=== PATIENT | female | born 1945 | race Caucasian/White ===

== ENCOUNTER 2018-03-29 16:13 | Inpatient (IN) | payer OTHER, MEDICARE ==
[2018-03-29 17:16] LABS: Absolute Lymphocytes (CBC) 0.7 K/uL (0.7-4.9); Absolute Monocytes 0.3 K/uL (0.1-1.3); Basophils % 0.3 % (0-1.3); Eosinophils % 0.4 % (0-4.4); Hematocrit 31.1 % (36.0-45.0); Lymphocytes % 9.8 % (15.3-44.8); MCH 31.4 pg (27.0-35.0); MCV 94.7 fL (80-100); MPV 7.8 fL (7.6-11.3); Monocytes % 4.7 % (3.3-12.3); RBC Red Blood Cell Count 3.29 M/uL (3.86-4.86)
[2018-03-29 17:21] LABS: Protime INR 1.01
--- NOTE | 2018-03-29 17:23 | RAD REPORT ---
EXAM DESCRIPTION: Jane Single View03/29/2018 5:16 pm CLINICAL HISTORY: Shortness of breath COMPARISON: December 2017 FINDINGS: Postsurgical changes involve the chest. The heart is enlarged Moderate left pleural effusion is equivocally mildly enlarged from a prior exam Small to moderate right pleural effusion is unchanged. Bibasilar atelectasis is seen. Upper lobes appear clear
[2018-03-29 17:44] LABS: ALT/SGPT 23 U/L (12-78); AST/SGOT 21 U/L (15-37); Albumin 2.6 g/dL (3.4-5.0); Alkaline Phosphatase 51 U/L (45-117); BUN Blood Urea Nitrogen 29 mg/dL (7-18); Bicarbonate 40 mmol/L (21-32); Bilirubin Direct 0.1 mg/dL (0-0.2); Bilirubin Total 0.5 mg/dL (0.2-1.0); CKMB Creatine Kinase MB < 1.0 ng/mL (0.3-3.6); Creatine Phosphokinase 19 U/L (26-192); Glucose Level 102 mg/dL (74-106); Magnesium 2.1 mg/dL (1.8-2.4); NT PRO-BNP 2395 pg/mL (<125); Potassium 4.8 mmol/L (3.5-5.1); Protein, Total 6.5 g/dL (6.4-8.2); Sodium Level 142 mmol/L (136-145)
[2018-03-29] MEDS ORDERED: IPRATROPIUM BROM 0.5MG/2.5ML ONE (17:59)
[2018-03-29] MEDS ORDERED: ALBUTEROL 2.5 MG/3 ML NEB SOL ONE (17:59)
--- NOTE | 2018-03-29 18:01 | ER ---
Nurse's Notes [facility] Name: Shannan Olivia Age: 72 yrs Sex: Female : 1945 Arrival Date: 03/29/2018 Time: 16:18 Bed 13 Private MD: Mickey Gates C Diagnosis: Unspecified combined systolic (congestive) and diastolic (congestive) heart failure;Orthopnea;Dyspnea, unspecified Presentation: 03/29 16:33 Presenting complaint: Patient states: has had shamir leg swelling X 2-3 days, no increased iw SOB. Transition of care: patient was not received from another setting of care. Onset of symptoms was March 27, 2018. Risk Assessment: Do you want to hurt yourself or someone else? Patient reports no desire to harm self or others. Initial Sepsis Screen: Does the patient meet any 2 criteria? No. Patient's initial sepsis screen is negative. Does the patient have a suspected source of infection? No. Patient's initial sepsis screen is negative. Care prior to arrival: None. 16:33 Method Of Arrival: Wheelchair iw 16:33 Acuity: KANU 3 iw Historical: - Allergies: 16:41 NKA; iw - Home Meds: 16:41 Vitamin C 500 mg Oral tab daily [Active]; CoQ-10 oral oral daily [Active]; senior iw multivitamin daily [Active]; aspirin 81 mg Oral TbEC 1 tab once daily [Active]; Breo Ellipta 100-25 mcg/dose inhalation dsdv 1 puff once daily [Active]; furosemide 40 mg Oral tab 1 tab once daily [Active]; carvedilol 3.125 mg oral tab daily [Active]; montelukast 10 mg oral tab 1 tab once daily [Active]; Iron CR Oral daily [Active]; mirtazapine 15 mg Oral tab 1 tab once daily [Active]; ibandronate 150 mg oral tab 1 tab once moly [Active]; spironolactone 25 mg Oral tab 1 tab once daily [Active]; prednisone 5 mg Oral tab once daily [Active]; lorazepam 0.5 mg Oral tab 1 tab 2 times per day [Active]; - PMHx: 16:41 acid reflux; Asthma; Hypertension; pleural effusion-06/2015; Pneumonia; shingles; COPD; iw CHF; - PSHx: 16:41 CHEST TUBE; valve replacement; iw - Immunization history:: Adult Immunizations up to date. - Social history:: Smoking status: Patient/guardian denies using tobacco. - Ebola Screening: : Patient negative for fever greater than or equal to 101.5 degrees Fahrenheit, and additional compatible Ebola Virus Disease symptoms Patient denies exposure to infectious person Patient denies travel to an Ebola-affected area in the 21 days before illness onset No symptoms or risks identified at this time. Screenin:20 Abuse screen: Denies threats or abuse. Nutritional screening: No deficits noted. em Tuberculosis screening: No symptoms or risk factors identified. Fall Risk None identified. Assessment: 16:40 General: Appears in no apparent distress. comfortable, Behavior is calm, cooperative, em reports increased swelling in shamir. lower extremities, denies chest pain or SOB, uses O2 at home at 2LPM. Pain: Denies pain. Neuro: Level of Consciousness is awake, alert, obeys commands, Oriented to person, place, time, situation. Cardiovascular: Capillary refill < 3 seconds Patient's skin is warm and dry. Cardiovascular: Edema is 3+ to left ankle, left foot, left toes, right ankle, right foot and right toes pitting to left ankle, left foot, left toes, right ankle, right foot and right toes Rhythm is irregular. Respiratory: Airway is patent Respiratory effort is even, unlabored, Breath sounds are clear bilaterally. Denies shortness of breath. GI: Abdomen is flat. : No signs and/or symptoms were reported regarding the genitourinary system. EENT: No signs and/or symptoms were reported regarding the EENT system. Derm: Skin is intact, Skin is pink, warm \T\ dry. Musculoskeletal: Range of motion: intact in all extremities. 17:00 Reassessment: Patient appears in no apparent distress at this time. I agree with above iw assessment by Quang Mccullough LVN. 17:37 Reassessment: Patient appears in no apparent distress at this time. Patient and/or em family updated on plan of care and expected duration. Pain level reassessed. Patient is alert, oriented x 3, equal unlabored respirations, skin warm/dry/pink. BP 120/33 R arm, 115/31 L arm, HR 83 provider notified of VS, no new orders received at this time, will continue to monitor Patient denies pain at this time. 18:35 Reassessment: Patient appears in no apparent distress at this time. Patient and/or em family updated on plan of care and expected duration. Pain level reassessed. Patient is alert, oriented x 3, equal unlabored respirations, skin warm/dry/pink. assisted pt to bedside commode, tolerated well. 19:30 Reassessment: Patient appears in no apparent distress at this time. Patient and/or aa1 family updated on plan of care and expected duration. Pain level reassessed. Patient is alert, oriented x 3, equal unlabored respirations, skin warm/dry/pink. Awaiting bed assignment. Reassessment: Patient appears in no apparent distress at this time. Patient and/or family updated on plan of care and expected duration. Pain level reassessed. Patient is alert, oriented x 3, equal unlabored respirations, skin warm/dry/pink. Bed assignment received at this time. Report called to Lucille on 4th floor. Vital Signs: 16:41 BP 139 / 38; Pulse 96; Resp 22 S; Temp 98.3(TE); Pulse Ox 94% on 2 lpm NC; Weight 52.62 iw kg; Height 5 ft. 2 in. (157.48 cm); Pain 0/10; 17:37 BP 120 / 33; Pulse 83; Resp 22; Pulse Ox 98% 2 lpm ; Pain 0/10; em 18:39 BP 106 / 34; Pulse 93; Resp 24; Pulse Ox 94% on 2 lpm NC; Pain 0/10; em 20:07 BP 112 / 54; Pulse 82; Resp 24; Pulse Ox 97% on 2 lpm NC; Pain 0/10; aa1 16:41 Body Mass Index 21.22 (52.62 kg, 157.48 cm) ED Course: 16:18 Patient arrived in ED. mr 16:18 Mickey Gates MD is Private Physician. mr 16:23 Quang Mccullough LVN is Primary Nurse. em 16:24 Han Felix PA is PHCP. cp 16:24 Ugo Rosario MD is Attending Physician. cp 16:35 Triage completed. iw 16:36 EKG done, by senior director of global commercial technology solutions. reviewed by Han ZARATE. sm3 16:41 Arm band placed on. iw 17:00 No provider procedures requiring assistance completed. Initial lab(s) drawn, by me, em sent to lab. Inserted saline lock: 20 gauge in right antecubital area, using aseptic technique. Blood collected. 17:13 XRAY Chest (1 view) In Process Unspecified. EDMS 17:20 Patient has correct armband on for positive identification. Placed in gown. Bed in low em position. Call light in reach. Adult w/ patient. 17:59 Mickey Gates MD is Hospitalizing Provider. cp 18:18 US Extremity Venous W Compression Shamir In Process Unspecified. EDMS 18:22 Ultrasound completed. Patient tolerated well. Notified CHIEF OF STAFF/TESSA blanc. sg3 20:27 Patient admitted, IV remains in place. aa1 Administered Medications: 17:57 Drug: Albuterol 2.5 mg Route: Inhalation; em 18:46 Follow up: Response: No adverse reaction em 17:57 Drug: AtroVENT Aerosol 0.5 mg Route: Inhalation; em 18:48 Follow up: Response: No adverse reaction em 18:15 Drug: Lasix 40 mg Route: IVP; Site: right antecubital; iw 18:47 Follow up: Response: No adverse reaction em Outcome: 18:01 Decision to Hospitalize by Provider. cp 20:27 Admitted to Tele accompanied by tech, family with patient, via stretcher, room 420, aa1 with oxygen, with chart, Report called to Lucille 20:27 Condition: stable 20:27 Instructed on the need for admit, Demonstrated understanding of instructions. 20:28 Patient left the ED. aa1 Signatures: Dispatcher [employer] EDMS Teri Stewart RN RN aa1 Lucille Olsen Quang Mccullough, EXECUTIVE OFFICE MANAGER EXECUTIVE OFFICE MANAGER em Cee Concepcion RN RN iw Han Felix PA PA cp Godinez, Sarah sg3 Elysia Nieves sm3 Corrections: (The following items were deleted from the chart) 16:42 16:41 BP 139 / 38; Pulse 96bpm; Resp 24bpm; Spontaneous; Pulse Ox 94% 2 lpm Nasal iw Cannula; 52.62 kg; Height 5 ft. 2 in.; BMI: 21.2; Pain 0/10; iw
--- NOTE | 2018-03-29 18:01 | EDPHYS ---
Physician Documentation [facility] Name: Shannan Olivia Age: 72 yrs Sex: Female : 1945 Arrival Date: 03/29/2018 Time: 16:18 Bed 13 Private MD: Mickey Gates C ED Physician Ugo Rosario HPI: 03/29 17:00 This 72 yrs old Female presents to ER via Wheelchair with complaints of cp Shortness Of Breath, Leg Swelling. 17:00 The patient has shortness of breath with light activity. Onset: The symptoms/episode cp began/occurred gradually. Duration: The symptoms are continuous, and are steadily getting worse. The patient's shortness of breath is aggravated by light activity, supine position, activities of daily living. Associated signs and symptoms: Pertinent negatives: chest pain, productive cough, fever, hemoptysis. Severity of symptoms: in the emergency department the symptoms are unchanged despite home interventions. Historical: - Allergies: 16:41 NKA; iw - Home Meds: 16:41 Vitamin C 500 mg Oral tab daily [Active]; CoQ-10 oral oral daily [Active]; senior iw multivitamin daily [Active]; aspirin 81 mg Oral TbEC 1 tab once daily [Active]; Breo Ellipta 100-25 mcg/dose inhalation dsdv 1 puff once daily [Active]; furosemide 40 mg Oral tab 1 tab once daily [Active]; carvedilol 3.125 mg oral tab daily [Active]; montelukast 10 mg oral tab 1 tab once daily [Active]; Iron CR Oral daily [Active]; mirtazapine 15 mg Oral tab 1 tab once daily [Active]; ibandronate 150 mg oral tab 1 tab once moly [Active]; spironolactone 25 mg Oral tab 1 tab once daily [Active]; prednisone 5 mg Oral tab once daily [Active]; lorazepam 0.5 mg Oral tab 1 tab 2 times per day [Active]; - PMHx: 16:41 acid reflux; Asthma; Hypertension; pleural effusion-06/2015; Pneumonia; shingles; COPD; iw CHF; - PSHx: 16:41 CHEST TUBE; valve replacement; iw - Immunization history:: Adult Immunizations up to date. - Social history:: Smoking status: Patient/guardian denies using tobacco. - Ebola Screening: : Patient negative for fever greater than or equal to 101.5 degrees Fahrenheit, and additional compatible Ebola Virus Disease symptoms Patient denies exposure to infectious person Patient denies travel to an Ebola-affected area in the 21 days before illness onset No symptoms or risks identified at this time. ROS: 17:05 Constitutional: Negative for body aches, chills, fever, poor PO intake. cp 17:05 Eyes: Negative for injury, pain, redness, and discharge. cp 17:05 ENT: Negative for drainage from ear(s), ear pain, sore throat, difficulty swallowing, difficulty handling secretions. 17:05 Neck: Negative for pain with movement, pain at rest, stiffness, swollen nodes, tenderness. 17:05 Cardiovascular: Positive for edema, Negative for chest pain, palpitations. 17:05 Respiratory: Positive for shortness of breath, on exertion. Negative for cough, pleurisy, sputum production, wheezing. 17:05 Abdomen/GI: Negative for abdominal pain, nausea, vomiting, and diarrhea, constipation, anorexia, black/tarry stool, rectal bleeding. 17:05 Back: Negative for pain at rest, pain with movement, radiated pain. 17:05 : Negative for urinary symptoms, flank pain. 17:05 MS/extremity: Negative for injury or acute deformity, pain, paresthesias. 17:05 Skin: Positive for rash, Negative for cellulitis. 17:05 Neuro: Negative for altered mental status, headache, syncope, near syncope, weakness. 17:05 All other systems are negative. Exam: 16:40 ECG was reviewed by the Attending Physician. cp 17:08 Constitutional: The patient appears in no acute distress, alert, awake, cp non-diaphoretic, non-toxic, well developed, well nourished. 17:08 Head/Face: Normocephalic, atraumatic. Eyes: Pupils equal round and reactive to light, cp extra-ocular motions intact. Lids and lashes normal. Conjunctiva and sclera are non-icteric and not injected. Cornea within normal limits. Periorbital areas with no swelling, redness, or edema. ENT: Nares patent. No nasal discharge, no septal abnormalities noted. Tympanic membranes are normal and external auditory canals are clear. Oropharynx with no redness, swelling, or masses, exudates, or evidence of obstruction, uvula midline. Mucous membranes moist. Neck: Trachea midline, no thyromegaly or masses palpated, and no cervical lymphadenopathy. Supple, full range of motion without nuchal rigidity, or vertebral point tenderness. No Meningismus. Chest/axilla: Normal chest wall appearance and motion. Nontender with no deformity. No lesions are appreciated. 17:08 Cardiovascular: Rate: normal, Rhythm: regular, Pulses: Pulses are 2+ in right radial artery and left radial artery. Edema: ankle edema, that is moderate, JVD: is not appreciated. 17:08 Respiratory: the patient does not display signs of respiratory distress, Respirations: labored breathing, is not present, accessory muscle usage, is absent, shallow respirations, that is mild, tachypnea, that is mild, Breath sounds: decreased breath sounds, that are moderate, are located in both bases, stridor, is not appreciated, wheezing: is not appreciated, Respiratory rate: 22 17:08 Abdomen/GI: Inspection: abdomen appears normal, Bowel sounds: active, all quadrants, Palpation: abdomen is soft and non-tender, in all quadrants, rebound tenderness, is not appreciated, voluntary guarding, is not appreciated, involuntary guarding, is not appreciated. 17:08 Back: pain, is absent, ROM is normal. 17:08 Skin: cellulitis, is not appreciated, rash can be described as erythematous, excoriated, on the bilateral lower legs. 17:08 Neuro: Orientation: to person, place \T\ time. Mentation: lucid, able to follow commands, Cerebellar function: is grossly normal, Motor: moves all fours, strength is normal, Sensation: no obvious gross deficits. Vital Signs: 16:41 BP 139 / 38; Pulse 96; Resp 22 S; Temp 98.3(TE); Pulse Ox 94% on 2 lpm NC; Weight 52.62 iw kg; Height 5 ft. 2 in. (157.48 cm); Pain 0/10; 17:37 BP 120 / 33; Pulse 83; Resp 22; Pulse Ox 98% 2 lpm ; Pain 0/10; em 18:39 BP 106 / 34; Pulse 93; Resp 24; Pulse Ox 94% on 2 lpm NC; Pain 0/10; em 20:07 BP 112 / 54; Pulse 82; Resp 24; Pulse Ox 97% on 2 lpm NC; Pain 0/10; aa1 16:41 Body Mass Index 21.22 (52.62 kg, 157.48 cm) iw MDM: 16:29 Patient medically screened. cp 17:50 Data reviewed: vital signs, nurses notes, lab test result(s), EKG, radiologic studies, cp plain films, ultrasound, and as a result, I will admit patient. 17:50 Test interpretation: by ED physician or midlevel provider: ECG, plain radiologic cp studies. 17:56 Physician consultation: A Kody JIN was called at 17:57, was contacted at 17:57, cp regarding admission, to the telemetry unit. patient's condition, would like consultation with Dr. Serna and DR He. 03/29 16:50 Order name: Basic Metabolic Panel; Complete Time: 17:45 cp 03/29 17:45 Interpretation: Normal except: CO2 40; BUN 29; GFR 62. cp 03/29 16:50 Order name: CBC with Diff; Complete Time: 17:38 cp 03/29 17:38 Interpretation: Normal except: RBC 3.29; HGB 10.3; HCT 31.1; RDW 15.7; GIL% 84.8; LYM% cp 9.8. 03/29 16:50 Order name: Ckmb; Complete Time: 17:45 cp 03/29 16:50 Order name: CPK; Complete Time: 17:45 cp 03/29 16:50 Order name: LFT's; Complete Time: 17:45 cp 03/29 17:45 Interpretation: Normal except: ALB 2.6; GLOB 3.9; A/G 0.7. cp 03/29 16:50 Order name: Magnesium; Complete Time: 17:45 cp 03/29 16:50 Order name: NT PRO-BNP; Complete Time: 17:45 cp 03/29 16:50 Order name: PT-INR; Complete Time: 17:38 cp 03/29 16:50 Order name: Ptt, Activated; Complete Time: 17:38 cp 03/29 16:50 Order name: Troponin (emerg Dept Use Only); Complete Time: 17:38 cp 03/29 18:34 Order name: Basic Metabolic Panel EDMS 03/29 18:34 Order name: Basic Metabolic Panel EDMS 03/29 18:34 Order name: CBC with Automated Diff EDMS 03/29 18:34 Order name: CBC with Automated Diff EDMS 03/29 16:50 Order name: US Extremity Venous W Compression Jose cp 03/29 16:50 Order name: XRAY Chest (1 view); Complete Time: 17:38 cp 03/29 16:50 Order name: EKG; Complete Time: 16:51 cp 03/29 18:34 Order name: Low Sodium EDMS 03/29 18:34 Order name: EKG Electrocardiogram EDMS 03/29 18:34 Order name: EKG Electrocardiogram EDMS 03/29 18:34 Order name: NT PRO-BNP EDMS 03/29 18:34 Order name: NT PRO-BNP EDMS 03/29 18:34 Order name: Troponin I EDMS 03/29 18:34 Order name: Troponin I EDMS 03/29 18:34 Order name: Troponin I EDMS 03/29 19:25 Order name: Urine Dipstick--Ancillary (enter results) mw2 03/29 19:27 Order name: Urine Dipstick-Ancillary EDMS 03/29 16:50 Order name: Cardiac monitoring; Complete Time: 17:17 cp 03/29 16:50 Order name: EKG - Nurse/Tech; Complete Time: 17:18 cp 03/29 16:50 Order name: IV Saline Lock; Complete Time: 17:18 cp 03/29 16:50 Order name: Labs collected and sent; Complete Time: 17:18 cp 03/29 16:50 Order name: O2 Per Protocol; Complete Time: 17:18 cp 03/29 16:50 Order name: O2 Sat Monitoring; Complete Time: 17:18 cp 03/29 16:50 Order name: Urine Dipstick-Ancillary (obtain specimen); Complete Time: 19:03 cp EC:40 Rate is 88 beats/min. Rhythm is regular. OK interval is normal. QRS interval is normal. cp QT interval is normal. Interpreted by me. Reviewed by me. Administered Medications: 17:57 Drug: Albuterol 2.5 mg Route: Inhalation; em 18:46 Follow up: Response: No adverse reaction em 17:57 Drug: AtroVENT Aerosol 0.5 mg Route: Inhalation; em 18:48 Follow up: Response: No adverse reaction em 18:15 Drug: Lasix 40 mg Route: IVP; Site: right antecubital; iw 18:47 Follow up: Response: No adverse reaction em Disposition: 19:01 Co-signature as Attending Physician, Ugo Rosario MD I agree with the assessment and kdr plan of care. Disposition: 03/29/18 18:01 Hospitalization ordered by Mickey Gates for Inpatient Admission. Preliminary diagnosis are Unspecified combined systolic (congestive) and diastolic (congestive) heart failure, Orthopnea, Dyspnea, unspecified. - Bed requested for Telemetry/MedSurg (Inpatient). - Status is Inpatient Admission. aa1 - Condition is Stable. - Problem is an acute exacerbation. - Symptoms have improved. UTI on Admission? No Signatures: Dispatcher [employer] EDMS Teri Stewart RN RN aa1 Ugo Rosario MD MD kdr Quang Mccullough, TEXTILE DYER TEXTILE DYER em Cee Concepcion RN RN iw Han Felix PA PA cp Corrections: (The following items were deleted from the chart) 20:07 18:01 Hospitalization Ordered by A Kody JIN for Inpatient Admission. Preliminary aa1 diagnosis is Unspecified combined systolic (congestive) and diastolic (congestive) heart failure; Orthopnea; Dyspnea, unspecified. Bed requested for Telemetry/MedSurg (Inpatient). Status is Inpatient Admission. Condition is Stable. Problem is an acute exacerbation. Symptoms have improved. UTI on Admission? No. cp 20:28 20:07 03/29/2018 18:01 Hospitalization Ordered by A Kody JIN for Inpatient Admission. aa1 Preliminary diagnosis is Unspecified combined systolic (congestive) and diastolic (congestive) heart failure; Orthopnea; Dyspnea, unspecified. Bed requested for Telemetry/MedSurg (Inpatient). Status is Inpatient Admission. Condition is Stable. Problem is an acute exacerbation. Symptoms have improved. UTI on Admission? No. aa1
[2018-03-29] MEDS ORDERED: FUROSEMIDE 40 MG/4 ML VIAL ONE (18:04)
[2018-03-29] MEDS ORDERED: ACETAMINOPHEN 500 MG TAB PO PRN (18:30)
[2018-03-29] MEDS ORDERED: ONDANSETRON 4 MG/2 ML VIAL IV PRN (18:30)
[2018-03-29] MEDS ORDERED: ALBUTEROL 2.5 MG/3 ML NEB SOL NEB PRN (18:30)
[2018-03-29] MEDS ORDERED: IPRATROPIUM BROM 0.5MG/2.5ML NEB PRN (18:30)
--- NOTE | 2018-03-29 18:37 | RAD REPORT ---
EXAM DESCRIPTION: VAS - Extrem Venous W Compress Jose - 03/29/2018 6:19 pm CLINICAL HISTORY: Bilateral lower extremity swelling COMPARISON: None. TECHNIQUE: Real-time sonographic evaluation of the bilateral lower extremity deep venous systems was performed. FINDINGS: Normal compressibility, flow augmentation, phasic flow and spontaneous flow are identified in the left and right lower extremity common femoral, superficial femoral, popliteal and posterior t ibial veins. No intraluminal filling defects seen. IMPRESSION: No DVT in either lower extremity.
--- NOTE | 2018-03-29 19:09 | EKG ---
Test Date: 2018-03-29 Test Time: 16:33:13 Rib Builder: MATY MEASUREMENT RESULTS: Intervals: Rate: 88 WV: 164 QRSD: 98 QT: 340 QTc: 411 Honeydew: P: 46 WV: 164 QRS: 71 T: 72 INTERPRETIVE STATEMENTS: Normal sinus rhythm Possible Left atrial enlargement Nonspecific ST abnormality Abnormal ECG Compared to ECG 05/13/2016 06:39:52 ST (T wave) deviation now present Electronically Signed On 03-29-18 19:08:40 CDT by Rashaun He
[2018-03-29 19:27] LABS: Urine Blood NEGATIVE (NEG); Urine Glucose NEGATIVE (NEG); Urine Protein NEGATIVE (NEG); Urine Specific Gravity 1.015 (1.005-1.030)
[2018-03-30 06:12] LABS: Absolute Monocytes 0.5 K/uL (0.1-1.3); Absolute Neutrophil 4.3 K/uL (1.8-8.0); Basophils % 0.5 % (0-1.3); Eosinophils % 2.2 % (0-4.4); Hematocrit 28.2 % (36.0-45.0); Lymphocytes % 16.3 % (15.3-44.8); MCH 32.6 pg (27.0-35.0); MCV 94.6 fL (80-100); MPV 8.1 fL (7.6-11.3); Monocytes % 7.9 % (3.3-12.3); RBC Red Blood Cell Count 2.98 M/uL (3.86-4.86)
[2018-03-30 06:37] LABS: Potassium 4.4 mmol/L (3.5-5.1)
[2018-03-30] MEDS ORDERED: LORAZEPAM 0.5 MG TABLET PO PRN (08:34)
[2018-03-30] MEDS ORDERED: FUROSEMIDE 40 MG/4 ML VIAL IV SCH ×2 (09:00→10:50)
[2018-03-30] MEDS ORDERED: predniSONE 5 MG TAB PO SCH (09:00)
[2018-03-30] MEDS: VITAMIN E MIXED PO SCH (09:00)
[2018-03-30] MEDS: UBIDECARENONE PO SCH (09:00)
[2018-03-30] MEDS ORDERED: SPIRONOLACTONE 25 MG TABLET PO SCH (09:00)
[2018-03-30] MEDS: [UNRECOGNIZED DRUG - OTHER] PO SCH (09:00)
[2018-03-30] MEDS ORDERED: HOME MED 1 EA UNK (Fluticasone/Vilanterol [Breo Ellipta 100-25 Mcg Inh] 1 PUFF) IH SCH (09:00)
[2018-03-30] MEDS: DOCOSAHEXANOIC AC/EPA 1000 MG PO SCH (10:24)
[2018-03-30] MEDS: ASCORBIC ACID 500 MG TABLET PO SCH (10:25)
[2018-03-30] MEDS: FERROUS SULFATE 325 MG TAB PO SCH (10:25)
[2018-03-30] MEDS: CARVEDILOL 3.125 MG TAB PO SCH ×2 (10:25→21:17)
[2018-03-30] MEDS: MONTELUKAST 10 MG TAB PO SCH (10:26)
[2018-03-30] MEDS: CALCIUM CARB 500MG/VIT D 200 IU TAB PO SCH ×2 (10:26→21:28)
[2018-03-30] MEDS: ENOXAPARIN 40 MG/0.4 ML SQ SCH (10:26)
[2018-03-30] MEDS: ASPIRIN 81 MG CHEWABLE TABLET PO SCH (10:26)
[2018-03-30] MEDS: MULTIVIT W/ MINERAL TAB PO SCH (10:27)
[2018-03-30] MEDS: acetaZOLAMIDE 250 MG TAB PO SCH ×2 (10:27→21:16)
--- NOTE | 2018-03-30 10:51 | P.CNS ---
Date of Consult: 03/30/18 Reason for Consult: Shortness of breath congestive heart failure Chief Complaint: Shortness of breath History of Present Illness: Patient is 72 years of age admitted with bilateral worsening lower extremity edema history of congestive heart failure also complains of anxiety spells shortness of breath is at baseline gets very anxious when she has to go out I recently prescribed a low-dose Ativan to take as as needed basis edema has declined chest x-ray abnormal bilateral pleural effusions left greater than the right BNP is also elevated Allergies No Known Allergies Allergy (Verified 03/29/18 22:47) Home Medications: Ascorbic Acid [Vitamin C*] 500 mg PO DAILY 06/04/15 Aspirin Chewable [Aspirin Chewable*] 81 mg PO DAILY 06/04/15 Ca/D3/Mag/Zinc/Margret/Devon/Mgbor [Caltrate 600+D3+Min Chew Tab] 1 each PO BID 05/11 Carvedilol [Coreg*] 3.125 mg PO BID 06/04/15 Furosemide [Lasix*] 40 mg PO DAILY 06/04/15 Ibandronate Sodium [Boniva] 150 mg PO SEECOM 06/04/15 Montelukast [Singulair*] 10 mg PO DAILY 06/04/15 Multivit with Iron,Minerals [Central Olga For Seniors] 1 each PO DAILY 06/04/15 Iron 65 mg PO DAILY 05/13/16 Ubidecarenone/Vitamin E Mixed [Oim19-Oqh E 100 mg-10 Unit Sfg] 1 each PO DAILY 05/13/16 predniSONE [Prednisone*] 5 mg PO DAILY 05/13/16 Spironolactone [Aldactone*] 25 mg PO DAILY #30 tab 05/15/16 Fluticasone/Vilanterol [Breo Ellipta 100-25 Mcg INH] 1 puff IH DAILY 03/29/18 LORazepam [Ativan*] 0.5 mg PO BID PRN 03/29/18 Mirtazapine 15 mg PO BEDTIME 03/29/18 Murdock-3 Fatty Acids [Murdock-3] 1 cap PO DAILY 03/29/18 - Past Medical/Surgical History Diabetic: No -: CHF -: Acid Reflux -: Asthma -: HTN -: Pleural Effusion -: Pnemonia -: Aortic valve replacement -: Chest tube placement- removed 2015 -: Status post VATS further right-sided effusion - Family History Father Medical History: Heart disease, Hypertension Mother Medical History: Hypertension, Diabetes, Stroke - Social History Smoking Status: Never smoker Alcohol use: No CD- Drugs: No Caffeine use: Yes Place of Residence: Home Review of Systems 10-point ROS is otherwise unremarkable General: Weakness Respiratory: Shortness of Breath Cardiovascular: Edema Physical Examination Temp Pulse Resp BP Pulse Ox 97.0 F 95 H 18 162/66 H 97 03/30/18 08:00 03/30/18 10:25 03/30/18 08:00 03/30/18 10:25 03/30/18 08:00 General: Alert, Oriented x3 HEENT: Atraumatic Neck: Supple Respiratory: Clear to auscultation bilaterally, Diminished, Crackles/rales Cardiovascular: Regular rate/rhythm, Normal S1 S2, Edema (Mild edema), Systolic murmur Gastrointestinal: Normal bowel sounds, Soft and benign Laboratory Data (last 24 hrs) 03/29/18 17:05: PT 11.9, INR 1.01, APTT 28.5 03/29/18 17:05: WBC 7.1, Hgb 10.3 L, Hct 31.1 L, Plt Count 265 03/29/18 17:05: Sodium 142, Potassium 4.8, BUN 29 H, Creatinine 0.90, Glucose 102, Magnesium 2.1, Total Bilirubin 0.5, AST 21, ALT 23, Alkaline Phosphatase 51 - Problems (1) Congestive heart failure (CHF) Current Visit: No Status: Acute Plan: Patient is 72 years of age with a history of congestive heart failure admitted in a decompensated state continue with Lasix she has bilateral pleural effusions no evidence of sepsis patient is on spironolactone Diamox also added continue with IV Lasix spironolactone and Diamox for now not a candidate for thoracentesis oxygenation satisfactory Qualifiers: Heart failure type: systolic (2) Anxiety Current Visit: Yes Status: Acute Plan: Patient is experiencing increasing anxiety I suggest adding low-dose citalopram in addition to Ativan on a p.r.n. basis
[2018-03-30] MEDS: CITALOPRAM 10 MG TABLET PO SCH (11:45)
--- NOTE | 2018-03-30 11:50 | HP ---
Date of Admission: 03/30/2018 Chief Complaint: Shortness of breath. History Of Present Illness: This is a 72-year-old female patient with history of congestive heart failure, came into emergency room with complaints of shortness of breath. The patient has noted that for last 2 weeks she is having increasing leg swelling and increasing shortness of breath to the extent that even normal day-to-day activity she is having trouble breathing and that gets her into panic attack type of situation. She has home oxygen that she uses it all the time. Because of her worsening symptoms, she came into emergency room yesterday, after she was evaluated she was admitted to the hospital. IV Lasix was started in the emergency room. At home she takes her medications regularly including her Lasix. She has not been cooking at home, has not been eating at home and majority of the time she eats outside and has not been watching her salt intake lately. The patient denies any fever, chills, body ache. She denies any expectoration or hemoptysis. Allergies: NO KNOWN ALLERGIES. Medications: List reviewed. Review of Systems: Respiratory: As mentioned above. Cardiovascular: As mentioned above. All other systems reviewed and negative. Social History: Negative for smoking and alcohol use. Family History: Significant for hypertension, diabetes, hyperlipidemia. Past Surgical History: Tonsillectomy, repair of a thoracic aortic aneurysm in 2004, and also had aortic valve replacement surgery in 2004 and it is a bioprosthetic heart wall. Past Medical History: Significant for pneumonia, pleural effusion, hypertension , hyperlipidemia, diverticulosis, osteoporosis, bronchitis. Physical Examination: Vital signs: When I saw her this morning last vital signs; temperature 97.9, pulse 77, respiratory rate 18, blood pressure 118/45, oxygen saturation 96%, height 5 feet 2 inches, weight 114 pounds. General: Awake, alert, oriented, not in distress. HEENT: Head atraumatic, normocephalic. Conjunctivae nonerythematous. Sclerae white. Mouth, no thrush or edema noted. Ears/Nose, no mass, lesion, discharge noted. Neck: Supple. No JVD, lymph nodes, bruit, thyromegaly noted. Lungs: Diminished air entry with presence of rales in lower lung brewer. It involving the lower 2/3 of lung brewer. Not any respiratory distress addressed for yet. Heart: Presence of murmur. No gallop. Abdomen: Soft, bowel sounds normal. No guarding, rigidity, tenderness, mass, hepatosplenomegaly, distention, or bruit noted. Extremities: Bilateral grade 2 to grade 3 pedal edema. Skin: No rash, ulcer, cellulitis. Lymphatics: No lymph node enlargement in neck, supraclavicular, infraclavicular region. Neuro: No focal neurological deficit. Chest: Unremarkable. External Genitalia: Deferred. Rectal: Deferred. Laboratory Data: Yesterday; white count 7.1, hemoglobin 10.3, platelets 265. This morning white count 5.9, hemoglobin 9.7, platelets 225. Yesterday; sodium 142, potassium 4.8, chloride 98, bicarb 40, BUN 29, creatinine 0.90, glucose 102. Liver function tests unremarkable. Troponin less than 0.02. ProBNP 2, 395. This morning; sodium 142, potassium 4.4, chloride 99, bicarb 44, BUN 35, creatinine 1.0, glucose 75. ProBNP 2542. Urinalysis negative. EKG; no acute ST-T changes. Normal sinus rhythm. Chest x-ray shows moderate left pleural effusion, small to moderate right pleural effusion, bibasilar atelectasis, upper lobes appear clear. Venous Doppler of lower extremity negative for DVT. Impression: 1. Congestive heart failure, chronic, diastolic, with acute exacerbation. 2. Anemia, chronic. 3. Metabolic alkalosis. 4. Prosthetic aortic valve. 5. Hypertension. 6. Hyperlipidemia. 7. Diverticulosis. 8. Osteoporosis. 9. Pleural effusion. Plan: Admit the patient to hospital for further evaluation and management of this problem. The patient is appropriate for inpatient and is expected to spend 2 midnights in hospital. We will continue home medications per order. The patient received IV Lasix, but considering her increase in bicarbonate level , we will go ahead and discontinue IV Lasix and start her on acetazolamide. We will continue oxygen. Continue other home medications per order. DVT prophylaxis will be given. Per order using Lovenox. Consult Cardiology, consult Pulmonary Service. Her last echocardiogram done at [facility] was June 2017, had shown normal ejection fraction at that time. I did discuss with her about advance directives and her was present in the room at that time. The patient has not made any decision yet, but she will discuss with her and she tells me that tomorrow when I see her, she will let me know with her decision, and she was told that until the decision is made by her she will remain full code and she understands that. Overall, prognosis is guarded. MONIE/MARISSA Voice ID: [id number] ASH
--- NOTE | 2018-03-30 11:50 | CON ---
History Of Present Illness: Mrs. Olivia came to the hospital with a 2-week history of progressiv e swelling and then later shortness of breath. She was found to have pedal edema and pulmonary edema when she came to the emergency room, she has had a Doppler study of her leg veins showing no evidenc e of deep vein thrombosis. A chest x-ray reveals prior sternotomy. There is basilar atelectasis, sm [id number] right pleural effusion, moderate left pleural effusion. The patient has a history of aortic valve surgery in 2004, a bioprosthetic valve was placed. The valve is known to be malfunctio bee, but she has not had congestive heart failure before. The valve is not very stenotic, but it se ems to have a significant amount of aortic regurgitation on the most recent echo done in my office. Medications: The patient's outpatient medications have been ascorbic acid, aspirin, Coreg, Singulair , multivitamin, ibandronate, furosemide, prednisone, vitamin E with CoQ10, iron, spironolactone, mirt azapine, fluticasone, and lorazepam. She has underlying valvular heart disease, congestive heart failure due to valvular heart disease, ob structive lung disease, and hypertension. Physical Examination: General: She appears to be her stated age of 72, 5 feet 2 inches, 114 pounds, not in distress, breat violet fairly well. Lungs: Revealed decreased breath sounds in the base. I do not appreciate egophony. No crackles. Extremities: 1 to 2+ edema. There is a lot of markings on the legs that look like even potentially could be vasculitis and almost looks like vasculitis from immunoglobulin A problems. Heart: Does reveal diastolic murmur, soft systolic murmur. Diastolic murmur is short in duration. I think we are dealing with her congestive heart failure due to worsening of the valve. She has also been eating a lot of restaurant foods and so I think there is a lot of things going on at the same t humberto. It may be time to work on her valve, but I would recommend we do a vasculitis workup, give her diuretics of course, she has already had that and benefitted from it. Thank you very much for your kind referral of Mrs. Olivia. I will follow her with you. DINO/MARISSA Voice ID: [id number] Report ID: [id number]
--- NOTE | 2018-03-30 11:53 | HP ---
Date of Admission: 03/30/2018 MONIE/MARISSA Voice ID: [id number] MTDD
[2018-03-30] MEDS: SPIRONOLACTONE 25 MG TABLET PO SCH (21:17)
[2018-03-30] MEDS: MIRTAZAPINE 15 MG TAB PO SCH (21:18)
[2018-03-31 06:32] VITALS: BMI 20.5
[2018-03-31] MEDS: VITAMIN E MIXED PO SCH (07:44)
[2018-03-31] MEDS: UBIDECARENONE PO SCH (07:44)
[2018-03-31] MEDS: [UNRECOGNIZED DRUG - OTHER] PO SCH (07:44)
[2018-03-31 08:56] LABS: Absolute Lymphocytes (CBC) 0.8 K/uL (0.7-4.9); Absolute Monocytes 0.4 K/uL (0.1-1.3); Absolute Neutrophil 4.2 K/uL (1.8-8.0); Basophils % 0.6 % (0-1.3); Eosinophils % 2.3 % (0-4.4); Hematocrit 31.1 % (36.0-45.0); Lymphocytes % 13.8 % (15.3-44.8); MCH 31.8 pg (27.0-35.0); MCV 95.2 fL (80-100); MPV 7.8 fL (7.6-11.3); RBC Red Blood Cell Count 3.27 M/uL (3.86-4.86)
[2018-03-31] MEDS: CARVEDILOL 3.125 MG TAB PO SCH ×2 (09:00→21:00)
[2018-03-31 09:17] LABS: Magnesium 2.2 mg/dL (1.8-2.4); Potassium 4.3 mmol/L (3.5-5.1)
[2018-03-31] MEDS: FERROUS SULFATE 325 MG TAB PO SCH (09:21)
[2018-03-31] MEDS: ASPIRIN 81 MG CHEWABLE TABLET PO SCH (09:21)
[2018-03-31] MEDS: DOCOSAHEXANOIC AC/EPA 1000 MG PO SCH (09:21)
[2018-03-31] MEDS: CITALOPRAM 10 MG TABLET PO SCH (09:21)
[2018-03-31] MEDS: acetaZOLAMIDE 250 MG TAB PO SCH ×2 (09:21→21:53)
[2018-03-31] MEDS: MULTIVIT W/ MINERAL TAB PO SCH (09:21)
[2018-03-31] MEDS: MONTELUKAST 10 MG TAB PO SCH (09:21)
[2018-03-31] MEDS: CALCIUM CARB 500MG/VIT D 200 IU TAB PO SCH ×2 (09:21→21:53)
[2018-03-31] MEDS: ASCORBIC ACID 500 MG TABLET PO SCH (09:22)
[2018-03-31] MEDS: ENOXAPARIN 40 MG/0.4 ML SQ SCH (09:22)
[2018-03-31] MEDS: SPIRONOLACTONE 25 MG TABLET PO SCH ×2 (09:22→21:54)
[2018-03-31] MEDS: predniSONE 10 MG TAB PO SCH (09:22)
[2018-03-31] MEDS: FUROSEMIDE 40 MG/4 ML VIAL IV SCH (09:23)
--- NOTE | 2018-03-31 13:52 | PN ---
Ms. Olivia seems to feel better. She is not dyspneic. Her leg lesions are still there. Sed rat e is 59. I am concerned she has vasculitis, could be from one of the medicines she is on. If so, it is an important to think to now. I suspect her aortic valve is really malfunctioning, which led her CHF, so I will recommend we do an echocardiogram with Doppler tomorrow. DINO/MARISSA Voice ID: [id number] Report ID: [id number]
[2018-03-31] MEDS: MIRTAZAPINE 15 MG TAB PO SCH (21:53)
[2018-04-01 07:10] LABS: Magnesium 2.3 mg/dL (1.8-2.4); Potassium 4.3 mmol/L (3.5-5.1)
[2018-04-01] MEDS: VITAMIN E MIXED PO SCH (09:00)
[2018-04-01] MEDS: [UNRECOGNIZED DRUG - OTHER] PO SCH (09:00)
[2018-04-01] MEDS: CARVEDILOL 3.125 MG TAB PO SCH (09:00)
[2018-04-01] MEDS: UBIDECARENONE PO SCH (09:00)
[2018-04-01] MEDS ORDERED: ENSURE ENLIVE 237 ML CAN PO SCH (09:00)
[2018-04-01] MEDS: FERROUS SULFATE 325 MG TAB PO SCH (09:09)
[2018-04-01] MEDS: ENOXAPARIN 40 MG/0.4 ML SQ SCH (09:09)
[2018-04-01] MEDS: DOCOSAHEXANOIC AC/EPA 1000 MG PO SCH (09:09)
[2018-04-01] MEDS: SPIRONOLACTONE 25 MG TABLET PO SCH (09:10)
[2018-04-01] MEDS: predniSONE 10 MG TAB PO SCH (09:10)
[2018-04-01] MEDS: ASPIRIN 81 MG CHEWABLE TABLET PO SCH (09:10)
[2018-04-01] MEDS: ASCORBIC ACID 500 MG TABLET PO SCH (09:10)
[2018-04-01] MEDS: CITALOPRAM 10 MG TABLET PO SCH (09:10)
[2018-04-01] MEDS: MONTELUKAST 10 MG TAB PO SCH (09:10)
[2018-04-01] MEDS: acetaZOLAMIDE 250 MG TAB PO SCH (09:10)
[2018-04-01] MEDS: CALCIUM CARB 500MG/VIT D 200 IU TAB PO SCH (09:11)
[2018-04-01] MEDS: FUROSEMIDE 40 MG/4 ML VIAL IV SCH (09:12)
[2018-04-01] MEDS: MULTIVIT W/ MINERAL TAB PO SCH (09:12)
--- NOTE | 2018-04-01 10:42 | PN ---
Date of Progress Note: 04/01/2018 Subjective: The patient was seen this morning for followup. Her was present with her at bed side. Denied any complaints. Yesterday, she did ambulate in the room, but has not ambulated outside her room. Physical Examination: Vital Signs: Reviewed. HEENT: Unremarkable. Lungs: Bilateral equal air entry with diminished air entry in both lower lung brewer, unchanged from yesterday. Not using accessory muscles of respiration and remains on continuous oxygen per nasal ca nnula at 2 L/minute with oxygen saturation 99%. Heart: Heart sounds normal. Presence of murmur unchanged. Abdomen: Soft. Bowel sounds normal. No guarding, rigidity, tenderness, or distention. Extremities: Bilateral leg edema present, but better than before. Macular pink to red rash unchange d from both legs. Laboratory Data: Sodium 138, potassium 4.3, chloride 96, bicarb 39, BUN 33, creatinine 1.0, glucose 81. ProBNP 2492. Impression: 1.Congestive heart failure, chronic, diastolic, with acute exacerbation. 2.Anemia, chronic. 3.Metabolic alkalosis, improving. 4.Rule out vasculitis. 5.Pleural effusion. Plan: We will go ahead and continue current medications. The patient remains on acetazolamide and t hat has improved that her metabolic alkalosis problem. We will go ahead and continue IV Lasix as she is currently on and continue to follow up with Dr. Serna from Pulmonary and Dr. He from Cardiology. We will request consultation from Dr. Tran for skin biops y from her rash on the leg. MONIE/MODL Voice ID: [id number] Report ID: [id number]
--- NOTE | 2018-04-01 10:42 | PN ---
Date of Progress Note: 03/31/2018 Subjective: The patient was seen this morning for followup. She was feeling a little bit better as far as shortness of breath is concerned. No new complaints or problems reported. Still has generali zed weakness. Objective: Vital Signs: Reviewed. Leg swelling is better. HEENT: Unremarkable. Lungs: Diminished air entry in lower lung brewer. No wheezing noted. Rales better than yesterday. Heart: Heart sounds normal. Presence of murmur unchanged. Abdomen: Soft. Bowel sounds normal. No guarding, rigidity, tenderness, or distention. Extremities: Bilateral leg edema present, but better than yesterday. Skin: Both lower extremity shows pink to red colored rash, macular. Laboratory Data: White count 5.5, hemoglobin 10.4, platelets 221. Sodium 140, potassium 4.3, chlori de 98, bicarb 41, BUN 31, creatinine 1, glucose 105, and magnesium 2.2. Impression: 1.Congestive heart failure. 2.Anemia. 3.Rule out vasculitis. Plan: Dr. He from Cardiology has evaluated and Cardiology consultation is appreciated. Dr. Olivier is is concerned about possibility of vasculitis. We will go ahead and request biopsy from one of our surgeon to see if they can provide that while she is in the hospital. Continue current diuretic the rapy. We will monitor intake, output, and ambulate her, and I will see her tomorrow for followup. W e will repeat blood work tomorrow morning. I did talk to the patient regarding her decision on advan ce directive and she informed me that she has communicated with her children and her and her decision is that in the event of cardiopulmonary arrest, she does not want any CPR defibrillation or ventilator support and as per my discussion with her, DNR order was phillip rodriguez in the chart. MONIE/MODL Voice ID: [id number] Report ID: [id number]
[2018-04-01] MEDS ORDERED: CEFAZOLIN/SWI 1gm 1 GM/10 ML SYR IV SCH (11:30)
--- NOTE | 2018-04-01 12:28 | ECHO ---
HEIGHT: 5 ft 2 in WEIGHT: 112 lb 3.2 oz DATE OF STUDY: 04/01/[address]: Rashaun He MD 2-DIMENSIONAL: YES M.MODE: YES DOPPLER: YES COLOR FLOW: YES TDS: PORTABLE: DEFINITY: BUBBLE STUDY: DIAGNOSIS: AORTIC VALVE PROSTHESIS ABNORMAL FUNCTION CARDIAC HISTORY: CATHERIZATION: NO SURGERY: YES PROSTHETIC VALVE: NO PACEMAKER: NO MEASUREMENTS (cm) DIASTOLIC (NORMALS) SYSTOLIC (NORMALS) IVSd 1.0 (0.6-1.2) LA Diam 4.6 (1.9-4.0) LVEF 42% LVIDd 5.3 (3.5-5.7) LVIDs 4.2 (2.0-3.5) %FS 21% LVPWd 1.0 (0.6-1.2) Ao Diam 2.4 (2.0-3.7) 2 DIMENSIONAL ASSESSMENT: RIGHT ATRIUM: NORMAL LEFT ATRIUM: DILATED RIGHT VENTRICLE: NORMAL LEFT VENTRICLE: NORMAL TRICUSPID VALVE: NORMAL MITRAL VALVE: NORMAL PULMONIC VALVE: NORMAL AORTIC VALVE: BIOPROSTHETIC WITH VEGATION PERICARDIAL EFFUSION: NONE AORTIC ROOT: NORMAL LEFT VENTRICULAR WALL MOTION: MILD GLOBAL HYPOKINESIS DOPPLER/COLOR FLOW: MODERATE AORTIC REGURGITATION COMMENTS: MILDLY DEPRESSED LEFT VENTRICULAR EJECTION FRACTION. DILATED LEFT ATRIUM. MODERATE AORTIC REGURGITATION. BIO-PROSTHETIC AORTIC VALVE WITH VEGETATION. TECHNOLOGIST: EUGENE SOTOMAYOR
--- NOTE | 2018-04-01 15:53 | CON ---
Date of Consultation: 04/01/2018 Reason For Consultation: Rule out vasculitis. History Of Present Illness: The patient is a 72-year-old female, who came in with shortness of breat h and workup revealed congestive heart failure, and she is being evaluated and treated. In the meant humberto, she was noted to have a rash and vasculitis as the differential is in the mix, and therefore I w as asked to do a skin biopsy. She is awake, alert, no acute distress. No fever or chills. Review of Systems: Otherwise unremarkable. Past Medical History: Significant for pneumonia, pleural effusion, hypertension, hyperlipidemia, ost eoporosis. Past Surgical History: Significant for tonsillectomy, adenoidectomy, repair of a thoracic aortic ane urysm, aortic valve replacement. Allergies: NO ALLERGIES. Social History: She does not smoke or drink. Family History: Significant for hypertension and diabetes. Physical Examination: Vital Signs: Her vital signs are stable. She is afebrile. General: She is awake, alert, and oriented x3. Head and Neck: No masses. Chest: Clear. Heart: S1, S2. Abdomen: Soft. Extremities: Neurovascularly intact. Neuro: Nonfocal. On the lower legs on both sides, she has a macular rash below the knees. Laboratory Data: Her sed rate is 59. White count is 5.5, H and H are 10.4 and 31.1, platelets are 2 21. INR is 1.01. Chemistry reviewed. Assessment: A 72-year-old female with a skin rash, rule out vasculitis and also congestive heart grey lure. Recommendations: The patient is scheduled to get an echocardiogram today. As far as the skin rash i s concerned, we will do a skin biopsy tomorrow under MAC anesthesia. The patient understands the ris ks, benefits, and alternatives and agrees to procedure. /MODL Voice ID: [id number] Report ID: [id number]
[2018-04-01 16:17] VITALS: O2SAT 96
[2018-04-01 17:00] VITALS: BP 120/70; TEMP 98.6
== END 2018-04-01 17:59 | disposition short-term general hospital (02) | DRG 314 ==
LOC: ER 16:13 → ERHOLD 18:30 → 4TH 20:15
PROVIDERS: ADMIT Internal Medicine; ATTEND Internal Medicine
DX: T82.6XXA Infection and inflammatory reaction due to cardiac valve prosthesis, initial encounter (principal); I50.33 Acute on chronic diastolic (congestive) heart failure; I33.0 Acute and subacute infective endocarditis; E87.3 Alkalosis; I11.0 Hypertensive heart disease with heart failure; E78.5 Hyperlipidemia, unspecified; M81.0 Age-related osteoporosis without current pathological fracture; I77.6 Arteritis, unspecified; D64.9 Anemia, unspecified; K21.9 Gastro-esophageal reflux disease without esophagitis; J44.9 Chronic obstructive pulmonary disease, unspecified; F41.9 Anxiety disorder, unspecified; Z66 Do not resuscitate; K57.90 Diverticulosis of intestine, part unspecified, without perforation or abscess without bleeding; Z99.81 Dependence on supplemental oxygen; Z95.4 Presence of other heart-valve replacement; Z79.82 Long term (current) use of aspirin; Z79.52 Long term (current) use of systemic steroids
CPT/HCPCS: 36415; 71045; 80048; 80076; 81003; 82550; 82553; 83735; 83880; 84484; 85025; 85610; 85652; 85730; 86038; 93005; 93306; 93970; 96374; 99285; J1650; J7512

== ENCOUNTER 2018-06-19 12:46 | Inpatient (IN) | payer OTHER, MEDICARE ==
--- OUTSIDE RECORDS SUMMARY | 2018-06-19 12:49 | XMS REPORT | Clinical Summary ---
:1945 Author Organization [facility] Address [address] [place] [address] Care Team Providers Name Role Phone Bridger Gates MD Primary Care Provider Allergies No Known Allergies Current Medications Prescription Sig. Disp. Refills Start Date End Date Status ascorbic acid, Take 500 mg Active vitamin C, (ascorbic by mouth acid with christine hips) daily. 500 MG tablet omega-3s/dha/epa/fis Take 1 tablet Active h oil (OMEGA 3 ORAL) by mouth daily. co-enzyme Q-10 (CO Take 50 mg by Active Q-10) 50 mg capsule mouth daily. aspirin (ECOTRIN) 81 Take 81 mg by Active MG enteric coated mouth daily. tablet fluticasone-vilanter Inhale 1 Active ol (BREO ELLIPTA) inhalations. 100-25 mcg/dose blister with device powder for inhalation furosemide (LASIX) Take 40 mg by Active 40 mg tablet mouth daily. carvedilol (COREG) Take 3.125 mg Active 3.125 MG tablet by mouth 2 (two) times a day. montelukast Take 10 mg by Active (SINGULAIR) 10 mg mouth daily. tablet mirtazapine Take 15 mg by Active (REMERON) 15 MG mouth tablet nightly. predniSONE Take 5 mg by Active (DELTASONE) 5 mg mouth daily. tablet LORAZepam (ATIVAN) Take 0.5 mg Active 0.5 MG tablet by mouth 2 (two) times a day as needed for anxiety. multivit-min/iron/fo Take 1 tablet Active lic/lutein (CENTRUM by mouth SILVER WOMEN ORAL) daily. ferrous sulfate Take 325 mg Active (IRON) 325 (65 FE) by mouth MG tablet daily. ibandronate (BONIVA) Take 150 mg Active 150 mg tablet by mouth every 30 (thirty) days. Takes every morning before breakfast, on the 1st day of the month calcium Take by Active carbonate/vitamin D3 mouth. Takes (CALTRATE WITH calcium 600mg VITAMIN D3 ORAL) plus vit D3 800 IU twice a day clopidogrel (PLAVIX) Take 1 tablet 90 tablet 0 05/09/2018 05/09/2019 Active 75 mg tablet (75 mg total) by mouth daily. spironolactone Take 25 mg by 04/12/2018 Discontinued (ALDACTONE) 25 MG mouth daily. tablet clopidogrel (PLAVIX) Take 1 tablet 30 tablet 11 04/13/2018 05/09/2018 Discontinued 75 mg tablet (75 mg total) by mouth daily. clopidogrel (PLAVIX) Take 1 tablet 90 tablet 3 05/09/2018 05/09/2018 Discontinued 75 mg tablet (75 mg total) by mouth daily. Active Problems Problem Noted Date S/P TAVR (transcatheter aortic valve replacement) 05/09/2018 S/P AVR (aortic valve replacement) 05/09/2018 Obstructive lung disease (HCC) 05/09/2018 Nonrheumatic aortic valve insufficiency 04/08/2018 Overview: Added automatically from request for surgery [id number] Endocarditis 04/01/2018 Encounters Date Type Specialty Care Team Description 05/09/2018 Multidisciplinary Visit Cardiology Korey Giron S/P TAVR ( transcatheter aortic valve replacement) (Primary Dx); MD Adam S/P AVR (aortic valve replacement); Nonrheumatic aortic valve insufficiency; Chronic bronchitis, unspecified chronic bronchitis type 05/09/2018 Orders Only Cardiology Charlene, Aortic valve disorder (Primary Dx); DIPIKA Garsia S/P TAVR (transcatheter aortic valve replacement) 04/15/2018 Orders Only Cardiology Charlene, Aortic valve disorder (Primary Dx); DIPIKA Garsia S/P TAVR (transcatheter aortic valve replacement) 04/12/2018 Patient Outreach Quality Pennie Sung RN 04/09/2018 Procedure Pass Cardiothoracic Surgery 04/09/2018 Surgery Cardiothoracic Diogo, TRANSCATHETER Surgery Francisco J AORTIC VALVE MD Vasu REPLACEMENT WITH EVOLUTPRO 29mm 04/08/2018 Anesthesia Event Cardiothoracic Valery, Surgery [place] 04/08/2018 Orders Only Cardiovascular Cecelia Tolbert, Nonrheumatic aortic RN valve insufficiency (Primary Dx) 04/01/2018 Hospital Encounter Cardiology Diogo Shortness of breath ( Primary Dx); - Francisco J Endocarditis, unspecified chronicity, unspecified endocarditis type; 04/12/2018 MD Vasu S/P TAVR (transcatheter aortic valve replacement) 04/01/2018 Intake Access N/A after 06/18/2017 Family History Medical History Relation Name Comments Heart disease Father Relation Name Status Comments Father Social History Tobacco Use Types Packs/Day Years Used Date Never Smoker Smokeless Tobacco: Never Used Alcohol Use Drinks/Week oz/Week Comments No Sex Assigned at Date Recorded Not on file Last Filed Vital Signs Vital Sign Reading Time Taken Blood Pressure 112/61 05/09/2018 4:46 PM CDT Pulse 80 05/09/2018 4:46 PM CDT Temperature 36.5 C (97.7 F) 05/09/2018 3:38 PM CDT Respiratory Rate 18 05/09/2018 3:38 PM CDT Oxygen Saturation 95% 05/09/2018 4:46 PM CDT Inhaled Oxygen Concentration - - Weight 49 kg (108 lb) 05/09/2018 4:46 PM CDT Height 157.5 cm (5' 2") 05/09/2018 4:46 PM CDT Body Mass Index 19.75 05/09/2018 4:46 PM CDT Plan of Treatment Date Type Specialty Care Team Description 04/10/2019 Multidisciplinary Visit Cardiology Korey Giron MD [address] [place] [phone] Health Maintenance Due Date Last Done Comments BREAST CANCER SCREENING 1996 COLON CANCER SCREENING 1996 SHINGRIX VACCINE (#1) 1996 ZOSTER VACCINE 2006 PNEUMOCOCCAL POLYSACCHARIDE VACCINE AGE 65 AND OVER 12/08/2011 PNEUMOCOCCAL-13 12/08/2011 INFLUENZA VACCINE 03/27/2018 Implants Implanted Type Area Service Sprinkler Helper Device Expiration Model / Identifier Date Serial / Lot Evolut Pro 29'Valve - [id number] - [id number] Cardiovascular N/A: [employer] 01/02/2020 EVOLUTPRO 29 US / Implanted: Qty: 1 on 04/09/2018 by Francisco J Lind MD Implants N/A COREVALVE [id number] / [id number] System Clsr [facility] Meditd 6fr Perclose Proglide - [id number] Surgical N/A: THEODORE [id number] / Implanted: 04/09/2018 (Quantity not on file) Implants; N/A VASCULAR / Expanders; DEVICES Extenders; Surgical Wires System Clsr Sut Meditd 6fr Perclose Proglide - [id number] Surgical N/A: THEODORE [id number] / Implanted: 04/09/2018 (Quantity not on file) Implants; N/A VASCULAR / Expanders; DEVICES Extenders; Surgical Wires Catheter Card Nimo 6fr 125cm Ep Bipolar Pace Elctrd N/A: [employer] MEDICAL [id number] / Implanted: Qty: 1 on 04/09/2018 by Francisco J Lind MD Groin / Procedures Procedure Name Priority Date/Time Associated Diagnosis Comments ECHOCARDIOGRAM 2D Routine 05/09/2018 5:23 Aortic valve disorder Results for this COMPLETE W MMODE PM CDT S/P TAVR procedure are in SPECTRAL COLOR DOPPLER (transcatheter aortic the results (45959) valve replacement) section. ECG 12-LEAD Routine 05/09/2018 3:36 S/P TAVR Results for this PM CDT (transcatheter aortic procedure are in valve replacement) the results section. HC COMPLETE BLD COUNT Routine 04/12/2018 4:25 Results for this W/AUTO DIFF AM CDT procedure are in the results section. ZZESTIMATED GFR Routine 04/12/2018 4:00 Results for this AM CDT procedure are in the results section. PHOSPHORUS LEVEL Routine 04/12/2018 4:00 Results for this AM CDT procedure are in the results section. MAGNESIUM LEVEL Routine 04/12/2018 4:00 Results for this AM CDT procedure are in the results section. BASIC METABOLIC PANEL Routine 04/12/2018 4:00 Results for this AM CDT procedure are in the results section. ECG 12-LEAD STAT 04/11/2018 7:45 Results for this PM CDT procedure are in the results section. ZZESTIMATED GFR Routine 04/11/2018 7:15 Results for this AM CDT procedure are in the results section. BASIC METABOLIC PANEL Routine 04/11/2018 7:15 Results for this AM CDT procedure are in the results section. HC COMPLETE BLD COUNT Routine 04/11/2018 6:44 Results for this W/AUTO DIFF AM CDT procedure are in the results section. XR CHEST 2 VW Routine 04/10/2018 10:19 Results for this PM CDT procedure are in the results section. POC GLUCOSE Routine 04/10/2018 6:10 Results for this PM CDT procedure are in the results section. ECG 12-LEAD STAT 04/10/2018 11:12 Results for this AM CDT procedure are in the results section. ECHOCARDIOGRAM 2D Routine 04/10/2018 10:15 Results for this COMPLETE W MMODE AM CDT procedure are in SPECTRAL COLOR DOPPLER the results (09277) section. POC GLUCOSE Routine 04/10/2018 7:57 Results for this AM CDT procedure are in the results section. ZZESTIMATED GFR Routine 04/10/2018 4:33 Results for this AM CDT procedure are in the results section. LIPID PANEL Routine 04/10/2018 4:33 Results for this AM CDT procedure are in the results section. HC COMPLETE BLD COUNT Routine 04/10/2018 4:33 Results for this W/AUTO DIFF AM CDT procedure are in the results section. BASIC METABOLIC PANEL Routine 04/10/2018 4:33 Results for this AM CDT procedure are in the results section. POC GLUCOSE Routine 04/09/2018 8:40 Results for this PM CDT procedure are in the results section. ECG PRE/POST OP Routine 04/09/2018 1:48 Results for this PM CDT procedure are in the results section. CV AORTOGRAM ABDOMINAL Routine 04/09/2018 9:30 Nonrheumatic aortic Results for this AORTA AM CDT valve insufficiency procedure are in the results section. CV LEFT HEART CATH Routine 04/09/2018 9:30 Nonrheumatic aortic Results for this AM CDT valve insufficiency procedure are in the results section. CV ANGIOGRAM THORACIC Routine 04/09/2018 9:30 Nonrheumatic aortic Results for this AORTA AM CDT valve insufficiency procedure are in the results section. EP TEMPORARY LEAD Routine 04/09/2018 9:30 Nonrheumatic aortic Results for this INSERTION AM CDT valve insufficiency procedure are in the results section. CV TAVR FOR CARDIOLOGY Routine 04/09/2018 9:30 Nonrheumatic aortic Results for this AM CDT valve insufficiency procedure are in the results section. GLUCOSE LEVEL, SYRINGE STAT 04/09/2018 8:55 Results for this AM CDT procedure are in the results section. HEMOGLOBIN, SYRINGE STAT 04/09/2018 8:55 Results for this AM CDT procedure are in the results section. IONIZED CALCIUM, STAT 04/09/2018 8:55 Results for this ARTERIAL AM CDT procedure are in the results section. SODIUM LEVEL, SYRINGE STAT 04/09/2018 8:55 Results for this AM CDT procedure are in the results section. POTASSIUM, SYRINGE STAT 04/09/2018 8:55 Results for this AM CDT procedure are in the results section. ARTERIAL BLOOD GAS STAT 04/09/2018 8:55 Results for this AM CDT procedure are in the results section. ANESTHESIA FRANCISCA Routine 04/09/2018 8:31 AM CDT Procedure Note - Olaf Rosas MD - 04/09/2018 8:31 AM CDT Procedure Performed: FRANCISCA Start Time: End Time: Preanesthesia Checklist: Patient identified, IV assessed, risks and benefits discussed, monitors and equipment assessed, procedure being performed at surgeon's request, anesthesia consent obtained. General Procedure Information Diagnostic Indications for Echo: assessment of surgical repair and hemodynamic monitoring Physician Requesting Echo: FRANCISCO J LIND Location performed: OR Intubated Bite block placed Heart visualized Probe Insertion: Easy Probe Type: Multiplane Modalities: Color flow mapping, continuous wave Doppler and pulse wave Doppler Echocardiographic and Doppler Measurements Ventricles Right Ventricle: Cavity size normal. Thrombus not present. Global function normal. Left Ventricle: Cavity size dilated. Thrombus not present. Global Function mildly impaired. Ejection Fraction 35%. Valves Aortic Valve: Annulus calcified. Stenosis not present. Regurgitation +4. Leaflets vegetative. Leaflet motions flail. Specific leaflet segments with abnormal motions are described in the following comments: probably lt c cusp vs vegetation Mitral Valve: Annulus normal. Stenosis not present. Regurgitation absent. Leaflets normal. Leaflet motions normal. Tricuspid Valve: Annulus normal. Stenosis not present. Regurgitation absent. Leaflets normal. Leaflet motions normal. Pulmonic Valve: Annulus normal. Stenosis not present. Regurgitation absent. Other Valve Findings: Trivial MR and TR Aorta Ascending Aorta: Size normal. Plaque thickness less than 3 mm. Mobile plaque not present. Aortic Arch: Size normal. Plaque thickness less than 3 mm. Mobile plaque not present. Descending Aorta: Size normal. Plaque thickness less than 3 mm. Mobile plaque not present. Atria Right Atrium: Size normal. Thrombus not present. Tumor not present. Device not present. Left Atrium: Size normal. Thrombus not present. Tumor not present. Device not present. Left atrial appendage normal. Septa Atrial Septum: Intra-atrial septal morphology normal. Ventricular Septum: Intra-ventricular septum morphology normal. Other Findings Pericardium: pericardial effusion Pleural Effusion: bilateral Anesthesia Information Performed Personally Anesthesiologist: OLAF ROSAS Echocardiogram Comments: S/P TAVR with a 29 mm tissue valve: LV: No new RWMA, LVEF 35%, NO CHANGE FROM PREOP, SLIGHT DECREASE IN LV cavity size RV. V: mpg 5 mmHg, Mild AI Tiny pericardial effusion, same as preop ARTERIAL LINE Routine 04/09/2018 8:08 AM CDT Procedure Note - Olaf Rosas MD - 04/09/2018 8:08 AM CDT Arterial line Performed by: MARICRUZ SANCHES Authorized by: MARICRUZ SANCHES Patient Location: Pre-op Start Time: 04/09/2018 6:55 AM Staff: Anesthesiologist: OLAF ROSAS Resident/WATCH SUPERVISOR/AA: MARICRUZ SANCHES Performed by: Resident/WATCH SUPERVISOR and resident/WATCH SUPERVISOR/AA Pre-procedure: patient identified, IV checked, site and side verified, risks and benefits discussed, procedure verified, surgical consent complete, patient position confirmed, monitors and equipment checked and pre-op evaluation complete MSBT: antiseptic used, all elements of maximal sterile barrier technique followed, hand hygiene performed, cap/gown used by other personnel and solutions labeled Indications: Indications: multiple ABGs and hemodynamic monitoring Anesthesia: Anesthesia: Local infiltration Procedure Details: Arterial Line placement: Placed pre-induction Line placement site: Radial Line placement side: Right Arterial line gauge: 20 G Number of attempts: 2 Ultrasound guidance used: Yes Post-procedure: Post-procedure: Sterile dressing applied Post procedure circulation, sensation, movement: Normal Patient tolerance: Patient tolerated the procedure well with no immediate complications Notes: 1st attempt with palpation, unsuccessful. 2nd attempt with US with no difficulty, but noticeable bleeding around insertion site. Rewired for arrow catheter, tubing changed. No obvious disconnection or damage to catheter itself. Bleeding improved with pressure. PA AN ELECTIVE ENDOTRACHEAL AIRWAY Routine 04/09/2018 8:08 AM CDT Procedure Note - Olaf Rosas MD - 04/09/2018 8:08 AM CDT Airway Performed by: MARICRUZ SANCHES Authorized by: MARICRUZ SANCHES Location: OR Urgency: Elective Difficult Airway: No Anesthesiologist: OLAF ROSAS Resident/WATCH SUPERVISOR/AA: MARICRUZ SANCHES Performed by: resident/WATCH SUPERVISOR and resident/WATCH SUPERVISOR/AA Preoxygenated with 100% O2: Yes C-spine Precautions Maintained Throughout: Yes Mask Ventilation: Easy mask Final Airway Type: Endotracheal airway Final Endotracheal Airway: ETT Cuffed: Yes Technique Used: Direct laryngoscopy Insertion Site: Oral Blade Type: Ziegler Laryngoscope Blade/Videolaryngoscope Blade Size: 2 ETT Size (mm): 7.0 Cuff at minimum occlusion pressure: Yes Measured from: Lips ETT to Lips (cm): 20 Placement Verified by: CO2 detection, direct visualization and equal breath sounds Laryngoscopic view: Grade I - full view of glottis Rapid Sequence Induction (RSI): No Modified RSI: No Number of Attempts at Approach: 1 GLUCOSE LEVEL, SYRINGE STAT 04/09/2018 8:00 AM Results for this CDT procedure are in the results section. IONIZED CALCIUM, STAT 04/09/2018 8:00 AM Results for this ARTERIAL CDT procedure are in the results section. SODIUM LEVEL, SYRINGE STAT 04/09/2018 8:00 AM Results for this CDT procedure are in the results section. HEMOGLOBIN, SYRINGE STAT 04/09/2018 8:00 AM Results for this CDT procedure are in the results section. POTASSIUM, SYRINGE STAT 04/09/2018 8:00 AM Results for this CDT procedure are in the results section. ARTERIAL BLOOD GAS STAT 04/09/2018 8:00 AM Results for this CDT procedure are in the results section. GLUCOSE LEVEL, SYRINGE STAT 04/09/2018 7:51 AM Results for this CDT procedure are in the results section. IONIZED CALCIUM, STAT 04/09/2018 7:51 AM Results for this ARTERIAL CDT procedure are in the results section. HEMOGLOBIN, SYRINGE STAT 04/09/2018 7:51 AM Results for this CDT procedure are in the results section. POTASSIUM, SYRINGE STAT 04/09/2018 7:51 AM Results for this CDT procedure are in the results section. SODIUM LEVEL, SYRINGE STAT 04/09/2018 7:51 AM Results for this CDT procedure are in the results section. ARTERIAL BLOOD GAS STAT 04/09/2018 7:51 AM Results for this CDT procedure are in the results section. POC GLUCOSE Routine 04/09/2018 5:16 AM Results for this CDT procedure are in the results section. ZZESTIMATED GFR STAT 04/09/2018 3:53 AM Results for this CDT procedure are in the results section. HC COMPLETE BLD COUNT STAT 04/09/2018 3:53 AM Results for this W/AUTO DIFF CDT procedure are in the results section. PHOSPHORUS LEVEL STAT 04/09/2018 3:53 AM Results for this CDT procedure are in the results section. MAGNESIUM LEVEL STAT 04/09/2018 3:53 AM Results for this CDT procedure are in the results section. BASIC METABOLIC PANEL STAT 04/09/2018 3:53 AM Results for this CDT procedure are in the results section. PREPARE RBC Timed 04/08/2018 5:27 PM Results for this CDT procedure are in the results section. TYPE AND SCREEN Timed 04/08/2018 5:27 PM Results for this CDT procedure are in the results section. SPIROMETRY PRE AND POST Routine 04/08/2018 1:00 PM Shortness of Results for this BRONCHODILATORS, CDT breath procedure are in DIFFUSION the results section. ZZESTIMATED GFR Routine 04/08/2018 4:00 AM Results for this CDT procedure are in the results section. MAGNESIUM LEVEL Routine 04/08/2018 4:00 AM Results for this CDT procedure are in the results section. COMPREHENSIVE METABOLIC Routine 04/08/2018 4:00 AM Results for this PANEL CDT procedure are in the results section. ZZESTIMATED GFR Routine 04/07/2018 4:00 AM Results for this CDT procedure are in the results section. MAGNESIUM LEVEL Routine 04/07/2018 4:00 AM Results for this CDT procedure are in the results section. COMPREHENSIVE METABOLIC Routine 04/07/2018 4:00 AM Results for this PANEL CDT procedure are in the results section. ZZESTIMATED GFR Routine 04/06/2018 4:00 AM Results for this CDT procedure are in the results section. MAGNESIUM LEVEL Routine 04/06/2018 4:00 AM Results for this CDT procedure are in the results section. COMPREHENSIVE METABOLIC Routine 04/06/2018 4:00 AM Results for this PANEL CDT procedure are in the results section. HEMOGLOBIN A1C Routine 04/05/2018 3:05 PM Results for this CDT procedure are in the results section. ECHOCARDIOGRAM Routine 04/04/2018 10:17 AM Results for this TRANSESOPHAGEAL W CDT procedure are in DOPPLER COLORFLOW the results section. ZZESTIMATED GFR Routine 04/04/2018 5:10 AM Results for this CDT procedure are in the results section. B NATRIURETIC PEPTIDE Routine 04/04/2018 5:10 AM Results for this CDT procedure are in the results section. BASIC METABOLIC PANEL Routine 04/04/2018 5:10 AM Results for this CDT procedure are in the results section. XR CHEST 2 VW Routine 04/03/2018 3:26 PM Results for this CDT procedure are in the results section. B NATRIURETIC PEPTIDE Routine 04/03/2018 5:00 AM Results for this CDT procedure are in the results section. HC COMPLETE BLD COUNT Routine 04/03/2018 5:00 AM Results for this W/AUTO DIFF CDT procedure are in the results section. ZZESTIMATED GFR Routine 04/03/2018 4:00 AM Results for this CDT procedure are in the results section. PHOSPHORUS LEVEL Routine 04/03/2018 4:00 AM Results for this CDT procedure are in the results section. MAGNESIUM LEVEL Routine 04/03/2018 4:00 AM Results for this CDT procedure are in the results section. BASIC METABOLIC PANEL Routine 04/03/2018 4:00 AM Results for this CDT procedure are in the results section. XR CHEST 1 VW STAT 04/02/2018 4:29 PM Results for this CDT procedure are in the results section. FUNGUS SMEAR Routine 04/02/2018 4:17 PM Results for this CDT procedure are in the results section. AFB STAIN Routine 04/02/2018 4:17 PM Results for this CDT procedure are in the results section. GRAM STAIN Routine 04/02/2018 4:17 PM Results for this CDT procedure are in the results section. FUNGUS CULTURE Routine 04/02/2018 4:17 PM Results for this CDT procedure are in the results section. AFB CULTURE Routine 04/02/2018 4:17 PM Results for this CDT procedure are in the results section. ANAEROBIC CULTURE Routine 04/02/2018 4:17 PM Results for this CDT procedure are in the results section. AEROBIC CULTURE Routine 04/02/2018 4:17 PM Results for this CDT procedure are in the results section. US THORACENTESIS WITH Routine 04/02/2018 4:15 PM Results for this IMAGING CDT procedure are in the results section. CV CTA TAVR WORKUP (CTA Routine 04/02/2018 2:50 PM Results for this CORONARY,CTA THORACIC CDT procedure are in AORTA,CTA ABDOMEN the results PELVIS) W CONTRAST section. US CAROTID DUPLEX Routine 04/02/2018 2:10 PM Results for this BILATERAL CDT procedure are in the results section. ECHOCARDIOGRAM 2D Routine 04/02/2018 9:14 AM Results for this COMPLETE W MMODE CDT procedure are in SPECTRAL COLOR DOPPLER the results (53812) section. ZZESTIMATED GFR Routine 04/02/2018 4:00 AM Results for this CDT procedure are in the results section. HC COMPLETE BLD COUNT Routine 04/02/2018 4:00 AM Results for this W/AUTO DIFF CDT procedure are in the results section. PHOSPHORUS LEVEL Routine 04/02/2018 4:00 AM Results for this CDT procedure are in the results section. MAGNESIUM LEVEL Routine 04/02/2018 4:00 AM Results for this CDT procedure are in the results section. BASIC METABOLIC PANEL Routine 04/02/2018 4:00 AM Results for this CDT procedure are in the results section. URINALYSIS SCREEN AND Routine 04/01/2018 10:00 PM Results for this MICROSCOPY, WITH REFLEX CDT procedure are in TO CULTURE the results section. URINE CULTURE Routine 04/01/2018 10:00 PM Results for this CDT procedure are in the results section. XR CHEST 1 VW PORTABLE STAT 04/01/2018 8:33 PM Results for this CDT procedure are in the results section. PROTHROMBIN TIME WITH Routine 04/01/2018 8:20 PM Results for this INR CDT procedure are in the results section. PARTIAL THROMBOPLASTIN Routine 04/01/2018 8:20 PM Results for this TIME (PTT) CDT procedure are in the results section. HC COMPLETE BLD COUNT Routine 04/01/2018 8:20 PM Results for this W/AUTO DIFF CDT procedure are in the results section. BLOOD CULTURE, AEROBIC & Routine 04/01/2018 8:00 PM Results for this ANAEROBIC CDT procedure are in the results section. BLOOD CULTURE, AEROBIC & Routine 04/01/2018 8:00 PM Results for this ANAEROBIC CDT procedure are in the results section. ZZESTIMATED GFR Routine 04/01/2018 7:22 PM Results for this CDT procedure are in the results section. T4, FREE Routine 04/01/2018 7:22 PM Results for this CDT procedure are in the results section. THYROID STIMULATING Routine 04/01/2018 7:22 PM Results for this HORMONE CDT procedure are in the results section. LIPID PANEL Routine 04/01/2018 7:22 PM Results for this CDT procedure are in the results section. HEPATIC FUNCTION PANEL Routine 04/01/2018 7:22 PM Results for this CDT procedure are in the results section. BASIC METABOLIC PANEL Routine 04/01/2018 7:22 PM Results for this CDT procedure are in the results section. after 06/18/2017 Results Echocardiogram complete w contrast and 3D if needed (05/09/2018 5:23 PM) Narrative Performed At [facility] Echocardiography Report Pat.Name:BILL OLIVIA Pat.ID:[id number] St.Date: 05/09/2018 Refer.MD:KOREY GIRON MD Exam Time: 4:40:00 PMStudy Type:Routine Echo Height:62inWeight: 108lb BSA: 1.47 m2 DOBAge:1945,72Y Sex: FEMALEBP:112/61 HR:80 bpm Sonogrphr: Viola Diez, RCS, RCCS, CCT Pat. Stat.:OutpatientRoom:[facility] TapeVol: [facility], Study Status:Final Echo Event ID:[id number] Order ID:[id number] Reason for Study:S/P AVR History / Clinical:Hypertension, AORTIC VALVE REPLACEMENT Procedures:2D Echo, Colorflow Doppler Race: SUMMARY: LV size is normal with mildly depressed function. Normal RV size and function. Well-seated bioprosthetic aortic valve is visualized. No paravalvular aortic regurgitation. Normal prosthetic valve velocity and gradient. LV filling pressure is normal. Pleural effusion is noted. Trace posterior pericardial effusion. FINDINGS: LV: LV size is normal. There is mild eccentric LV hypertrophy. LVEF is mildly depressed. Overall wall motion is normal. EstimatedEF is 45-49%. RV: RV size is normal. RV systolic function is normal. LA: LA volume is mildly enlarged. RA: RA size is normal. AO: Aortic root diameter is normal. FRANCISCO J: Trace posterior pericardial effusion. PLE:Pleural effusion is present. AV: Well-seated bioprosthetic aortic valve is visualized. No paravalvularaortic regurgitation. Normal prosthetic valve velocityand gradient. Surgical Prosthetic AV Doppler velocityindex is 0.9 (normal>0.25). MV: Mild thickening of mitral leaflets. Mild mitral annular calcification.Mild mitral regurgitation. PV: No structural PV abnormalities noted. TV: No structural TV abnormalities noted. A trace of tricuspid regurgitation Hunter: LV relaxation is impaired. LV filling pressure is normal. Other:Estimated PA systolic pressure is 23-28 mmHg, assuming a meanRAP of 0-5 mmHg. MEASUREMENTS: 2D Parasternal Long [place] LVOT 1.8 cmLA Ds4.1 cm LVIDd4.3 cmIndex2.9 cm/m Ao An2 cm LVIDs2.9 cmAo Rtd 2.3 cm Index1.6 cm/m LV%fs 33.3 % LV Gplh451.9 g(87-129) IVSd 0.9 cmLVM Index 78.8 g/m2 LVPWd0.8 cmRWT0.4 LA Volume LA Vol52 faAjpbf13.4 ml/m DOPPLER LVOT Stroke Vol LVOT 1.8 cmLVOT CO4 l/min LVOT TVI19.9 cmLVOT CI2.7 l/m/m2 LVOT Tm282 gnzhZW14 bpm LVOT SV 50.8 ml AV For Flow/Valve Assess AV pkVel 132.7 cm/s (100-170) AV ET274 msec AV mnVel77.3 cm/Jewel AC/ET 0.4 AV pkPG7 mmHgAV TVI21.1 cm AV Mean G3 mmHgAVpkAcRt 2160.3 cm/s2 AV AC 97 msec (83-118) MV E/A Ratio MV pkE87.4 cm/s (60-130) MV E/A 0.7 MV pkA 125 cm/s LV Diastology E/Em Ratio LaLat E/Em12.9 TV Pressure Gradient TV PkVel 241.2 cm/sTV PG 23.3 mmHg Signed 05/10/2018 11:38 PM Teena Bryant M.D. Procedure Note Interface, Radiology Results In - 05/10/2018 11:38 PM CDT [facility] Echocardiography Report Pat.Name: BILL OLIVIA Pat.ID: [id number] St.Date: 05/09/2018 Refer.MD: KOREY GIRON MD Exam Time: 4:40:00 PM Study Type:Routine Echo Height: 62in Weight: 108lb BSA: 1.47 m2 Age: 4 1945,72Y Sex: FEMALE BP: 112/61 HR: 80 bpm Sonogrphr: Viola Diez, RCS, RCCS, CCT Pat. Stat.:Outpatient Room: [address] Vol: [facility], Study Status:Final Echo Event ID:[id number] Order ID: [id number] Reason for Study:S/P AVR History / Clinical:Hypertension, AORTIC VALVE REPLACEMENT Procedures:2D Echo, Colorflow Doppler Race: SUMMARY: LV size is normal with mildly depressed function. Normal RV size and function. Well-seated bioprosthetic aortic valve is visualized. No paravalvular aortic regurgitation. Normal prosthetic valve velocity and gradient. LV filling pressure is normal. Pleural effusion is noted. Trace posterior pericardial effusion. FINDINGS: LV: LV size is normal. There is mild eccentric LV hypertrophy. LV EF is mildly depressed. Overall wall motion is normal. Estimated EF is 45-49%. RV: RV size is normal. RV systolic function is normal. LA: LA volume is mildly enlarged. RA: RA size is normal. AO: Aortic root diameter is normal. FRANCISCO J: Trace posterior pericardial effusion. PLE: Pleural effusion is present. AV: Well-seated bioprosthetic aortic valve is visualized. No paravalvular aortic regurgitation. Normal prosthetic valve velocity and gradient. Surgical Prosthetic AV Doppler velocity index is 0.9 (normal>0.25). MV: Mild thickening of mitral leaflets. Mild mitral annular calcification. Mild mitral regurgitation. PV: No structural PV abnormalities noted. TV: No structural TV abnormalities noted. A trace of tricuspid regurgitation Hunter: LV relaxation is impaired. LV filling pressure is normal. Other: Estimated PA systolic pressure is 23-28 mmHg, assuming a mean RAP of 0-5 mmHg. MEASUREMENTS: 2D Parasternal Long [place] LVOT 1.8 cm LA Ds 4.1 cm LVIDd 4.3 cm Index 2.9 cm/m Ao An 2 cm LVIDs 2.9 cm Ao Rtd 2.3 cm Index 1.6 cm/m LV%fs 33.3 % LV Mass 115.9 g (87-129) IVSd 0.9 cm LVM Index 78.8 g/m2 LVPWd 0.8 cm RWT 0.4 LA Volume LA Vol 52 ml Index 35.4 ml/m DOPPLER LVOT Stroke Vol LVOT 1.8 cm LVOT CO 4 l/min LVOT TVI 19.9 cm LVOT CI 2.7 l/m/m2 LVOT Tm 282 msec HR 79 bpm LVOT SV 50.8 ml AV For Flow/Valve Assess AV pkVel 132.7 cm/s (100-170) AV ET 274 msec AV mnVel 77.3 cm/s AV AC/ET 0.4 AV pkPG 7 mmHg AV TVI 21.1 cm AV Mean G 3 mmHg AVpkAcRt 2160.3 cm/s2 AV AC 97 msec (83-118) MV E/A Ratio MV pkE 87.4 cm/s (60-130) MV E/A 0.7 MV pkA 125 cm/s LV Diastology E/Em Ratio LaLat E/Em 12.9 TV Pressure Gradient TV PkVel 241.2 cm/s TV PG 23.3 mmHg Signed 05/10/2018 11:38 PM Teena Bryant M.D. Performing Organization Address [facility] Phone Number [facility] [address] [place] [address] ECG 12 lead (05/09/2018 3:36 PM)Only the most recent of3 resultswithin the time period is included. Ventricular rate 89 [facility] MUSE Atrial rate 89 [facility] PA interval 154 [facility] QRSD interval 88 [facility] M[facility] QT interval 350 [facility] QTC interval 425 [facility] M[facility] P axis 1 38 [facility] QRS axis 1 86 [facility] T wave axis 20 [facility] EKG impression Normal sinus rhythm-Normal ECG-In automated [facility] comparison with ECG of 11-APR-2018 19:45,-Questionable change in QRS axis- Performing Organization Address [facility] Phone Number [facility] [address] [place] [address] CBC with platelet and differential (04/12/2018 4:25 AM)Only the most recent of7 resultswithin the time period is included. WBC 7.64 4.50 - 11.00 k/uL [facility] DEPARTMENT OF PATHOLOGY AND GENOMIC MEDICINE RBC 2.49 (L) 4.20 - 5.50 m/uL [facility] DEPARTMENT OF PATHOLOGY AND GENOMIC MEDICINE HGB 7.6 (L) 12.0 - 16.0 g/dL [facility] DEPARTMENT OF PATHOLOGY AND GENOMIC MEDICINE HCT 25.2 (L) 37.0 - 47.0 % [facility] DEPARTMENT OF PATHOLOGY AND GENOMIC MEDICINE MCV 101.2 (H) 82.0 - 100.0 fL [facility] DEPARTMENT OF PATHOLOGY AND GENOMIC MEDICINE MCH 30.5 27.0 - 34.0 pg [facility] DEPARTMENT OF PATHOLOGY AND GENOMIC MEDICINE MCHC 30.2 (L) 31.0 - 37.0 g/dL [facility] DEPARTMENT OF PATHOLOGY AND GENOMIC MEDICINE RDW - SD 56.3 (H) 37.0 - 55.0 fL [facility] DEPARTMENT OF PATHOLOGY AND GENOMIC MEDICINE MPV 9.8 8.8 - 13.2 fL [facility] DEPARTMENT OF PATHOLOGY AND GENOMIC MEDICINE Platelet count 222 150 - 400 k/uL [facility] DEPARTMENT OF PATHOLOGY AND GENOMIC MEDICINE Nucleated RBC 0.00 /100 WBC [facility] DEPARTMENT OF PATHOLOGY AND GENOMIC MEDICINE Neutrophils 73.3 (H) 39.0 - 69.0 % [facility] DEPARTMENT OF PATHOLOGY AND GENOMIC MEDICINE Lymphocytes 15.7 (L) 25.0 - 45.0 % [facility] DEPARTMENT OF PATHOLOGY AND GENOMIC MEDICINE Monocytes 8.8 0.0 - 10.0 % [facility] DEPARTMENT OF PATHOLOGY AND GENOMIC MEDICINE Eosinophils 1.4 0.0 - 5.0 % [facility] DEPARTMENT OF PATHOLOGY AND GENOMIC MEDICINE Basophils 0.4 0.0 - 1.0 % [facility] DEPARTMENT OF PATHOLOGY AND GENOMIC MEDICINE Immature granulocytes 0.4Comment: 0.0 - 1.0 % [facility] DEPARTMENT OF "Immature PATHOLOGY AND GENOMIC granulocytes" MEDICINE (promyelocytes, myelocytes, metamyelocytes) Specimen Blood Performing Organization Address City/State/Zipcode Phone Number [facility] DEPARTMENT OF PATHOLOGY AND [address] [place] [address] [facility] Estimated GFR (04/12/2018 4:00 AM)Only the most recent of11 resultswithin the time period is included. GFR Non Af Amer 71 mL/min/1.73 m2 [facility] DEPARTMENT OF PATHOLOGY AND GENOMIC MEDICINE GFR Af Amer 86 mL/min/1.73 m2 [facility] DEPARTMENT OF Comment: PATHOLOGY AND GENOMIC Chronic kidney disease: <60 mL/min/1.73m2 MEDICINE Kidney failure: <15 mL/min/1.73m2 The estimated GFR is calculated from the IDMS-traceable Modification of Diet in Renal Disease Equation. The accuracy of the calculation is poor when the creatinine is normal. Calculated values >90 mL/min/1.73m2 are not reported. This equation has not been validated in children (<18 years), women, the elderly (>70 years), or ethnic groups other than Caucasians and Americans. Specimen Plasma specimen Performing Organization Address City/State/Zipcode Phone Number [facility] DEPARTMENT OF PATHOLOGY AND [address] [place] [address] Phosphorus level (04/12/2018 4:00 AM)Only the most recent of4 resultswithin the time period is included. Phosphorus 2.3 (L) 2.4 - 4.5 mg/dL [facility] DEPARTMENT OF PATHOLOGY AND GENOMIC MEDICINE Specimen Plasma specimen Performing Organization Address [facility] Phone Number [facility] DEPARTMENT OF PATHOLOGY AND [address] [place] [address] Magnesium level (04/12/2018 4:00 AM)Only the most recent of7 resultswithin the time period is included. Magnesium 2.2 1.6 - 2.4 mg/dL [facility] DEPARTMENT OF PATHOLOGY AND GENOMIC MEDICINE Specimen Plasma specimen Performing Organization Address [facility] Phone Number [facility] DEPARTMENT OF PATHOLOGY AND [address] [place] [address] Basic metabolic panel (04/12/2018 4:00 AM)Only the most recent of8 resultswithin the time period is included. Sodium 142 135 - 148 mEq/L [facility] DEPARTMENT OF PATHOLOGY AND GENOMIC MEDICINE Potassium 4.1 3.5 - 5.0 mEq/L [facility] DEPARTMENT OF PATHOLOGY AND GENOMIC MEDICINE Chloride 99 98 - 112 mEq/L [facility] DEPARTMENT OF PATHOLOGY AND GENOMIC MEDICINE CO2 36 (H) 24 - 31 mEq/L [facility] DEPARTMENT OF PATHOLOGY AND GENOMIC MEDICINE Anion gap 7@ANIO 7 - 15 mEq/L [facility] DEPARTMENT OF PATHOLOGY AND GENOMIC MEDICINE BUN 25 (H) 8 - 23 mg/dL [facility] DEPARTMENT OF PATHOLOGY AND GENOMIC MEDICINE Creatinine 0.8 0.5 - 0.9 mg/dL [facility] DEPARTMENT OF PATHOLOGY AND GENOMIC MEDICINE Glucose 79 65 - 99 mg/dL [facility] DEPARTMENT OF PATHOLOGY AND GENOMIC MEDICINE Calcium 8.6 (L) 8.8 - 10.2 mg/dL [facility] DEPARTMENT OF PATHOLOGY AND GENOMIC MEDICINE Specimen Plasma specimen Performing Organization Address [facility] Phone Number [facility] DEPARTMENT OF PATHOLOGY AND [address] [place] [address] XR Chest 2 Vw (04/10/2018 10:19 PM)Only the most recent of2 resultswithin the time period is included. Narrative Performed At Study:XR CHEST 2 VW [facility] History: pleural effusion COMPARISON: April 03, 2018 IMPRESSION: 2 views of the chest. Small bowel pleural effusions similar to the prior exam. Pleural thickening in the right apex stable. I aortic root stent in place. Mediastinal wires intact. No pneumothorax. Cardiac silhouette is stable.Visualized osseous structures arestable. [facility]-[id number] Procedure Note Interface, Radiology Results Incoming - 04/10/2018 10:58 PM CDT Study:XR CHEST 2 VW History: pleural effusion COMPARISON: April 03, 2018 IMPRESSION: 2 views of the chest. Small bowel pleural effusions similar to the prior exam. Pleural thickening in the right apex stable. I aortic root stent in place. Mediastinal wires intact. No pneumothorax. Cardiac silhouette is stable. Visualized osseous structures are stable. [facility]-[id number] Performing Organization Address [facility] Phone Number [facility] [address] [place] [address] POC glucose (04/10/2018 6:10 PM)Only the most recent of4 resultswithin the time period is included. POC glucose 84 65 - 99 mg/dL [facility] DEPARTMENT OF PATHOLOGY Comment: AND GENOMIC MEDICINE [facility] Notified RN Meter ID: [id number] Examination Grader: Noé Garsia Performing Organization Address [facility] Phone Number [facility] DEPARTMENT OF PATHOLOGY AND [address] [place] [address] MEDICINE Echocardiogram complete w contrast and 3D if needed (04/10/2018 10:15 AM) Narrative Performed At [facility] Echocardiography Report [address] [place] [address] Pat.Name:BILL OLIVIA Pat.ID:[id number] .Date: 04/10/2018 Refer.MD:FRANCISCO J LIND MD Exam Time: 9:44:00 AMStudy Type:Routine Echo Height:62inWeight: 107lb BSA: 1.47 m2 DOBAge:1945,72Y Sex: FEMALEBP:113/56 HR:76 bpmSonogrphr: Jose E Sung RDCS Pat. Stat.:Inpatient Room:[address] Study Status:Final Echo Event ID:[id number] Order ID:[id number] Reason for Study:Prosthetic Valves - Initial postoperative eval of prosthetic valve for establishment of baseline; s/p evolut PRO 29mm inside 27mm toronto stentless valve History / Clinical:Hypertension, AORTIC VALVE REPLACEMENT Procedures:2D Echo, Colorflow Doppler Race: SUMMARY: LV EF is mildly depressed.RV systolic function is normal. Bioprosthetic aortic valve in valve. Mild paravalvular aortic regurgitation. Normal prosthetic valve velocity and gradient. FINDINGS: LV: LV size is normal. There is moderate eccentric LV hypertrophy.LV EF is mildly depressed. Estimated EF is 45-49%. RV: RV size is normal. RV systolic function is normal. LA: LA volume is mildly enlarged. RA: RA size is normal. AO: Aortic root diameter is normal. FRANCISCO J: Small circumferential pericardial effusion. Extra echoes withinthe pericardial space suggesting presence of fibro-adhesivematerial. PLE:Large pleural effusion is present. Echoes within the pleural spacesuggest the presence of a mass or fibrino-adhesive material AV: Bioprosthetic aortic valve in valve. Mild paravalvular aorticregurgitation. Normal prosthetic valve velocity and gradient. MV: Mild thickening of mitral leaflets. Mild mitral regurgitation. PV: No structural PV abnormalities noted. TV: No structural TV abnormalities noted. Mild tricuspid regurgitation Hunter: LV relaxation is impaired. LV filling pressure is elevated. Other:Estimated PA systolic pressure is 39 mmHg, assuming a mean RAPof 10 mmHg. MEASUREMENTS: 2D Parasternal Long [place] LVOT 1.9 cmLVPWd0.9 cm LVIDd5.1 cmIndex3.4 cm/m LA Ds4.3 cm LVIDs3.6 cmLV Xzse479.5 g(87-129) LV%fs 29.7 % LVM Coqmy068.4 g/m2 IVSd 1 cmRWT0.4 LA Sng Plane LA Area 17.8 cm2(8.8-23.4) LA Vol54.5 ml Index37.1 ml/m LA LngAx 4.7 cm RA Sng Plane RA Area 14.6 cm2(8.3-19.5) RA Vol38.3 ml Index26 ml/m RA LngAx 4.7 cm DOPPLER AV For Flow/ADEOLA AV pkVel 179.8 cm/s (100-170) AV AC/ET 0.3 AV mnVel 114.5 cm/Jewel TVI29.9 cm AV pkPG 12.9 mmHgAVpkAcRt 8551.9 cm/s2 AV Mean G6.5 mmHgAV VbEq480.3 cm/s2 AV AC 80 msec (83-118) AV Area2.1 cm2(3-5) AV ET261 msec LVOT For Flow LVOT Area2.8 cm2 LVOT SV 63.2 ml HAEHpnUpn901 cm/sHR84.4 bpm LVOTpkPG 5.8 mmHgLVOT CO5.3 l/min LVOTmnPG 3 mmHgLVOT CI3.6 l/m/m2 LVOT TVI22.3 cm WALL MOTION: RESTING WALL MOTION: Basal Inferoseptal, Basal Inferior, Basal Inferolateral, Basal Anterolateral shane are hypokinetic. Normal in all other shane. Wall Index=1.2 Signed 04/10/2018 05:27 PM Pedro Luis Nuno M.D. Procedure Note Interface, Radiology Results In - 04/10/2018 5:27 PM CDT Echocardiography Report [address] [address], [place] [address] Pat.Name: BILL OLIVIA Pat.ID: [id number] .Date: 04/10/2018 Refer.MD: FRANCISCO J LIND MD Exam Time: 9:44:00 AM Study Type:Routine Echo Height: 62in Weight: 107lb BSA: 1.47 m2 Age: 4 1945,72Y Sex: FEMALE BP: 113/56 HR: 76 bpm Sonogrphr: Jose E Sung RDCS Pat. Stat.:Inpatient Room: [address] Study Status:Final Echo Event ID:[id number] Order ID: [id number] Reason for Study:Prosthetic Valves - Initial postoperative eval of prosthetic valve for establishment of baseline; s/p evolut PRO 29mm inside 27mm toronto stentless valve History / Clinical:Hypertension, AORTIC VALVE REPLACEMENT Procedures:2D Echo, Colorflow Doppler Race: SUMMARY: LV EF is mildly depressed. RV systolic function is normal. Bioprosthetic aortic valve in valve. Mild paravalvular aortic regurgitation. Normal prosthetic valve velocity and gradient. FINDINGS: LV: LV size is normal. There is moderate eccentric LV hypertrophy. LV EF is mildly depressed. Estimated EF is 45-49%. RV: RV size is normal. RV systolic function is normal. LA: LA volume is mildly enlarged. RA: RA size is normal. AO: Aortic root diameter is normal. FRANCISCO J: Small circumferential pericardial effusion. Extra echoes within the pericardial space suggesting presence of fibro-adhesive material. PLE: Large pleural effusion is present. Echoes within the pleural space suggest the presence of a mass or fibrino-adhesive material AV: Bioprosthetic aortic valve in valve. Mild paravalvular aortic regurgitation. Normal prosthetic valve velocity and gradient. MV: Mild thickening of mitral leaflets. Mild mitral regurgitation. PV: No structural PV abnormalities noted. TV: No structural TV abnormalities noted. Mild tricuspid regurgitation Hunter: LV relaxation is impaired. LV filling pressure is elevated. Other: Estimated PA systolic pressure is 39 mmHg, assuming a mean RAP of 10 mmHg. MEASUREMENTS: 2D Parasternal Long [place] LVOT 1.9 cm LVPWd 0.9 cm LVIDd 5.1 cm Index 3.4 cm/m LA Ds 4.3 cm LVIDs 3.6 cm LV Mass 172.5 g (87-129) LV%fs 29.7 % LVM Index 117.4 g/m2 IVSd 1 cm RWT 0.4 LA Sng Plane LA Area 17.8 cm2 (8.8-23.4) LA Vol 54.5 ml Index 37.1 ml/m LA LngAx 4.7 cm RA Sng Plane RA Area 14.6 cm2 (8.3-19.5) RA Vol 38.3 ml Index 26 ml/m RA LngAx 4.7 cm DOPPLER AV For Flow/ADEOLA AV pkVel 179.8 cm/s (100-170) AV AC/ET 0.3 AV mnVel 114.5 cm/s AV TVI 29.9 cm AV pkPG 12.9 mmHg AVpkAcRt 8551.9 cm/s2 AV Mean G 6.5 mmHg AV DeRt 689.3 cm/s2 AV AC 80 msec (83-118) AV Area 2.1 cm2 (3-5) AV ET 261 msec LVOT For Flow LVOT Area 2.8 cm2 LVOT SV 63.2 ml LVOTpkVel 120 cm/s HR 84.4 bpm LVOTpkPG 5.8 mmHg LVOT CO 5.3 l/min LVOTmnPG 3 mmHg LVOT CI 3.6 l/m/m2 LVOT TVI 22.3 cm WALL MOTION: RESTING WALL MOTION: Basal Inferoseptal, Basal Inferior, Basal Inferolateral, Basal Anterolateral shane are hypokinetic. Normal in all other shane. Wall Index=1.2 Signed 04/10/2018 05:27 PM Pedro Luis Nuno M.D. Performing Organization Address City/[facility] Phone Number [facility] [address] [place] [address] Lipid panel (04/10/2018 4:33 AM)Only the most recent of2 resultswithin the time period is included. Cholesterol 156 <200 mg/dL [facility] DEPARTMENT OF PATHOLOGY AND GENOMIC MEDICINE Triglycerides 45 <150 mg/dL [facility] DEPARTMENT OF PATHOLOGY AND GENOMIC MEDICINE HDL cholesterol 51 >40 mg/dL [facility] DEPARTMENT OF PATHOLOGY AND GENOMIC MEDICINE LDL cholesterol 97Comment: Result <100 mg/dL [facility] DEPARTMENT OF obtained by direct LDL PATHOLOGY AND GENOMIC measurement MEDICINE Lipid panel interpretation SeeBelow [facility] DEPARTMENT OF Comment: PATHOLOGY AND GENOMIC Total Cholesterol (mg/dL) MEDICINE <200 Desirable 454-576Tnzhrmpngg-epea >=240High Triglycerides (mg/dL) <150 Normal 294-483Qavmzzjlgm-hgzs 200-499High >=500Very high HDL Cholesterol (mg/dL) <40Low (male) <40Low (female) LDL Cholesterol (mg/dL) <100 Optimal 100-129Near or above optimal 033-676Vpofgwixwk-yjkf 160-189High >=190Very high Risk Catergories that modify LDL goals. Risk CatergoriesLDL goal (mg/dL) CHD and CHD risk equivalent<100 (10-year risk >20%) Multiple (2+) risk factors <130 (10-year risk=<20%) 0-1 risk factors <160 (<10-year risk) Defining levels of lipids in metabolic syndrome Triglycerides>=150 mg/dL HDL Cholesterol Men<40 mg/dL Women<40 mg/dL Non-HDL cholesterol is a second target for therapy in persons with high triglycerides (>=200 mg/dL) Specimen Plasma specimen Performing Organization Address City/[facility] Phone Number [facility] DEPARTMENT OF PATHOLOGY AND [address] [place] [address] GENOMIC MEDICINE ECG Pre/Post Op (PRN) (04/09/2018 1:48 PM) Ventricular rate 67 [facility] Atrial rate 67 [facility] PA interval 170 [facility] QRSD interval 94 [facility] QT interval 380 [facility] QTC interval 401 [facility] P axis 1 20 [facility] QRS axis 1 31 [facility] T wave axis 39 [facility] EKG impression Normal sinus rhythm with sinus H MUSE arrhythmia-Possible Left atrial enlargement-T wave abnormality, consider anterior ischemia-Abnormal ECG-No previous ECGs available- Performing Organization Address City/State/Zipcode Phone Number [facility] [address] [place] [address] Cv shift lab technician procedure (04/09/2018 9:30 AM) Narrative Performed At [facility]-SURGEONS: ARNULFO Giron MD and Francisco J Lind MD PROCEDURES: 1.Diagnostic left heart catheterization. 2.Transcatheter aortic valve replacement with 29 mm CoreValve Evolut PRO inside the stentless porcine bioprosthesis (27mm [place] valve). 3.Ascending aortogram. 4.Descending abdominal aortogram. 5.Temporary venous pacer via left femoral vein 6.Placement of ProGlide sutures x 2 to close right femoral artery. COMPLICATIONS: None. BLOOD PRODUCTS: None. IMPLANT DEPTH: 2 mm. SPECIMENS: None. ASSISTANTS: Dr. Lindsay Zamorano, Dr. Natasha Huggins PROCEDURE IN DETAIL: The patient was taken to the hybrid operating room.The team held its customary image review and briefing while anesthesia was managing the airway and obtaining the requisite lines.Following the review and briefing, the patient was prepped and draped in the usual fashion. Attention was first turned to both groins which were anesthetized with 1% lidocaine.The left femoral artery was punctured under ultrasound guidance using a micropuncture needle, and a 6-[place] Ze[place]ander sheath was placed. Then the left femoral vein was punctured also under ultrasound guidance and a 25 cm sheath was placed in the vein and a temporary pacing wire advanced to the apex of hte right ventricle and tested.Then, through the left femoral sheath, a diagnostic internal mammary catheter was advanced over a Glidewire to the descending abdominal aorta. The Glidewire was pulled back into the catheter and the catheter was pulled back to the aortic bifurcation.The wire was then advanced into the iliac and followed with the catheter which was advanced to the common femoral artery.The wire was removed and was exchanged for a [place] Plus 0.018 inch wire.The wire was then advanced and the catheter was removed.The proximal portion of the wire was housed in its protective hoop.Attention was then turned to the contralateral femoral artery. After a small incision and spread, theartery was punctured under fluoroscopic guidance using the [place] Plus wire as a target.The puncture was with a micropuncture needle which was then exchanged for a 6-[place] Ze[place]ander sheath, which was in turn exchanged for a Proglide suture.The suture was taped into place and was exchanged for a 10-[place] dilator. Over a Super Stiff wire, the 10-[place] Ze[place]ander dilator was then exchanged for a 20Fr dryseal sheath. All sheaths were sutured into place and heparin was given by anesthesia. Next, through the left femoral sheath, a 5 Fr marker pigtail was advanced to the basal portion of the right coronary cusp.The optimal gantry angle was determined using multiple injections of dilute contrast. Then, through the right femoral sheath, a 6Fr angled pigtail catheter was advanced over an 0.035 inch J-wire into the left ventricle.This was used to perform a diagnostic left heart catheterization.This revealed LV pressure 124/15, aortic pressure 118/22, there was severe AI on ascending aortogram.Through the pigtail catheter, a safari small wire was placed,over the wire for a 29-mm CoreValve Evolut PRO which had been prepared on the backtable and checked fluoroscopically.The CoreValve Evolut was placed across the stentless porcine aortic bioprosthesis (27mm toronto valve) and was extruded slowly under ventricular pacing at a rate of 130 beats per minute.3 recaptures were required. Once we were satisfied with position, the valve was released after a period of approximately 4 minutes. The valve was then checked echocardiographically.There was found to be mild aortic regurgitation. The nose cone was removed over the wire and was recaptured in the delivery capture system in the descending aorta. The delivery capture system was then exchanged for the 6-[place] angled pigtail. A second diagnostic left heart catheterization was then performed. This revealed LV pressure 131/14 aortic pressure 133/53, no transaortic gradient.The pigtail catheter was pulled back to the ascending aorta and then ascending aortogram performed which revealed mild aortic regurgitation (Hartmann grade 1).Based on the cumulative angiographic, echocardiographic, and hemodynamic findings, no post dilation was determined to be needed. The implant depth was 2 mm. The pigtail catheter was then removed and the large arterial sheath was removed over the J-wire.The Proglide sutures were cinched into place and cross tied, as there was continuous oozing, second proglide suture was applied and cinched into place and cross tied.Hemostasis was adequately achieved.Then, the marker pigtail was pulled down to the descending aorta and descending aortogram was performed. This revealed the closure site to be adequate with no extravasation of contrast and no pinching of the vessel. The estimated blood loss was 300 mL.There was mild aortic regurgitation present.The remaining femoral arterial sheath was then removed and the pacemaker was removed and the patient awakened and taken to recovery room. Dr. Giron was physically present for the critical portions of all procedures performed during this episode of care. Performing Organization Address City/[facility]/Zipcode Phone Number [facility] [address] [place] [address] Sodium level, syringe (04/09/2018 8:55 AM)Only the most recent of3 resultswithin the time period is included. Sodium, syringe 137 135 - 148 mEq/L [facility] DEPARTMENT OF PATHOLOGY AND GENOMIC MEDICINE Specimen Blood Performing Organization Address City/[facility]/Zipcode Phone Number [facility] DEPARTMENT OF PATHOLOGY AND [address] [place] [phone] [employer] [facility] Potassium, syringe (04/09/2018 8:55 AM)Only the most recent of3 resultswithin the time period is included. Potassium, syringe 3.4 (L) 3.5 - 5.0 mEq/L [facility] DEPARTMENT OF PATHOLOGY AND GENOMIC MEDICINE Specimen Blood Performing Organization Address [facility]ode Phone Number [facility] DEPARTMENT OF PATHOLOGY AND [address] [place] [phone] [place] [address] Ionized calcium, arterial (04/09/2018 8:55 AM)Only the most recent of3 resultswithin the time period is included. Ionized calcium, arterial 1.24 1.11 - 1.32 mmol/L [facility] DEPARTMENT OF PATHOLOGY AND GENOMIC MEDICINE Specimen Blood Performing Organization Address City/[facility]ode Phone Number [facility] DEPARTMENT OF PATHOLOGY AND [address] [place] [address] Hemoglobin, syringe (04/09/2018 8:55 AM)Only the most recent of3 resultswithin the time period is included. Hemoglobin, syringe 7.8 (L) 12.0 - 16.0 g/dL [facility] DEPARTMENT OF PATHOLOGY AND GENOMIC MEDICINE Specimen Blood Performing Organization Address City/[facility]ode Phone Number [facility] DEPARTMENT OF PATHOLOGY AND [address] [place] [address] Glucose level, syringe (04/09/2018 8:55 AM)Only the most recent of3 resultswithin the time period is included. Glucose, syringe 109 (H) 65 - 99 mg/dL [facility] DEPARTMENT OF PATHOLOGY AND GENOMIC MEDICINE Specimen Blood Performing Organization Address [facility] Phone Number [facility] DEPARTMENT OF PATHOLOGY AND [address] [place] [address] Arterial blood gas (04/09/2018 8:55 AM)Only the most recent of3 resultswithin the time period is included. pH, arterial 7.48 (H) 7.35 - 7.45 [facility] DEPARTMENT OF PATHOLOGY AND GENOMIC MEDICINE pCO2, arterial 44 35 - 45 mmHg [facility] DEPARTMENT OF PATHOLOGY AND GENOMIC MEDICINE pO2, arterial 427 (H) 80 - 90 mmHg [facility] DEPARTMENT OF PATHOLOGY AND GENOMIC MEDICINE Bicarbonate, arterial 32.3 (H) 21.0 - 28.0 mmol/L [facility] DEPARTMENT OF PATHOLOGY AND GENOMIC MEDICINE Base excess, arterial 8 (H) -2 - 2 mEq/L [facility] DEPARTMENT OF PATHOLOGY AND GENOMIC MEDICINE O2 saturation, arterial 100 95 - 100 % [facility] DEPARTMENT OF PATHOLOGY AND GENOMIC MEDICINE Specimen Blood Performing Organization Address [facility]ori Phone Number [facility] DEPARTMENT OF PATHOLOGY AND [address] [place] [address] Prepare RBC, 2 Units (04/08/2018 5:27 PM) Product name Red Blood Cells -1, [facility] DEPARTMENT OF Leukored PATHOLOGY AND GENOMIC MEDICINE Unit number [id number] [facility] DEPARTMENT OF PATHOLOGY AND GENOMIC MEDICINE Product code [id number] [facility] DEPARTMENT OF PATHOLOGY AND GENOMIC MEDICINE Dispense status Returned to BB not [facility] DEPARTMENT OF transfused PATHOLOGY AND GENOMIC MEDICINE Blood expiration date [facility] DEPARTMENT OF PATHOLOGY AND GENOMIC MEDICINE Blood type code 6200 [facility] DEPARTMENT OF PATHOLOGY AND GENOMIC MEDICINE Blood type A POSITIVE [facility] DEPARTMENT OF PATHOLOGY AND GENOMIC MEDICINE Product name Red Blood Cells -1, [facility] DEPARTMENT OF Leukored PATHOLOGY AND GENOMIC MEDICINE Unit number [id number] [facility] DEPARTMENT OF PATHOLOGY AND GENOMIC MEDICINE Product code [id number] [facility] DEPARTMENT OF PATHOLOGY AND GENOMIC MEDICINE Dispense status Returned to BB not [facility] DEPARTMENT OF transfused PATHOLOGY AND GENOMIC MEDICINE Blood expiration date [facility] DEPARTMENT OF PATHOLOGY AND GENOMIC MEDICINE Blood type code 6200 [facility] DEPARTMENT OF PATHOLOGY AND GENOMIC MEDICINE Blood type A POSITIVE [facility] DEPARTMENT OF PATHOLOGY AND GENOMIC MEDICINE Performing Organization Address City/State/Zipcode Phone Number [facility] DEPARTMENT OF PATHOLOGY AND [address] [place] [address] GENOMIC MEDICINE Type and screen (04/08/2018 5:27 PM) ABO grouping A [facility] DEPARTMENT OF PATHOLOGY AND GENOMIC MEDICINE Rh type POS [facility] DEPARTMENT OF PATHOLOGY AND GENOMIC MEDICINE Antibody screen (gel) NEG [facility] DEPARTMENT OF PATHOLOGY AND GENOMIC MEDICINE Specimen Blood Performing Organization Address City/[facility]/Zipcode Phone Number [facility] DEPARTMENT OF PATHOLOGY AND [address] [place] [address] Spirometry pre & post w/ bronchodilator, diffusion (04/08/2018 1:00 PM) FEV1 Pre 0.63 1.50 - 2.60 L [facility] FEV1/FVC % Pre 75.24 65.93 - 85.52 % [facility] FVC Pre 0.84 2.07 - 3.37 L [facility] PEF Pre 1.21 3.66 - 6.87 L/s [facility] FEF 25-75% Pre 0.57 0.58 - 2.90 L/s [facility] R0.5IN Pre 7.64 3.06 - 3.06 cmH2O*s/L [facility] FRCpl Pre 1.70 1.78 - 3.42 L [facility] RV Pre 1.51 1.41 - 2.56 L [facility] TLC Pre 2.27 3.62 - 5.59 L [facility] RV % TLC Pre 66.56 33.51 - 52.69 % [facility] VC Pre 0.76 2.07 - 3.37 L [facility] ERV Pre 0.18 0.61 - 0.61 L [facility] IC Pre 0.57 1.74 - 1.74 L [facility] sR0.5IN Pre 14.04 cmH2O*s [facility] Raw Pre 10.09 3.06 - 3.06 cmH2O*s/L [facility] sGaw Predicted 0.05 0.10 - 0.10 1/(cmH2O*s) [facility] FEV1 Predicted 2.05 [facility] FEV1 LLN 1.50 [facility] FEV1 % Pre of Predicted 30.8 % [facility] FVC Predicted 2.72 [facility] FVC LLN 2.07 [facility] FVC % Pre of Predicted 30.9 % [facility] FEV1/FVC % Predicted 76 [facility] FEV1/FVC % LLN 66 [facility] FEV1/FVC % Pre of Predicted 99.4 % [facility] FEF 25-75% Predicted 1.74 [facility] FEF 25-75% LLN 0.58 [facility] FEF 25-75% % Pre of Predicted 32.6 % [facility] PEF Predicted 5.27 [facility] PEF LLN 3.66 [facility] PEF % Pre of Predicted 22.9 % [facility] VC Predicted 2.72 [facility] VC LLN 2.07 [facility] VC % Pre of Predicted 27.9 % [facility] ERV Predicted 0.61 [facility] ERV LLN 0.61 [facility] ERV % Pre of Predicted 30.2 % [facility] FRCpl % Predicted 2.60 [facility] FRCpl % LLN 1.78 [facility] FRCpl % Pre of Predicted 65.3 % [facility] IC Predicted 1.74 [facility] IC LLN 1.74 [facility] IC % Pre of Predicted 33.0 % [facility] RV Predicted 1.99 [facility] RV LLN 1.41 [facility] RV % Pre of Predicted 76.2 % [facility] RV % TLC Predicted 43 [facility] RV % TLC LLN 34 [facility] RV % TLC % Pre of Predicted 154.4 % [facility] TLC Predicted 4.60 [facility] TLC LLN 3.62 [facility] TLC % Pre of Predicted 49.4 % [facility] Raw Predicted 3.06 [facility] Raw LLN 3.06 [facility] Raw % Pre of Predicted 329.9 % [facility] R0.5IN Predicted 3.06 [facility] R0.5IN LLN 3.06 [facility] R0.5IN % Pre of Predicted 249.6 % [facility] sGaw Predicted 0.10 [facility] sGaw LLN 0.10 [facility] sGaw % Pre of Predicted 52.8 % [facility] DLCO Predicted 19.58 [facility] DLCO LLN 13.08 [facility] DLCOc Predicted 19.58 [facility] DLCOc LLN 13.08 [facility] DL/VA Predicted 4.36 [facility] DL/VA LLN 3.05 [facility] KCOc SB Predicted 4.36 [facility] KCOc SB LLN 3.05 [facility] VA SB Predicted 4.73 [facility] VA SB LLN 3.63 [facility] MIP Predicted 50.82 [facility] MIP LLN 23.20 [facility] MEP Predicted 63.09 [facility] MEP LLN 20.61 [facility] MVV Predicted 74 [facility] MVV LLN 63 [facility] Performing Organization Address City/State/Zipcode Phone Number [facility] [address] [place] [address] Comprehensive metabolic panel (04/08/2018 4:00 AM)Only the most recent of3 resultswithin the time period is included. Sodium 141 135 - 148 mEq/L [facility] DEPARTMENT OF PATHOLOGY AND GENOMIC MEDICINE Potassium 4.2 3.5 - 5.0 mEq/L [facility] DEPARTMENT OF PATHOLOGY AND GENOMIC MEDICINE Chloride 97 (L) 98 - 112 mEq/L [facility] DEPARTMENT OF PATHOLOGY AND GENOMIC MEDICINE CO2 38 (H) 24 - 31 mEq/L [facility] DEPARTMENT OF PATHOLOGY AND GENOMIC MEDICINE Anion gap 6@ANIO (L) 7 - 15 mEq/L [facility] DEPARTMENT OF PATHOLOGY AND GENOMIC MEDICINE BUN 41 (H) 8 - 23 mg/dL [facility] DEPARTMENT OF PATHOLOGY AND GENOMIC MEDICINE Creatinine 0.9 0.5 - 0.9 mg/dL [facility] DEPARTMENT OF PATHOLOGY AND GENOMIC MEDICINE Glucose 85 65 - 99 mg/dL [facility] DEPARTMENT OF PATHOLOGY AND GENOMIC MEDICINE Calcium 8.5 (L) 8.8 - 10.2 mg/dL [facility] DEPARTMENT OF PATHOLOGY AND GENOMIC MEDICINE Protein 5.7 (L) 6.3 - 8.3 g/dL [facility] DEPARTMENT OF Comment: PATHOLOGY AND GENOMIC [place] 4.6-7.0 g/dL MEDICINE 1 week 4.4-7.6 g/dL 7 months-1year5.1-7.3 g/dL 1-2 years5.6-7.5 g/dL >3 years6.0-8.0 g/dL 18-150 6.3-8.3 g/dL Albumin 2.1 (L) 3.5 - 5.0 g/dL [facility] DEPARTMENT OF PATHOLOGY AND GENOMIC MEDICINE A/G ratio 0.6 (L) 0.7 - 3.8 [facility] DEPARTMENT OF PATHOLOGY AND GENOMIC MEDICINE Alkaline phosphatase 46 35 - 104 U/L [facility] DEPARTMENT OF PATHOLOGY AND GENOMIC MEDICINE AST 16 10 - 35 U/L [facility] DEPARTMENT OF PATHOLOGY AND GENOMIC MEDICINE ALT 9 5 - 50 U/L [facility] DEPARTMENT OF PATHOLOGY AND GENOMIC MEDICINE Total bilirubin 0.3 0.0 - 1.2 mg/dL [facility] DEPARTMENT OF PATHOLOGY AND GENOMIC [facility] Specimen Plasma specimen Performing Organization Address City/State/Zipcode Phone Number [facility] DEPARTMENT OF PATHOLOGY AND [address] [place] [address] Hemoglobin A1c (04/05/2018 3:05 PM) Hemoglobin A1C 4.9 4.0 - 5.6 % [facility] DEPARTMENT OF PATHOLOGY Comment: [facility] HbA1c cutoffs for diagnosing diabetes: 4.0% - 5.6%=normal 5.7% - 6.4%=increased risk for diabetes (prediabetes) >=6.5%=diabetes Goals for glycemic control (ADA 2016) < 7.0%Target for non adults with diabetes. More or less stringent targets may be appropriate for individual patients. <7.5% Target for Children and adolescents with type 1 diabetes. Specimen Blood Performing Organization Address City/[facility] Phone Number [facility] AND [address] [place] [address] Echocardiogram transesophageal (04/04/2018 10:17 AM) Narrative Performed At [facility] Transesophageal Echo Report [address], [place] [address] Pat.Name:BILL OLIVIA Pat.ID:[id number] .Date: 04/04/2018Refer.MD:FRANCISCO J LIND MD Exam Time: 8:22:00 AMStudy Type:FRANCISCA Height:62inWeight: 106lb BSA: 1.46 m2 DOBAge:1945,72Y Sex: FEMALEBP:122/58 HR:83 bpmSonogrphr: Evan Batista MD [facility]. Stat.:Inpatient Room:[place] [address] Study Status:Final Echo Event ID:[id number] Order ID:[id number] Reason for Study:r/o vegetation on aortic valve History / Clinical:Hypertension, AORTIC VALVE REPLACEMENT Procedures:3D Echo, Transesophageal Echo with Colorflow Doppler Race: SUMMARY: Severe aortic regurgitation.Pressure half time 104 ms. Holodiastolic flow reversal in the descending thoracic aorta. LV EF is moderately depressed.Normal RV systolic function. FINDINGS: FRANCISCA:The attending clinical education coordinator performed the FRANCISCA procedure and waspresent for the entire duration. The patient was counseledand an informed consent was obtained. Topical and intravenousanesthesia was administered. The esophagus was intubatedwithout difficulty. The probe was passed to the gastricfundus and all standard echocardiographic views wereobtained. The patient tolerated the procedure well. LV: LV size is moderately enlarged. There is borderline eccentricLV hypertrophy. LV EF is moderately depressed. Overallwall motion is depressed. Estimated EF is 35-44%. RV: RV size is normal. RV systolic function is normal. LA: LA volume is enlarged. No thrombus or mass is visualized in theLA or LA appendage. RA: RA size is normal. AO: Mild atherosclerotic changes seen in the aortic arch and descendingaorta. FRANCISCO J: Insignificant amount of pericardial effusion. There is an anteriorspace consistent with a prominent epicardial fat pad. IAS:Interatrial septum morphology: normal. AV: Bioprosthetic aortic valve. Diagnostic of flail aortic valve leftcoronary leaflet. Severe aortic regurgitation. Pressurehalf time 104 ms.Holodiastolic flow reversal in thedescending thoracic aorta. MV: No structural MV abnormalities noted. PV: No structural PV abnormalities noted. TV: No structural TV abnormalities noted. Mild tricuspid regurgitation FRANCISCA: Anesthesia: Moderate Sedation Physician: Rom Lopez M.D. Rn Ambulatory: Evan Batista MD Pre TEEBP HR Post FRANCISCA BP HR 122/58 39872/48 89 Meds:Viscous xylocaine, Cetacaine spray to oropharynx, Versed 1 mg IV, Fentanyl 25 mcg IV Complications: None Condition: Stable MEASUREMENTS: 2D Parasternal Long [place] LVOT 1.9 cmLA Ds4.1 cm LVIDd5 cmAo Rtd 2.6 cm LVIDs3.8 cmLV Icbw822.8 g(87-129) LV%fs 23 % LVM Index 95.1 g/m2 IVSd 0.7 cmRWT0.4 LVPWd0.9 cm DOPPLER AV Pressure Half Time AV P1/2t 104 msec Signed 04/04/2018 11:38 AM Rom Lopez M.D. Procedure Note Interface, Radiology Results In - 04/04/2018 11:38 AM CDT Transesophageal Echo Report [address], [place], [place] [address] Pat.Name: BILL OLIVIA.ID: [id number] .Date: 04/04/2018 Refer.MD: FRANCISCO J LIND MD Exam Time: 8:22:00 AM Study Type:FRANCISCA Height: 62in Weight: 106lb BSA: 1.46 m2 Age: 5 1945,72Y Sex: FEMALE BP: 122/58 HR: 83 bpm Sonogrphr: Evan Batista MD Pat. Stat.:Inpatient Room: [place] [address] Study Status:Final Echo Event ID:[id number] Order ID: [id number] Reason for Study:r/o vegetation on aortic valve History / Clinical:Hypertension, AORTIC VALVE REPLACEMENT Procedures:3D Echo, Transesophageal Echo with Colorflow Doppler Race: SUMMARY: Severe aortic regurgitation. Pressure half time 104 ms. Holodiastolic flow reversal in the descending thoracic aorta. LV EF is moderately depressed. Normal RV systolic function. FINDINGS: FRANCISCA: The attending clinical education coordinator performed the FRANCISCA procedure and was present for the entire duration. The patient was counseled and an informed consent was obtained. Topical and intravenous anesthesia was administered. The esophagus was intubated without difficulty. The probe was passed to the gastric fundus and all standard echocardiographic views were obtained. The patient tolerated the procedure well. LV: LV size is moderately enlarged. There is borderline eccentric LV hypertrophy. LV EF is moderately depressed. Overall wall motion is depressed. Estimated EF is 35-44%. RV: RV size is normal. RV systolic function is normal. LA: LA volume is enlarged. No thrombus or mass is visualized in the LA or LA appendage. RA: RA size is normal. AO: Mild atherosclerotic changes seen in the aortic arch and descending aorta. FRANCISCO J: Insignificant amount of pericardial effusion. There is an anterior space consistent with a prominent epicardial fat pad. IAS: Interatrial septum morphology: normal. AV: Bioprosthetic aortic valve. Diagnostic of flail aortic valve left coronary leaflet. Severe aortic regurgitation. Pressure half time 104 ms. Holodiastolic flow reversal in the descending thoracic aorta. MV: No structural MV abnormalities noted. PV: No structural PV abnormalities noted. TV: No structural TV abnormalities noted. Mild tricuspid regurgitation FRANCISCA: Anesthesia: Moderate Sedation Physician: Rom Lopez M.D. Rn Ambulatory: Evan Batista MD Pre FRANCISCA BP HR Post FRANCISCA BP HR 122/58 83 101/48 89 Meds: Viscous xylocaine, Cetacaine spray to oropharynx, Versed 1 mg IV, Fentanyl 25 mcg IV Complications: None Condition: Stable MEASUREMENTS: 2D Parasternal Long [place] LVOT 1.9 cm LA Ds 4.1 cm LVIDd 5 cm Ao Rtd 2.6 cm LVIDs 3.8 cm LV Mass 138.8 g (87-129) LV%fs 23 % LVM Index 95.1 g/m2 IVSd 0.7 cm RWT 0.4 LVPWd 0.9 cm DOPPLER AV Pressure Half Time AV P1/2t 104 msec Signed 04/04/2018 11:38 AM Rom Lopez M.D. Performing Organization Address [facility]/Zipcode Phone Number [facility] [address] [place] [address] B natriuretic peptide (04/04/2018 5:10 AM)Only the most recent of2 resultswithin the time period is included. BNP 230 (H) 0 - 100 pg/mL [facility] DEPARTMENT OF PATHOLOGY AND GENOMIC MEDICINE Performing Organization Address [facility]/Zipcode Phone Number [facility] DEPARTMENT OF PATHOLOGY AND [address] [place] [address] GENOMIC MEDICINE XR Chest 1 Vw (04/02/2018 4:29 PM) Narrative Performed At EXAMINATION:XR CHEST 1 VW RADIANT CLINICAL HISTORY:post thora TECHNIQUE:XR CHEST 1 VW COMPARISON:Chest radiograph dated 04/01/2018 FINDINGS: Lines/tubes:Multiple EKG leads project over the patient. Heart and mediastinum:The right and left cardiac borders are partially silhouetted by adjacent pleural effusions. There is prominence and trace atherosclerotic change of the aortic knob. Lungs:There are patchy and linear opacities at both lung bases. There is mild cephalization of pulmonary vascular flow without eleazar interstitial or alveolar edema. Pleura: Patient is status post left-sided pleuracentesis with interval reduction in size of the left pleural effusion, now dxudn-vr-wnlzhqdf in degree. There is a ftfyx-va-wldhzjym right-sided pleural effusion. There is no pneumothorax. Bones:There is mild osteopenia. Patient is status post median sternotomy with intact wires. There is no acute displaced fracture or dislocation. IMPRESSION: Status post left-sided thoracentesis with interval reduction in size of left pleural effusion, now vhzac-as-qpebguox. No left-sided pneumothorax. Amrfq-xd-cniswtad right pleural effusion. Bibasilar opacities likely represent atelectasis. Aspiration and/or pneumonia are also possible in the appropriate clinical context. [facility]-[id number] Procedure Note Interface, Radiology Results Incoming - 04/02/2018 4:37 PM CDT EXAMINATION: XR CHEST 1 VW CLINICAL HISTORY: post thora TECHNIQUE: XR CHEST 1 VW COMPARISON: Chest radiograph dated 04/01/2018 FINDINGS: Lines/tubes: Multiple EKG leads project over the patient. Heart and mediastinum: The right and left cardiac borders are partially silhouetted by adjacent pleural effusions. There is prominence and trace atherosclerotic change of the aortic knob. Lungs: There are patchy and linear opacities at both lung bases. There is mild cephalization of pulmonary vascular flow without eleazar interstitial or alveolar edema. Pleura: Patient is status post left-sided pleuracentesis with interval reduction in size of the left pleural effusion, now tcush-qz-ydfmcufb in degree. There is a qpkgv-kj-jgsvriaw right-sided pleural effusion. There is no pneumothorax. Bones: There is mild osteopenia. Patient is status post median sternotomy with intact wires. There is no acute displaced fracture or dislocation. IMPRESSION: Status post left-sided thoracentesis with interval reduction in size of left pleural effusion, now jxarr-pc-ujfssbxg. No left-sided pneumothorax. Jnuze-wn-ftmparmw right pleural effusion. Bibasilar opacities likely represent atelectasis. Aspiration and/or pneumonia are also possible in the appropriate clinical context. [facility]-[id number] Performing Organization Address [facility]/Zipcode Phone Number [address] [address] Fungus smear (04/02/2018 4:17 PM) Fungus smear No fungi observed. [facility] DEPARTMENT OF PATHOLOGY Comment: AND GENOMIC MEDICINE Specimen Information Specimen Source: Thoracentesis fluid Specimen Site: Pleural Fluid Specimen Thoracentesis fluid - Pleural Fluid Performing Organization Address [facility] Phone Number [facility] DEPARTMENT OF PATHOLOGY AND [address] [place] [phone] GENOMIC MEDICINE AFB culture (04/02/2018 4:17 PM) AFB culture isolate No growth after 6 weeks of incubation. [facility] DEPARTMENT OF Comment: PATHOLOGY AND GENOMIC Specimen Information MEDICINE Specimen Source: Thoracentesis fluid Specimen Site: Pleural Fluid Specimen Thoracentesis fluid - Pleural Fluid Performing Organization Address [facility] Phone Number [facility] DEPARTMENT OF PATHOLOGY AND [address] [place] [phone] GENOMIC MEDICINE Aerobic culture (04/02/2018 4:17 PM) Aerobic culture isolate No growth after 3 days. [facility] DEPARTMENT OF Comment: PATHOLOGY AND GENOMIC Specimen Information MEDICINE Specimen Source: Thoracentesis fluid Specimen Site: Pleural Fluid Specimen Thoracentesis fluid - Pleural Fluid Performing Organization Address [facility] Phone Number [facility] DEPARTMENT OF PATHOLOGY AND [address] [place] [phone] GENOMIC MEDICINE Gram stain (04/02/2018 4:17 PM) Gram stain isolate Many WBC's [facility] DEPARTMENT OF No organisms seen PATHOLOGY AND GENOMIC MEDICINE Comment: Specimen Information Specimen Source: Thoracentesis fluid Specimen Site: Pleural Fluid Specimen Thoracentesis fluid - Pleural Fluid Performing Organization Address City/[facility] Phone Number [facility] DEPARTMENT OF PATHOLOGY AND [address] [place] [phone] GENOMIC MEDICINE AFB stain (04/02/2018 4:17 PM) AFB stain No acid fast bacilli (AFB) seen. [facility] DEPARTMENT OF PATHOLOGY AND Comment: GENOMIC MEDICINE Specimen Information Specimen Source: Thoracentesis fluid Specimen Site: Pleural Fluid Specimen Thoracentesis fluid - Pleural Fluid Performing Organization Address City/[facility]ode Phone Number [facility] DEPARTMENT OF PATHOLOGY AND [address] [place] [phone] [facility] Fungus culture (04/02/2018 4:17 PM) Fungus culture isolate No growth after 4 weeks of incubation. [facility] DEPARTMENT OF Comment: PATHOLOGY AND GENOMIC Specimen Information MEDICINE Specimen Source: Thoracentesis fluid Specimen Site: Pleural Fluid Specimen Thoracentesis fluid - Pleural Fluid Performing Organization Address [facility]ori Phone Number [facility] DEPARTMENT OF PATHOLOGY AND [address] [place] [phone] [facility] Anaerobic culture (04/02/2018 4:17 PM) Anaerobic culture No anaerobic organisms isolated. [facility] DEPARTMENT OF isolate Comment: PATHOLOGY AND GENOMIC Specimen Information MEDICINE Specimen Source: Thoracentesis fluid Specimen Site: Pleural Fluid Specimen Thoracentesis fluid - Pleural Fluid Performing Organization Address [facility] Phone Number [facility] DEPARTMENT OF PATHOLOGY AND [address] [place] [phone] [facility] US Thoracentesis With Imaging (04/02/2018 4:15 PM) Narrative Performed At EXAMINATION:US THORACENTESIS WITH IMAGING [facility] CLINICAL HISTORY: bilateralL R COMPARISON:Chest radiograph from April 01, 2018 TECHNIQUE: The procedure's risks, benefits, and alternatives were discussed with the patient and written, informed consent was obtained. Using ultrasound guidance, left pleural effusion was localized and the overlying posterior chest was prepped and draped in the usual sterile fashion. 1% buffered lidocaine was used for local anesthesia. A 5 [place] Yueh catheter was inserted into the pleural space. 870 mLof pleural fluid was removed. 20 mL of aspirated fluid was also sent for laboratory analysis. The patient tolerated the procedure without difficulty and postprocedure chest x-ray demonstrated no pneumothorax. IMPRESSION: Ultrasound-guided left thoracentesis. [facility]-[id number] Procedure Note Interface, Radiology Results Incoming - 04/02/2018 4:37 PM CDT EXAMINATION: US THORACENTESIS WITH IMAGING CLINICAL HISTORY: bilateral L R COMPARISON:Chest radiograph from April 01, 2018 TECHNIQUE: The procedure's risks, benefits, and alternatives were discussed with the patient and written, informed consent was obtained. Using ultrasound guidance, left pleural effusion was localized and the overlying posterior chest was prepped and draped in the usual sterile fashion. 1 % buffered lidocaine was used for local anesthesia. A 5 [place] Yueh catheter was inserted into the pleural space. 870 mL of pleural fluid was removed. 20 mL of aspirated fluid was also sent for laboratory analysis. The patient tolerated the procedure without difficulty and postprocedure chest x-ray demonstrated no pneumothorax. IMPRESSION: Ultrasound-guided left thoracentesis. [facility]-[id number] Performing Organization Address City/State/Zipcode Phone Number [facility] [address] [place] [address] cta tavr workup (cta coronary,cta thoracic aorta,cta abdominal runoff) (04/02 2:50 PM) Narrative Performed At [facility] Nuclear Cardiology and Cardiac CT [address] [place] [address] CTA TAVR Protocol Pat.Name:BIN BILLYOHANNES Garcia.ID:[id number] .Date: 04/02/2018Refer.MD:FRANCISCO J LIND MD Exam Time: 2:23:00 PMStudy Type:CTA TAVR Protocol Height:62inWeight: 119.75lb BSA: 1.54 m2 DOBAge:1945,72Y Sex: FEMALEBP:125/56 HR:81 bpm Nuclear Tech:Dale Gardner RT([place])(CT), [facility] CPT - 4: TAVR w Coronaries [id number] Nuclear Event ID:[id number] Order ID:[id number] Reason for Study:Aortic Insufficiency Procedures:CTA TAVR Protocol SUMMARY: Technique: IV contrast was administered and sequential 0.[address] cuts were obtained through the chest using the Siemens Somatom Force CT scanner. Post-processing and 3D reconstruction were done using the [employer] workstation. Interactive image viewing and volumetric display and analysis were also performed. CTA RESULTS Left Main: A normal sized artery which arises normally from the left sinus of Valsalva and divides into the left anterior descending and circumflex coronary arteries. No significant calcified and non-calcified atherosclerotic plaque is present. Left anterior descending (LAD): A normal sized artery which wraps around the apex and gives off three diagonal branches. Mild calcified and non-calcified atherosclerotic plaque is present in the proximal and mid segments but without significant stenosis. The first diagonal is a normal sized artery which has no significant atherosclerotic plaque present The second diagonal is a normal sized artery which has no significant atherosclerotic plaque present Left circumflex: A normal sized nondominant artery which arises normally from the left main and gives off one major obtuse marginal artery before terminating in the AV groove.No significant atherosclerotic plaque peresent The first obtuse marginal is a normal sized artery which has no significantatherosclerotic plaque present. Right coronary artery: A normal sized dominant artery which arises normally from the right sinus of Valsalva and gives off several right ventricular branches, a posterolateral branch and the posterior descending artery. No significant atherosclerotic plaque present. The posterior descending is not well seen. The posterolateral is not well seen. Ramus: None. Stents: None. Bypass Grafts: None. Pulmonary Arteries: Normal pulmonary artery sizes with no proximal thrombus identified. Left Atrial and Pulmonary Vein Dimensions: Left atrial size (A-P diameter) 4.2 cm. Normal PV anatomy There is no evidence of the left atrial appendage clot. Left Ventricular Valve Morphology/Function: LV septal wall thickness 10 mm. There is a bio-prosthetic aortic valve Pericardium: No pericardium effusion or pericardial thickening. Thoracic/Abdominal Aortic Diastolic Dimensions: No aortic aneurysm or dissection is seen. There is a homograft in ascending aorta. The descending aorta is tortuous. Aortic root3.8 cm. Sinotubular junction 2.8 cm. Mid ascending thoracic aorta 3.1 cm. Aortic arch 2.6 cm.There is normal takeoff of the great vessels and no significant stenosis in the proximal visualized segments. Aortic Isthmus 2.5 cm. Descending thoracic aorta 2.2 cm. Distal descending thoracic aorta 2.0 cm. Supra-renal abdominal Aorta: 2.3 cm with no significant atherosclerotic plaque. Celiac trunk: no significant stenosis. Superior mesenteric artery: no significant stenosis. Juxta-renal abdominal Aorta: 1.7 cm with no significant atherosclerotic plaque. Right renal artery: no significant stenosis. Left renal artery: no significant stenosis. Infrarenal aorta: 1.4 cm with no significant atherosclerotic plaque. TAVR Report Calcified Aorta: Mild Characterization of Aortic Root: Major aortic annulus diameter (systole): 23 mm Perpendicular minor aortic annulus diameter (systole): 22 mm Aortic annulus perimeter (systole): 73 mm Left coronary ostium height (diastole): 9 mm Right coronary ostium height (diastole): 9 mm Sinus of Valsalva diameter left coronary (diastole): 30 mm Sinus of Valsalva diameter non-coronary (diastole): 29 mm Sinus of Valsalva diameter right (diastole): 31 mm Maximum ascending aorta diameter at 40mm above annulus (diastole): 31 mm Aortic Root Angulation (diastole): 53 degrees Characterization of access vessels: Right Common Iliac: Minimum lumen diameter: 10 mm Percent stenosis: None Tortuosity: Mild Calcification: Mild Right External Iliac: Minimum lumen diameter: 9 mm Percent stenosis: None Tortuosity: Mild Calcification: Mild Right Femoral: Minimum lumen diameter: 8 mm Percent stenosis: None Tortuosity: No Calcification: Mild Left Common Iliac:Minimum lumen diameter: 10 mm Percent stenosis: None Tortuosity: Mild Calcification: Mild Left External Iliac: Minimum lumen diameter: 9 mm Percent stenosis: None Tortuosity: Mild Calcification: Mild Left Femoral: Minimum lumen diameter: 8 mm Percent stenosis: None Tortuosity: No Calcification: Mild Aortic Bifurcation Left Lower Extremity Left internal iliac has mild calcified and non-calcified atherosclerotic plaque present but with no significant stenosis. Left superficial femoral has mild calcified and non-calcified atherosclerotic plaque present but with no significant stenosis. Right Lower Extremity Right internal iliachas mild calcified and non-calcified atherosclerotic plaque present but with no significant stenosis. Right superficial femoralhas mild calcified and non-calcified atherosclerotic plaque present but with no significant stenosis. Non-Cardiac Findings: Large left pleural effusion. CONCLUSION Coronary CTA shows mild coronary atherosclerosis but no significant coronary artery stenosis. There is a homograft in ascending aorta. The descending aorta is tortuous. Vascular measurements as noted above. STUDY QUALITY The study quality is excellent. COMMENTS None. The above report was based on a dedicated Cardiovascular CTA Protocol and interpreted by a Sem Manager.Should a more comprehensive assessment of non-cardiovascular findings be desired, please consult a radiologist.These images are available in the [facility] [employer] PACS system. Signed 04/02/2018 04:17 PM Daniel Sotelo MD Procedure Note Interface, Radiology Results In - 04/02/2018 4:17 PM CDT Nuclear Cardiology and Cardiac CT [address] [place] [address] CTA TAVR Protocol Pat.Name: BILL OLIVIA Radha.ID: [id number] .Date: 04/02/2018 Refer.MD: FRANCISCO J LIND MD Exam Time: 2:23:00 PM Study Type:CTA TAVR Protocol Height: 62in Weight: 119.75lb BSA: 1.54 m2 Age: 4 1945,72Y Sex: FEMALE BP: 125/56 HR: 81 bpm Nuclear Tech:Dale Gardner RT([place])(CT), [facility] CPT - 4: TAVR w Coronaries [id number] Nuclear Event ID:[id number] Order ID: [id number] Reason for Study:Aortic Insufficiency Procedures:CTA TAVR Protocol SUMMARY: Technique: IV contrast was administered and sequential 0.[address] cuts were obtained through the chest using the Siemens Somatom Force CT scanner. Post-processing and 3D reconstruction were done using the [employer] workstation. Interactive image viewing and volumetric display and analysis were also performed. CTA RESULTS Left Main: A normal sized artery which arises normally from the left sinus of Valsalva and divides into the left anterior descending and circumflex coronary arteries. No significant calcified and non-calcified atherosclerotic plaque is present. Left anterior descending (LAD): A normal sized artery which wraps around the apex and gives off three diagonal branches. Mild calcified and non-calcified atherosclerotic plaque is present in the proximal and mid segments but without significant stenosis. The first diagonal is a normal sized artery which has no significant atherosclerotic plaque present The second diagonal is a normal sized artery which has no significant atherosclerotic plaque present Left circumflex: A normal sized nondominant artery which arises normally from the left main and gives off one major obtuse marginal artery before terminating in the AV groove. No significant atherosclerotic plaque peresent The first obtuse marginal is a normal sized artery which has no significant atherosclerotic plaque present. Right coronary artery: A normal sized dominant artery which arises normally from the right sinus of Valsalva and gives off several right ventricular branches, a posterolateral branch and the posterior descending artery. No significant atherosclerotic plaque present. The posterior descending is not well seen. The posterolateral is not well seen. Ramus: None. Stents: None. Bypass Grafts: None. Pulmonary Arteries: Normal pulmonary artery sizes with no proximal thrombus identified. Left Atrial and Pulmonary Vein Dimensions: Left atrial size (A-P diameter) 4.2 cm. Normal PV anatomy There is no evidence of the left atrial appendage clot. Left Ventricular Valve Morphology/Function: LV septal wall thickness 10 mm. There is a bio-prosthetic aortic valve Pericardium: No pericardium effusion or pericardial thickening. Thoracic/Abdominal Aortic Diastolic Dimensions: No aortic aneurysm or dissection is seen. There is a homograft in ascending aorta. The descending aorta is tortuous. Aortic root 3.8 cm. Sinotubular junction 2.8 cm. Mid ascending thoracic aorta 3.1 cm. Aortic arch 2.6 cm. There is normal takeoff of the great vessels and no significant stenosis in the proximal visualized segments. Aortic Isthmus 2.5 cm. Descending thoracic aorta 2.2 cm. Distal descending thoracic aorta 2.0 cm. Supra-renal abdominal Aorta: 2.3 cm with no significant atherosclerotic plaque. Celiac trunk: no significant stenosis. Superior mesenteric artery: no significant stenosis. Juxta-renal abdominal Aorta: 1.7 cm with no significant atherosclerotic plaque. Right renal artery: no significant stenosis. Left renal artery: no significant stenosis. Infrarenal aorta: 1.4 cm with no significant atherosclerotic plaque. TAVR Report Calcified Aorta: Mild Characterization of Aortic Root: Major aortic annulus diameter (systole): 23 mm Perpendicular minor aortic annulus diameter (systole): 22 mm Aortic annulus perimeter (systole): 73 mm Left coronary ostium height (diastole): 9 mm Right coronary ostium height (diastole): 9 mm Sinus of Valsalva diameter left coronary (diastole): 30 mm Sinus of Valsalva diameter non-coronary (diastole): 29 mm Sinus of Valsalva diameter right (diastole): 31 mm Maximum ascending aorta diameter at 40mm above annulus (diastole): 31 mm Aortic Root Angulation (diastole): 53 degrees Characterization of access vessels: Right Common Iliac: Minimum lumen diameter: 10 mm Percent stenosis: None Tortuosity: Mild Calcification: Mild Right External Iliac: Minimum lumen diameter: 9 mm Percent stenosis: None Tortuosity: Mild Calcification: Mild Right Femoral: Minimum lumen diameter: 8 mm Percent stenosis: None Tortuosity: No Calcification: Mild Left Common Iliac: Minimum lumen diameter: 10 mm Percent stenosis: None Tortuosity: Mild Calcification: Mild Left External Iliac: Minimum lumen diameter: 9 mm Percent stenosis: None Tortuosity: Mild Calcification: Mild Left Femoral: Minimum lumen diameter: 8 mm Percent stenosis: None Tortuosity: No Calcification: Mild Aortic Bifurcation Left Lower Extremity Left internal iliac has mild calcified and non-calcified atherosclerotic plaque present but with no significant stenosis. Left superficial femoral has mild calcified and non-calcified atherosclerotic plaque present but with no significant stenosis. Right Lower Extremity Right internal iliac has mild calcified and non-calcified atherosclerotic plaque present but with no significant stenosis. Right superficial femoral has mild calcified and non-calcified atherosclerotic plaque present but with no significant stenosis. Non-Cardiac Findings: Large left pleural effusion. CONCLUSION Coronary CTA shows mild coronary atherosclerosis but no significant coronary artery stenosis. There is a homograft in ascending aorta. The descending aorta is tortuous. Vascular measurements as noted above. STUDY QUALITY The study quality is excellent. COMMENTS None. The above report was based on a dedicated Cardiovascular CTA Protocol and interpreted by a Sem Manager. Should a more comprehensive assessment of non-cardiovascular findings be desired, please consult a radiologist. These images are available in the [facility] [employer] PACS system. Signed 04/02/2018 04:17 PM Daniel Sotelo MD Performing Organization Address City/State/Zipcode Phone Number [facility] [address] [place] [phone] Us carotid duplex (04/02/2018 2:10 PM) Narrative Performed At [facility] Vascular Ultrasound Laboratory Carotid Artery Duplex Report [id number] [facility] [address], [place] [id number] For food quality tester purposes, the categorization of the degree of the stenosis of this exam is based on criteria described in the IAC carotid stenosis grading white paper( www.intersocietal.org/Vascular) and Leonel Ballesteros., James Bales, et al. Carotid artery stenosis: clevel[place]-scale and Doppler US diagnosis--Society of Radiologists in Ultrasound Consensus Conference. Radiology. 2003 Nov; 229(2):340-6. Pat.Name:BILL OLIVIA Pat.ID:[id number] .Date: 04/02/2018Refer.MD:FRANCISCO J LIND MD Exam Time: 1:24:00 PMStudy Type:Carotid DOBAge:1945,72Y Sex: FEMALE Sonogrphr: PATRICK Richey, RCSPat. Stat.:Inpatient Room:[facility] TapeVol: SB, CPT - 4: 60406 Echo Event ID:[id number] Order ID:[id number] Reason for Study:Gradual decline in strenth and ability to function over the last several months to year. History of endocarditis, hypertension, CHF status post bioprostetic AVR in 2004, COPD, significant aortic insufficiency along with a possible mass on the biprosthesis. Procedures:Colorflow, Grayscale/2D, Pulsed wave Doppler Race:C SUMMARY: PHYSICAL ASSESSMENT BloodPulsesCarotid Pressure Carotid TemporalBruit Right 100/39 ++0 Left ___ ++0 CAROTID ARTERY SCAN RIGHT: There is smooth intimal lining noted in the common carotid artery, bulb internal and external carotid artery Colorflow is mildly disturbed in the proximal internal carotid artery. Doppler waveforms demonstrates reverse diastolic flow in the common carotid artery. LEFT: There is smooth intimal lining noted in the common carotid artery, bulb internal and external carotid artery. The proximal internal carotid artery appears tortuous. Colorflow disturbance is noted and with elevated Doppler velocities present in the proximal internal carotid artery. Doppler waveforms demonstrates reverse diastolic flow in the common carotid artery. PRELIMINARY FINDINGS 1. No evidence of carotid artery disease. 2. Tortuosity of the left proximal internal carotid artery. 3. Elevated Doppler velocities present in the left proximal internal carotid artery. 4. Doppler waveforms demonstrates reverse diastolic flow in bilateral common carotid arteries. 5. <50% stenosis in the external carotid artery, bilaterally. PHYSICIAN INTERPRETATION 1.Bilateral carotid artery examination demonstrates no evidence of plaque or occlusive disease. 2.Abnormal doppler flows and velocities Carotid Findings:Junaid Stauffer.Flw AntegradeAntegrade Subclavian Biphasic Biphasic MEASUREMENTS: DOPPLER Left CCA Dist CCA Dist PSV 125 cm/sCCA Dist EDV3.15 cm/s Left CCA Mid CCA Mid [id number] cm/sCCA Mid EDV0 cm/s Left CCA Prox CCA Prox PSV 127 cm/sCCA Prox EDV 2.1 cm/s Left ICA Dist ICA Dist PSV64.9 cm/Pili Dist EDV2.16 cm/s Left ICA Mid ICA Mid [id number] cm/Pili Mid EDV 3.15 cm/s Left ICA Prox ICA Prox PSV 154 cm/Pili Prox EDV1.05 cm/s Left ECA Prox ECA Prox PSV 132 cm/sECA Prox EDV 4.2 cm/s Left SCA Prox SCA Prox PSV 163 cm/sSCA Prox EDV 4.2 cm/s Left Vertebral Vertebral [id number] cm/sVertebral EDV0 cm/s Right CCA Dist CCA Dist PSV81.7 cm/sCCA Dist EDV 0.749 cm/s Right CCA Mid CCA Mid [id number] cm/sCCA Mid EDV 0.75 cm/s Right CCA Prox CCA Prox PSV 105 cm/sCCA Prox EDV 0 cm/s Right ICA Dist ICA Dist PSV 109 cm/Pili Dist EDV 1.5 cm/s Right ICA Mid ICA Mid [id number] cm/Pili Mid EDV1.5 cm/s Right ICA Prox ICA Prox PSV 114 cm/Pili Prox EDV 0 cm/s Right ECA Prox ECA Prox PSV 101 cm/sECA Prox EDV 0 cm/s Right SCA Prox SCA Prox PSV 176 cm/s Right Vertebral Vertebral PSV 83.9 cm/sVertebral EDV3 cm/s Right ICA/CCA Ratio ICA/CCA PSV 1.01 Left ICA/CCA Ratio ICA/CCA PSV1.2 Signed 04/02/2018 08:30 PM John Romo MD Procedure Note Interface, Radiology Results In - 04/02/2018 8:31 PM CDT Vascular Ultrasound Laboratory Carotid Artery Duplex Report [address] [place] [address] For food quality tester purposes, the categorization of the degree of the stenosis of this exam is based on criteria described in the IAC carotid stenosis grading white paper( www.intersocietal.org/Vascular) and Leonel Ballesteros., James Bales, et al. Carotid artery stenosis: cleveland-scale and Doppler US diagnosis--Society of Radiologists in Ultrasound Consensus Conference. Radiology. 2003 Nov; 229(2):340-6. Pat.Name: BILL OLIVIA [facility].ID: [id number] .Date: 04/02/2018 Refer.MD: FRANCISCO J LIND MD Exam Time: 1:24:00 PM Study Type:Carotid Age: 5 1945,72Y Sex: FEMALE Sonogrphr: Felton Levine, RVSheila, RCSPat. Stat.:Inpatient Room: D967A Tape Vol: SB, CPT - 4: 12408 Echo Event ID:[id number] Order ID: [id number] Reason for Study:Gradual decline in strenth and ability to function over the last several months to year. History of endocarditis, hypertension, CHF status post bioprostetic AVR in 2004, COPD, significant aortic insufficiency along with a possible mass on the biprosthesis. Procedures:Colorflow, Grayscale/2D, Pulsed wave Doppler Race: C SUMMARY: PHYSICAL ASSESSMENT Blood Pulses Carotid Pressure Carotid Temporal Bruit Right 100/39 + + 0 Left ___ + + 0 CAROTID ARTERY SCAN RIGHT: There is smooth intimal lining noted in the common carotid artery, bulb internal and external carotid artery Colorflow is mildly disturbed in the proximal internal carotid artery. Doppler waveforms demonstrates reverse diastolic flow in the common carotid artery. LEFT: There is smooth intimal lining noted in the common carotid artery, bulb internal and external carotid artery. The proximal internal carotid artery appears tortuous. Colorflow disturbance is noted and with elevated Doppler velocities present in the proximal internal carotid artery. Doppler waveforms demonstrates reverse diastolic flow in the common carotid artery. PRELIMINARY FINDINGS 1. No evidence of carotid artery disease. 2. Tortuosity of the left proximal internal carotid artery. 3. Elevated Doppler velocities present in the left proximal internal carotid artery. 4. Doppler waveforms demonstrates reverse diastolic flow in bilateral common carotid arteries. 5. <50% stenosis in the external carotid artery, bilaterally. PHYSICIAN INTERPRETATION 1. Bilateral carotid artery examination demonstrates no evidence of plaque or occlusive disease. 2. Abnormal doppler flows and velocities Carotid Findings: Right Left Verteb.Flw Antegrade Antegrade Subclavian Biphasic Biphasic MEASUREMENTS: DOPPLER Left CCA Dist CCA Dist PSV 125 cm/s CCA Dist EDV 3.15 cm/s Left CCA Mid CCA Mid PSV 128 cm/s CCA Mid EDV 0 cm/s Left CCA Prox CCA Prox PSV 127 cm/s CCA Prox EDV 2.1 cm/s Left ICA Dist ICA Dist PSV 64.9 cm/s ICA Dist EDV 2.16 cm/s Left ICA Mid ICA Mid PSV 108 cm/s ICA Mid EDV 3.15 cm/s Left ICA Prox ICA Prox PSV 154 cm/s ICA Prox EDV 1.05 cm/s Left ECA Prox ECA Prox PSV 132 cm/s ECA Prox EDV 4.2 cm/s Left SCA Prox SCA Prox PSV 163 cm/s SCA Prox EDV 4.2 cm/s Left Vertebral Vertebral PSV 101 cm/s Vertebral EDV 0 cm/s Right CCA Dist CCA Dist PSV 81.7 cm/s CCA Dist EDV 0.749 cm/s Right CCA Mid CCA Mid PSV 113 cm/s CCA Mid EDV 0.75 cm/s Right CCA Prox CCA Prox PSV 105 cm/s CCA Prox EDV 0 cm/s Right ICA Dist ICA Dist PSV 109 cm/s ICA Dist EDV 1.5 cm/s Right ICA Mid ICA Mid PSV 100 cm/s ICA Mid EDV 1.5 cm/s Right ICA Prox ICA Prox PSV 114 cm/s ICA Prox EDV 0 cm/s Right ECA Prox ECA Prox PSV 101 cm/s ECA Prox EDV 0 cm/s Right SCA Prox SCA Prox PSV 176 cm/s Right Vertebral Vertebral PSV 83.9 cm/s Vertebral EDV 3 cm/s Right ICA/CCA Ratio ICA/CCA PSV 1.01 Left ICA/CCA Ratio ICA/CCA PSV 1.2 Signed 04/02/2018 08:30 PM John Romo MD Performing Organization Address City/State/Zipcode Phone Number [facility] [address] [place] [address] Echocardiogram complete w contrast and 3D if needed (04/02/2018 9:14 AM) Narrative Performed At [facility] Echocardiography Report [address] [place] [address] Pat.Name:BILL OLIVIA Pat.ID:[id number] .Date: 04/02/2018Refer.MD:FRANCISCO J LIND MD Exam Time: 9:47:00 AMStudy Type:Routine Echo Height:62inWeight: 120lb BSA: 1.54 m2 DOBAge:1945,72Y Sex: FEMALEBP:101/43 HR:85 bpmSonogrphr: MADDIE Kurtz Pat. Stat.:Inpatient Room:[facility] Study Status:Final Echo Event ID:[id number] Order ID:[id number] Reason for Study:Pre-op History / Clinical:Hypertension, AORTIC VALVE REPLACEMENT Procedures:2D Echo, Colorflow Doppler Race:C SUMMARY: LV EF is mildly depressed. RV systolic function is normal. Bioprosthetic aortic valve. There is a 1.1 x 0.8 cm echogenic mass attached to the prosthetic valve which could represent a torn leaflet or old vegetation. Recommend FRANCISCA for further evaluation. Severe aortic regurgitation. Holodiastolic flow reversal seen in descending thoracic aorta. Aortic valve high velocity and pressure gradient is secondary to valve regurgitation. FINDINGS: LV: LV size is zdzi-pi-nwjfjwlgvn enlarged. There is moderate eccentricLV hypertrophy. LV EF is mildly depressed. Overallwall motion is mildly hypokinetic. Estimated EF is 45-49%. RV: RV size is normal. RV systolic function is normal. LA: LA volume is difficult to assess. RA: RA volume is difficult to assess. AO: Aortic root diameter is normal. FRANCISCO J: No pericardial effusion. PLE:Pleural effusion is present. Echoes within the pleural space suggestthe presence of a mass or fibrino-adhesive material AV: Bioprosthetic aortic valve. There is a 1.1 x 0.8 cm echogenicmass attached to the prosthetic valve which could representa torn leaflet or old vegetation. Recommend FRANCISCA forfurther evaluation. Severe aortic regurgitation. Holodiastolicflow reversal seen in descending thoracic aorta.Surgical Prosthetic AV Doppler velocity index is 0.56(normal>0.25). Aortic valve high velocity and pressure gradientis secondary to valve regurgitation. MV: No structural MV abnormalities noted. PV: Pulmonic valve not well seen. A trace of pulmonic regurgitation. TV: Tricuspid valve not well seen. MEASUREMENTS: 2D Parasternal Long [place] LVOT 1.9 cmIVSd 1 cm LA Ds5.3 cmLVPWd1.1 cm Ao Rtd 3.2 cmIndex2.1 cm/m LV Wgeg558 g(87-129) LVIDd5.2 cmIndex3.4 cm/m LVM Jlugs077.1 g/m2 LVIDs3.9 cmRWT0.4 LV%fs 25.7 % DOPPLER AV For Flow/ADEOLA AV pkVel 275.7 cm/s (100-170) AV AC/ET 0.3 AV mnVel 173.5 cm/Jewel TVI57.4 cm AV pkPG 30.4 mmHgAVpkAcRt 4149.2 cm/s2 AV Mean G 14.8 mmHgAV HvAv189.5 cm/s2 AV AC115 msec (83-118) AV Area1.6 cm2(3-5) AV ET331 msec LVOT For Flow LVOT Area2.8 cm2 LVOT SV 91.7 ml FIGNqjTcb799.3 cm/sHR80.5 bpm LVOTpkPG 7.6 mmHgLVOT CO7.4 l/min LVOTmnPG 3.5 mmHgLVOT CI4.8 l/m/m2 LVOT TVI32.3 cm Signed 04/02/2018 05:57 PM Klaus Ryan M.D. Procedure Note Interface, Radiology Results In - 04/02/2018 5:58 PM CDT Echocardiography Report [address] [place] [address] Pat.Name: BILL OLIVIA Pat.ID: [id number] .Date: 04/02/2018 Refer.MD: FRANCISCO J LIND MD Exam Time: 9:47:00 AM Study Type:Routine Echo Height: 62in Weight: 120lb BSA: 1.54 m2 Age: 5 1945,72Y Sex: FEMALE BP: 101/43 HR: 85 bpm Sonogrphr: MADDIE Kurtz Pat. Stat.:Inpatient Room: [facility] Study Status:Final Echo Event ID:[id number] Order ID: [id number] Reason for Study:Pre-op History / Clinical:Hypertension, AORTIC VALVE REPLACEMENT Procedures:2D Echo, Colorflow Doppler Race: C SUMMARY: LV EF is mildly depressed. RV systolic function is normal. Bioprosthetic aortic valve. There is a 1.1 x 0.8 cm echogenic mass attached to the prosthetic valve which could represent a torn leaflet or old vegetation. Recommend FRANCISCA for further evaluation. Severe aortic regurgitation. Holodiastolic flow reversal seen in descending thoracic aorta. Aortic valve high velocity and pressure gradient is secondary to valve regurgitation. FINDINGS: LV: LV size is fgiv-js-mfahmyukbj enlarged. There is moderate eccentric LV hypertrophy. LV EF is mildly depressed. Overall wall motion is mildly hypokinetic. Estimated EF is 45-49%. RV: RV size is normal. RV systolic function is normal. LA: LA volume is difficult to assess. RA: RA volume is difficult to assess. AO: Aortic root diameter is normal. FRANCISCO J: No pericardial effusion. PLE: Pleural effusion is present. Echoes within the pleural space suggest the presence of a mass or fibrino-adhesive material AV: Bioprosthetic aortic valve. There is a 1.1 x 0.8 cm echogenic mass attached to the prosthetic valve which could represent a torn leaflet or old vegetation. Recommend FRANCISCA for further evaluation. Severe aortic regurgitation. Holodiastolic flow reversal seen in descending thoracic aorta. Surgical Prosthetic AV Doppler velocity index is 0.56 (normal>0.25). Aortic valve high velocity and pressure gradient is secondary to valve regurgitation. MV: No structural MV abnormalities noted. PV: Pulmonic valve not well seen. A trace of pulmonic regurgitation. TV: Tricuspid valve not well seen. MEASUREMENTS: 2D Parasternal Long [place] LVOT 1.9 cm IVSd 1 cm LA Ds 5.3 cm LVPWd 1.1 cm Ao Rtd 3.2 cm Index 2.1 cm/m LV Mass 205 g (87-129) LVIDd 5.2 cm Index 3.4 cm/m LVM Index 133.1 g/m2 LVIDs 3.9 cm RWT 0.4 LV%fs 25.7 % DOPPLER AV For Flow/ADEOLA AV pkVel 275.7 cm/s (100-170) AV AC/ET 0.3 AV mnVel 173.5 cm/s AV TVI 57.4 cm AV pkPG 30.4 mmHg AVpkAcRt 4149.2 cm/s2 AV Mean G 14.8 mmHg AV DeRt 833.5 cm/s2 AV AC 115 msec (83-118) AV Area 1.6 cm2 (3-5) AV ET 331 msec LVOT For Flow LVOT Area 2.8 cm2 LVOT SV 91.7 ml LVOTpkVel 138.3 cm/s HR 80.5 bpm LVOTpkPG 7.6 mmHg LVOT CO 7.4 l/min LVOTmnPG 3.5 mmHg LVOT CI 4.8 l/m/m2 LVOT TVI 32.3 cm Signed 04/02/2018 05:57 PM Klaus Ryan M.D. Performing Organization Address City/State/[facility] Phone Number [facility] [address] [place] [address] Urinalysis screen and microscopy, with reflex to culture (04/01/2018 10:00 PM) Specimen site Clean catch [facility] DEPARTMENT OF PATHOLOGY AND GENOMIC MEDICINE Color, UA Yellow [facility] DEPARTMENT OF PATHOLOGY AND GENOMIC MEDICINE Appearance, UA Turbid [facility] DEPARTMENT OF PATHOLOGY AND GENOMIC MEDICINE Specific gravity, UA 1.013 1.001 - 1.035 [facility] DEPARTMENT OF PATHOLOGY AND GENOMIC MEDICINE pH, UA 7.0 5.0 - 8.5 [facility] DEPARTMENT OF PATHOLOGY AND GENOMIC MEDICINE Protein, UA Negative Negative [facility] DEPARTMENT OF PATHOLOGY AND GENOMIC MEDICINE Glucose, UA Negative Negative [facility] DEPARTMENT OF PATHOLOGY AND GENOMIC MEDICINE Ketones, UA Negative Negative [facility] DEPARTMENT OF PATHOLOGY AND GENOMIC MEDICINE Bilirubin, UA Negative Negative [facility] DEPARTMENT OF PATHOLOGY AND GENOMIC MEDICINE Blood, UA Negative Negative [facility] DEPARTMENT OF PATHOLOGY AND GENOMIC MEDICINE Nitrite, UA Negative Negative [facility] DEPARTMENT OF PATHOLOGY AND GENOMIC MEDICINE Urobilinogen, UA 2.0 (A) <2.0 [facility] DEPARTMENT OF PATHOLOGY AND GENOMIC MEDICINE Leukocyte esterase, UA Negative Negative [facility] DEPARTMENT OF PATHOLOGY AND GENOMIC MEDICINE WBC, UA <1 0 - 4 /HPF [facility] DEPARTMENT OF PATHOLOGY AND GENOMIC MEDICINE RBC, UA 1 0 - 5 /HPF [facility] DEPARTMENT OF PATHOLOGY AND GENOMIC MEDICINE Bacteria, UA Few None seen [facility] DEPARTMENT OF PATHOLOGY AND GENOMIC MEDICINE Yeast, UA None seen [facility] DEPARTMENT OF PATHOLOGY AND GENOMIC MEDICINE Yeast with pseudohyphae, UA None seen [facility] DEPARTMENT OF PATHOLOGY AND GENOMIC MEDICINE Amorphous crystals Moderate [facility] DEPARTMENT OF PATHOLOGY AND GENOMIC MEDICINE Calcium oxalate crystals, UA Few [facility] DEPARTMENT OF PATHOLOGY AND GENOMIC MEDICINE Hyaline casts, UA 7 /LPF [facility] DEPARTMENT OF PATHOLOGY AND GENOMIC MEDICINE Specimen Urine Performing Organization Address City/[facility] Phone Number [facility] DEPARTMENT OF PATHOLOGY AND [address] [place] [phone] [facility] MEDICINE Urine culture (04/01/2018 10:00 PM) Urine culture SEE COMMENTComment: Bacteriuria [facility] DEPARTMENT OF PATHOLOGY screen negative. AND GENOMIC MEDICINE Performing Organization Address City/[facility] Phone Number [facility] DEPARTMENT OF PATHOLOGY AND [address] [place] [phone] [facility] XR Chest 1 Vw Portable (04/01/2018 8:33 PM) Narrative Performed At EXAMINATION: XR CHEST 1 VW PORTABLE RADIANT INDICATION: preop COMPARISON: Most recent prior IMPRESSION: Stable cardiomegaly. Prior sternotomy. Arteriosclerosis aortic arch. Moderate left and small to moderate right pleural effusions with compressive atelectasis. Central pulmonary vascular congestion. No visible pneumothorax. [facility]-[id number] Procedure Note Interface, Radiology Results Incoming - 04/01/2018 9:05 PM CDT EXAMINATION: XR CHEST 1 VW PORTABLE INDICATION: preop COMPARISON: Most recent prior IMPRESSION: Stable cardiomegaly. Prior sternotomy. Arteriosclerosis aortic arch. Moderate left and small to moderate right pleural effusions with compressive atelectasis. Central pulmonary vascular congestion. No visible pneumothorax. [facility]-[id number] Performing Organization Address [facility] Phone Number [facility] [address] [place] [phone] Partial thromboplastin time, activated (04/01/2018 8:20 PM) PTT 27.2 23.0 - 36.0 sec [facility] DEPARTMENT OF PATHOLOGY Comment: AND [facility] PTT therapeutic range for unfractionated heparin is 61.0-112.0 seconds which corresponds to Anti-Xa 0.3-0.7 U/ml. Specimen Blood Performing Organization Address City/[facility] Phone Number [facility] DEPARTMENT OF PATHOLOGY AND [address] [place] [address] Prothrombin time with INR (04/01/2018 8:20 PM) Prothrombin time 13.9 12.0 - 15.0 sec [facility] DEPARTMENT OF PATHOLOGY AND GENOMIC MEDICINE INR 1.1 [facility] DEPARTMENT OF Comment: PATHOLOGY AND GENOMIC The International Normalized Ratio (INR) is a therapeutic MEDICINE monitoring tool for patients who are stable on oral anticoagulant therapy. An INR of 2.0-3.0 is suggested for deep vein thrombosis/pulmonary embolism. Specimen Blood Performing Organization Address [facility] Phone Number [facility] DEPARTMENT OF PATHOLOGY AND [address] [place] [address] Blood culture, aerobic & anaerobic (04/01/2018 8:00 PM)Only the most recent of2 resultswithin the time period is included. Blood culture isolate No growth after 5 days of incubation. [facility] DEPARTMENT OF Comment: PATHOLOGY AND GENOMIC Specimen Information MEDICINE Specimen Source: Blood Specimen Site: Peripheral Hand Right Specimen Blood Performing Organization Address [facility] Phone Number [facility] DEPARTMENT OF PATHOLOGY AND [address] [place] [address] Thyroid stimulating hormone (04/01/2018 7:22 PM) TSH 1.92 0.27 - 4.20 uIU/mL [facility] DEPARTMENT OF PATHOLOGY AND GENOMIC MEDICINE Specimen Plasma specimen Performing Organization Address [facility] Phone Number [facility] DEPARTMENT OF PATHOLOGY AND [address] [place] [phone] [facility] T4, free (04/01/2018 7:22 PM) T4, free 1.2 0.9 - 1.7 ng/dL [facility] DEPARTMENT OF PATHOLOGY AND GENOMIC MEDICINE Specimen Plasma specimen Performing Organization Address [facility] Phone Number [facility] DEPARTMENT OF PATHOLOGY AND [address] [place] [phone] [place] [address] Hepatic function panel (04/01/2018 7:22 PM) Albumin 2.5 (L) 3.5 - 5.0 g/dL [facility] DEPARTMENT OF PATHOLOGY AND GENOMIC MEDICINE Total bilirubin 0.3 0.0 - 1.2 mg/dL [facility] DEPARTMENT OF PATHOLOGY AND GENOMIC MEDICINE Bilirubin direct <0.2 0.0 - 0.3 mg/dL [facility] DEPARTMENT OF PATHOLOGY AND GENOMIC MEDICINE Alkaline phosphatase 50 35 - 104 U/L [facility] DEPARTMENT OF PATHOLOGY AND GENOMIC MEDICINE Protein 6.6 6.3 - 8.3 g/dL [facility] DEPARTMENT OF Comment: PATHOLOGY AND GENOMIC [place] 4.6-7.0 g/dL MEDICINE 1 week 4.4-7.6 g/dL 7 months-1year5.1-7.3 g/dL 1-2 years5.6-7.5 g/dL >3 years6.0-8.0 g/dL 18-150 6.3-8.3 g/dL ALT 13 5 - 50 U/L [facility] DEPARTMENT OF PATHOLOGY AND GENOMIC MEDICINE AST 16 10 - 35 U/L [facility] DEPARTMENT OF PATHOLOGY AND GENOMIC MEDICINE Specimen Plasma specimen Performing Organization Address City/State/[place] Phone Number [facility] DEPARTMENT OF PATHOLOGY AND [address] [place] [address] [employer] MEDICINE after 06/18/2017 Insurance Payer Benefit Plan / Group Subscriber ID Type Phone Address MEDICARE MEDICARE PART A AND B xxxxxxxxxx Medicare [place], [place] AARP AARP SUPPLEMENT xxxxxxxxx-x Commercial y [phone] [place] [address] 203
--- NOTE | 2018-06-19 13:28 | EKG ---
Test Date: 2018-06-19 Test Time: 13:23:00 Highway Research Engineer: KIMBER MEASUREMENT RESULTS: Intervals: Rate: 90 RI: 162 QRSD: 82 QT: 324 QTc: 396 [place]: P: 34 RI: 162 QRS: 39 T: 45 INTERPRETIVE STATEMENTS: Normal sinus rhythm Possible Left atrial enlargement Borderline ECG Compared to ECG 03/29/2018 16:33:13 ST (T wave) deviation no longer present Electronically Signed On 06-19-18 13:27:24 CDT by Rashaun He
--- NOTE | 2018-06-19 13:28 | RAD REPORT ---
EXAM DESCRIPTION: RAD - Chest Single View - 06/19/2018 1:18 pm CLINICAL HISTORY: SOB Chest pain. COMPARISON: Chest Pa And Lat (2 Views) dated 05/30/2018; Chest Single View dated 03/29/2018; Chest Pa A nd Lat (2 Views) dated 01/24/2018; Chest Pa And Lat (2 Views) dated 10/04/2017 FINDINGS: Portable technique limits examination quality. Moderate bilateral pleural effusions are again noted, larger on the left and appear chronic. Increase d right lung base opacification seen suspicious pneumonia. Sternotomy wires are present. The heart si ze is moderately enlarged.
[2018-06-19 13:46] LABS: Absolute Lymphocytes (CBC) 0.9 K/uL (0.7-4.9); Absolute Monocytes 0.5 K/uL (0.1-1.3); Absolute Neutrophil 5.8 K/uL (1.8-8.0); Basophils % 0.8 % (0-1.3); Eosinophils % 0.9 % (0-4.4); Hematocrit 33.7 % (36.0-45.0); Lymphocytes % 12.5 % (15.3-44.8); MCH 30.5 pg (27.0-35.0); MCV 93.2 fL (80-100); MPV 8.3 fL (7.6-11.3); Monocytes % 7.2 % (3.3-12.3); RBC Red Blood Cell Count 3.62 M/uL (3.86-4.86)
[2018-06-19 14:29] LABS: Protime INR 1.04
--- NOTE | 2018-06-19 14:31 | EDPHYS ---
Physician Documentation [facility] Name: Shannan Olivia Age: 72 yrs Sex: Female : 1945 Arrival Date: 06/19/2018 Time: 12:50 Bed 28 Private MD: Mickey Gates C ED Physician Ugo Rosario Historical: - Allergies: 06/19 12:55 NKA; aj1 - Home Meds: 12:55 Plavix 75 mg Oral tab 1 tab once daily [Active]; Breo Ellipta 100-25 mcg/dose aj1 inhalation dsdv 1 puff once daily [Active]; carvedilol 3.125 mg Oral tab daily [Active]; CoQ-10 Oral daily [Active]; Coreg 3.125 mg Oral tab 1 tab 2 times per day [Active]; furosemide 40 mg Oral tab 1 tab once daily [Active]; ibandronate 150 mg Oral tab 1 tab once moly [Active]; Iron CR Oral daily [Active]; lorazepam 0.5 mg Oral tab 1 tab 2 times per day [Active]; mirtazapine 15 mg Oral tab 1 tab once daily [Active]; montelukast 10 mg Oral tab 1 tab once daily for Maintenance Therapy for Asthma [Active]; Nexium 40 mg Oral cpDR 1 cap once daily [Active]; pantoprazole 40 mg Oral TbEC 1 tab once daily for Gastroesophageal reflux [Active]; prednisone 5 mg Oral tab once daily [Active]; senior multivitamin daily [Active]; spironolactone 25 mg Oral tab 1 tab once daily [Active]; vit c 1 tab daily. multi vitamin 1 tab daily, Advair 150 mcg 1 in morning, flonase 1 spray in each nostril once daily, [Active]; - PMHx: 12:55 acid reflux; Asthma; CHF; COPD; Hypertension; pleural effusion-06/2015; Pneumonia; aj1 shingles; - Immunization history:: Flu vaccine is up to date. - Social history:: Smoking status: Patient/guardian denies using tobacco. - Ebola Screening: : Patient denies travel to an Ebola-affected area in the 21 days before illness onset. Vital Signs: 12:55 BP 110 / 53; Pulse 92; Resp 24; Temp 97.0(O); Pulse Ox 96% on 2 lpm NC; Weight 49.9 kg aj1 (R); Height 5 ft. 2 in. (157.48 cm) (R); Pain 0/10; 14:08 BP 96 / 58; Pulse 85; Resp 19; Pulse Ox 99% on 2 lpm NC; kr2 15:39 BP 96 / 55; Pulse 77; Resp 12; Pulse Ox 100% ; kr2 17:02 BP 101 / 46; Pulse 79; Resp 20; Pulse Ox 97% on R/A; kr2 18:30 BP 94 / 62; Pulse 86; Resp 22; Pulse Ox 99% ; kr2 19:30 BP 98 / 70; Pulse 80; Resp 16; Pulse Ox 99% on 2 lpm NC; kr2 12:55 Body Mass Index 20.12 (49.90 kg, 157.48 cm) aj1 MDM: 14:29 Patient medically screened. [facility] 06/19 13:05 Order name: Basic Metabolic Panel [facility] 06/19 13:05 Order name: CBC with Diff; Complete Time: 14:13 kdr 06/19 13:05 Order name: LFT's [facility] 06/19 13:05 Order name: Magnesium kdr 06/19 13:05 Order name: NT PRO-BNP kdr 06/19 13:05 Order name: PT-INR [facility] 06/19 13:05 Order name: Troponin (emerg Dept Use Only) [facility] 06/19 13:05 Order name: Flu; Complete Time: 14:13 kdr 06/19 13:22 Order name: Blood Culture Adult (2) kr2 06/19 16:05 Order name: Urine Dipstick--Ancillary (enter results) bd 06/19 16:36 Order name: Basic Metabolic Panel EDMS 06/19 16:36 Order name: Basic Metabolic Panel EDMS 06/19 16:36 Order name: CBC with Automated Diff EDMS 06/19 16:36 Order name: CBC with Automated Diff EDMS 06/19 13:05 Order name: XRAY Chest (1 view); Complete Time: 14:13 kdr 06/19 13:05 Order name: EKG; Complete Time: 13:06 kdr 06/19 13:05 Order name: Cardiac monitoring; Complete Time: 13:22 kdr 06/19 13:05 Order name: EKG - Nurse/Tech; Complete Time: 13:22 kdr 06/19 13:05 Order name: IV Saline Lock; Complete Time: 13:22 kdr 06/19 13:05 Order name: Labs collected and sent; Complete Time: : kdr 06/19 13:05 Order name: O2 Per Protocol; Complete Time: : kdr 06/19 13:05 Order name: O2 Sat Monitoring; Complete Time: : kdr 06/19 13:51 Order name: Labs - recollect needed; Complete Time: 14:05 hb 06/19 16:36 Order name: Regular EDMS 06/19 16:36 Order name: NT PRO-BNP EDMS 06/19 16:36 Order name: NT PRO-BNP EDMS Administered Medications: 17:01 Drug: Zosyn 3.375 grams Route: IVPB; Infused Over: 60 mins; Site: left antecubital; kr2 18:05 Follow up: Response: No adverse reaction; IV Status: Completed infusion kr2 Disposition: 06/19/18 14:30 Hospitalization ordered by Mickey Gates for Inpatient Admission. Preliminary diagnosis is Pneumonia, unspecified organism. - Bed requested for Telemetry/MedSurg (Inpatient). - Status is Inpatient Admission. kr2 - Condition is Fair. - Problem is an ongoing problem. - Symptoms have worsened. UTI on Admission? No Addendum: 06/30/2018 22:28 Addendum: CC: Shortness of breath HPI: The patient states that for the past four days, nataliya lennon she has had worsening SOB. She was seen a few days ago by Dr. Serna and it was her understanding that she had pneumonia however, she states that she was not given any antibiotics. Since then, her SOB has persisted and worsened. She denies fever or sputum. She has no other associated s/s . Addendum: ROS: Const: No fever, chills or weight loss, Eyes: no visual changes or c/o, Neck: no pain or injury, CV: no CP or palpitations, Resp: mild SOB, cough but not productive and mild congestion, Abd: no n/v/d or pain, Back: no pain or injury, : no pain or bleeding, MS/Ext: no pain, injury, swelling, tingling, Skin: no lacerations, pain, injury, skin turgor good, Neuro: CN grossly intact and no other deficits, Psych: Appropriate for age, Allergy/Immunology: no rashes or other s/s, Endo: no evidence of polyuria, polydipsia, temperature control or other s/s . Addendum: Exam: Const: WDWN WF in NAD, Head/Face: no injury, pain or deformity, Eyes: PERRLA, ENT: no pain, injury or bleeding, Neck: no pain, injury or deformity, full ROM, Chest/Axilla: No pain, injury or deformity, CV: no rubs, gallops, murmurs, regular rate, Resp: CTAB, regular rate, Abd/GI: soft, NT, BS present in all quads and normal, Back: no injury or deformity, full ROM, MS/Extremity: no injury or deformity, FROM, distal pulses good and equal, Skin: no rashes, ecchymosis skin turgor good, Neuro: CN grossly intact, no other neuro deficits, Psych: appropriate for age, no SI/HI, no depression . Addendum: MDM (Admission - stable) All VS and nursing notes reviewed. The patient and/or family was counseled on the results and need for admission. The patient was admitted in stable condition. They were happy with the care received and the plan for admission and further evaluation and treatment. . Signatures: Dispatcher [employer] EDMS Shannan Guevara Angela, RN RN aj1 Ugo Rosario MD MD [facility] Pennie Sin RN RN Ericka Horta, CHAPIN RN kr2 Corrections: (The following items were deleted from the chart) 06/19 17:34 14:30 Hospitalization Ordered by A Kody JIN for Inpatient Admission. Preliminary bd diagnosis is Pneumonia, unspecified organism. Bed requested for Telemetry/MedSurg (Inpatient). Status is Inpatient Admission. Condition is Fair. Problem is an ongoing problem. Symptoms have worsened. UTI on Admission? No. kdr 20:19 17:34 06/19/2018 14:30 Hospitalization Ordered by Mickey Gates MD for Inpatient Admission. kr2 Preliminary diagnosis is Pneumonia, unspecified organism. Bed requested for Telemetry/MedSurg (Inpatient). Status is Inpatient Admission. Condition is Fair. Problem is an ongoing problem. Symptoms have worsened. UTI on Admission? No. bd
--- NOTE | 2018-06-19 14:31 | ER ---
Nurse's Notes [facility] Name: Shannan Olivia Age: 72 yrs Sex: Female : 1945 Arrival Date: 06/19/2018 Time: 12:50 Bed 28 Private MD: Mickey Gates C Diagnosis: Pneumonia, unspecified organism Presentation: 06/19 12:51 Presenting complaint: Patient states: She was Dr. Serna on , her papers said aj1 she had pneumonia but she wasn't prescribed any antibiotic and now her cough is worse and she feeling malaise. Reports SOB x 4 days. Patient wears home O2\T\ 2L. Transition of care: patient was not received from another setting of care. Onset of symptoms was June 15, 2018. Risk Assessment: Do you want to hurt yourself or someone else? Patient reports no desire to harm self or others. Initial Sepsis Screen: Does the patient meet any 2 criteria? RR > 20 per min. HR > 90 bpm. Yes Does the patient have a suspected source of infection? Yes: Productive cough/pneumonia. Care prior to arrival: None. 12:51 Method Of Arrival: Wheelchair aj1 12:51 Acuity: KANU 3 aj1 Triage Assessment: 12:55 General: Appears uncomfortable, Behavior is calm, cooperative, appropriate for age. aj1 Pain: Denies pain. Neuro: Level of Consciousness is awake, alert, obeys commands, Oriented to person, place, time, situation. Cardiovascular: Patient's skin is warm and dry. Respiratory: Reports shortness of breath at rest cough that is productive, Airway is patent Respiratory effort is even, Respiratory pattern is regular, symmetrical, Onset: The symptoms/episode began/occurred 4 days ago, the patient has mild shortness of breath. Historical: - Allergies: 12:55 NKA; aj1 - Home Meds: 12:55 Plavix 75 mg Oral tab 1 tab once daily [Active]; Breo Ellipta 100-25 mcg/dose aj1 inhalation dsdv 1 puff once daily [Active]; carvedilol 3.125 mg Oral tab daily [Active]; CoQ-10 Oral daily [Active]; Coreg 3.125 mg Oral tab 1 tab 2 times per day [Active]; furosemide 40 mg Oral tab 1 tab once daily [Active]; ibandronate 150 mg Oral tab 1 tab once moly [Active]; Iron CR Oral daily [Active]; lorazepam 0.5 mg Oral tab 1 tab 2 times per day [Active]; mirtazapine 15 mg Oral tab 1 tab once daily [Active]; montelukast 10 mg Oral tab 1 tab once daily for Maintenance Therapy for Asthma [Active]; Nexium 40 mg Oral cpDR 1 cap once daily [Active]; pantoprazole 40 mg Oral TbEC 1 tab once daily for Gastroesophageal reflux [Active]; prednisone 5 mg Oral tab once daily [Active]; senior multivitamin daily [Active]; spironolactone 25 mg Oral tab 1 tab once daily [Active]; vit c 1 tab daily. multi vitamin 1 tab daily, Advair 150 mcg 1 in morning, flonase 1 spray in each nostril once daily, [Active]; - PMHx: 12:55 acid reflux; Asthma; CHF; COPD; Hypertension; pleural effusion-06/2015; Pneumonia; aj1 shingles; - Immunization history:: Flu vaccine is up to date. - Social history:: Smoking status: Patient/guardian denies using tobacco. - Ebola Screening: : Patient denies travel to an Ebola-affected area in the 21 days before illness onset. Screenin:30 Abuse screen: Denies threats or abuse. Denies injuries from another. Nutritional kr2 screening: No deficits noted. Tuberculosis screening: No symptoms or risk factors identified. Fall Risk None identified. Assessment: 13:20 General: Appears in no apparent distress. comfortable, well groomed, well developed, kr2 well nourished, Behavior is calm, cooperative, appropriate for age. Pain: Denies pain. Neuro: Level of Consciousness is awake, alert, obeys commands, Oriented to person, place, time, situation. Cardiovascular: Heart tones S1 S2 Rhythm is sinus rhythm. Respiratory: Airway is patent Respiratory effort is even, unlabored, Respiratory pattern is regular, symmetrical, Breath sounds with rhonchi bilaterally. Respiratory: Reports cough that is productive, persistent. GI: Abdomen is flat, non-distended. : Denies burning with urination. EENT: Nares are clear bilaterally Oral mucosa is moist. Derm: Skin is intact, is healthy with good turgor, Skin is pink, warm \T\ dry. Musculoskeletal: Circulation, motion, and sensation intact. 14:23 Reassessment: Patient appears in no apparent distress at this time. Patient and/or kr2 family updated on plan of care and expected duration. Pain level reassessed. Patient is alert, oriented x 3, equal unlabored respirations, skin warm/dry/pink. Patient denies pain at this time. 15:39 Reassessment: Patient appears in no apparent distress at this time. Patient and/or kr2 family updated on plan of care and expected duration. Pain level reassessed. Patient is alert, oriented x 3, equal unlabored respirations, skin warm/dry/pink. Patient denies pain at this time. 16:30 Reassessment: Patient appears in no apparent distress at this time. Patient and/or kr2 family updated on plan of care and expected duration. Pain level reassessed. Patient is alert, oriented x 3, equal unlabored respirations, skin warm/dry/pink. Patient denies pain at this time. 17:01 Reassessment: Patient appears in no apparent distress at this time. Patient and/or kr2 family updated on plan of care and expected duration. Pain level reassessed. Patient is alert, oriented x 3, equal unlabored respirations, skin warm/dry/pink. Patient given food tray Patient denies pain at this time. 18:30 Reassessment: Patient appears in no apparent distress at this time. Patient and/or kr2 family updated on plan of care and expected duration. Pain level reassessed. Patient is alert, oriented x 3, equal unlabored respirations, skin warm/dry/pink. Patient denies pain at this time. Vital Signs: 12:55 BP 110 / 53; Pulse 92; Resp 24; Temp 97.0(O); Pulse Ox 96% on 2 lpm NC; Weight 49.9 kg aj1 (R); Height 5 ft. 2 in. (157.48 cm) (R); Pain 0/10; 14:08 BP 96 / 58; Pulse 85; Resp 19; Pulse Ox 99% on 2 lpm NC; kr2 15:39 BP 96 / 55; Pulse 77; Resp 12; Pulse Ox 100% ; kr2 17:02 BP 101 / 46; Pulse 79; Resp 20; Pulse Ox 97% on R/A; kr2 18:30 BP 94 / 62; Pulse 86; Resp 22; Pulse Ox 99% ; kr2 19:30 BP 98 / 70; Pulse 80; Resp 16; Pulse Ox 99% on 2 lpm NC; kr2 12:55 Body Mass Index 20.12 (49.90 kg, 157.48 cm) aj1 ED Course: 12:50 Patient arrived in ED. as 12:50 Mickey Gates MD is Private Physician. as 12:54 Triage completed. aj1 12:55 Arm band placed on Patient placed in an exam room. aj1 12:59 Ericka Horta, CHAPIN is Primary Nurse. kr2 13:04 Ugo Rosario MD is Attending Physician. kdr 13:17 X-ray completed. Portable x-ray completed in exam room. Patient tolerated procedure jb2 well. 13:18 XRAY Chest (1 view) In Process Unspecified. EDMS 13:19 EKG done, by hyperbaric technician. reviewed by Ugo Rosario MD. at1 13:30 Patient has correct armband on for positive identification. Bed in low position. Call kr2 light in reach. Side rails up X 1. Adult w/ patient. personnel monitor on. Pulse ox on. NIBP on. Door closed. Warm blanket given. Head of bed elevated. 13:30 First set of blood cultures drawn by me. Inserted saline lock: 20 gauge in left kr2 antecubital area, using aseptic technique. Blood collected. 14:00 Lab(s) recollected, by me, sent to lab. kr2 14:18 Mickey Gates MD is Hospitalizing Provider. kdr 15:55 Assisted to bedside commode. kr2 18:45 Assisted to bedside commode. kr2 20:14 No provider procedures requiring assistance completed. Patient admitted, IV remains in kr2 place. Administered Medications: 17:01 Drug: Zosyn 3.375 grams Route: IVPB; Infused Over: 60 mins; Site: left antecubital; kr2 18:05 Follow up: Response: No adverse reaction; IV Status: Completed infusion kr2 Outcome: 14:30 Decision to Hospitalize by Provider. kdr 20:14 Admitted to Tele accompanied by tech, via wheelchair, room 413, with oxygen, with kr2 chart, Report called to Annamarie 20:14 Condition: stable 20:14 Instructed on the need for admit, Demonstrated understanding of instructions. 20:19 Patient left the ED. kr2 Signatures: Dispatcher [employer] EDMS Kumar Nishi, CHAPIN RN aj1 Ugo Rosario MD MD [facility] Rah Baker Amelia as Gonzales, Amanda, [facility] Ericka Horta RN RN kr2
[2018-06-19 14:37] LABS: ALT/SGPT 13 U/L (12-78); AST/SGOT 18 U/L (15-37); Albumin 2.3 g/dL (3.4-5.0); Alkaline Phosphatase 60 U/L (45-117); BUN Blood Urea Nitrogen 19 mg/dL (7-18); Bicarbonate 39 mmol/L (21-32); Bilirubin Direct < 0.1 mg/dL (0-0.2); Bilirubin Total 0.2 mg/dL (0.2-1.0); Glucose Level 105 mg/dL (74-106); Magnesium 2.3 mg/dL (1.8-2.4); NT PRO-BNP 236 pg/mL (<125); Potassium 4.4 mmol/L (3.5-5.1); Protein, Total 6.6 g/dL (6.4-8.2); Sodium Level 140 mmol/L (136-145); Troponin (Emerg Dept Use Only) < 0.02 ng/mL (0.0-0.045)
[2018-06-19] MEDS ORDERED: IPRATROPIUM BROM 0.5MG/2.5ML NEB PRN (16:32)
[2018-06-19] MEDS ORDERED: ACETAMINOPHEN 500 MG TAB PO PRN (16:32)
[2018-06-19] MEDS ORDERED: ALBUTEROL 2.5 MG/3 ML NEB SOL NEB PRN (16:32)
[2018-06-19 16:46] LABS: Urine Blood TRACE (NEG); Urine Glucose NEGATIVE (NEG); Urine Protein NEGATIVE (NEG); Urine pH 8.5 (5.0-7.0)
[2018-06-19] MEDS ORDERED: PIPER/TAZO/NS 3.375gm 3.375 GM/100 ML BAG ONE (17:03)
[2018-06-19] MEDS ORDERED: PIPER/TAZO/NS 3.375gm 3.375 GM/100 ML BAG IVPB SCH (18:00)
[2018-06-20] MEDS ORDERED: PIPER/TAZO/NS 3.375gm 3.375 GM/100 ML BAG ONE (00:43)
[2018-06-20] MEDS: PIPER/TAZO/NS 3.375gm 3.375 GM/100 ML BAG IVPB SCH ×3 (01:00→17:55)
--- NOTE | 2018-06-20 03:25 | HP ---
Date of Admission: 06/19/2018 Chief Complaint: Shortness of breath and feeling tired. History Of Present Illness: This is a 72-year-old female patient who had aortic valve replacement babcock JAMMIE colmenares about 2 to 3 months ago and she has been taking her medications regularly. Prior to her surgery, she had thoracentesis done with removal of pleural fluid, and after surgery, she was doing f ine. She had more energy, not quite as tired and not quite as short of breath. Over a period of mercedes e, her condition has declined where she is having increasing tiredness, more and more fatigue feeling , and lately condition has gotten worse where she came into emergency room today and she was coughing up some colored mucous with blood in it. Denies any vomiting, diarrhea except 1 time she had some v omiting which was associated with a coughing spell. After she was evaluated in the emergency room, I was contacted requesting admission to the hospital. Allergies: NO KNOWN ALLERGIES. Medications: List reviewed. Review of Systems: Constitutional: As mentioned above. All other systems reviewed and negative. Social History: Negative for smoking and alcohol use. Family History: Significant for hypertension, diabetes, hyperlipidemia. Past Surgical History: TAVR procedure done in March of this year, tonsillectomy, repair of thoracic aortic aneurysm in 2004, and aortic valve replacement in 2004 and this was a bioprosthetic aortic va lve. Past Medical History: Significant for pneumonia, pleural effusion, hypertension, hyperlipidemia, ost eoporosis, diverticulosis. Physical Examination: Vital Signs: Height 5 feet 2 inches, weight 49.9 kg, blood pressure 110/53, pulse 92, respiratory ra te 24, oxygen saturation 96%, pulse rate 97. General: The patient appears weaker than normal, not in any respiratory distress. HEENT: Head atraumatic, normocephalic. Conjunctivae nonerythematous. Sclerae white. Mouth, no thr ush or edema noted. Ears/Nose, no mass, lesion, discharge noted. Neck: Supple. No JVD, lymph nodes, bruit, thyromegaly noted. Lungs: Diminished air entry in both lower half of lung brewer with presence of some rales in lower l matilda brewer. The patient not using any accessory muscles of respiration. Heart: Normal heart sounds, no murmur or gallop. Abdomen: Soft, bowel sounds normal. No guarding, rigidity, tenderness, mass, hepatosplenomegaly, dis tention, or bruit noted. Extremities: No leg edema. No calf tenderness. Skin: No rash, ulcer, cellulitis. Lymphatics: No lymph node enlargement in neck, supraclavicular, infraclavicular region. Neuro: No focal neurological deficit. Chest: Unremarkable. External Genitalia: Deferred. Rectal: Deferred. Laboratory Data: White count 7.4, hemoglobin 11, platelets 265. Sodium 140, potassium 4.4, chloride 97, bicarb 39, BUN 19, creatinine 0.70, glucose 105. Liver function tests unremarkable. Albumin 2. 3. ProBNP 236. Urinalysis; positive for nitrite, otherwise, negative. EKG, no acute ST-T changes. Chest x-ray shows moderate bilateral pleural effusion noted, larger on the left than the right side and appears right lung base opacification suspicious for pneumonia. Impression: 1.Pneumonia. 2.Pleural effusion. 3.Prostatic aortic valve. 4.Hypertension. 5.Hyperlipidemia. 6.Diverticulosis, chronic. Plan: We will admit the patient to hospital for further evaluation and management of this problem. The patient is appropriate for inpatient and is expected to spend 2 midnights in hospital. Home medi cations will be continued. We will give oxygen nebulizer treatment, IV antibiotics. Consult Physica l Therapy. The patient reported that she had echocardiogram done with her jammer hooker, Dr. Neri parikh of this month and it was reported that her prosthetic heart valve is functioning well, so no need to repeat any echocardiogram at this point. DVT prophylaxis will be given per order. For pleu ral effusion, there is no need for any thoracentesis at this point. If pleural effusion gets worse i n the future, one needs to consider that. Details and plan of treatment discussed with the patient a nd her family members. MONIE/MODL Voice ID: [id number]
[2018-06-20 06:07] LABS: Absolute Lymphocytes (CBC) 1.2 K/uL (0.7-4.9); Absolute Monocytes 0.7 K/uL (0.1-1.3); Absolute Neutrophil 3.9 K/uL (1.8-8.0); Basophils % 0.5 % (0-1.3); Eosinophils % 2.9 % (0-4.4); Hematocrit 29.9 % (36.0-45.0); Lymphocytes % 19.4 % (15.3-44.8); MCH 30.8 pg (27.0-35.0); MCV 93.3 fL (80-100); MPV 8.1 fL (7.6-11.3)
[2018-06-20 06:21] LABS: Potassium 4.2 mmol/L (3.5-5.1)
[2018-06-20] MEDS ORDERED: predniSONE 5 MG TAB PO SCH (09:00)
[2018-06-20] MEDS: CARVEDILOL 3.125 MG TAB PO SCH ×2 (09:00→20:49)
[2018-06-20] MEDS ORDERED: SPIRONOLACTONE 25 MG TABLET PO SCH (09:00)
[2018-06-20] MEDS: CLOPIDOGREL 75 MG TABLET PO SCH (09:39)
[2018-06-20] MEDS: MONTELUKAST 10 MG TAB PO SCH (09:39)
[2018-06-20] MEDS: FUROSEMIDE 40 MG TABLET PO SCH (09:39)
[2018-06-20] MEDS: ASCORBIC ACID 500 MG TABLET PO SCH (09:39)
[2018-06-20] MEDS: ENOXAPARIN 30 MG/0.3 ML SQ SCH (09:40)
[2018-06-20] MEDS: CALCIUM CARB 500MG/VIT D 200 IU TAB PO SCH ×2 (10:14→20:49)
[2018-06-20] MEDS: LORAZEPAM 0.5 MG TABLET PO PRN (12:15)
[2018-06-20] MEDS ORDERED: predniSONE 10 MG TAB PO ONE (12:26)
--- NOTE | 2018-06-20 12:35 | P.CNS ---
Date of Consult: 06/20/18 Reason for Consult: Pleural effusion and weakness Chief Complaint: weakness and shortness of breath History of Present Illness: Of patient is 72 years of age admitted to the hospital started complaining of increasing weakness shortness of breath nocturnal sleep disturbance since over the weekend. Denies any fever chills or lower extremity edema, no chest pain Patient recently had a valve replaced which was done percutaneously in addition to a thoracentesis on the left side I saw the patient last week in my office and had advised her to increase the prednisone Allergies No Known Allergies Allergy (Verified 03/29/18 22:47) Home Medications: Ascorbic Acid [Vitamin C*] 500 mg PO DAILY 06/04/15 Ca/D3/Mag/Zinc/Margret/Devon/Mgbor [Caltrate 600-D3-Min Chew Tab] 1 each PO BID 05/11 Carvedilol [Coreg*] 3.125 mg PO BID 06/04/15 Furosemide [Lasix*] 40 mg PO DAILY 06/04/15 Montelukast [Singulair*] 10 mg PO DAILY 06/04/15 predniSONE [Prednisone*] 5 mg PO DAILY 05/13/16 Spironolactone [Aldactone*] 25 mg PO DAILY #30 tab 05/15/16 LORazepam [Ativan*] 0.5 mg PO BID PRN 03/29/18 Clopidogrel Bisulfate [Plavix*] 75 mg PO DAILY 06/19/18 - Past Medical/Surgical History Diabetic: No -: CHF -: Acid Reflux -: Asthma -: HTN -: Pleural Effusion -: Pnemonia -: Aortic valve replacement -: Chest tube placement- removed 2015 -: Status post VATS further right-sided effusion - Family History Father Medical History: Heart disease, Hypertension Mother Medical History: Hypertension, Diabetes, Stroke - Social History Smoking Status: Never smoker Alcohol use: No CD- Drugs: No Caffeine use: Yes Place of Residence: Home Review of Systems 10-point ROS is otherwise unremarkable General: Weakness Respiratory: Shortness of Breath Physical Examination Temp Pulse Resp BP Pulse Ox 97.8 F 99 H 20 100/62 92 06/20/18 12:00 06/20/18 12:00 06/20/18 12:00 06/20/18 12:00 06/20/18 12:00 General: Alert, Oriented x3, Mild distress Neck: Supple Respiratory: Diminished (Diminished at the left lung base), Other Cardiovascular: No edema, Normal S1 S2, Abnormal S3 Laboratory Data (last 24 hrs) 06/19/18 14:00: PT 12.3, INR 1.04 06/19/18 14:00: Sodium 140, Potassium 4.4, BUN 19 H, Creatinine 0.70, Glucose 105, Magnesium 2.3, Total Bilirubin 0.2, AST 18, ALT 13, Alkaline Phosphatase 60 06/19/18 13:30: WBC 7.4, Hgb 11.0 L, Hct 33.7 L, Plt Count 265 - Problems (1) Pleural effusion Current Visit: No Status: Chronic Plan: Patient is 72 years of age admitted with weakness and shortness of breath she has recurrent left-sided pleural effusion in fact she has bilateral pleural effusion due to underlying presumed diastolic dysfunction status post thoracentesis last month while she was in a tertiary care facility for possible endocarditis and undergone about replied. I have increased done the spironolactone and IV Lasix (2) Addisons disease Current Visit: Yes Status: Acute Plan: Patient has baseline adrenal insufficiency. I have increased the dose of prednisone to 10 mg twice a day no crit no clinical evidence of sepsis awaiting culture oxygenation vital signs stable
[2018-06-20] MEDS ORDERED: FUROSEMIDE 20 MG/ 2ML VIAL IV ONE (12:36)
[2018-06-20] MEDS: SPIRONOLACTONE 25 MG TABLET PO SCH (20:48)
[2018-06-20] MEDS: predniSONE 10 MG TAB PO SCH (20:49)
[2018-06-21] MEDS: PIPER/TAZO/NS 3.375gm 3.375 GM/100 ML BAG IVPB SCH ×3 (00:50→17:47)
--- NOTE | 2018-06-21 01:38 | PN ---
Date of Progress Note: 06/20/2018 Subjective: The patient was seen this morning for followup lying in bed, not in distress. Her husba nd was present with her at bedside. She denies any new complaints. Overall, she was feeling little bit better this morning than yesterday. Objective: Vital Signs: Reviewed. HEENT: Examination is unremarkable. Lungs: Bilateral diminished air entry in lower lung field, unchanged from yesterday. Minimum basal rales present, unchanged from yesterday. Not using any accessory muscles of respiration. Heart: Sounds normal. Abdomen: Soft bowel sounds normal. No guarding, rigidity, tenderness, distention. Extremities: No leg edema. Laboratory Data: White count 6, hemoglobin 9.9, platelets 226. Sodium 141, potassium 4.2, chloride 100, bicarb 38, BUN 19, creatinine 0.70, glucose 80. ProBNP 179. Impression: 1.Pneumonia. 2.Bilateral pleural effusion. 3.Prosthetic aortic wall. 4.Anemia. Plan: We will continue current medications, continue home medications per order. We will go ahead a nd continue IV antibiotic, which is Zosyn for consult Physical Therapy to help ambulate the patient. We will repeat chest x-ray and blood work tomorrow. I will see her tomorrow for followup. Details and plan of treatment discussed with her. MONIE/MODL Voice ID: [id number] Report ID: [id number]
[2018-06-21] MEDS: predniSONE 10 MG TAB PO SCH ×2 (08:23→20:15)
[2018-06-21] MEDS: ASCORBIC ACID 500 MG TABLET PO SCH (08:23)
[2018-06-21] MEDS: CLOPIDOGREL 75 MG TABLET PO SCH (08:23)
[2018-06-21] MEDS: ENOXAPARIN 30 MG/0.3 ML SQ SCH (08:23)
[2018-06-21] MEDS: CALCIUM CARB 500MG/VIT D 200 IU TAB PO SCH ×2 (08:23→20:16)
[2018-06-21] MEDS: MONTELUKAST 10 MG TAB PO SCH (08:24)
--- NOTE | 2018-06-21 08:52 | RAD REPORT ---
EXAM DESCRIPTION: RAD - Chest Pa And Lat (2 Views) - 06/21/2018 8:04 am CLINICAL HISTORY: Pleural effusion, pneumonia, shortness of breath COMPARISON: June 19 TECHNIQUE: PA and lateral views of the chest were obtained. FINDINGS: The lungs are underinflated. Moderate left pleural effusion and small right pleural effusi on have not changed. Bilateral lung base opacification also unchanged. This could be atelectasis, inf iltrate or a combination. Patient has underlying interstitial fibrotic disease. Upper lobe vasculat ure within normal limits. Heart is mostly obscured by the pleural fluid and lung parenchymal opacific ation. Cardiomegaly is not suspected. No pneumothorax. Ascending aortic stent is in place. Sternotomy wires noted. No acute bony finding noted. No aortic abnormality. IMPRESSION: Left greater than right pleural effusions with lung base infiltrate and/ or atelectasis. Interstitial fibrotic changes are present. Interstitial markings may be slightly diminished from the comparison. Overall no substantial change has occurred.
[2018-06-21] MEDS: CARVEDILOL 3.125 MG TAB PO SCH ×2 (09:00→20:15)
[2018-06-21] MEDS: FUROSEMIDE 40 MG TABLET PO SCH (09:18)
[2018-06-21] MEDS: SPIRONOLACTONE 25 MG TABLET PO SCH ×2 (09:18→20:14)
[2018-06-21] MEDS: LORAZEPAM 0.5 MG TABLET PO PRN (09:37)
--- NOTE | 2018-06-21 18:06 | P.PN ---
Subjective Date of Service: 06/21/18 Chief Complaint: weakness and shortness of breath Subjective: Improving (Patient is doing much better she is eating well ambulating shortness of breath has improved) Review of Systems General: Weakness, Malaise Respiratory: Shortness of Breath Physical Examination - Vital Signs Temperature: 97.8 F Blood Pressure: 100/61 Pulse: 93 Respirations: 18 Pulse Ox (%): 96 - Physical Exam General: Alert, Oriented x3 Neck: Supple Respiratory: Diminished (Diminished on the left side) Cardiovascular: No edema, Normal S1 S2 Assessment & Plan - Problems (Diagnosis) (1) Pleural effusion Current Visit: No Status: Chronic Plan: Currently a pleural effusion is stable no thoracentesis is indicated right now Padilla secondary to heart failure she OD had a thoracentesis on the left side continue with higher doses of diuretics I doubt if he has sepsis labs been ordered for tomorrow before cultures and negative patient's pro calcitonin level is normal white count is also normal probably can be discharged home tomorrow on spironolactone 25 b.i.d. and Lasix 40 mg daily oxygen sat is 98% on 2 L (2) Addisons disease Current Visit: Yes Status: Acute Plan: Continue at 10 mg twice a day of prednisone
--- NOTE | 2018-06-21 18:29 | PN ---
Date of Progress Note: 06/21/2018 Subjective: The patient was seen this morning for followup. Sitting in chair, not in distress. No new complaints or problems reported by her. Overall, she feels better. She looks better than yester day and day before yesterday. Objective: Vital Signs: Reviewed. HEENT: Unremarkable. Lungs: Diminished air entry in lower lung brewer, unchanged from before with some rales in lower gera g brewer. Not using accessory muscles of respiration. Heart: Sounds normal. Abdomen: Soft. Bowel sounds normal. No guarding, rigidity, or distention. Extremities: No leg edema. Laboratory Data: Chest x-ray from today reviewed unchanged. Impression: 1.Pneumonia. 2.Pleural effusion. 3.Anemia. Plan: We will continue current antibiotics diuretic therapy. Continue to follow with Dr. Kareem alegria nd I will see her tomorrow for followup. MONIE/MODL Voice ID: [id number] Report ID: [id number]
[2018-06-22] MEDS: PIPER/TAZO/NS 3.375gm 3.375 GM/100 ML BAG IVPB SCH ×3 (00:23→17:57)
[2018-06-22 07:51] LABS: Absolute Lymphocytes (CBC) 1.1 K/uL (0.7-4.9); Absolute Monocytes 0.4 K/uL (0.1-1.3); Absolute Neutrophil 6.7 K/uL (1.8-8.0); Basophils % 0.1 % (0-1.3); Hematocrit 33.6 % (36.0-45.0); Lymphocytes % 13.2 % (15.3-44.8); MCH 30.6 pg (27.0-35.0); MCV 93.2 fL (80-100); MPV 7.8 fL (7.6-11.3)
[2018-06-22 08:04] LABS: Magnesium 2.1 mg/dL (1.8-2.4)
[2018-06-22] MEDS: ASCORBIC ACID 500 MG TABLET PO SCH (09:40)
[2018-06-22] MEDS: FUROSEMIDE 40 MG TABLET PO SCH (09:40)
[2018-06-22] MEDS: SPIRONOLACTONE 25 MG TABLET PO SCH ×2 (09:40→21:13)
[2018-06-22] MEDS: ENOXAPARIN 30 MG/0.3 ML SQ SCH (09:40)
[2018-06-22] MEDS: CLOPIDOGREL 75 MG TABLET PO SCH (09:40)
[2018-06-22] MEDS: CALCIUM CARB 500MG/VIT D 200 IU TAB PO SCH ×2 (09:40→21:13)
[2018-06-22] MEDS: MONTELUKAST 10 MG TAB PO SCH (09:40)
[2018-06-22] MEDS: predniSONE 10 MG TAB PO SCH ×2 (09:40→21:13)
[2018-06-22] MEDS: CARVEDILOL 3.125 MG TAB PO SCH ×2 (09:40→21:00)
[2018-06-22] MEDS: LORAZEPAM 0.5 MG TABLET PO PRN (09:45)
[2018-06-22] MEDS: acetaZOLAMIDE 250 MG TAB PO SCH (12:09)
--- NOTE | 2018-06-22 15:12 | PN ---
Date of Progress Note: 06/22/2018 Subjective: The patient was seen this morning for followup. No new complaints or problems reported by her. She was sitting in the chair. Denied any complaints. She did not look as good as yesterday , but she feels as good as yesterday she reported. She has some cough, coughs up some mucus which is slightly yellowish in color. Overall, that is improving. Denies any blood in it. Objective: Vital signs: Reviewed. HEENT: Unremarkable. Lungs: Diminished air entry in lower lung field, unchanged from yesterday. Not using accessory musc les of respiration. Heart: Sounds normal. Abdomen: Soft. Bowel sounds normal. No guarding, rigidity, tenderness, or distention. Extremities: No leg edema. Laboratory Data: White count 8.2, hemoglobin 11, platelets 262. Sodium 139, potassium 4, chloride 9 7, bicarb 42, BUN 22, creatinine 0.90, glucose 95. Impression: 1.Pneumonia. 2.Pleural effusion. 3.Hypertension. 4.Anemia. Plan: We will continue current medications. Continue current Zosyn. The patient currently is on La six as well as spironolactone. She has some metabolic alkalosis. We will go ahead and add acetazola mide 250 mg p.o. daily to correct that and I will see her tomorrow for followup. Details and plan of treatment discussed with her. Plan is to continue current medical management over the weekend. Ear liest possible discharge that I can think about is possibly Sunday, which is day after tomorrow depending on her condition and details were discussed with the patient. MONIE/MODL Voice ID: [id number] Report ID: [id number]
[2018-06-23] MEDS: PIPER/TAZO/NS 3.375gm 3.375 GM/100 ML BAG IVPB SCH ×3 (01:05→17:14)
[2018-06-23] MEDS: MONTELUKAST 10 MG TAB PO SCH (08:52)
[2018-06-23] MEDS: CARVEDILOL 3.125 MG TAB PO SCH ×2 (08:52→20:55)
[2018-06-23] MEDS: ASCORBIC ACID 500 MG TABLET PO SCH (08:53)
[2018-06-23] MEDS: FUROSEMIDE 40 MG TABLET PO SCH (08:53)
[2018-06-23] MEDS: acetaZOLAMIDE 250 MG TAB PO SCH (08:53)
[2018-06-23] MEDS: SPIRONOLACTONE 25 MG TABLET PO SCH ×2 (08:53→20:55)
[2018-06-23] MEDS: predniSONE 10 MG TAB PO SCH ×2 (08:53→20:56)
[2018-06-23] MEDS: CALCIUM CARB 500MG/VIT D 200 IU TAB PO SCH ×2 (08:53→20:55)
[2018-06-23] MEDS: CLOPIDOGREL 75 MG TABLET PO SCH (08:54)
[2018-06-23] MEDS: ENOXAPARIN 30 MG/0.3 ML SQ SCH (08:54)
[2018-06-23] MEDS: LORAZEPAM 0.5 MG TABLET PO PRN (09:06)
--- NOTE | 2018-06-23 10:44 | RAD REPORT ---
EXAM DESCRIPTION: Jane Navarro And Gustavo (2 Views)06/23/2018 10:26 am CLINICAL HISTORY: Shortness of breath COMPARISON: June 21, 2018 FINDINGS: Moderate to large left and small to moderate right pleural effusions are unchanged. Bibasilar opacities probably represent atelectasis. Heart is mildly enlarged. Postsurgical changes involve the chest IMPRESSION: No significant change since prior exam
--- NOTE | 2018-06-23 16:34 | PN ---
Date of Progress Note: 06/23/2018 Subjective: The patient was seen this morning for followup. She was sitting in the chair, not in di stress. Denied any complaints. Feeling better today than yesterday, she reported. Objective: Vital Signs: Reviewed. HEENT: Examination unremarkable. Lungs: Diminished air entry in lower lung field, unchanged from before due to pleural effusion. Not in any respiratory distress. Heart: Sounds normal. Abdomen: Soft. Bowel sounds normal. No guarding, rigidity, tenderness, or distention. Extremities: No leg edema. Impression: 1.Pneumonia. 2.Pleural effusion. 3.Hypertension. 4.Anemia. Plan: We will continue current medications. Continue current antibiotic, oxygen nebulizer treatment , and ambulation was encouraged. I will see her tomorrow for followup. We will get a chest x-ray do ne today for followup depending on the patient's condition and x-ray results, we will decide if we ca n possibly discharge her to go home tomorrow or not. MONIE/MODL Voice ID: [id number] Report ID: [id number]
[2018-06-24] MEDS: PIPER/TAZO/NS 3.375gm 3.375 GM/100 ML BAG IVPB SCH ×3 (00:41→17:12)
[2018-06-24 05:45] VITALS: BMI 19.7
[2018-06-24 05:47] LABS: Absolute Lymphocytes (CBC) 0.7 K/uL (0.7-4.9); Absolute Monocytes 0.3 K/uL (0.1-1.3); Absolute Neutrophil 6.2 K/uL (1.8-8.0); Hematocrit 31.6 % (36.0-45.0); Lymphocytes % 9.2 % (15.3-44.8); MCH 30.9 pg (27.0-35.0); MCV 93.4 fL (80-100); MPV 8.2 fL (7.6-11.3); RBC Red Blood Cell Count 3.39 M/uL (3.86-4.86)
[2018-06-24 05:56] LABS: Magnesium 2.6 mg/dL (1.8-2.4); Potassium 4.3 mmol/L (3.5-5.1)
[2018-06-24 07:03] LABS: Blood Morphology Comment NOT SEEN (NOT SEEN); Platelet Estimate ADEQ; Platelets, Giant FEW; Urine White Blood Cell Casts OK
[2018-06-24] MEDS: ASCORBIC ACID 500 MG TABLET PO SCH (09:29)
[2018-06-24] MEDS: MONTELUKAST 10 MG TAB PO SCH (09:29)
[2018-06-24] MEDS: predniSONE 10 MG TAB PO SCH (09:29)
[2018-06-24] MEDS: CLOPIDOGREL 75 MG TABLET PO SCH (09:29)
[2018-06-24] MEDS: FUROSEMIDE 40 MG TABLET PO SCH (09:30)
[2018-06-24] MEDS: CARVEDILOL 3.125 MG TAB PO SCH (09:30)
[2018-06-24] MEDS: SPIRONOLACTONE 25 MG TABLET PO SCH (09:30)
[2018-06-24] MEDS: ENOXAPARIN 30 MG/0.3 ML SQ SCH (09:31)
[2018-06-24] MEDS: CALCIUM CARB 500MG/VIT D 200 IU TAB PO SCH (09:34)
[2018-06-24] MEDS: acetaZOLAMIDE 250 MG TAB PO SCH (09:34)
[2018-06-24] MEDS: LORAZEPAM 0.5 MG TABLET PO PRN (09:40)
[2018-06-24 09:59] VITALS: O2SAT 99
[2018-06-24 17:57] VITALS: BP 109/57; TEMP 97.9
--- NOTE | 2018-06-25 03:38 | DS ---
Date of Discharge: 06/24/2018 History Of Present Illness: The patient was seen this morning for followup. No new complaints or pr oblems reported. She was lying in bed, not in any distress. Physical Examination: Vital Signs: Reviewed. HEENT: Examination unremarkable. Lungs: Diminished air entry in the left lower lung field. No rales. Not using accessory muscles of respiration. Heart: Sounds normal. Abdomen: Soft. Bowel sounds normal. No guarding, rigidity, tenderness, or distention. Extremities: No leg edema. Discharge Medications And Instructions: 1.Continue all prior home medication except stop prednisone 5 mg and take prednisone 10 mg twice a d ay and increase dose of spironolactone 25 mg 2 times a day and take Augmentin 875 mg twice a day for 1 week. 2[address]Follow [address] Serna next week and follow up at my office week after next. Laboratory Data: Labs done during this hospitalization; initial white count 7.4, hemoglobin 11, and platelets 265. Last white count today 7.2, hemoglobin 10.5, and platelets 262. Last chemistry today ; sodium 142, potassium 4.3, chloride 102, bicarb 36, BUN 28, creatinine 1.10, glucose 116. Blood cu lture remains negative. Hospital Course: A 72-year-old female patient admitted to the hospital with complaints of shortness of breath and feeling tired. Please see dictated H and P for more information. After the patient wa s evaluated in emergency room, she was admitted to the hospital. Dr. Serna from [facility] was con sulted. He increased dose of her spironolactone from 25 mg once a day to 2 times a day. The patient 's x-ray done in the emergency room showed a large pleural effusion and a possibility of pneumonia in the lung base. The patient was started on antibiotic, which was Zosyn. Overall, her condition has improved. She also had some cough and was coughing up some yellowish-colored mucus that has improved and cleared up by today. Dr. Serna has not suggested any thoracentesis at this point. He also i nformed me as per my discussion with him today that the patient was diagnosed as having an adrenal in sufficiency, and he has suggested to increase the dose of her prednisone, and he will follow up with her next week. I will see her week after next. The patient was discharged in stable condition today with above-mentioned medication and instructions. Final Diagnoses: 1.Pneumonia. 2.Pleural effusion. 3.Prosthetic aortic valve. 4.Adrenal insufficiency. 5.Hypertension. 6.Hyperlipidemia. 7.Anemia, chronic. 8.Diverticulosis. MONIE/MODL Voice ID: [id number] Report ID: [id number]
== END 2018-06-24 20:54 | disposition home or self-care (01) | DRG 194 ==
LOC: ER 12:46 → ERHOLD 16:30 → 4TH 19:58
PROVIDERS: ADMIT Internal Medicine; ATTEND Internal Medicine
DX: J18.9 Pneumonia, unspecified organism (principal); J91.8 Pleural effusion in other conditions classified elsewhere; E27.1 Primary adrenocortical insufficiency; Z95.2 Presence of prosthetic heart valve; I10 Essential (primary) hypertension; E78.5 Hyperlipidemia, unspecified; D53.9 Nutritional anemia, unspecified; K57.90 Diverticulosis of intestine, part unspecified, without perforation or abscess without bleeding
CPT/HCPCS: 36415; 71045; 71046; 80048; 80076; 81003; 83735; 83880; 84145; 84484; 85025; 85610; 87040; 87804; 93005; 94760; 96365; 97163; 99285; J1650; J1940; J2543; J7512

== ENCOUNTER 2018-07-05 18:15 | Inpatient (IN) | payer OTHER, MEDICARE ==
--- OUTSIDE RECORDS SUMMARY | 2018-07-05 18:19 | XMS REPORT | Clinical Summary ---
:1945 Author Organization [employer] [facility] Address [address] [place] [address] Care Team Providers Name Role Phone Bridger [...] Overview: Added automatically from request for surgery [id number] Endocarditis 04/01/2018 Encounters Date Type Specialty Care [...] valve replacement) 04/01/2018 Intake Access N/A after 07/04/2017 Family History Medical History Relation Name Comments [...] 04/10/2019 Multidisciplinary Visit Cardiology Korey Giron MD [address] [place] [address] Health Maintenance Due Date Last Done Comments BREAST CANCER SCREENING 1996 COLON CANCER SCREENING 1996 SHINGRIX VACCINE (#1) 1996 ZOSTER VACCINE 2006 PNEUMOCOCCAL POLYSACCHARIDE VACCINE AGE 65 AND OVER 12/08/2011 PNEUMOCOCCAL-13 12/08/2011 INFLUENZA VACCINE 03/27/2018 Implants Implanted Type Area Bog Worker Device Expiration Model / Identifier Date Serial / Lot Evolut Pro 29'Valve - [id number] - [id number] Cardiovascular N/A: [employer] 01/02/2020 EVOLUTPRO 29 US / Implanted: Qty: 1 on 04/09/2018 by Francisco J Lind MD Implants N/A COREVALVE [id number] / [id number] System Clsr [facility] Meditd 6fr Perclose Proglide - [id number] Surgical N/A: THEODORE [id number] / Implanted: 04/09/2018 (Quantity not on file) Implants; N/A VASCULAR / Expanders; DEVICES Extenders; Surgical Wires System Clsr Sut Meditd 6fr Perclose Proglide - [id number] Surgical N/A: THEODORE [id number] / Implanted: 04/09/2018 (Quantity not on file) Implants; N/A VASCULAR / Expanders; DEVICES Extenders; Surgical Wires Catheter Card Nimo 6fr 125cm Ep Bipolar Pace Elctrd N/A: [employer] MEDICAL [id number] / Implanted: Qty: 1 on 04/09/2018 by Francisco J Lind MD Groin / Procedures Procedure Name Priority Date/Time Associated Diagnosis Comments ECHOCARDIOGRAM 2D Routine 05/09/2018 5:23 Aortic valve disorder Results for this COMPLETE W MMODE PM CDT S/P TAVR procedure are in SPECTRAL COLOR DOPPLER (transcatheter aortic the results (69455) valve replacement) section. ECG 12-LEAD Routine 05/09/2018 [...] are in SPECTRAL COLOR DOPPLER the results (39880) section. POC GLUCOSE Routine 04/10/2018 7:57 Results [...] 04/09/2018 6:55 AM Staff: Anesthesiologist: OLAF ROSAS Resident/SOLIDS CONTROL TECHNICIAN/AA: MARICRUZ SANCHES Performed by: Resident/SOLIDS CONTROL TECHNICIAN and resident/SOLIDS CONTROL TECHNICIAN/AA Pre-procedure: patient identified, IV checked, site and [...] to catheter itself. Bleeding improved with pressure. NV AN ELECTIVE ENDOTRACHEAL AIRWAY Routine 04/09/2018 8:08 AM CDT Procedure Note - Olaf Rosas MD - 04/09/2018 8:08 AM CDT Airway Performed by: MARICRUZ SANCHES Authorized by: MARICRUZ SANCHES Location: OR Urgency: Elective Difficult Airway: No Anesthesiologist: OLAF ROSAS Resident/SOLIDS CONTROL TECHNICIAN/AA: MARICRUZ SANCHES Performed by: resident/SOLIDS CONTROL TECHNICIAN and resident/SOLIDS CONTROL TECHNICIAN/AA Preoxygenated with 100% O2: Yes C-spine Precautions Maintained Throughout: Yes Mask Ventilation: Easy mask Final Airway Type: Endotracheal airway Final Endotracheal Airway: ETT Cuffed: Yes Technique Used: Direct laryngoscopy Insertion Site: Oral Blade Type: Zieglre Laryngoscope Blade/Videolaryngoscope Blade Size: 2 ETT Size [...] are in SPECTRAL COLOR DOPPLER the results (82093) section. ZZESTIMATED GFR Routine 04/02/2018 4:00 AM [...] procedure are in the results section. after 07/04/2017 Results Echocardiogram complete w contrast and 3D if needed (05/09/2018 5:23 PM) Narrative Performed At [facility] Echocardiography Report Pat.Name:BILL OLIVIA Pat.ID:[id number] St.Date: 05/09/2018 Refer.MD:KOREY GIRON MD Exam Time: 4:40:00 PMStudy Type:Routine Echo Height:62inWeight: 108lb BSA: 1.47 m2 DOBAge:1945,72Y Sex: FEMALEBP:112/61 HR:80 bpm Sonogrphr: Viola Diez, RCS, RCCS, CCT Pat. Stat.:[facility] T[facility]: [facility], Study Status:Final Echo Event ID:[id number] Order ID:[id number] Reason for Study:S/P AVR History / Clinical:Hypertension, [...] of 0-5 mmHg. MEASUREMENTS: 2D Parasternal [place] LVOT 1.8 cmLA Ds4.1 cm LVIDd4.3 cmIndex2.9 cm/m Ao An2 cm LVIDs2.9 cmAo Rtd 2.3 cm Index1.6 cm/m LV%fs 33.3 % LV Hdhq996.9 g(87-129) IVSd 0.9 cmLVM Index 78.8 g/m2 LVPWd0.8 cmRWT0.4 LA Volume LA Vol52 zuIpyra68.4 ml/m DOPPLER LVOT Stroke Vol LVOT 1.8 cmLVOT CO4 l/min LVOT TVI19.9 cmLVOT CI2.7 l/m/m2 LVOT Tm282 yxwaNU48 bpm LVOT SV 50.8 ml AV For [...] Results In - 05/10/2018 11:38 PM CDT [facility] Echocardiography Report Pat.Name: BILL OLIVIA Pat.ID: [id number] St.Date: 05/09/2018 Refer.MD: KOREY GIRON MD Exam Time: 4:40:00 PM Study Type:Routine Echo Height: 62in Weight: 108lb BSA: 1.47 m2 Age: 4 1945,72Y Sex: FEMALE BP: 112/61 HR: 80 bpm Sonogrphr: Viola Diez, RCS, RCCS, CCT Pat. Stat.:Outpatient Room: [address] Vol: [facility] [place], Study Status:Final Echo Event ID:[id number] Order ID: [id number] Reason for Study:S/P AVR History / Clinical:Hypertension, [...] of 0-5 mmHg. MEASUREMENTS: 2D Parasternal [place] LVOT 1.8 cm LA Ds 4.1 cm [...] PM Teena Bryant M.D. Performing Organization Address [facility] Phone Number [facility] [address] [place] [address] ECG 12 lead (05/09/2018 3:36 PM)Only the most recent of3 resultswithin the time period is included. Ventricular rate 89 [facility] MUSE Atrial rate 89 [facility] MUSE NV interval 154 [facility] MUSE QRSD interval 88 [facility] MUSE QT interval 350 [facility]USE QTC interval 425 [facility] MUSE P axis 1 38 [facility] MUSE QRS axis 1 86 [facility] MUSE T wave axis 20 [facility] MUSE EKG impression Normal sinus rhythm-Normal ECG-In automated [facility] MUSE comparison with ECG of 11-APR-2018 19:45,-Questionable change in QRS axis- Performing Organization Address [facility] [place] Phone Number [facility] MUSE [address] [place] [address] CBC with platelet and differential (04/12/2018 4:25 AM)Only the most recent of7 resultswithin the time period is included. WBC 7.64 4.50 - 11.00 k/uL [facility] DEPARTMENT OF PATHOLOGY AND GENOMIC MEDICINE RBC 2.49 (L) 4.20 - 5.50 m/uL [facility] DEPARTMENT OF PATHOLOGY AND GENOMIC MEDICINE HGB 7.6 (L) 12.0 - 16.0 g/dL [facility] DEPARTMENT OF PATHOLOGY AND GENOMIC MEDICINE HCT 25.2 (L) 37.0 - 47.0 % [facility] DEPARTMENT OF PATHOLOGY AND GENOMIC MEDICINE MCV 101.2 (H) 82.0 - 100.0 fL [facility] DEPARTMENT OF PATHOLOGY AND GENOMIC MEDICINE MCH 30.5 27.0 - 34.0 pg [facility] DEPARTMENT OF PATHOLOGY AND GENOMIC MEDICINE MCHC 30.2 (L) 31.0 - 37.0 g/dL [facility] DEPARTMENT OF PATHOLOGY AND GENOMIC MEDICINE RDW - SD 56.3 (H) 37.0 - 55.0 fL [facility] DEPARTMENT OF PATHOLOGY AND GENOMIC MEDICINE MPV 9.8 8.8 - 13.2 fL [facility] DEPARTMENT OF PATHOLOGY AND GENOMIC MEDICINE Platelet count 222 150 - 400 k/uL [facility] DEPARTMENT OF PATHOLOGY AND GENOMIC MEDICINE Nucleated RBC 0.00 /100 WBC [facility] DEPARTMENT OF PATHOLOGY AND GENOMIC MEDICINE Neutrophils 73.3 (H) 39.0 - 69.0 % [facility] DEPARTMENT OF PATHOLOGY AND GENOMIC MEDICINE Lymphocytes 15.7 (L) 25.0 - 45.0 % [facility] DEPARTMENT OF PATHOLOGY AND GENOMIC MEDICINE Monocytes 8.8 0.0 - 10.0 % [facility] DEPARTMENT OF PATHOLOGY AND GENOMIC MEDICINE Eosinophils 1.4 0.0 - 5.0 % [facility] DEPARTMENT OF PATHOLOGY AND GENOMIC MEDICINE Basophils 0.4 0.0 - 1.0 % [facility] DEPARTMENT OF PATHOLOGY AND GENOMIC MEDICINE Immature granulocytes 0.4Comment: 0.0 - 1.0 % [facility] DEPARTMENT OF "Immature PATHOLOGY AND GENOMIC granulocytes" MEDICINE (promyelocytes, myelocytes, metamyelocytes) Specimen Blood Performing Organization Address City/State/Zipcode Phone Number [facility] DEPARTMENT OF PATHOLOGY AND [address] [place] [address] [facility] Estimated GFR (04/12/2018 4:00 AM)Only the most recent of11 resultswithin the time period is included. GFR Non Af Amer 71 mL/min/1.73 m2 [facility] DEPARTMENT OF PATHOLOGY AND GENOMIC MEDICINE GFR Af Amer 86 mL/min/1.73 m2 [facility] DEPARTMENT OF Comment: PATHOLOGY AND [...] specimen Performing Organization Address City/State/Zipcode Phone Number [facility] DEPARTMENT OF PATHOLOGY AND [address] [place] [address] Phosphorus level (04/12/2018 4:00 AM)Only the most recent of4 resultswithin the time period is included. Phosphorus 2.3 (L) 2.4 - 4.5 mg/dL [facility] DEPARTMENT OF PATHOLOGY AND GENOMIC MEDICINE Specimen Plasma specimen Performing Organization Address [facility] [place] Phone Number [facility] DEPARTMENT OF PATHOLOGY AND [address] [place] [address] Magnesium level (04/12/2018 4:00 AM)Only the most recent of7 resultswithin the time period is included. Magnesium 2.2 1.6 - 2.4 mg/dL [facility] DEPARTMENT OF PATHOLOGY AND GENOMIC MEDICINE Specimen Plasma specimen Performing Organization Address [facility] [place] Phone Number [facility] DEPARTMENT OF PATHOLOGY AND [address] [place] [address] Basic metabolic panel (04/12/2018 4:00 AM)Only the most recent of8 resultswithin the time period is included. Sodium 142 135 - 148 mEq/L [facility] DEPARTMENT OF PATHOLOGY AND GENOMIC MEDICINE Potassium 4.1 3.5 - 5.0 mEq/L [facility] DEPARTMENT OF PATHOLOGY AND GENOMIC MEDICINE Chloride 99 98 - 112 mEq/L [facility] DEPARTMENT OF PATHOLOGY AND GENOMIC MEDICINE CO2 36 (H) 24 - 31 mEq/L [facility] DEPARTMENT OF PATHOLOGY AND GENOMIC MEDICINE Anion gap 7@ANIO 7 - 15 mEq/L [facility] DEPARTMENT OF PATHOLOGY AND GENOMIC MEDICINE BUN 25 (H) 8 - 23 mg/dL [facility] DEPARTMENT OF PATHOLOGY AND GENOMIC MEDICINE Creatinine 0.8 0.5 - 0.9 mg/dL [facility] DEPARTMENT OF PATHOLOGY AND GENOMIC MEDICINE Glucose 79 65 - 99 mg/dL [facility] DEPARTMENT OF PATHOLOGY AND GENOMIC MEDICINE Calcium 8.6 (L) 8.8 - 10.2 mg/dL [facility] DEPARTMENT OF PATHOLOGY AND GENOMIC MEDICINE Specimen Plasma specimen Performing Organization Address [facility] [place] Phone Number [facility] DEPARTMENT OF PATHOLOGY AND [address] [place] [address] XR Chest 2 Vw (04/10/2018 10:19 PM)Only [...] Cardiac silhouette is stable.Visualized osseous structures arestable. [facility]-[id number] Procedure Note Interface, Radiology Results Incoming - [...] is stable. Visualized osseous structures are stable. [facility]-[id number] Performing Organization Address [facility] Phone Number [facility] [address] [place] [address] POC glucose (04/10/2018 6:10 PM)Only the most recent of4 resultswithin the time period is included. POC glucose 84 65 - 99 mg/dL [facility] DEPARTMENT OF PATHOLOGY Comment: AND GENOMIC MEDICINE [facility] Notified RN Meter ID: [id number] [facility] Nursing Director: Noé Garsia Performing Organization Address [facility] Phone Number [facility] DEPARTMENT OF PATHOLOGY AND [address] [place] [address] MEDICINE Echocardiogram complete w contrast and 3D if needed (04/10/2018 10:15 AM) Narrative Performed At [facility] Echocardiography Report [address] [place] [address] Pat.Name:BILL OLIVIA Pat.ID:[id number] .Date: 04/10/2018 Refer.MD:FRANCISCO J LIND MD Exam Time: 9:44:00 AMStudy Type:Routine Echo Height:62inWeight: 107lb BSA: 1.47 m2 DOBAge:1945,72Y Sex: FEMALEBP:113/56 HR:76 bpmSonogrphr: Jose E Sung RDCS Pat. Stat.:Inpatient Room:[address] Study Status:Final Echo Event ID:[id number] Order ID:[id number] Reason for Study:Prosthetic Valves - Initial postoperative [...] RAPof 10 mmHg. MEASUREMENTS: 2D Parasternal [place] LVOT 1.9 cmLVPWd0.9 cm LVIDd5.1 cmIndex3.4 cm/m LA Ds4.3 cm LVIDs3.6 cmLV Swus461.5 g(87-129) LV%fs 29.7 % LVM Mnkjy321.4 g/m2 IVSd 1 cmRWT0.4 LA Sng Plane [...] mmHgAVpkAcRt 8551.9 cm/s2 AV Mean G6.5 mmHgAV TqZd184.3 cm/s2 AV AC 80 msec (83-118) AV Area2.1 cm2(3-5) AV ET261 msec LVOT For Flow LVOT Area2.8 cm2 LVOT SV 63.2 ml HZRVckRkz190 cm/sHR84.4 bpm LVOTpkPG 5.8 mmHgLVOT CO5.3 l/min LVOTmnPG 3 mmHgLVOT CI3.6 l/m/m2 LVOT TVI22.3 cm WALL MOTION: RESTING WALL MOTION: Basal Inferoseptal, Basal Inferior, Basal Inferolateral, Basal Anterolateral shane are hypokinetic. Normal in all other shane. Wall Index=1.2 Signed 04/10/2018 05:27 PM Pedro Luis Nuno M.D. Procedure Note Interface, Radiology Results In - 04/10/2018 5:27 PM CDT Echocardiography Report [address] [address], [place] [address] Pat.Name: BILL OLIVIA Pat.ID: [id number] .Date: 04/10/2018 Refer.MD: FRANCISCO J LIND MD Exam Time: 9:44:00 AM Study Type:Routine Echo Height: 62in Weight: 107lb BSA: 1.47 m2 Age: 4 1945,72Y Sex: FEMALE BP: 113/56 HR: 76 bpm Sonogrphr: Jose E Sung RDCS Pat. Stat.:Inpatient Room: [address] Study Status:Final Echo Event ID:[id number] Order ID: [id number] Reason for Study:Prosthetic Valves - Initial postoperative [...] of 10 mmHg. MEASUREMENTS: 2D Parasternal [place] LVOT 1.9 cm LVPWd 0.9 cm LVIDd [...] Pedro Luis Nuno M.D. Performing Organization Address City/[facility] Phone Number [facility] [address] [place] [address] Lipid panel (04/10/2018 4:33 AM)Only the most recent of2 resultswithin the time period is included. Cholesterol 156 <200 mg/dL [facility] DEPARTMENT OF PATHOLOGY AND GENOMIC MEDICINE Triglycerides 45 <150 mg/dL [facility] DEPARTMENT OF PATHOLOGY AND GENOMIC MEDICINE HDL cholesterol 51 >40 mg/dL [facility] DEPARTMENT OF PATHOLOGY AND GENOMIC MEDICINE LDL cholesterol 97Comment: Result <100 mg/dL [facility] DEPARTMENT OF obtained by direct LDL PATHOLOGY AND GENOMIC measurement MEDICINE Lipid panel interpretation SeeBelow [facility] DEPARTMENT OF Comment: PATHOLOGY AND GENOMIC Total Cholesterol (mg/dL) MEDICINE <200 Desirable 807-052Wfczfvwfqs-zooi >=240High Triglycerides (mg/dL) <150 Normal 581-865Dbydjwoifl-gums 200-499High >=500Very high HDL Cholesterol (mg/dL) <40Low (male) <40Low (female) LDL Cholesterol (mg/dL) <100 Optimal 100-129Near or above optimal 789-089Afqslmvzjy-qyrv 160-189High >=190Very high Risk Catergories that modify [...] mg/dL) Specimen Plasma specimen Performing Organization Address City/[facility] Phone Number [facility] DEPARTMENT OF PATHOLOGY AND [address] [place] [address] GENOMIC MEDICINE ECG Pre/Post Op (PRN) (04/09/2018 1:48 PM) Ventricular rate 67 [facility]USE Atrial rate 67 [facility] NV interval 170 [facility] QRSD interval 94 [...] available- Performing Organization Address City/State/Zipcode Phone Number [facility] MUSE [address] [place] [address] Cv laborer chicken farm procedure (04/09/2018 9:30 AM) Narrative Performed At [facility]: ARNULFO Giron MD and Francisco J Lind MD PROCEDURES: 1.Diagnostic left heart catheterization. 2.Transcatheter aortic valve replacement with 29 mm CoreValve Evolut PRO inside the stentless porcine bioprosthesis (27mm [place] valve). 3.Ascending aortogram. 4.Descending abdominal aortogram. 5.Temporary [...] guidance using a micropuncture needle, and a 6-Iraqi sheath was placed. Then the left femoral [...] was removed and was exchanged for a Baldwin Plus 0.018 inch wire.The wire was then advanced and the catheter was removed.The proximal portion of the wire was housed in its protective hoop.Attention was then turned to the contralateral femoral artery. After a small incision and spread, theartery was punctured under fluoroscopic guidance using the Baldwin Plus wire as a target.The puncture was with a micropuncture needle which was then exchanged for a 6-Iraqi sheath, which was in turn exchanged for a Proglide suture.The suture was taped into place and was exchanged for a 10-Iraqi dilator. Over a Super Stiff wire, the 10-Iraqi dilator was then exchanged for a 20Fr [...] capture system was then exchanged for the 6-Iraqi angled pigtail. A second diagnostic left heart [...] this episode of care. Performing Organization Address City/[facility]/Zipcode Phone Number [facility] [address] [place] [address] Sodium level, syringe (04/09/2018 8:55 AM)Only the most recent of3 resultswithin the time period is included. Sodium, syringe 137 135 - 148 mEq/L [facility] DEPARTMENT OF PATHOLOGY AND GENOMIC MEDICINE Specimen Blood Performing Organization Address City/[facility]/Zipcode Phone Number [facility] DEPARTMENT OF PATHOLOGY AND [address] [place] [address] [facility] Potassium, syringe (04/09/2018 8:55 AM)Only the most recent of3 resultswithin the time period is included. Potassium, syringe 3.4 (L) 3.5 - 5.0 mEq/L [facility] DEPARTMENT OF PATHOLOGY AND GENOMIC MEDICINE Specimen Blood Performing Organization Address [facility] Phone Number [facility] DEPARTMENT OF PATHOLOGY AND [address] [place] [phone] [place] [address] Ionized calcium, arterial (04/09/2018 8:55 AM)Only the most recent of3 resultswithin the time period is included. Ionized calcium, arterial 1.24 1.11 - 1.32 mmol/L [facility] DEPARTMENT OF PATHOLOGY AND GENOMIC MEDICINE Specimen Blood Performing Organization Address City/[facility] Phone Number [facility] DEPARTMENT OF PATHOLOGY AND [address] [place] [address] Hemoglobin, syringe (04/09/2018 8:55 AM)Only the most recent of3 resultswithin the time period is included. Hemoglobin, syringe 7.8 (L) 12.0 - 16.0 g/dL [facility] DEPARTMENT OF PATHOLOGY AND GENOMIC MEDICINE Specimen Blood Performing Organization Address City/[facility] Phone Number [facility] DEPARTMENT OF PATHOLOGY AND [address] [place] [address] Glucose level, syringe (04/09/2018 8:55 AM)Only the most recent of3 resultswithin the time period is included. Glucose, syringe 109 (H) 65 - 99 mg/dL [facility] DEPARTMENT OF PATHOLOGY AND GENOMIC MEDICINE Specimen Blood Performing Organization Address [facility] Phone Number [facility] DEPARTMENT OF PATHOLOGY AND [address] [place] [address] Arterial blood gas (04/09/2018 8:55 AM)Only the most recent of3 resultswithin the time period is included. pH, arterial 7.48 (H) 7.35 - 7.45 [facility] DEPARTMENT OF PATHOLOGY AND GENOMIC MEDICINE pCO2, arterial 44 35 - 45 mmHg [facility] DEPARTMENT OF PATHOLOGY AND GENOMIC MEDICINE pO2, arterial 427 (H) 80 - 90 mmHg [facility] DEPARTMENT OF PATHOLOGY AND GENOMIC MEDICINE Bicarbonate, arterial 32.3 (H) 21.0 - 28.0 mmol/L [facility] DEPARTMENT OF PATHOLOGY AND GENOMIC MEDICINE Base excess, arterial 8 (H) -2 - 2 mEq/L [facility] DEPARTMENT OF PATHOLOGY AND GENOMIC MEDICINE O2 saturation, arterial 100 95 - 100 % [facility] DEPARTMENT OF PATHOLOGY AND GENOMIC MEDICINE Specimen Blood Performing Organization Address [facility] Phone Number [facility] DEPARTMENT OF PATHOLOGY AND [address] [place] [address] Prepare RBC, 2 Units (04/08/2018 5:27 PM) Product name Red Blood Cells -1, [facility] DEPARTMENT OF Leukored PATHOLOGY AND GENOMIC MEDICINE Unit number [id number] [facility] DEPARTMENT OF PATHOLOGY AND GENOMIC MEDICINE Product code [id number] [facility] DEPARTMENT OF PATHOLOGY AND GENOMIC MEDICINE Dispense status Returned to BB not [facility] DEPARTMENT OF transfused PATHOLOGY AND GENOMIC MEDICINE Blood expiration date [facility] DEPARTMENT OF PATHOLOGY AND GENOMIC MEDICINE Blood type code 6200 [facility] DEPARTMENT OF PATHOLOGY AND GENOMIC MEDICINE Blood type A POSITIVE [facility] DEPARTMENT OF PATHOLOGY AND GENOMIC MEDICINE Product name Red Blood Cells -1, [facility] DEPARTMENT OF Leukored PATHOLOGY AND GENOMIC MEDICINE Unit number [id number] [facility] DEPARTMENT OF PATHOLOGY AND GENOMIC MEDICINE Product code [id number] [facility] DEPARTMENT OF PATHOLOGY AND GENOMIC MEDICINE Dispense status Returned to BB not [facility] DEPARTMENT OF transfused PATHOLOGY AND GENOMIC MEDICINE Blood expiration date [facility] DEPARTMENT OF PATHOLOGY AND GENOMIC MEDICINE Blood type code 6200 [facility] DEPARTMENT OF PATHOLOGY AND GENOMIC MEDICINE Blood type A POSITIVE [facility] DEPARTMENT OF PATHOLOGY AND GENOMIC MEDICINE Performing Organization Address City/State/Zipcode Phone Number [facility] DEPARTMENT OF PATHOLOGY AND [address] [place] [address] GENOMIC MEDICINE Type and screen (04/08/2018 5:27 PM) ABO grouping A [facility] DEPARTMENT OF PATHOLOGY AND GENOMIC MEDICINE Rh type POS [facility] DEPARTMENT OF PATHOLOGY AND GENOMIC MEDICINE Antibody screen (gel) NEG [facility] DEPARTMENT OF PATHOLOGY AND GENOMIC MEDICINE Specimen Blood Performing Organization Address City/[facility]/Zipcode Phone Number [facility] DEPARTMENT OF PATHOLOGY AND [address] [place] [address] Spirometry pre & post w/ bronchodilator, diffusion [...] Organization Address City/State/Zipcode Phone Number [facility] [address] [place] [address] Comprehensive metabolic panel (04/08/2018 4:00 AM)Only the most recent of3 resultswithin the time period is included. Sodium 141 135 - 148 mEq/L [facility] DEPARTMENT OF PATHOLOGY AND GENOMIC MEDICINE Potassium 4.2 3.5 - 5.0 mEq/L [facility] DEPARTMENT OF PATHOLOGY AND GENOMIC MEDICINE Chloride 97 (L) 98 - 112 mEq/L [facility] DEPARTMENT OF PATHOLOGY AND GENOMIC MEDICINE CO2 38 (H) 24 - 31 mEq/L [facility] DEPARTMENT OF PATHOLOGY AND GENOMIC MEDICINE Anion gap 6@ANIO (L) 7 - 15 mEq/L [facility] DEPARTMENT OF PATHOLOGY AND GENOMIC MEDICINE BUN 41 (H) 8 - 23 mg/dL [facility] DEPARTMENT OF PATHOLOGY AND GENOMIC MEDICINE Creatinine 0.9 0.5 - 0.9 mg/dL [facility] DEPARTMENT OF PATHOLOGY AND GENOMIC MEDICINE Glucose 85 65 - 99 mg/dL [facility] DEPARTMENT OF PATHOLOGY AND GENOMIC MEDICINE Calcium 8.5 (L) 8.8 - 10.2 mg/dL [facility] DEPARTMENT OF PATHOLOGY AND GENOMIC MEDICINE Protein 5.7 (L) 6.3 - 8.3 g/dL [facility] DEPARTMENT OF Comment: PATHOLOGY AND GENOMIC [place] 4.6-7.0 g/dL MEDICINE 1 week 4.4-7.6 g/dL 7 months-1year5.1-7.3 g/dL 1-2 years5.6-7.5 g/dL >3 years6.0-8.0 g/dL 18-150 6.3-8.3 g/dL Albumin 2.1 (L) 3.5 - 5.0 g/dL [facility] DEPARTMENT OF PATHOLOGY AND GENOMIC MEDICINE A/G ratio 0.6 (L) 0.7 - 3.8 [facility] DEPARTMENT OF PATHOLOGY AND GENOMIC MEDICINE Alkaline phosphatase 46 35 - 104 U/L [facility] DEPARTMENT OF PATHOLOGY AND GENOMIC MEDICINE AST 16 10 - 35 U/L [facility] DEPARTMENT OF PATHOLOGY AND GENOMIC MEDICINE ALT 9 5 - 50 U/L [facility] DEPARTMENT OF PATHOLOGY AND GENOMIC MEDICINE Total bilirubin 0.3 0.0 - 1.2 mg/dL [facility] DEPARTMENT OF PATHOLOGY AND GENOMIC [facility] Specimen Plasma specimen Performing Organization Address City/State/Zipcode Phone Number [facility] DEPARTMENT OF PATHOLOGY AND [address] [place] [address] Hemoglobin A1c (04/05/2018 3:05 PM) Hemoglobin A1C 4.9 4.0 - 5.6 % [facility] DEPARTMENT OF PATHOLOGY Comment: [facility] HbA1c cutoffs for diagnosing diabetes: 4.0% - 5.6%=normal 5.7% - 6.4%=increased risk for diabetes (prediabetes) >=6.5%=diabetes Goals for glycemic control (ADA 2016) < 7.0%Target for non adults with diabetes. More or less stringent targets may be appropriate for individual patients. <7.5% Target for Children and adolescents with type 1 diabetes. Specimen Blood Performing Organization Address City/[facility] Phone Number [facility] AND [address] [place] [address] Echocardiogram transesophageal (04/04/2018 10:17 AM) Narrative Performed At [facility] Transesophageal Echo Report [address], [place] [address] Pat.Name:BILL OLIVIA Pat.ID:[id number] .Date: 04/04/2018Refer.MD:FRANCISCO J LIND MD Exam Time: 8:22:00 AMStudy Type:FRANCISCA Height:62inWeight: 106lb BSA: 1.46 m2 DOBAge:1945,72Y Sex: FEMALEBP:122/58 HR:83 bpmSonogrphr: Evan Batista MD [facility]. Stat.:Inpatient Room:[place] [address] Study Status:Final Echo Event ID:[id number] Order ID:[id number] Reason for Study:r/o vegetation on aortic valve History / Clinical:Hypertension, AORTIC VALVE REPLACEMENT Procedures:3D Echo, Transesophageal Echo with Colorflow Doppler Race: SUMMARY: Severe aortic regurgitation.Pressure half time 104 ms. Holodiastolic flow reversal in the descending thoracic aorta. LV EF is moderately depressed.Normal RV systolic function. FINDINGS: FRANCISCA:The attending cream gatherer performed the FRANCISCA procedure and waspresent for [...] seen in the aortic arch and descendingaorta. FRNACISCO J: Insignificant amount of pericardial effusion. There [...] Anesthesia: Moderate Sedation Physician: Rom Lopez M.D. Police Investigator: Evan Batista MD Pre TEEBP HR Post FRANCISCA BP HR 122/58 09967/48 89 Meds:Viscous xylocaine, Cetacaine spray to oropharynx, Versed 1 mg IV, Fentanyl 25 mcg IV Complications: None Condition: Stable MEASUREMENTS: 2D Parasternal [place] LVOT 1.9 cmLA Ds4.1 cm LVIDd5 cmAo Rtd 2.6 cm LVIDs3.8 cmLV Ckln056.8 g(87-129) LV%fs 23 % LVM Index 95.1 g/m2 IVSd 0.7 cmRWT0.4 LVPWd0.9 cm DOPPLER AV Pressure Half Time AV P1/2t 104 msec Signed 04/04/2018 11:38 AM Rom Lopez M.D. Procedure Note Interface, Radiology Results In - 04/04/2018 11:38 AM CDT Transesophageal Echo Report [address], [place], [place] [address] Pat.Name: BILL OLIVIA.ID: [id number] .Date: 04/04/2018 Refer.MD: FRANCISCO J LIND MD Exam Time: 8:22:00 AM Study Type:FRANCISCA Height: 62in Weight: 106lb BSA: 1.46 m2 Age: 5 1945,72Y Sex: FEMALE BP: 122/58 HR: 83 bpm Sonogrphr: Evan Batista MD Pat. Stat.:Inpatient Room: [place] [address] Study Status:Final Echo Event ID:[id number] Order ID: [id number] Reason for Study:r/o vegetation on aortic valve History / Clinical:Hypertension, AORTIC VALVE REPLACEMENT Procedures:3D Echo, Transesophageal Echo with Colorflow Doppler Race: SUMMARY: Severe aortic regurgitation. Pressure half time 104 ms. Holodiastolic flow reversal in the descending thoracic aorta. LV EF is moderately depressed. Normal RV systolic function. FINDINGS: FRANCISCA: The attending cream gatherer performed the FRANCISCA procedure and was present [...] structural TV abnormalities noted. Mild tricuspid regurgitation FRANICSCA: Anesthesia: Moderate Sedation Physician: Rom Lopez M.D. Police Investigator: Evan Batista MD Pre FRANCISCA BP HR Post FRANCISCA BP HR 122/58 83 101/48 89 Meds: Viscous xylocaine, Cetacaine spray to oropharynx, Versed 1 mg IV, Fentanyl 25 mcg IV Complications: None Condition: Stable MEASUREMENTS: 2D Parasternal [place] LVOT 1.9 cm LA Ds 4.1 cm LVIDd 5 cm Ao Rtd 2.6 cm LVIDs 3.8 cm LV Mass 138.8 g (87-129) LV%fs 23 % LVM Index 95.1 g/m2 IVSd 0.7 cm RWT 0.4 LVPWd 0.9 cm DOPPLER AV Pressure Half Time AV P1/2t 104 msec Signed 04/04/2018 11:38 AM Rom Lopez M.D. Performing Organization Address [facility]/Zipcode Phone Number [facility] [address] [place] [address] B natriuretic peptide (04/04/2018 5:10 AM)Only the most recent of2 resultswithin the time period is included. BNP 230 (H) 0 - 100 pg/mL [facility] DEPARTMENT OF PATHOLOGY AND GENOMIC MEDICINE Performing Organization Address [facility]/Zipcode Phone Number [facility] DEPARTMENT OF PATHOLOGY AND [address] [place] [address] GENOMIC MEDICINE XR Chest 1 Vw (04/02/2018 [...] size of the left pleural effusion, now exkll-ju-kqtarujs in degree. There is a vwgox-vt-oblnnztd right-sided pleural effusion. There is no pneumothorax. Bones:There is mild osteopenia. Patient is status post median sternotomy with intact wires. There is no acute displaced fracture or dislocation. IMPRESSION: Status post left-sided thoracentesis with interval reduction in size of left pleural effusion, now zrrom-fl-okskwbad. No left-sided pneumothorax. Arodd-cw-rkhblsou right pleural effusion. Bibasilar opacities likely represent atelectasis. Aspiration and/or pneumonia are also possible in the appropriate clinical context. [facility]-[id number] Procedure Note Interface, Radiology Results Incoming - [...] size of the left pleural effusion, now kvsar-sb-trpzwgsg in degree. There is a euwyj-yf-xbypageb right-sided pleural effusion. There is no pneumothorax. Bones: There is mild osteopenia. Patient is status post median sternotomy with intact wires. There is no acute displaced fracture or dislocation. IMPRESSION: Status post left-sided thoracentesis with interval reduction in size of left pleural effusion, now zffur-gh-bhnabnso. No left-sided pneumothorax. Utyog-tv-dhhlmtsi right pleural effusion. Bibasilar opacities likely represent atelectasis. Aspiration and/or pneumonia are also possible in the appropriate clinical context. [facility]-[id number] Performing Organization Address [facility]/Zipcode Phone Number [address] [address] Fungus smear (04/02/2018 4:17 PM) Fungus smear No fungi observed. [facility] DEPARTMENT OF PATHOLOGY Comment: AND GENOMIC MEDICINE Specimen Information Specimen Source: Thoracentesis fluid Specimen Site: Pleural Fluid Specimen Thoracentesis fluid - Pleural Fluid Performing Organization Address [facility] Phone Number [facility] DEPARTMENT OF PATHOLOGY AND [address] [place] [address] GENOMIC MEDICINE AFB culture (04/02/2018 4:17 PM) AFB culture isolate No growth after 6 weeks of incubation. [facility] DEPARTMENT OF Comment: PATHOLOGY AND GENOMIC Specimen Information MEDICINE Specimen Source: Thoracentesis fluid Specimen Site: Pleural Fluid Specimen Thoracentesis fluid - Pleural Fluid Performing Organization Address [facility] Hospitalcomn Phone Number [facility] DEPARTMENT OF PATHOLOGY AND [address] [place] [address] GENOMIC MEDICINE Aerobic culture (04/02/2018 4:17 PM) Aerobic culture isolate No growth after 3 days. [facility] DEPARTMENT OF Comment: PATHOLOGY AND GENOMIC Specimen Information MEDICINE Specimen Source: Thoracentesis fluid Specimen Site: Pleural Fluid Specimen Thoracentesis fluid - Pleural Fluid Performing Organization Address [facility] Phone Number [facility] DEPARTMENT OF PATHOLOGY AND [address] [place] [address] GENOMIC MEDICINE Gram stain (04/02/2018 4:17 PM) Gram stain isolate Many WBC's [facility] DEPARTMENT OF No organisms seen PATHOLOGY AND GENOMIC MEDICINE Comment: Specimen Information Specimen Source: Thoracentesis fluid Specimen Site: Pleural Fluid Specimen Thoracentesis fluid - Pleural Fluid Performing Organization Address City/[facility] Phone Number [facility] DEPARTMENT OF PATHOLOGY AND [address] [place] [address] GENOMIC MEDICINE AFB stain (04/02/2018 4:17 PM) AFB stain No acid fast bacilli (AFB) seen. [facility] DEPARTMENT OF PATHOLOGY AND Comment: GENOMIC MEDICINE Specimen Information Specimen Source: Thoracentesis fluid Specimen Site: Pleural Fluid Specimen Thoracentesis fluid - Pleural Fluid Performing Organization Address City/[facility] Phone Number [facility] DEPARTMENT OF PATHOLOGY AND [address] [place] [address] [facility] Fungus culture (04/02/2018 4:17 PM) Fungus culture isolate No growth after 4 weeks of incubation. [facility] DEPARTMENT OF Comment: PATHOLOGY AND GENOMIC Specimen Information MEDICINE Specimen Source: Thoracentesis fluid Specimen Site: Pleural Fluid Specimen Thoracentesis fluid - Pleural Fluid Performing Organization Address [facility] Phone Number [facility] DEPARTMENT OF PATHOLOGY AND [address] [place] [address] [facility] Anaerobic culture (04/02/2018 4:17 PM) Anaerobic culture No anaerobic organisms isolated. [facility] DEPARTMENT OF isolate Comment: PATHOLOGY AND GENOMIC Specimen Information MEDICINE Specimen Source: Thoracentesis fluid Specimen Site: Pleural Fluid Specimen Thoracentesis fluid - Pleural Fluid Performing Organization Address [facility] Phone Number [facility] DEPARTMENT OF PATHOLOGY AND [address] [place] [address] [facility] US Thoracentesis With Imaging (04/02/2018 4:15 PM) [...] was used for local anesthesia. A 5 Iraqi Yueh catheter was inserted into the pleural space. 870 mLof pleural fluid was removed. 20 mL of aspirated fluid was also sent for laboratory analysis. The patient tolerated the procedure without difficulty and postprocedure chest x-ray demonstrated no pneumothorax. IMPRESSION: Ultrasound-guided left thoracentesis. [facility]-[id number] Procedure Note Interface, Radiology Results Incoming - [...] was used for local anesthesia. A 5 Iraqi Yueh catheter was inserted into the pleural space. 870 mL of pleural fluid was removed. 20 mL of aspirated fluid was also sent for laboratory analysis. The patient tolerated the procedure without difficulty and postprocedure chest x-ray demonstrated no pneumothorax. IMPRESSION: Ultrasound-guided left thoracentesis. [facility]-[id number] Performing Organization Address City/State/Zipcode Phone Number [facility] [address] [place] [address] cta tavr workup (cta coronary,cta thoracic aorta,cta abdominal runoff) (04/02 2:50 PM) Narrative Performed At [facility] Nuclear Cardiology and Cardiac CT [address] [place] [address] CTA TAVR Protocol Pat.Name:BIN BILLYOHANNES Garcia.ID:[id number] .Date: 04/02/2018Refer.MD:FRANCISCO J LIND MD Exam Time: 2:23:00 PMStudy Type:CTA TAVR Protocol Height:62inWeight: 119.75lb BSA: 1.54 m2 DOBAge:1945,72Y Sex: FEMALEBP:125/56 HR:81 bpm Nuclear Tech:Dale Gardner RT(MT)(CT), [facility] CPT - 4: TAVR w Coronaries [id number];[id number] Nuclear Event ID:[id number] Order ID:[id number] Reason for Study:Aortic Insufficiency Procedures:CTA TAVR Protocol SUMMARY: Technique: IV contrast was administered and sequential 0.[address] cuts were obtained through the chest using the Siemens Somatom Force CT scanner. Post-processing and 3D reconstruction were done using the [employer] workstation. Interactive image viewing and volumetric display [...] Cardiovascular CTA Protocol and interpreted by a [employer] Dressmaker.Should a more comprehensive assessment of non-cardiovascular findings be desired, please consult a radiologist.These images are available in the [facility] [employer] PACS system. Signed 04/02/2018 04:17 PM Daniel Sotelo MD Procedure Note Interface, Radiology Results In - 04/02/2018 4:17 PM CDT Nuclear Cardiology and Cardiac CT [address] [place] [address] CTA TAVR Protocol Pat.Name: BILL OLIVIA Radha.ID: [id number] .Date: 04/02/2018 Refer.MD: FRANCISCO J LIND MD Exam Time: 2:23:00 PM Study Type:CTA TAVR Protocol Height: 62in Weight: 119.75lb BSA: 1.54 m2 Age: 4 1945,72Y Sex: FEMALE BP: 125/56 HR: 81 bpm Nuclear Tech:Dale Gardner RT(MT)(CT), [facility] CPT - 4: TAVR w Coronaries [id number];49060;[id number] Nuclear Event ID:[id number] Order ID: [id number] Reason for Study:Aortic Insufficiency Procedures:CTA TAVR Protocol SUMMARY: Technique: IV contrast was administered and sequential 0.[address] cuts were obtained through the chest using the Siemens Somatom Force CT scanner. Post-processing and 3D reconstruction were done using the [employer] workstation. Interactive image viewing and volumetric display [...] Cardiovascular CTA Protocol and interpreted by a [employer] Dressmaker. Should a more comprehensive assessment of non-cardiovascular findings be desired, please consult a radiologist. These images are available in the [facility] [employer] PACS system. Signed 04/02/2018 04:17 PM Daniel Sotelo MD Performing Organization Address City/State/Zipcode Phone Number [facility] [address] [place] [phone] Us carotid duplex (04/02/2018 2:10 PM) Narrative Performed At [facility] Vascular Ultrasound Laboratory Carotid Artery Duplex Report [address] [facility] [address], [place] [id number] For manager quality compliance purposes, the categorization of the degree of the stenosis of this exam is based on criteria described in the IAC carotid stenosis grading white paper( www.intersocietal.org/Vascular) and Leonel Ballesteros., James Bales, et al. Carotid artery stenosis: cleveland-scale and Doppler US diagnosis--Society of Radiologists in Ultrasound Consensus Conference. Radiology. 2003 Nov; 229(2):340-6. Pat.Name:BILL OLIVIA Pat.ID:[id number] .Date: 04/02/2018Refer.MD:FRANCISCO J LIND MD Exam Time: 1:24:00 PMStudy Type:Carotid DOBAge:1945,72Y Sex: FEMALE Sonogrphr: PATRICK Richey, RCSPat. Stat.:Inpatient Room:[facility] TapeVol: SB, CPT - 4: [address] Echo Event ID:[id number] Order ID:[id number] Reason for Study:Gradual decline in strenth and [...] EDV3.15 cm/s Left CCA Mid CCA Mid [id number] cm/sCCA Mid EDV0 cm/s Left CCA Prox CCA Prox PSV 127 cm/sCCA Prox EDV 2.1 cm/s Left ICA Dist ICA Dist PSV64.9 cm/Pili Dist EDV2.16 cm/s Left ICA Mid ICA Mid [id number] cm/Pili Mid EDV 3.15 cm/s Left ICA Prox ICA Prox PSV 154 cm/Pili Prox EDV1.05 cm/s Left ECA Prox ECA Prox PSV 132 cm/sECA Prox EDV 4.2 cm/s Left SCA Prox SCA Prox PSV 163 cm/sSCA Prox EDV 4.2 cm/s Left Vertebral Vertebral GHS920 cm/sVertebral EDV0 cm/s Right CCA Dist CCA Dist PSV81.7 cm/sCCA Dist EDV 0.749 cm/s Right CCA Mid CCA Mid KHZ714 cm/sCCA Mid EDV 0.75 cm/s Right CCA Prox CCA Prox PSV 105 cm/sCCA Prox EDV 0 cm/s Right ICA Dist ICA Dist PSV 109 cm/Pili Dist EDV 1.5 cm/s Right ICA Mid ICA Mid [id number] cm/Pili Mid EDV1.5 cm/s Right ICA Prox [...] Vascular Ultrasound Laboratory Carotid Artery Duplex Report [address] [place] [address] For manager quality compliance purposes, the categorization of the degree of the stenosis of this exam is based on criteria described in the IAC carotid stenosis grading white paper( www.intersocietal.org/Vascular) and Leonel Ballesteros., James Bales, et al. Carotid artery stenosis: cleveland-scale and Doppler US diagnosis--Society of Radiologists in Ultrasound Consensus Conference. Radiology. 2003 Nov; 229(2):340-6. Pat.Name: BILL OLIVIA [facility].ID: [id number] .Date: 04/02/2018 Refer.MD: FRANCISCO J LIND MD Exam Time: 1:24:00 PM Study Type:Carotid Age: 5 1945,72Y Sex: FEMALE Sonogrphr: Felton Levine, RVSheila, RCSPat. Stat.:Inpatient Room: D967A Tape Vol: SB, CPT - 4: 10568 Echo Event ID:[id number] Order ID: [id number] Reason for Study:Gradual decline in strenth and [...] MD Performing Organization Address City/State/Zipcode Phone Number [facility] [address] [place] [address] Echocardiogram complete w contrast and 3D if needed (04/02/2018 9:14 AM) Narrative Performed At [facility] Echocardiography Report [address] [place] [address] Pat.Name:BILL OLIVIA Pat.ID:[id number] .Date: 04/02/2018Refer.MD:FRANCISCO J LIND MD Exam Time: 9:47:00 AMStudy Type:Routine Echo Height:62inWeight: 120lb BSA: 1.54 m2 DOBAge:1945,72Y Sex: FEMALEBP:101/43 HR:85 bpmSonogrphr: MADDIE Kurtz Pat. Stat.:Inpatient Room:[facility] Study Status:Final Echo Event ID:[id number] Order ID:[id number] Reason for Study:Pre-op History / Clinical:Hypertension, AORTIC [...] valve regurgitation. FINDINGS: LV: LV size is tcjj-wj-vgafdchycj enlarged. There is moderate eccentricLV hypertrophy. LV [...] not well seen. MEASUREMENTS: 2D Parasternal [place] LVOT 1.9 cmIVSd 1 cm LA Ds5.3 cmLVPWd1.1 cm Ao Rtd 3.2 cmIndex2.1 cm/m LV Fmaf716 g(87-129) LVIDd5.2 cmIndex3.4 cm/m LVM Bijtb682.1 g/m2 LVIDs3.9 cmRWT0.4 LV%fs 25.7 % DOPPLER AV For Flow/ADEOLA AV pkVel 275.7 cm/s (100-170) AV AC/ET 0.3 AV mnVel 173.5 cm/Jewel TVI57.4 cm AV pkPG 30.4 mmHgAVpkAcRt 4149.2 cm/s2 AV Mean G 14.8 mmHgAV AmGu479.5 cm/s2 AV AC115 msec (83-118) AV Area1.6 cm2(3-5) AV ET331 msec LVOT For Flow LVOT Area2.8 cm2 LVOT SV 91.7 ml YWGKuyAai189.3 cm/sHR80.5 bpm LVOTpkPG 7.6 mmHgLVOT CO7.4 l/min LVOTmnPG 3.5 mmHgLVOT CI4.8 l/m/m2 LVOT TVI32.3 cm Signed 04/02/2018 05:57 PM Klaus Ryan M.D. Procedure Note Interface, Radiology Results In - 04/02/2018 5:58 PM CDT Echocardiography Report [address] [place] [address] Pat.Name: BILL OLIVIA Pat.ID: [id number] .Date: 04/02/2018 Refer.MD: FRANCISCO J LIND MD Exam Time: 9:47:00 AM Study Type:Routine Echo Height: 62in Weight: 120lb BSA: 1.54 m2 Age: 4 1945,72Y Sex: FEMALE BP: 101/43 HR: 85 bpm Sonogrphr: MADDIE Kurtz Pat. Stat.:Inpatient [facility]: [id number] Study Status:Final Echo Event ID:[id number] Order ID: [id number] Reason for Study:Pre-op History / Clinical:Hypertension, AORTIC [...] valve regurgitation. FINDINGS: LV: LV size is hzvh-ba-ytsdkahzyj enlarged. There is moderate eccentric LV hypertrophy. [...] not well seen. MEASUREMENTS: 2D Parasternal [place] LVOT 1.9 cm IVSd 1 cm LA [...] PM Klaus Ryan M.D. Performing Organization Address City/State/[facility] Phone Number [facility] [address] [place] [address] Urinalysis screen and microscopy, with reflex to culture (04/01/2018 10:00 PM) Specimen site Clean catch [facility] DEPARTMENT OF PATHOLOGY AND GENOMIC MEDICINE Color, UA Yellow [facility] DEPARTMENT OF PATHOLOGY AND GENOMIC MEDICINE Appearance, UA Turbid [facility] DEPARTMENT OF PATHOLOGY AND GENOMIC MEDICINE Specific gravity, UA 1.013 1.001 - 1.035 [facility] DEPARTMENT OF PATHOLOGY AND GENOMIC MEDICINE pH, UA 7.0 5.0 - 8.5 [facility] DEPARTMENT OF PATHOLOGY AND GENOMIC MEDICINE Protein, UA Negative Negative [facility] DEPARTMENT OF PATHOLOGY AND GENOMIC MEDICINE Glucose, UA Negative Negative [facility] DEPARTMENT OF PATHOLOGY AND GENOMIC MEDICINE Ketones, UA Negative Negative [facility] DEPARTMENT OF PATHOLOGY AND GENOMIC MEDICINE Bilirubin, UA Negative Negative [facility] DEPARTMENT OF PATHOLOGY AND GENOMIC MEDICINE Blood, UA Negative Negative [facility] DEPARTMENT OF PATHOLOGY AND GENOMIC MEDICINE Nitrite, UA Negative Negative [facility] DEPARTMENT OF PATHOLOGY AND GENOMIC MEDICINE Urobilinogen, UA 2.0 (A) <2.0 [facility] DEPARTMENT OF PATHOLOGY AND GENOMIC MEDICINE Leukocyte esterase, UA Negative Negative [facility] DEPARTMENT OF PATHOLOGY AND GENOMIC MEDICINE WBC, UA <1 0 - 4 /HPF [facility] DEPARTMENT OF PATHOLOGY AND GENOMIC MEDICINE RBC, UA 1 0 - 5 /HPF [facility] DEPARTMENT OF PATHOLOGY AND GENOMIC MEDICINE Bacteria, UA Few None seen [facility] DEPARTMENT OF PATHOLOGY AND GENOMIC MEDICINE Yeast, UA None seen [facility] DEPARTMENT OF PATHOLOGY AND GENOMIC MEDICINE Yeast with pseudohyphae, UA None seen [facility] DEPARTMENT OF PATHOLOGY AND GENOMIC MEDICINE Amorphous crystals Moderate [facility] DEPARTMENT OF PATHOLOGY AND GENOMIC MEDICINE Calcium oxalate crystals, UA Few [facility] DEPARTMENT OF PATHOLOGY AND GENOMIC MEDICINE Hyaline casts, UA 7 /LPF [facility] DEPARTMENT OF PATHOLOGY AND GENOMIC MEDICINE Specimen Urine Performing Organization Address City/[facility] Phone Number [facility] DEPARTMENT OF PATHOLOGY AND [address] [place] [address] [facility] MEDICINE Urine culture (04/01/2018 10:00 PM) Urine culture SEE COMMENTComment: Bacteriuria [facility] DEPARTMENT OF PATHOLOGY screen negative. AND GENOMIC MEDICINE Performing Organization Address City/[facility] Phone Number [facility] DEPARTMENT OF PATHOLOGY AND [address] [place] [address] [facility] XR Chest 1 Vw Portable (04/01/2018 8:33 PM) Narrative Performed At EXAMINATION: XR CHEST 1 VW PORTABLE [facility] INDICATION: preop COMPARISON: Most recent prior IMPRESSION: Stable cardiomegaly. Prior sternotomy. Arteriosclerosis aortic arch. Moderate left and small to moderate right pleural effusions with compressive atelectasis. Central pulmonary vascular congestion. No visible pneumothorax. [facility]-[id number] Procedure Note Interface, Radiology Results Incoming - 04/01/2018 9:05 PM CDT EXAMINATION: XR CHEST 1 VW PORTABLE INDICATION: preop COMPARISON: Most recent prior IMPRESSION: Stable cardiomegaly. Prior sternotomy. Arteriosclerosis aortic arch. Moderate left and small to moderate right pleural effusions with compressive atelectasis. Central pulmonary vascular congestion. No visible pneumothorax. [facility]-[id number] Performing Organization Address [facility] Phone Number [facility] [address] [place] [phone] Partial thromboplastin time, activated (04/01/2018 8:20 PM) PTT 27.2 23.0 - 36.0 sec [facility] DEPARTMENT OF PATHOLOGY Comment: AND [facility] PTT therapeutic range for unfractionated heparin is 61.0-112.0 seconds which corresponds to Anti-Xa 0.3-0.7 U/ml. Specimen Blood Performing Organization Address City/[facility] [facility] Phone Number [facility] DEPARTMENT OF PATHOLOGY AND [address] [place] [address] Prothrombin time with INR (04/01/2018 8:20 PM) Prothrombin time 13.9 12.0 - 15.0 sec [facility] DEPARTMENT OF PATHOLOGY AND GENOMIC MEDICINE INR 1.1 [facility] DEPARTMENT OF Comment: PATHOLOGY AND GENOMIC The International Normalized Ratio (INR) is a therapeutic MEDICINE monitoring tool for patients who are stable on oral anticoagulant therapy. An INR of 2.0-3.0 is suggested for deep vein thrombosis/pulmonary embolism. Specimen Blood Performing Organization Address [facility] [place] [facility] DEPARTMENT OF PATHOLOGY AND [address] [place] [address] Blood culture, aerobic & anaerobic (04/01/2018 8:00 PM)Only the most recent of2 resultswithin the time period is included. Blood culture isolate No growth after 5 days of incubation. [facility] DEPARTMENT OF Comment: PATHOLOGY AND GENOMIC Specimen Information MEDICINE Specimen Source: Blood Specimen Site: Peripheral Hand Right Specimen Blood Performing Organization Address [facility] Phone Number [facility] DEPARTMENT OF PATHOLOGY AND [address] [place] [address] Thyroid stimulating hormone (04/01/2018 7:22 PM) TSH 1.92 0.27 - 4.20 uIU/mL [facility] DEPARTMENT OF PATHOLOGY AND GENOMIC MEDICINE Specimen Plasma specimen Performing Organization Address [facility] Phone Number [facility] DEPARTMENT OF PATHOLOGY AND [address] [place] [phone] [facility] T4, free (04/01/2018 7:22 PM) T4, free 1.2 0.9 - 1.7 ng/dL [facility] DEPARTMENT OF PATHOLOGY AND GENOMIC MEDICINE Specimen Plasma specimen Performing Organization Address [facility] Phone Number [facility] DEPARTMENT OF PATHOLOGY AND [address] [place] [phone] [place] [address] Hepatic function panel (04/01/2018 7:22 PM) Albumin 2.5 (L) 3.5 - 5.0 g/dL [facility] DEPARTMENT OF PATHOLOGY AND GENOMIC MEDICINE Total bilirubin 0.3 0.0 - 1.2 mg/dL [facility] DEPARTMENT OF PATHOLOGY AND GENOMIC MEDICINE Bilirubin direct <0.2 0.0 - 0.3 mg/dL [facility] DEPARTMENT OF PATHOLOGY AND GENOMIC MEDICINE Alkaline phosphatase 50 35 - 104 U/L [facility] DEPARTMENT OF PATHOLOGY AND GENOMIC MEDICINE Protein 6.6 6.3 - 8.3 g/dL [facility] DEPARTMENT OF Comment: PATHOLOGY AND GENOMIC [place] 4.6-7.0 g/dL MEDICINE 1 week 4.4-7.6 g/dL 7 months-1year5.1-7.3 g/dL 1-2 years5.6-7.5 g/dL >3 years6.0-8.0 g/dL 18-150 6.3-8.3 g/dL ALT 13 5 - 50 U/L [facility] DEPARTMENT OF PATHOLOGY AND GENOMIC MEDICINE AST 16 10 - 35 U/L [facility] DEPARTMENT OF PATHOLOGY AND GENOMIC MEDICINE Specimen Plasma specimen Performing Organization Address City/State/Zipcomn Phone Number [facility] DEPARTMENT OF PATHOLOGY AND [address] [place] [address] GENOMIC MEDICINE after 07/04/2017 Insurance Payer Benefit Plan / Group Subscriber ID Type Phone Address MEDICARE MEDICARE PART A AND B xxxxxxxxxx Medicare [place], [place] AARP AARP SUPPLEMENT xxxxxxxxx-x Commercial y [phone] [place] [address] [phone]
[2018-07-05 19:15] LABS: Absolute Lymphocytes (CBC) 0.8 K/uL (0.7-4.9); Absolute Monocytes 1.1 K/uL (0.1-1.3); Absolute Neutrophil 22.7 K/uL (1.8-8.0); Basophils % 0.2 % (0-1.3); Hematocrit 38.4 % (36.0-45.0); Lymphocytes % 3.2 % (15.3-44.8); MCH 30.1 pg (27.0-35.0); MCV 91.7 fL (80-100); MPV 7.9 fL (7.6-11.3); Monocytes % 4.5 % (3.3-12.3); RBC Red Blood Cell Count 4.18 M/uL (3.86-4.86)
[2018-07-05 19:23] LABS: Protime INR 0.97
[2018-07-05] MEDS ORDERED: LEVALBUTEROL 1.25 MG/3 ML NEB ONE (19:26)
[2018-07-05 19:35] LABS: Albumin 2.8 g/dL (3.4-5.0); Bilirubin Direct 0.2 mg/dL (0-0.2); Bilirubin Total 0.5 mg/dL (0.2-1.0); Magnesium 2.3 mg/dL (1.8-2.4); Potassium 4.3 mmol/L (3.5-5.1); Protein, Total 7.6 g/dL (6.4-8.2); Troponin (Emerg Dept Use Only) 0.04 ng/mL (0.0-0.045)
[2018-07-05 19:59] LABS: Blood Morphology Comment NOT SEEN (NOT SEEN); Platelet Estimate ADEQ
--- NOTE | 2018-07-05 20:07 | RAD REPORT ---
EXAM DESCRIPTION: RAD - Chest Single View - 07/05/2018 7:26 pm CLINICAL HISTORY: Shortness of breath, cough, difficulty breathing COMPARISON: June 23 TECHNIQUE: AP portable chest image was obtained 1921 hours . FINDINGS: Chronic interstitial lung disease is present. Bilateral pleural effusions are present left greater than right. Volume is not substantially different from comparison. Heart size is normal. Ye tral vasculature is increased. Perihilar markings are slightly more pronounced. No pneumothorax. No a cute bony abnormality seen. No acute aortic findings suspected. IMPRESSION: Moderate left and smaller right pleural effusions. Volume not substantially different fr om comparison. Increased right lung base markings and increased perihilar lung markings. Right base could be atelect asis or a combination of atelectasis and infiltrate. Central vasculature increase could indicate developing failure or volume overload.
[2018-07-05] MEDS ORDERED: Levofloxacin 750mg IV 750 MG/150 ML BAG IV ONE (20:48)
[2018-07-05] MEDS ORDERED: ACETAMINOPHEN 325 MG TABLET ONE (20:49)
--- NOTE | 2018-07-05 20:59 | EDPHYS ---
Physician Documentation [facility] Name: Shannan Olivia Age: 72 yrs Sex: Female : 1945 Arrival Date: 07/05/2018 Time: 18:20 Bed 13 Private MD: Mickey Gates C ED Physician Han Rodas HPI: 07/05 19:00 This 72 yrs old Female presents to ER via Wheelchair with complaints of cp Shortness Of Breath. 19:00 The patient has shortness of breath at rest. cp 19:00 Onset: The symptoms/episode began/occurred this morning. Duration: The symptoms are cp continuous, and are steadily getting worse. The patient's shortness of breath is aggravated by light activity. Associated signs and symptoms: Pertinent positives: productive cough, Pertinent negatives: chest pain, diaphoresis, fever, hemoptysis. Severity of symptoms: in the emergency department the symptoms are unchanged despite home interventions. The patient has experienced similar episodes in the past, multiple times. The patient has been recently been admitted at [facility], was discharged a couple of weeks ago, diagnosed and treated for pneumonia. Historical: - Allergies: 18:27 NKA; aj - Home Meds: 18:27 Breo Ellipta 100-25 mcg/dose inhalation dsdv 1 puff once daily [Active]; carvedilol aj 3.125 mg Oral tab daily [Active]; CoQ-10 Oral daily [Active]; Coreg 3.125 mg Oral tab 1 tab 2 times per day [Active]; furosemide 40 mg Oral tab 1 tab once daily [Active]; Iron CR Oral daily [Active]; ibandronate 150 mg Oral tab 1 tab once moly [Active]; lorazepam 0.5 mg Oral tab 1 tab 2 times per day [Active]; mirtazapine 15 mg Oral tab 1 tab once daily [Active]; montelukast 10 mg Oral tab 1 tab once daily for Maintenance Therapy for Asthma [Active]; Nexium 40 mg Oral cpDR 1 cap once daily [Active]; pantoprazole 40 mg Oral TbEC 1 tab once daily for Gastroesophageal reflux [Active]; Plavix 75 mg Oral tab 1 tab once daily [Active]; prednisone 5 mg Oral tab once daily [Active]; senior multivitamin daily [Active]; vit c 1 tab daily. multi vitamin 1 tab daily, Advair 150 mcg 1 in morning, flonase 1 spray in each nostril once daily, [Active]; spironolactone 25 mg Oral tab 1 tab once daily [Active]; - PMHx: 18:27 acid reflux; Asthma; CHF; COPD; Hypertension; pleural effusion-06/2015; Pneumonia; aj shingles; - Immunization history:: Adult Immunizations up to date. - Social history:: Smoking status: Patient/guardian denies using tobacco. - Ebola Screening: : Patient negative for fever greater than or equal to 101.5 degrees Fahrenheit, and additional compatible Ebola Virus Disease symptoms Patient denies exposure to infectious person Patient denies travel to an Ebola-affected area in the 21 days before illness onset No symptoms or risks identified at this time. ROS: 19:05 Constitutional: Negative for chills, fever, poor PO intake. cp 19:05 Eyes: Negative for injury, pain, redness, and discharge. cp 19:05 ENT: Negative for drainage from ear(s), ear pain, sore throat, difficulty swallowing, difficulty handling secretions. 19:05 Cardiovascular: Negative for chest pain, edema, palpitations. 19:05 Respiratory: Positive for cough, shortness of breath, wheezing. 19:05 Abdomen/GI: Negative for abdominal pain, nausea, vomiting, and diarrhea, constipation, black/tarry stool, rectal bleeding. 19:05 Back: Negative for pain at rest, pain with movement. 19:05 : Negative for urinary symptoms. 19:05 Skin: Negative for cellulitis, rash. 19:05 Neuro: Negative for altered mental status, dizziness, headache, syncope, near syncope, weakness. 19:05 All other systems are negative. Exam: 19:10 Head/Face: Normocephalic, atraumatic. Eyes: Pupils equal round and reactive to light, cp extra-ocular motions intact. Lids and lashes normal. Conjunctiva and sclera are non-icteric and not injected. Cornea within normal limits. Periorbital areas with no swelling, redness, or edema. ENT: Nares patent. No nasal discharge, no septal abnormalities noted. Tympanic membranes are normal and external auditory canals are clear. Oropharynx with no redness, swelling, or masses, exudates, or evidence of obstruction, uvula midline. Mucous membranes moist. Neck: Trachea midline, no thyromegaly or masses palpated, and no cervical lymphadenopathy. Supple, full range of motion without nuchal rigidity, or vertebral point tenderness. No Meningismus. Chest/axilla: Normal chest wall appearance and motion. Nontender with no deformity. No lesions are appreciated. 19:10 Constitutional: The patient appears alert, awake, non-diaphoretic, non-toxic, well developed, frail, in obvious distress, mildly distressed. 19:10 Cardiovascular: Rate: tachycardic, Rhythm: regular, Pulses: Pulses are 2+ in right cp radial artery and left radial artery. Heart sounds: rub, not appreciated, gallop, not appreciated, Edema: is not appreciated, JVD: is not appreciated. 19:10 Respiratory: mild respiratory distress is noted, Respirations: labored breathing, that is mild, accessory muscle usage, is absent, splinting, is not noted, tachypnea, is not appreciated, Breath sounds: decreased breath sounds, that are moderate, throughout, stridor, is not appreciated, wheezing: that is mild, is heard diffusely. 19:10 Abdomen/GI: Inspection: abdomen appears normal, Bowel sounds: active, all quadrants, Palpation: abdomen is soft and non-tender, in all quadrants, rebound tenderness, is not appreciated, voluntary guarding, is not appreciated, involuntary guarding, is not appreciated. 19:10 Back: pain, is absent, ROM is normal. 19:10 Skin: cellulitis, is not appreciated, no rash present. 19:10 Neuro: Orientation: to person, place \T\ time. Mentation: is normal, Cerebellar function: is grossly normal, Motor: is normal, Sensation: is normal. 19:25 ECG was reviewed by the Attending Physician. Vital Signs: 18:27 BP 130 / 60; Pulse 119; Resp 29; Temp 100.1(TE); Pulse Ox 89% 2 lpm ; Weight 47.63 kg; aj Height 5 ft. 2 in. (157.48 cm); 18:58 Resp 22; Pulse Ox 93% on 2 lpm NC; aa5 20:11 BP 116 / 74; Pulse 113; Resp 28; Pulse Ox 94% on 2 lpm NC; tl2 20:39 Temp 100.6(O); tl2 22:05 BP 101 / 65; Pulse 107; Resp 23; Temp 99(O); Pulse Ox 94% on 2 lpm NC; tl2 18:27 Body Mass Index 19.20 (47.63 kg, 157.48 cm) aj MDM: 18:34 Patient medically screened. 20:40 Data reviewed: vital signs, nurses notes, lab test result(s), EKG, radiologic studies, cp plain films, and as a result, I will admit patient. 20:40 Test interpretation: by ED physician or midlevel provider: ECG, plain radiologic cp studies. Response to treatment: the patient's symptoms have mildly improved after treatment. 20:41 Physician consultation: Jason Serna MD was called at 20:42, left message on voicemail. 20:57 Physician consultation: Jason Serna MD was contacted at 20:55, regarding admission, cp to the telemetry unit. patient's condition. 21:00 ED course: After consultation with DR Serna, requests administration of IV Meropenom cp and Vancomycin with oral prednisone 10 mg bid. 07/05 18:50 Order name: Influenza Screen (a \T\ B); Complete Time: 20:42 07/05 20:43 Interpretation: Reviewed. 07/05 18:50 Order name: Basic Metabolic Panel; Complete Time: 20:20 07/05 20:29 Interpretation: Normal except: CL 94; CO2 38; GLUC 119; BUN 38; GFR 62; CA 10.3. 07/05 18:50 Order name: CBC with Diff; Complete Time: 20:20 07/05 19:35 Interpretation: Abnormal: WBC 24.6; RBC 4.18; HCT 38.4; PLT 327; GIL% 92.1; LYM% 3.2; cp NEUT A 22.7. 07/05 18:50 Order name: LFT's; Complete Time: 20:20 07/05 20:21 Interpretation: Normal except: ALB 2.8; GLOB 4.8; A/G 0.6. 07/05 18:50 Order name: Magnesium; Complete Time: 20:20 07/05 18:50 Order name: NT PRO-BNP; Complete Time: 20:20 07/05 18:50 Order name: PT-INR; Complete Time: 19:35 07/05 18:50 Order name: Troponin (emerg Dept Use Only); Complete Time: 20:20 07/05 18:50 Order name: Blood Culture Adult (2) cp 07/05 18:50 Order name: Procalcitonin; Complete Time: 20:20 07/05 20:21 Interpretation: Reviewed. 07/05 18:50 Order name: Lactate; Complete Time: 19:35 07/05 20:30 Interpretation: LAC 1.6; Reviewed. 07/05 19:36 Order name: Manual Differential; Complete Time: 20:20 EDMS 07/05 21:00 Order name: Urine Microscopic Only 07/05 21:00 Order name: Sputum Culture 07/05 18:50 Order name: XRAY Chest (1 view); Complete Time: 20:20 07/05 18:50 Order name: EKG; Complete Time: 18:51 07/05 21:00 Order name: Urine Culture 07/05 21:19 Order name: CONS Pharmacy Consult EDMD 07/05 21:19 Order name: Vancomycin Peak EDMD 07/05 21:19 Order name: Vancomycin Level Trough EDMS 07/05 21:19 Order name: Troponin I EDMD 07/05 21:34 Order name: Urine Dipstick--Ancillary (enter results) ms 07/05 22:13 Order name: Urine Dipstick-Ancillary EDMD 07/05 18:50 Order name: Cardiac monitoring; Complete Time: 19:07 07/05 18:50 Order name: EKG - Nurse/Tech; Complete Time: 19:22 07/05 18:50 Order name: IV Saline Lock; Complete Time: 19:07 07/05 18:50 Order name: Labs collected and sent; Complete Time: 19:07 07/05 18:50 Order name: O2 Per Protocol; Complete Time: 19:07 07/05 18:50 Order name: O2 Sat Monitoring; Complete Time: 19:07 07/05 21:00 Order name: Urine Dipstick-Ancillary (obtain specimen); Complete Time: 21:34 07/05 21:19 Order name: Regular EDMS EC:25 Rate is 114 beats/min. Rhythm is regular. KS interval is normal. QRS interval is cp normal. QT interval is normal. Interpreted by me. Reviewed by me. Administered Medications: 19:25 Drug: Xopenex (3) 1.25 mg Route: Inhalation; tl2 20:41 CANCELLED (Physician Discretion): Tylenol 1000 mg PO once cp 20:50 Not Given (Physician Discretion): LevaQUIN 750 mg 150 ml IVPB once over 90 mins cp 20:59 Drug: Tylenol 650 mg Route: PO; tl2 21:01 Drug: vancoMYCIN 1 grams Route: IVPB; Infused Over: 2 hrs; Site: left antecubital; tl2 21:01 Drug: predniSONE 10 mg Route: PO; tl2 23:11 Follow up: Response: No adverse reaction tl3 Disposition: 07/05/18 20:58 Hospitalization ordered by Mickey Gates for Inpatient Admission. Preliminary diagnosis is Pneumonia due to other specified bacteria. - Bed requested for Telemetry/MedSurg (Inpatient). - Status is Inpatient Admission. tl2 - Condition is Stable. - Problem is new. - Symptoms have improved. UTI on Admission? No Addendum: 07/08/2018 09:47 Co-signature as Attending Physician, Han Rodas MD I agree with the assessment and c garcia plan of care. Signatures: Dispatcher [facility] EDMD Cat Dumont RN RN mw Myers, Amanda, RN RN aj Anderson, Corey, MD MD cha Page, Corey, PA PA Taryn Hernandez RN RN tl2 Shayla Garcia RN tl3 Corrections: (The following items were deleted from the chart) 07/05 20:29 20:20 Normal except: CL 94; CO2 38; GLUC 119; BUN 38; GFR 62. cp cp 20:41 20:40 Tylenol 1000 mg PO once ordered. cp cp 21:29 20:58 Hospitalization Ordered by A Kody JIN for Inpatient Admission. Preliminary mw diagnosis is Pneumonia due to other specified bacteria. Bed requested for Telemetry/MedSurg (Inpatient). Status is Inpatient Admission. Condition is Stable. Problem is new. Symptoms have improved. UTI on Admission? No. cp 23:40 21:29 07/05/2018 20:58 Hospitalization Ordered by A Kody JIN for Inpatient Admission. tl2 Preliminary diagnosis is Pneumonia due to other specified bacteria. Bed requested for Telemetry/MedSurg (Inpatient). Status is Inpatient Admission. Condition is Stable. Problem is new. Symptoms have improved. UTI on Admission? No. mw
--- NOTE | 2018-07-05 20:59 | ER ---
Nurse's Notes [facility] Name: Shannan Olivia Age: 72 yrs Sex: Female : 1945 Arrival Date: 07/05/2018 Time: 18:20 Bed 13 Private MD: Mickey Gates C Diagnosis: Pneumonia due to other specified bacteria Presentation: 07/05 18:25 Presenting complaint: Patient states: SOB and cough since this AM. Patient reports she aj is having trouble keeping her O2 levels up. DX with pneumonia 2 weeks ago. Transition of care: patient was not received from another setting of care. Onset of symptoms was July 05, 2018. Risk Assessment: Do you want to hurt yourself or someone else? Patient reports no desire to harm self or others. Initial Sepsis Screen: Does the patient meet any 2 criteria? RR > 20 per min. HR > 90 bpm. Does the patient have a suspected source of infection? Yes:. Care prior to arrival: None. 18:25 Method Of Arrival: Wheelchair 18:25 Acuity: KANU 2 aj Triage Assessment: 18:27 General: Appears in no apparent distress. uncomfortable, slender, Behavior is calm, aj cooperative, appropriate for age. Pain: Denies pain. Neuro: Level of Consciousness is awake, alert, obeys commands, Oriented to person, place, time, situation, Appropriate for age. Respiratory: Reports shortness of breath cough that is productive, Onset: The symptoms/episode began/occurred this morning, the patient has moderate shortness of breath. Derm: Skin is intact, is healthy with good turgor, Skin is pink, warm \T\ dry. normal. Historical: - Allergies: 18:27 NKA; aj - Home Meds: 18:27 Breo Ellipta 100-25 mcg/dose inhalation dsdv 1 puff once daily [Active]; carvedilol aj 3.125 mg Oral tab daily [Active]; CoQ-10 Oral daily [Active]; Coreg 3.125 mg Oral tab 1 tab 2 times per day [Active]; furosemide 40 mg Oral tab 1 tab once daily [Active]; Iron CR Oral daily [Active]; ibandronate 150 mg Oral tab 1 tab once moly [Active]; lorazepam 0.5 mg Oral tab 1 tab 2 times per day [Active]; mirtazapine 15 mg Oral tab 1 tab once daily [Active]; montelukast 10 mg Oral tab 1 tab once daily for Maintenance Therapy for Asthma [Active]; Nexium 40 mg Oral cpDR 1 cap once daily [Active]; pantoprazole 40 mg Oral TbEC 1 tab once daily for Gastroesophageal reflux [Active]; Plavix 75 mg Oral tab 1 tab once daily [Active]; prednisone 5 mg Oral tab once daily [Active]; senior multivitamin daily [Active]; vit c 1 tab daily. multi vitamin 1 tab daily, Advair 150 mcg 1 in morning, flonase 1 spray in each nostril once daily, [Active]; spironolactone 25 mg Oral tab 1 tab once daily [Active]; - PMHx: 18:27 acid reflux; Asthma; CHF; COPD; Hypertension; pleural effusion-06/2015; Pneumonia; aj shingles; - Immunization history:: Adult Immunizations up to date. - Social history:: Smoking status: Patient/guardian denies using tobacco. - Ebola Screening: : Patient negative for fever greater than or equal to 101.5 degrees Fahrenheit, and additional compatible Ebola Virus Disease symptoms Patient denies exposure to infectious person Patient denies travel to an Ebola-affected area in the 21 days before illness onset No symptoms or risks identified at this time. Screenin:06 Abuse screen: Denies threats or abuse. Nutritional screening: No deficits noted. tl2 Tuberculosis screening: No symptoms or risk factors identified. Fall Risk None identified. Assessment: 18:45 General: Appears comfortable, Behavior is calm, cooperative. Pain: Denies pain. Neuro: aa5 Level of Consciousness is awake, alert, obeys commands, Oriented to person, place, time, situation. Cardiovascular: Heart tones S1 S2 present Rhythm is sinus tachycardia. Respiratory: Reports shortness of breath cough that is productive, Airway is patent Respiratory effort is even, unlabored, Respiratory pattern is regular, symmetrical, Breath sounds are clear in right upper lobe, left upper lobe, right middle lobe, left lower lobe, right lower lobe, left posterior upper lobe and right posterior upper lobe Breath sounds are coarse in left posterior lower lobe, right posterior middle lobe and right posterior lower lobe. GI: Abdomen is flat, non-distended, Bowel sounds present X 4 quads. Abd is soft and non tender X 4 quads. : No signs and/or symptoms were reported regarding the genitourinary system. EENT: No signs and/or symptoms were reported regarding the EENT system. Derm: Skin is pink, warm \T\ dry. Musculoskeletal: Range of motion: intact in all extremities. 19:00 Reassessment: Pt notified of wait time for lab results, pt verbalizes understanding. . aa5 19:15 General: Appears in no apparent distress. comfortable, Behavior is calm, cooperative, tl2 appropriate for age. Pain: Denies pain. Neuro: Level of Consciousness is awake, alert, obeys commands, Oriented to person, place, time, situation. Cardiovascular: Denies chest pain, Rhythm is sinus tachycardia. Respiratory: Reports cough that is productive, Airway is patent Respiratory effort is even, unlabored, Respiratory pattern is symmetrical, tachypnea Breath sounds are clear in right upper lobe, left upper lobe, left posterior upper lobe and right posterior upper lobe Breath sounds are coarse in left posterior lower lobe, right posterior middle lobe and right posterior lower lobe. GI: No signs and/or symptoms were reported involving the gastrointestinal system. : No signs and/or symptoms were reported regarding the genitourinary system. Derm: Skin is pink, warm \T\ dry. Vital Signs: 18:27 BP 130 / 60; Pulse 119; Resp 29; Temp 100.1(TE); Pulse Ox 89% 2 lpm ; Weight 47.63 kg; aj Height 5 ft. 2 in. (157.48 cm); 18:58 Resp 22; Pulse Ox 93% on 2 lpm NC; aa5 20:11 BP 116 / 74; Pulse 113; Resp 28; Pulse Ox 94% on 2 lpm NC; tl2 20:39 Temp 100.6(O); tl2 22:05 BP 101 / 65; Pulse 107; Resp 23; Temp 99(O); Pulse Ox 94% on 2 lpm NC; tl2 18:27 Body Mass Index 19.20 (47.63 kg, 157.48 cm) ED Course: 18:20 Patient arrived in ED. mr 18:20 Mickey Gates MD is Private Physician. mr 18:26 Triage completed. aj 18:27 Arm band placed on left wrist. Patient placed in an exam room. aj 18:33 Han Felix PA is PHCP. cp 18:33 Han Rodas MD is Attending Physician. cp 18:45 Dee Baig RN is Primary Nurse. aa5 18:45 Patient has correct armband on for positive identification. Placed in gown. Bed in low aa5 position. Call light in reach. Side rails up X2. telemetry monitor on. Pulse ox on. NIBP on. 18:58 Missed attempt(s): 20 gauge in right antecubital area. Bleeding controlled, band aid aa5 applied, catheter tip intact. 18:58 Initial lab(s) drawn, by me, sent to lab. First set of blood cultures drawn by me. aa5 19:00 Report given to CHAPIN Centeno. aa5 19:15 Inserted saline lock: 22 gauge in left antecubital area, using aseptic technique. Blood tl2 collected. 19:25 X-ray completed. Portable x-ray completed in exam room. Patient tolerated procedure bb2 well. 19:27 XRAY Chest (1 view) In Process Unspecified. EDMS 20:58 Mickey Gates MD is Hospitalizing Provider. cp 21:41 Sputum Culture Sent. bb 21:41 Urine Culture Sent. bb 21:41 Urine Microscopic Only Sent. bb 23:13 Urine Dipstick--Ancillary (enter results) Sent. tl2 23:14 No provider procedures requiring assistance completed. tl2 23:15 Patient admitted, IV remains in place. tl2 Administered Medications: 19:25 Drug: Xopenex (3) 1.25 mg Route: Inhalation; tl2 20:41 CANCELLED (Physician Discretion): Tylenol 1000 mg PO once cp 20:50 Not Given (Physician Discretion): LevaQUIN 750 mg 150 ml IVPB once over 90 mins cp 20:59 Drug: Tylenol 650 mg Route: PO; tl2 21:01 Drug: vancoMYCIN 1 grams Route: IVPB; Infused Over: 2 hrs; Site: left antecubital; tl2 21:01 Drug: predniSONE 10 mg Route: PO; tl2 23:11 Follow up: Response: No adverse reaction tl3 Outcome: 20:58 Decision to Hospitalize by Provider. cp 23:14 Admitted to Tele accompanied by tech, via stretcher, with chart. tl2 23:14 Condition: stable 23:14 Instructed on the need for transfer, Demonstrated understanding of instructions. 23:40 Patient left the ED. tl2 Signatures: Dispatcher [employer] Lyla Madison RN RN aj Rivera Annamarie mr Triplett, Annette, RN RN bb eDe Baig, RN RN aa5 Han Felix PA PA cp Knox, Taylor, RN RN tl2 Frannie Alan bb2 Shayla Garcia, RN RN tl3 Corrections: (The following items were deleted from the chart) 07/06 07:04 07/05 18:45 Respiratory: Airway is patent Respiratory effort is even, unlabored, aa5 Respiratory pattern is regular, symmetrical, Breath sounds are clear in right upper lobe, left upper lobe, right middle lobe, left lower lobe, right lower lobe, left posterior upper lobe and right posterior upper lobe Breath sounds are coarse in left posterior lower lobe, right posterior middle lobe and right posterior lower lobe aa5
[2018-07-05] MEDS ORDERED: predniSONE 10 MG TAB ONE (21:01)
[2018-07-05] MEDS ORDERED: VANCOMYCIN 1 GM/250 ML BAG ONE (21:01)
[2018-07-05] MEDS ORDERED: ACETAMINOPHEN 500 MG TAB PO PRN (21:07)
[2018-07-05] MEDS ORDERED: IPRATROPIUM BROM 0.5MG/2.5ML NEB PRN (21:07)
[2018-07-05] MEDS ORDERED: ONDANSETRON 4 MG/2 ML VIAL IV PRN (21:07)
[2018-07-05] MEDS ORDERED: ALBUTEROL 2.5 MG/3 ML NEB SOL NEB PRN (21:07)
[2018-07-05] MEDS ORDERED: Pharmacy Consult 1 EA XX PRN (21:17)
[2018-07-05] MEDS ORDERED: VANCOMYCIN 1.25 GM in NA CHLORIDE 0.9% 250 ML IVPB SCH (22:00)
[2018-07-05 22:13] LABS: Urine Blood 1+ (NEG); Urine Glucose NEGATIVE (NEG); Urine Protein TRACE (NEG); Urine Specific Gravity 1.015 (1.005-1.030); Urine pH 7.5 (5.0-7.0)
[2018-07-05 22:18] LABS: Urine Bacteria <20 /HPF (<20); Urine Culture Reflex Order NOT NEEDED; Urine RBC <5 /HPF (NONE SEEN)
[2018-07-05] MEDS ORDERED: Meropenem 1 GM/100 ML BAG ONE (23:20)
[2018-07-06] MEDS ORDERED: Meropenem 1000 MG/VIAL IV SCH (01:00)
--- NOTE | 2018-07-06 07:11 | EKG ---
Test Date: 2018-07-05 Test Time: 19:18:41 Plastics Worker: WILLIAM MEASUREMENT RESULTS: Intervals: Rate: 114 WI: 156 QRSD: 84 QT: 298 QTc: 410 [place]: P: 27 WI: 156 QRS: 21 T: 43 INTERPRETIVE STATEMENTS: Sinus tachycardia with premature atrial complexes Possible Left atrial enlargement Borderline ECG Compared to ECG 06/19/2018 13:23:00 Atrial premature complex(es) now present Sinus rhythm no longer present Electronically Signed On 07-06-18 07:10:10 ASSISTANT MANAGER/EMBALMER by Rashaun He
[2018-07-06 07:36] LABS: Potassium 4.4 mmol/L (3.5-5.1)
[2018-07-06 07:39] LABS: Absolute Lymphocytes (CBC) 0.8 K/uL (0.7-4.9); Absolute Monocytes 0.8 K/uL (0.1-1.3); Absolute Neutrophil 19.7 K/uL (1.8-8.0); Basophils % 0.1 % (0-1.3); Hematocrit 31.8 % (36.0-45.0); Lymphocytes % 3.9 % (15.3-44.8); MCH 30.5 pg (27.0-35.0); MCV 91.7 fL (80-100); MPV 7.8 fL (7.6-11.3); Monocytes % 3.9 % (3.3-12.3); RBC Red Blood Cell Count 3.47 M/uL (3.86-4.86)
[2018-07-06] MEDS: Meropenem 1,000 MG in NA CHLORIDE 0.9% 100 ML IV SCH ×3 (08:56→23:39)
[2018-07-06] MEDS ORDERED: predniSONE 10 MG TAB PO SCH (09:00)
[2018-07-06] MEDS ORDERED: ENOXAPARIN 30 MG/0.3 ML SQ ONE (19:15)
[2018-07-06] MEDS: SPIRONOLACTONE 25 MG PO SCH (21:26)
[2018-07-06] MEDS: CARVEDILOL 3.125 MG PO SCH (21:26)
[2018-07-06] MEDS: MIRTAZAPINE 15 MG PO SCH (21:27)
[2018-07-06] MEDS: VANCOMYCIN 1 GM/250 ML BAG IV SCH (21:27)
[2018-07-06] MEDS: ENSURE ENLIVE 237 ML CAN PO SCH (21:28)
--- NOTE | 2018-07-07 03:12 | HP ---
Date of Admission: 07/06/2018 Chief Complaint: Shortness of breath, cough. History Of Present Illness: This is a 72-year-old female patient who was doing fine until Sunday of this week. She started to have problem with shortness of breath, cough and coughing up yellowish to greenish-colored mucus. The patient's symptoms got worse, so she came into emergency room and whe n she came into ER, she realized that she was also having fever. After she was evaluated in the ER, she was admitted to the hospital. Her white count was elevated to 24,000. When she was in hospital between 2-3 weeks ago, her white count was normal at that time. She denies any diarrhea, vomiting, a bdominal pain. No urinary complaints. Allergies: NO KNOWN ALLERGIES. Medications: List reviewed. Review of Systems: Respiratory: As mentioned above. Constitutional: As mentioned above. All other systems reviewed and negative. Social History: Negative for smoking, alcohol use. Family History: Significant for hypertension, diabetes, hyperlipidemia. Past Surgical History: TAVR procedure done March 2018; in the past, she had tonsillectomy; repair o f thoracic aortic aneurysm in 2004 and aortic valve replacement in 2004 and this was a bioprosthetic heart valve. Past Medical History: Significant for pneumonia, pleural effusion, hypertension, hyperlipidemia, ost eoporosis, diverticulosis, and adrenal insufficiency. Physical Examination: Vital Signs: Last temperature 98, pulse 89, respiratory rate 18, blood pressure 106/60, oxygen satur ation 96%, height 5 feet 2 inches, weight 101 pounds. Initial temperature when she came into ER yest evening was 100.1, maximum temperature 100.6 degrees Fahrenheit since her admission. General: Awake, alert, oriented, not in distress. HEENT: Head atraumatic, normocephalic. Conjunctivae nonerythematous. Sclerae white. Mouth, no thr ush or edema noted. Ears/Nose, no mass, lesion, discharge noted. Neck: Supple. No JVD, lymph nodes, bruit, thyromegaly noted. Lungs: Bilateral good equal air entry. Clear to auscultation. No rhonchi. Some presence of rales in the right lung brewer. Not using accessory muscles of respiration. Heart: Normal heart sounds, no murmur or gallop. Abdomen: Soft, bowel sounds normal. No guarding, rigidity, tenderness, mass, hepatosplenomegaly, di stention, or bruit noted. Extremities: No leg edema. No calf tenderness. Skin: No rash, ulcer, cellulitis. Lymphatics: No lymph node enlargement in neck, supraclavicular, infraclavicular region. Neuro: No focal neurological deficit. Chest: Unremarkable. External Genitalia: Deferred. Rectal: Deferred. Laboratory Data: Yesterday, white count 24.6, hemoglobin 12.6, platelets 327. This morning, white c ount 21.4, hemoglobin 10.6, and platelets 253. Yesterday, sodium 137, potassium 4.3, chloride 94, bi carb 38, BUN 38, creatinine 0.9, glucose 119. Liver function tests unremarkable. Calcium 10.3. Tro ponin 0.07, procalcitonin 0.24. This morning, sodium 139, potassium 4.4, chloride 98, bicarb 39, BUN 35, creatinine 0.8, glucose 131. Urinalysis; 1+ esterase, otherwise negative. EKG no acute ST-T ch anges. Chest x-ray shows moderate left, smaller right pleural effusion. Volume not substantially di fferent from comparison, increased right lung base markings and increased perihilar lung markings. Impression: 1.Pneumonia. 2.Pleural effusion. 3.Adrenal insufficiency. 4.Chronic steroid therapy. 5.Hypertension. 6.Hyperlipidemia. 7.Osteoporosis. 8.Diverticulosis. 9.Anemia. Plan: Admit patient to hospital for further evaluation and management of this problem. We will go a head and continue home medications per order. The patient is appropriate for inpatient and is expect ed to spend 2 midnights in hospital. She was started on IV meropenem and vancomycin. We will contin ue that. DVT prophylaxis will be given using Lovenox per order. We will continue oxygen and we will see her tomorrow for followup. She is on continuous home oxygen at home and the patient reported th at even with use of her oxygen, her saturation at home was dropping down into 89% range. Details and plan of treatment discussed with her. The patient's family member was present with her at bedside a nd they had some questions. All of their questions were answered. MONIE/MODL Voice ID: [id number]
[2018-07-07] MEDS: Meropenem 1,000 MG in NA CHLORIDE 0.9% 100 ML IV SCH ×2 (09:57→17:41)
[2018-07-07] MEDS: CLOPIDOGREL BISULFATE 75 MG PO SCH (10:01)
[2018-07-07] MEDS: MONTELUKAST 10 MG PO SCH (10:01)
[2018-07-07] MEDS: CARVEDILOL 3.125 MG PO SCH ×2 (10:05→22:08)
[2018-07-07] MEDS: ENSURE ENLIVE 237 ML CAN PO SCH ×2 (10:06→22:10)
[2018-07-07] MEDS: SPIRONOLACTONE 25 MG PO SCH ×2 (12:28→22:07)
[2018-07-07] MEDS: FUROSEMIDE 20 MG PO SCH (12:30)
--- NOTE | 2018-07-07 14:02 | P.CNS ---
Date of Consult: 07/07/18 Chief Complaint: Pleural effusion elevated white count History of Present Illness: Patient is 72 years of age recurrent hospital admissions admitted with feeling weakness increasing shortness of breath she had a slight fever denies any chest pain has some lower extremity edema patient compliant with the medication was found to have a elevated white count no significant change in her chest x-ray patient was sent home on Augmentin Allergies No Known Allergies Allergy (Verified 07/06/18 05:29) Home Medications: Carvedilol [Coreg*] 3.125 mg PO BID 06/04/15 Furosemide [Lasix*] 20 mg PO DAILY 06/04/15 Montelukast [Singulair*] 10 mg PO DAILY 06/04/15 LORazepam [Ativan*] 0.5 mg PO BID PRN 03/29/18 Clopidogrel Bisulfate [Plavix*] 75 mg PO DAILY 06/19/18 Spironolactone [Aldactone*] 25 mg PO BID #60 tab 06/24/18 predniSONE [Deltasone*] 10 mg PO BID #60 tab 06/24/18 Mirtazapine [Remeron*] 15 mg PO BEDTIME 07/06/18 - Past Medical/Surgical History Diabetic: No -: CHF -: Acid Reflux -: Asthma -: HTN -: Pleural Effusion -: Pnemonia -: Aortic valve replacement -: Chest tube placement- removed 2015 -: Status post VATS further right-sided effusion - Family History Father Medical History: Heart disease, Hypertension Mother Medical History: Hypertension, Diabetes, Stroke - Social History Smoking Status: Never smoker Alcohol use: No CD- Drugs: No Caffeine use: Yes Place of Residence: Home Review of Systems General: Weakness Respiratory: Cough, Shortness of Breath Cardiovascular: Edema Physical Examination Temp Pulse Resp BP Pulse Ox 98.4 F 90 18 109/59 L 97 07/07/18 12:00 07/07/18 12:00 07/07/18 12:00 07/07/18 12:00 07/07/18 12:00 General: Alert, Oriented x3 HEENT: Atraumatic Neck: Supple Respiratory: Diminished (Diminished air) Cardiovascular: Regular rate/rhythm, Edema (Entry on the left side some crackles on the right) Gastrointestinal: Normal bowel sounds, Soft and benign - Problems (1) Leukocytosis Current Visit: Yes Status: Acute Plan: Patient is 72 years of age admitted with a fever leukocytosis possible new infiltrate in the right lower lobe she is a chronic left-sided pleural effusion urine was nitrite negative is quite possible that she has pneumonia I doubt if is infected left-sided effusion in any case patient is on Plavix which is a contraindication to thoracentesis due to recurrent admission an elevated white count I suggest 2 week treatment with meropenem and possibly vancomycin cultures are negative to date left to hold Plavix for a week to do a thoracentesis sputum does show 3+ gram-negative rods also possibility of Pseudomonas Qualifiers: Leukocytosis type: leukemoid reaction Qualified Code(s): D72.823 - Leukemoid reaction
--- NOTE | 2018-07-07 14:57 | PN ---
Date of Progress Note: 07/07/2018 Subjective: The patient was seen this morning for followup. She feels little better as she reports today compared to yesterday. Objective: Vital Signs: Reviewed. She still coughs up some yellowish to greenish-colored mucus. HEENT: Examination unremarkable. Lungs: Some rales in right lung rbewer. Diminished air entry in the left lower lung field. Not usi ng accessory muscles of respiration. Heart: Sounds normal. Abdomen: Soft. Bowel sounds normoactive. Extremities: No leg edema. Laboratory Data: Yesterday's labs reviewed. There are no new blood tests today. Impression: 1.Pleural effusion. 2.Pneumonia. 3.Anemia, chronic. 4.Hypertension. 5.Prosthetic aortic valve. Plan: We will continue current medications including current antibiotics, DVT prophylaxis, oxygen, a nd consult Dr. Serna and details were discussed with Dr. Serna. We will see her tomorrow for luana quinones. MONIE/MODL Voice ID: [id number] Report ID: [id number]
[2018-07-07] MEDS ORDERED: NA CHLORIDE 0.9% 250 ML ONE (16:38)
[2018-07-07] MEDS: ENOXAPARIN 30 MG/0.3 ML SQ SCH (17:46)
[2018-07-07] MEDS: MIRTAZAPINE 15 MG PO SCH (22:09)
[2018-07-07] MEDS: VANCOMYCIN 1 GM/250 ML BAG IV SCH (22:10)
[2018-07-08] MEDS: Meropenem 1,000 MG in NA CHLORIDE 0.9% 100 ML IV SCH ×3 (00:35→16:05)
[2018-07-08 06:12] LABS: Absolute Lymphocytes (CBC) 0.6 K/uL (0.7-4.9); Absolute Monocytes 0.4 K/uL (0.1-1.3); Absolute Neutrophil 10.7 K/uL (1.8-8.0); Hematocrit 29.2 % (36.0-45.0); Lymphocytes % 5.4 % (15.3-44.8); MCH 30.6 pg (27.0-35.0); MCV 92.4 fL (80-100); MPV 8.4 fL (7.6-11.3); Monocytes % 3.1 % (3.3-12.3); RBC Red Blood Cell Count 3.16 M/uL (3.86-4.86)
[2018-07-08 06:16] LABS: BUN Blood Urea Nitrogen 34 mg/dL (7-18); Bicarbonate 40 mmol/L (21-32); Glucose Level 115 mg/dL (74-106); Potassium 5.2 mmol/L (3.5-5.1); Sodium Level 143 mmol/L (136-145)
[2018-07-08] MEDS ORDERED: SOD POLYSTYREN SUL 15 GM/60 ML UCUP PO ONE (07:43)
[2018-07-08] MEDS: MONTELUKAST 10 MG PO SCH (09:00)
[2018-07-08] MEDS: SPIRONOLACTONE 25 MG PO SCH (09:00)
[2018-07-08] MEDS: CARVEDILOL 3.125 MG PO SCH ×2 (09:13→21:22)
[2018-07-08] MEDS: FUROSEMIDE 20 MG PO SCH (09:14)
[2018-07-08] MEDS: CLOPIDOGREL BISULFATE 75 MG PO SCH (09:15)
[2018-07-08] MEDS: ENSURE ENLIVE 237 ML CAN PO SCH ×2 (09:16→21:23)
[2018-07-08] MEDS: ENOXAPARIN 30 MG/0.3 ML SQ SCH (16:05)
[2018-07-08] MEDS: MIRTAZAPINE 15 MG PO SCH (21:22)
[2018-07-08] MEDS: VANCOMYCIN 1 GM/250 ML BAG IV SCH (21:23)
--- NOTE | 2018-07-09 00:34 | PN ---
Date of Progress Note: 07/08/2018 Subjective: The patient was seen this morning for followup. No new complaints or problems reported by patient. Objective: Vital Signs: Reviewed. HEENT: Unremarkable. Lungs: Presence of some rales in the right lower lung field, unchanged from yesterday. Diminished a ir entry in the left lower lung field, unchanged from yesterday. Not using accessory muscles of resp iration. Heart: Sounds normal. Abdomen: Soft. Bowel sounds normal. No guarding, rigidity, tenderness, or distention. Extremity: No leg edema. Laboratory Data: White count 11.7, hemoglobin 9.7, platelets 223. Sodium 143, potassium 5.2, chlori de 102, bicarb 40, BUN 34, creatinine 0.60, glucose 115. Impression: 1.Pneumonia. 2.Pleural effusion. 3.Hyperkalemia. 4.Anemia. Plan: We will go ahead and reduce dose of spironolactone to once a day. Continue current antibiotic s. Continue to follow with Dr. Serna. Social Service was consulted to help with discharge planni ng including home health services and home physical therapy, and we will request physical therapy consultation to help ambulate the patient. I will see her tomorrow for followup. MONIE/MODL Voice ID: [id number] Report ID: [id number]
[2018-07-09] MEDS: Meropenem 1,000 MG in NA CHLORIDE 0.9% 100 ML IV SCH ×2 (00:35→08:08)
[2018-07-09 04:57] LABS: Absolute Lymphocytes (CBC) 0.7 K/uL (0.7-4.9); Absolute Monocytes 0.3 K/uL (0.1-1.3); Absolute Neutrophil 8.5 K/uL (1.8-8.0); Eosinophils % 0.1 % (0-4.4); Hematocrit 32.2 % (36.0-45.0); MCH 30.8 pg (27.0-35.0); MCV 92.8 fL (80-100); MPV 8.4 fL (7.6-11.3); Monocytes % 3.5 % (3.3-12.3); RBC Red Blood Cell Count 3.47 M/uL (3.86-4.86)
[2018-07-09 05:10] LABS: BUN Blood Urea Nitrogen 35 mg/dL (7-18); Bicarbonate 40 mmol/L (21-32); Glucose Level 105 mg/dL (74-106); Magnesium 2.2 mg/dL (1.8-2.4); Potassium 4.8 mmol/L (3.5-5.1); Sodium Level 145 mmol/L (136-145)
[2018-07-09] MEDS: FUROSEMIDE 20 MG PO SCH (08:08)
[2018-07-09] MEDS: CLOPIDOGREL BISULFATE 75 MG PO SCH (08:09)
[2018-07-09] MEDS: CARVEDILOL 3.125 MG PO SCH ×2 (08:09→20:28)
[2018-07-09] MEDS: ENSURE ENLIVE 237 ML CAN PO SCH ×2 (08:10→20:29)
[2018-07-09] MEDS: SPIRONOLACTONE 25 MG PO SCH (08:27)
[2018-07-09] MEDS: MONTELUKAST 10 MG PO SCH (08:27)
[2018-07-09] MEDS: Levofloxacin 750mg IV 750 MG/150 ML BAG IV SCH (15:37)
[2018-07-09] MEDS: ENOXAPARIN 30 MG/0.3 ML SQ SCH (16:08)
--- NOTE | 2018-07-09 20:04 | PN ---
Date of Progress Note: 07/09/2018 Subjective: The patient was seen this morning for followup. No new complaints or problems reported by patient. She is feeling better compared to last 2 to 3 days. Objective: Vital signs: Reviewed. Yesterday, she did ambulate with physical therapy. HEENT: Unremarkable. Lungs: Clear to auscultation except right lower lung rales present, not in any distress. Diminished air entry in the left lower lung field unchanged. Heart: Sounds normal. Abdomen: Soft. Bowel sounds normal. No guarding, rigidity, tenderness, or distention. Extremities: No leg edema. Laboratory Data: White count 9.5, hemoglobin 10.7, platelets 242. Sodium 145, potassium 4.8, chlori de 99, bicarb 40, BUN 35, creatinine 0.60, glucose 105. Sputum culture came back Pseudomonas and it is sensitive to all the antibiotics that it was tested for. Impression: 1.Pneumonia, organism Pseudomonas. 2.Anemia. 3.Hypertension. Plan: We will go ahead and continue current medications. Change antibiotics from meropenem to Levaq uin. Details were discussed with Dr. Serna. We have discontinued vancomycin and now we will see her tomorrow for followup. Possible discharge to go home in next day or 2 days. MONIE/MODL Voice ID: [id number] Report ID: [id number]
[2018-07-09] MEDS: MIRTAZAPINE 15 MG PO SCH (20:28)
--- NOTE | 2018-07-10 07:54 | P.PN ---
Subjective Date of Service: 07/09/18 Chief Complaint: Pleural effusion elevated white count Subjective: Improving (Patient is doing much better feeling better animal cough) Review of Systems General: Weakness Respiratory: Cough, Shortness of Breath Physical Examination - Vital Signs Temperature: 97.9 F Blood Pressure: 114/53 Pulse: 76 Respirations: 20 Pulse Ox (%): 100 - Physical Exam General: Alert, Oriented x3 Respiratory: Diminished (On the left side) Cardiovascular: No edema, Normal S1 S2 Assessment & Plan - Problems (Diagnosis) (1) Leukocytosis Onset Date: 07/08/18 Current Visit: Yes Status: Acute Plan: Patient is 72 years of age admitted with sepsis possibly underlying pneumonia Pseudomonas isolated in the sputum josue-sensitive change to p.o. levofloxacin kidney discharge home on 2 weeks of 750 mg daily labs reviewed continue with all her other meds Qualifiers: Leukocytosis type: leukemoid reaction Qualified Code(s): D72.823 - Leukemoid reaction
[2018-07-10] MEDS: CARVEDILOL 3.125 MG PO SCH ×2 (08:38→20:50)
[2018-07-10] MEDS: CLOPIDOGREL BISULFATE 75 MG PO SCH (08:39)
[2018-07-10] MEDS: SPIRONOLACTONE 25 MG PO SCH (08:39)
[2018-07-10] MEDS: FUROSEMIDE 20 MG PO SCH (08:40)
[2018-07-10] MEDS: MONTELUKAST 10 MG PO SCH (08:40)
[2018-07-10] MEDS: ENSURE ENLIVE 237 ML CAN PO SCH ×2 (09:00→20:48)
[2018-07-10] MEDS: Levofloxacin 750mg IV 750 MG/150 ML BAG IV SCH (14:03)
[2018-07-10] MEDS: ENOXAPARIN 30 MG/0.3 ML SQ SCH (17:17)
[2018-07-10] MEDS: MIRTAZAPINE 15 MG PO SCH (20:48)
--- NOTE | 2018-07-11 00:18 | PN ---
Date of Progress Note: 07/10/2018 Subjective: The patient was seen this morning for followup. No new complaints or problems reported by the patient. Lying in bed, not in distress. She is ambulating well. Overall, she feels better. Objective: Vital Signs: Reviewed. HEENT: Unremarkable. Lungs: Presence of some rales noted in right lower lung field and diminished air entry in the left l ower lung field. Heart: Sounds normal. Abdomen: Soft. Bowel sounds normal. No guarding, rigidity, tenderness, or distention. Extremities: No leg edema. Impression: 1.Pneumonia, organism Pseudomonas. 2.Anemia. 3.Pleural effusion. Plan: We will go ahead and continue current medications, which is Levaquin. Ambulation was encourag ed. The patient is working with Social Service for discharge planning and I will see her tomorrow fo r followup. Plan is to discharge her to go home tomorrow and details were discussed with the patient . MONIE/MARISSA Voice ID: [id number] Report ID: [id number]
[2018-07-11 05:09] VITALS: BMI 19.2
[2018-07-11] MEDS: CARVEDILOL 3.125 MG PO SCH (08:28)
[2018-07-11] MEDS: FUROSEMIDE 20 MG PO SCH (08:28)
[2018-07-11] MEDS: ENSURE ENLIVE 237 ML CAN PO SCH (08:29)
[2018-07-11] MEDS: MONTELUKAST 10 MG PO SCH (08:29)
[2018-07-11] MEDS: CLOPIDOGREL BISULFATE 75 MG PO SCH (08:29)
[2018-07-11] MEDS: SPIRONOLACTONE 25 MG PO SCH (08:29)
[2018-07-11 08:44] VITALS: O2SAT 97
[2018-07-11 08:56] VITALS: BP 111/56; TEMP 97.9
--- NOTE | 2018-07-12 04:35 | DS ---
Date of Discharge: 07/11/2018 Disposition: Discharged to go home. Physical Examination: HEENT: Unremarkable. Lungs: Diminished air entry in the left lower lung brewer and rales in the right lower lung brewer, unchanged, not in any respiratory distress. Heart: Sounds normal. Abdomen: Soft. Bowel sounds normal. No guarding, rigidity, tenderness, or distention. Extremities: No leg edema. Discharge Medications And Instructions: 1.Continue all prior home medications except reduce spironolactone dose to 25 mg p.o. daily and take Levaquin 750 mg p.o. daily for 12 days. 2.Follow up at my office next week on 07/17/2018 at 8:15 a.m. Hospital Course: A 72-year-old female patient admitted to the hospital with complaints of cough and shortness of breath. Please see dictated H and P for more information. After she came in to emergen cy room, she was evaluated, admitted to the hospital with pneumonia problem. Her white count when e came in was 24.6. She was started on IV meropenem and IV vancomycin. Sputum culture was done. Bl ood culture was done, and oxygen nebulizer treatment and home medications were continued. Dr. Savanah samuel was consulted from Pulmonary Service. Her blood culture was negative. Sputum culture grew Pseudo monas, and it was sensitive to all the antibiotics. When she got that result back, we discontinued h er vancomycin and meropenem, and IV Levaquin 750 mg daily was started. Plan is to give her 2 weeks o f Levaquin, and the patient has received 2 days of Levaquin in the hospital. Dr. Serna has releas ed her to go home from Pulmonary point of view. Medically, she is stable for discharge. Overall, he r breathing has improved significantly. Social Service was consulted for home health service and [facility] physical therapy services. Final Diagnoses: 1.Pneumonia. 2.Pleural effusion. 3.Adrenal insufficiency. 4.Chronic steroid therapy. 5.Hypertension. 6.Hyperlipidemia. 7.Osteoporosis. 8.Diverticulosis. 9.Anemia, chronic, unspecified. Laboratory Data: Labs done during this hospitalization; initial white count 24.6, hemoglobin 12.6, a nd platelets 327. Last white count on 07/09/2018, 9.5, hemoglobin 10.7, and platelets 242. Her pota ssium was 5.2 on 07/08/2018; and that particular day, her spironolactone dose was reduced from 25 mg twice a day to once a day, and Kayexalate 30 g p.o. x1 dose was given. Her last potassium on 018 was 4.8. Sodium 145, BUN 35, creatinine 0.60. MONIE/MODL Voice ID: [id number] Report ID: [id number]
== END 2018-07-11 10:54 | disposition home health service (06) | DRG 178 ==
LOC: ER 18:15 → ERHOLD 21:28 → 4TH 23:11
PROVIDERS: ADMIT Internal Medicine; ATTEND Internal Medicine
DX: J15.1 Pneumonia due to Pseudomonas (principal); J91.8 Pleural effusion in other conditions classified elsewhere; E27.40 Unspecified adrenocortical insufficiency; Z79.51 Long term (current) use of inhaled steroids; I10 Essential (primary) hypertension; E78.5 Hyperlipidemia, unspecified; M81.0 Age-related osteoporosis without current pathological fracture; K57.90 Diverticulosis of intestine, part unspecified, without perforation or abscess without bleeding; D64.9 Anemia, unspecified; Z95.2 Presence of prosthetic heart valve; Z79.02 Long term (current) use of antithrombotics/antiplatelets; K21.9 Gastro-esophageal reflux disease without esophagitis; J45.909 Unspecified asthma, uncomplicated; Z79.52 Long term (current) use of systemic steroids; D72.823 Leukemoid reaction; E87.5 Hyperkalemia
CPT/HCPCS: 36415; 71045; 80048; 80076; 80202; 81003; 81015; 83605; 83735; 83880; 84145; 84484; 85025; 85610; 87040; 87070; 87077; 87086; 87088; 87186; 87205; 87804; 93005; 94760; 96374; 97163; 99285; J1650; J2185; J3370; J7512

== ENCOUNTER 2018-08-21 16:52 | Observation (INO) | payer OTHER, MEDICARE ==
--- OUTSIDE RECORDS SUMMARY | 2018-08-21 16:56 | XMS REPORT | Clinical Summary ---
:1945 Author Organization [facility] Address [address] [place] [address] Care Team Providers Name Role Phone Bridger Gates MD Primary Care Provider Allergies No Known Allergies Medications Medication Sig Dispensed Refills Start Date End Date Status ascorbic acid, Take 500 mg 0 Active vitamin C, (ascorbic by mouth acid with christine hips) daily. 500 MG tablet omega-3s/dha/epa/fis Take 1 tablet 0 Active h oil (OMEGA 3 ORAL) by mouth daily. co-enzyme Q-10 (CO Take 50 mg by 0 Active Q-10) 50 mg capsule mouth daily. aspirin (ECOTRIN) 81 Take 81 mg by 0 Active MG enteric coated mouth daily. tablet fluticasone-vilanter Inhale 1 0 Active ol (BREO ELLIPTA) inhalations. 100-25 mcg/dose blister with device powder for inhalation furosemide (LASIX) Take 40 mg by 0 Active 40 mg tablet mouth daily. carvedilol (COREG) Take 3.125 mg 0 Active 3.125 MG tablet by mouth 2 (two) times a day. montelukast Take 10 mg by 0 Active (SINGULAIR) 10 mg mouth daily. tablet mirtazapine Take 15 mg by 0 Active (REMERON) 15 MG mouth tablet nightly. predniSONE Take 5 mg by 0 Active (DELTASONE) 5 mg mouth daily. tablet LORAZepam (ATIVAN) Take 0.5 mg 0 Active 0.5 MG tablet by mouth 2 (two) times a day as needed for anxiety. multivit-min/iron/fo Take 1 tablet 0 Active lic/lutein (CENTRUM by mouth SILVER WOMEN ORAL) daily. ferrous sulfate Take 325 mg 0 Active (IRON) 325 (65 FE) by mouth MG tablet daily. ibandronate (BONIVA) Take 150 mg 0 Active 150 mg tablet by mouth every 30 (thirty) days. Takes every morning before breakfast, on the 1st day of the month calcium Take by 0 Active carbonate/vitamin D3 mouth. Takes (CALTRATE WITH calcium 600mg VITAMIN D3 ORAL) plus vit D3 800 IU twice a day clopidogrel (PLAVIX) Take 1 tablet 90 tablet 0 05/09/2018 05/09/2019 Active 75 mg tablet (75 mg total) by mouth daily. spironolactone Take 25 mg by 0 04/12/2018 Discontinued (ALDACTONE) 25 MG mouth daily. [...] (aortic valve replacement) 05/09/2018 Obstructive lung disease 05/09/2018 Nonrheumatic aortic valve insufficiency 04/08/2018 Overview: Added automatically from request for surgery [id number] Endocarditis 04/01/2018 Encounters Date Type Specialty Care [...] valve replacement) 04/12/2018 Patient Outreach Quality Pennie Sung, CHAPIN 04/09/2018 Surgery Cardiothoracic Diogo, TRANSCATHETER Surgery Francisco J AORTIC VALVE MD Vasu REPLACEMENT WITH EVOLUTPRO 29mm 04/09/2018 Anesthesia Event Cardiothoracic Valery, Surgery [place] 04/08/2018 Orders Only Cardiovascular Cecelia Tolbert, Nonrheumatic aortic RN valve insufficiency (Primary Dx) 04/01/2018 Hospital Encounter Cardiology Diogo, Shortness of breath ( Primary Dx); - Francisco J Endocarditis, unspecified chronicity, unspecified endocarditis type; 04/12/2018 MD Vasu S/P TAVR (transcatheter aortic valve replacement) 04/01/2018 Intake Access N/A after 08/20/2017 Family History Medical History Relation Name Comments Heart disease Father Relation Name Status Comments Father Social History Tobacco Use Types Packs/Day Years Used Date Never Smoker Smokeless Tobacco: Never Used Alcohol Use Drinks/Week oz/Week Comments No Sex Assigned at Date Recorded Not on file Job Start Date Occupation Industry Not on file Not on file Not on file Travel History Travel Start Travel End No recent travel history available. Last Filed Vital Signs Vital Sign Reading [...] 04/10/2019 Multidisciplinary Visit Cardiology Korey Giron MD [address] [address] Health Maintenance Due Date Last Done Comments BREAST CANCER SCREENING 1996 COLON CANCER SCREENING 1996 SHINGLES VACCINES (1 of 2) 1996 PNEUMOCOCCAL POLYSACCHARIDE VACCINE AGE 65 AND OVER 12/08/2011 PNEUMOCOCCAL-13 12/08/2011 INFLUENZA VACCINE 03/27/2018 Implants Implanted Type Area Real Estate Subagent Device Shelf Model / Identifier Expiration Serial / Date Lot Evolut Pro 29'Valve - [id number] - [id number] Cardiovascular N/A: [employer] 01/02/2020 EVOLUTPRO 29 US / Implanted: Qty: 1 on 04/09/2018 by Francisco J Lind MD Implants N/A COREVALVE [id number] / [id number] System Clsr Sut Meditd 6fr Perclose Proglide - [id number] Surgical N/A: THEODORE [id number] / Implanted: 04/09/2018 (Quantity not on file) Implants; N/A VASCULAR / Expanders; DEVICES Extenders; Surgical Wires System Clsr Sut Meditd 6fr Perclose Proglide - [id number] Surgical N/A: THEODORE [id number] / Implanted: 04/09/2018 (Quantity not on file) Implants; N/A VASCULAR / Expanders; DEVICES Extenders; Surgical Wires Catheter Card Nimo 6fr 125cm Ep Bipolar Pace Elctrd N/A: [employer] [id number] / Implanted: Qty: 1 on 04/09/2018 by Francisco J Lind MD Groin / Procedures Procedure Name Priority Date/Time Associated Diagnosis Comments ECHOCARDIOGRAM 2D Routine 05/09/2018 5:23 Aortic valve disorder Results for this COMPLETE W MMODE PM CDT S/P TAVR procedure are in SPECTRAL COLOR DOPPLER (transcatheter aortic the results (89022) valve replacement) section. ECG 12-LEAD Routine 05/09/2018 [...] are in SPECTRAL COLOR DOPPLER the results (42750) section. POC GLUCOSE Routine 04/10/2018 7:57 Results [...] 04/09/2018 6:55 AM Staff: Anesthesiologist: OLAF ROSAS Resident/REAL ESTATE RECRUITER/AA: MARICRUZ SANCHES Performed by: Resident/REAL ESTATE RECRUITER and resident/REAL ESTATE RECRUITER/AA Pre-procedure: patient identified, IV checked, site and [...] to catheter itself. Bleeding improved with pressure. NC AN ELECTIVE ENDOTRACHEAL AIRWAY Routine 04/09/2018 8:08 AM CDT Procedure Note - Olaf Rosas MD - 04/09/2018 8:08 AM CDT Airway Performed by: MARICRUZ SANCHES Authorized by: MARICRUZ SANCHES Location: OR Urgency: Elective Difficult Airway: No Anesthesiologist: OLAF ROSAS Resident/REAL ESTATE RECRUITER/AA: MARICRUZ SANCHES Performed by: resident/REAL ESTATE RECRUITER and resident/REAL ESTATE RECRUITER/AA Preoxygenated with 100% O2: Yes C-spine Precautions [...] are in SPECTRAL COLOR DOPPLER the results (63746) section. ZZESTIMATED GFR Routine 04/02/2018 4:00 AM [...] procedure are in the results section. after 08/20/2017 Results Echocardiogram complete w contrast and 3D if needed (05/09/2018 5:23 PM CDT) Narrative Performed At [facility] Echocardiography Report Pat.Name:BILL OLIVIA Pat.ID:[id number] .Date: 05/09/2018 Refer.MD:KOREY GIRON MD Exam Time: 4:40:00 PMStudy Type:Routine Echo Height:62inWeight: 108lb BSA: 1.47 m2 DOBAge:1945,72Y Sex: FEMALEBP:112/61 HR:80 bpm Sonogrphr: Viola Diez, RCS, RCCS, CCT Pat. Stat.:OutpatientRoom:[facility] TapeVol: [facility], Study Status:Final Echo Event ID:[id number] Order ID:[id number] Reason for Study:S/P AVR History / Clinical:Hypertension, [...] of 0-5 mmHg. MEASUREMENTS: 2D Parasternal [place] LVOT 1.8 cmLA Ds4.1 cm LVIDd4.3 cmIndex2.9 cm/m Ao An2 cm LVIDs2.9 cmAo Rtd 2.3 cm Index1.6 cm/m LV%fs 33.3 % LV Hiby445.9 g(87-129) IVSd 0.9 cmLVM Index 78.8 g/m2 LVPWd0.8 cmRWT0.4 LA Volume LA Vol52 heRwter22.4 ml/m DOPPLER LVOT Stroke Vol LVOT 1.8 cmLVOT CO4 l/min LVOT TVI19.9 cmLVOT CI2.7 l/m/m2 LVOT Tm282 oornOY57 bpm LVOT SV 50.8 ml AV For [...] Results In - 05/10/2018 11:38 PM CDT [facility] Echocardiography Report Pat.Name: BILL OLIVIA Pat.ID: [id number] St.Date: 05/09/2018 Refer.MD: KOREY GIRON MD Exam Time: 4:40:00 PM Study Type:Routine Echo Height: 62in Weight: 108lb BSA: 1.47 m2 Age: 4 1945,72Y Sex: FEMALE BP: 112/61 HR: 80 bpm Sonogrphr: Viola Diez, RCS, RCCS, CCT Pat. Stat.:Outpatient Room: [address] Vol: [facility], Study Status:Final Echo Event ID:[id number] Order ID: [id number] Reason for Study:S/P AVR History / Clinical:Hypertension, [...] of 0-5 mmHg. MEASUREMENTS: 2D Parasternal [place] LVOT 1.8 cm LA Ds 4.1 cm [...] PM Teena Bryant M.D. Performing Organization Address [facility] Phone Number [facility] [address] [place] [address] ECG 12 lead (05/09/2018 3:36 PM CDT)Only the most recent of3 resultswithin the time period is included. Ventricular rate 89 [facility] MUSE Atrial rate 89 [facility] MUSE NC interval 154 [facility] MUSE QRSD interval 88 [facility] MUSE QT interval 350 [facility] MUSE QTC interval 425 [facility] MUSE P axis 1 38 [facility] MUSE QRS axis 1 86 [facility] MUSE T wave axis 20 [facility] MUSE EKG impression Normal sinus rhythm-Normal ECG-In automated [facility] MUSE comparison with ECG of 11-APR-2018 19:45,-Questionable change in QRS axis- Performing Organization Address [facility] Phone Number [facility] MUSE [address] [place] [address] CBC with platelet and differential (04/12/2018 4:25 AM CDT)Only the most recent of7 resultswithin the time period is included. WBC 7.64 4.50 - 11.00 k/uL [facility] DEPARTMENT OF PATHOLOGY AND GENOMIC MEDICINE RBC 2.49 (L) 4.20 - 5.50 m/uL [facility] DEPARTMENT OF PATHOLOGY AND GENOMIC MEDICINE HGB 7.6 (L) 12.0 - 16.0 g/dL [facility] DEPARTMENT OF PATHOLOGY AND GENOMIC MEDICINE HCT 25.2 (L) 37.0 - 47.0 % [facility] DEPARTMENT OF PATHOLOGY AND GENOMIC MEDICINE MCV 101.2 (H) 82.0 - 100.0 fL [facility] DEPARTMENT OF PATHOLOGY AND GENOMIC MEDICINE MCH 30.5 27.0 - 34.0 pg [facility] DEPARTMENT OF PATHOLOGY AND GENOMIC MEDICINE MCHC 30.2 (L) 31.0 - 37.0 g/dL [facility] DEPARTMENT OF PATHOLOGY AND GENOMIC MEDICINE RDW - SD 56.3 (H) 37.0 - 55.0 fL [facility] DEPARTMENT OF PATHOLOGY AND GENOMIC MEDICINE MPV 9.8 8.8 - 13.2 fL [facility] DEPARTMENT OF PATHOLOGY AND GENOMIC MEDICINE Platelet count 222 150 - 400 k/uL [facility] DEPARTMENT OF PATHOLOGY AND GENOMIC MEDICINE Nucleated RBC 0.00 /100 WBC [facility] DEPARTMENT OF PATHOLOGY AND GENOMIC MEDICINE Neutrophils 73.3 (H) 39.0 - 69.0 % [facility] DEPARTMENT OF PATHOLOGY AND GENOMIC MEDICINE Lymphocytes 15.7 (L) 25.0 - 45.0 % [facility] DEPARTMENT OF PATHOLOGY AND GENOMIC MEDICINE Monocytes 8.8 0.0 - 10.0 % [facility] DEPARTMENT OF PATHOLOGY AND GENOMIC MEDICINE Eosinophils 1.4 0.0 - 5.0 % [facility] DEPARTMENT OF PATHOLOGY AND GENOMIC MEDICINE Basophils 0.4 0.0 - 1.0 % [facility] DEPARTMENT OF PATHOLOGY AND GENOMIC MEDICINE Immature granulocytes 0.4Comment: 0.0 - 1.0 % [facility] DEPARTMENT OF "Immature PATHOLOGY AND GENOMIC granulocytes" MEDICINE (promyelocytes, myelocytes, metamyelocytes) Specimen Blood Performing Organization Address City/State/Zipcode Phone Number [facility] DEPARTMENT OF PATHOLOGY AND [address] [place] [address] [facility] MEDICINE Estimated GFR (04/12/2018 4:00 AM CDT)Only the most recent of11 resultswithin the time period is included. GFR Non Af Amer 71 mL/min/1.73 m2 [facility] DEPARTMENT OF PATHOLOGY AND GENOMIC MEDICINE GFR Af Amer 86 mL/min/1.73 m2 [facility] DEPARTMENT OF Comment: PATHOLOGY AND GENOMIC Chronic [...] Americans. Specimen Plasma specimen Performing Organization Address City/[facility] Phone Number [facility] DEPARTMENT OF PATHOLOGY AND [address] [place] [address] Phosphorus level (04/12/2018 4:00 AM CDT)Only the most recent of4 resultswithin the time period is included. Phosphorus 2.3 (L) 2.4 - 4.5 mg/dL [facility] DEPARTMENT OF PATHOLOGY AND GENOMIC MEDICINE Specimen Plasma specimen Performing Organization Address [facility] Phone Number [facility] DEPARTMENT OF PATHOLOGY AND [address] [place] [address] MEDICINE Magnesium level (04/12/2018 4:00 AM CDT)Only the most recent of7 resultswithin the time period is included. Magnesium 2.2 1.6 - 2.4 mg/dL [facility] DEPARTMENT OF PATHOLOGY AND GENOMIC MEDICINE Specimen Plasma specimen Performing Organization Address [facility] Phone Number [facility] DEPARTMENT OF PATHOLOGY AND [address] [place] [address] MEDICINE Basic metabolic panel (04/12/2018 4:00 AM CDT)Only the most recent of8 resultswithin the time period is included. Sodium 142 135 - 148 mEq/L [facility] DEPARTMENT OF PATHOLOGY AND GENOMIC MEDICINE Potassium 4.1 3.5 - 5.0 mEq/L [facility] DEPARTMENT OF PATHOLOGY AND GENOMIC MEDICINE Chloride 99 98 - 112 mEq/L [facility] DEPARTMENT OF PATHOLOGY AND GENOMIC MEDICINE CO2 36 (H) 24 - 31 mEq/L [facility] DEPARTMENT OF PATHOLOGY AND GENOMIC MEDICINE Anion gap 7@ANIO 7 - 15 mEq/L [facility] DEPARTMENT OF PATHOLOGY AND GENOMIC MEDICINE BUN 25 (H) 8 - 23 mg/dL [facility] DEPARTMENT OF PATHOLOGY AND GENOMIC MEDICINE Creatinine 0.8 0.5 - 0.9 mg/dL [facility] DEPARTMENT OF PATHOLOGY AND GENOMIC MEDICINE Glucose 79 65 - 99 mg/dL [facility] DEPARTMENT OF PATHOLOGY AND GENOMIC MEDICINE Calcium 8.6 (L) 8.8 - 10.2 mg/dL [facility] DEPARTMENT OF PATHOLOGY AND GENOMIC MEDICINE Specimen Plasma specimen Performing Organization Address [facility] Phone Number [facility] DEPARTMENT OF PATHOLOGY AND [address] [place] [address] XR Chest 2 Vw (04/10/2018 10:19 PM CDT)Only the most recent of2 resultswithin the time [...] Cardiac silhouette is stable.Visualized osseous structures arestable. [facility]-[id number] Procedure Note Interface, Radiology Results Incoming - [...] is stable. Visualized osseous structures are stable. [facility]-[id number] Performing Organization Address [facility] Phone Number [facility] [address] [place] [address] POC glucose (04/10/2018 6:10 PM CDT)Only the most recent of4 resultswithin the time period is included. POC glucose 84 65 - 99 mg/dL [facility] DEPARTMENT OF PATHOLOGY Comment: AND GENOMIC MEDICINE [facility] Notified RN Meter ID: [id number] Digital Media Director: Noé Garsia Performing Organization Address [facility] Phone Number [facility] DEPARTMENT OF PATHOLOGY AND [address] [place] [address] GENOMIC MEDICINE Echocardiogram complete w contrast and 3D if needed (04/10/2018 10:15 AM CDT) Narrative Performed At [facility] Echocardiography Report [address] [place] [address] Pat.Name:ANGELICADIMA BILL Opal Pat.ID:[id number] .Date: 04/10/2018 Refer.MD:FRANCISCO J LIND MD Exam Time: 9:44:00 AMStudy Type:Routine Echo Height:62inWeight: 107lb BSA: 1.47 m2 DOBAge:1945,72Y Sex: FEMALEBP:113/56 HR:76 bpmSonogrphr: Jose E Sung RDCS Pat. Stat.:Inpatient Room:[address] Study Status:Final Echo Event ID:[id number] Order ID:[id number] Reason for Study:Prosthetic Valves - Initial postoperative [...] RAPof 10 mmHg. MEASUREMENTS: 2D Parasternal [place] LVOT 1.9 cmLVPWd0.9 cm LVIDd5.1 cmIndex3.4 cm/m LA Ds4.3 cm LVIDs3.6 cmLV Bkkk042.5 g(87-129) LV%fs 29.7 % LVM Zuegi093.4 g/m2 IVSd 1 cmRWT0.4 [address] S[address] [...] mmHgAVpkAcRt 8551.9 cm/s2 AV Mean G6.5 mmHgAV NcWy967.3 cm/s2 AV AC 80 msec (83-118) AV Area2.1 cm2(3-5) AV ET261 msec LVOT For Flow LVOT Area2.8 cm2 LVOT SV 63.2 ml ZOHXmpVif071 cm/sHR84.4 bpm LVOTpkPG 5.8 mmHgLVOT CO5.3 l/min LVOTmnPG 3 mmHgLVOT CI3.6 l/m/m2 LVOT TVI22.3 cm WALL MOTION: RESTING WALL MOTION: Basal Inferoseptal, Basal Inferior, Basal Inferolateral, Basal Anterolateral shane are hypokinetic. Normal in all other shane. Wall Index=1.2 Signed 04/10/2018 05:27 PM Pedro Luis Nuno M.D. Procedure Note Interface, Radiology Results In - 04/10/2018 5:27 PM CDT Echocardiography Report [address] [address], [place] [address] Pat.Name: BILL OLIVIA.ID: [id number] .Date: 04/10/2018 Refer.MD: FRANCISCO J LIND MD Exam Time: 9:44:00 AM Study Type:Routine Echo Height: 62in Weight: 107lb BSA: 1.47 m2 Age: 4 1945,72Y Sex: FEMALE BP: 113/56 HR: 76 bpm Sonogrphr: Jose E Sung RDCS Pat. Stat.:Inpatient Room: [address] Study Status:Final Echo Event ID:[id number] Order ID: [id number] Reason for Study:Prosthetic Valves - Initial postoperative [...] of 10 mmHg. MEASUREMENTS: 2D Parasternal [place] LVOT 1.9 cm LVPWd 0.9 cm LVIDd [...] Pedro Luis Nuno M.D. Performing Organization Address City/State/Zipcode Phone Number [facility] [address] [place] [address] Lipid panel (04/10/2018 4:33 AM CDT)Only the most recent of2 resultswithin the time period is included. Cholesterol 156 <200 mg/dL [facility] DEPARTMENT OF PATHOLOGY AND GENOMIC MEDICINE Triglycerides 45 <150 mg/dL [facility] DEPARTMENT OF PATHOLOGY AND GENOMIC MEDICINE HDL cholesterol 51 >40 mg/dL [facility] DEPARTMENT OF PATHOLOGY AND GENOMIC MEDICINE LDL cholesterol 97Comment: Result <100 mg/dL [facility] DEPARTMENT OF obtained by direct LDL PATHOLOGY AND GENOMIC measurement MEDICINE [facility]id panel [facility] DEPARTMENT OF Comment: PATHOLOGY AND GENOMIC Total Cholesterol (mg/dL) MEDICINE <200 Desirable 215-190Tafswmizku-cwnl >=240High Triglycerides (mg/dL) <150 Normal 185-163Njoujogriv-wamk 200-499High >=500Very high HDL Cholesterol (mg/dL) <40Low (male) <40Low (female) LDL Cholesterol (mg/dL) <100 Optimal 100-129Near or above optimal 373-048Khzfsldtjz-wwxc 160-189High >=190Very high Risk Catergories that modify [...] mg/dL) Specimen Plasma specimen Performing Organization Address City/[facility] Phone Number [facility] DEPARTMENT OF PATHOLOGY AND [address] [place] [address] GENOMIC MEDICINE ECG Pre/Post Op (PRN) (04/09/2018 1:48 PM CDT) Ventricular rate 67 [facility] MUSE Atrial rate 67 [facility] NC interval 170 [facility] QRSD interval 94 [facility] QT interval 380 [facility] QTC interval 401 [facility] MUSE P axis 1 20 [facility] M[facility] QRS axis 1 31 [facility] MUSE T wave axis 39 [facility] MUSE EKG impression Normal sinus rhythm with sinus [facility] MUSE arrhythmia-Possible Left atrial enlargement-T wave abnormality, consider anterior ischemia-Abnormal ECG-No previous ECGs available- Performing Organization Address [facility] Phone Number [facility] MUSE [address] [place] [address] Cv color laboratory technician procedure (04/09/2018 9:30 AM CDT) Narrative Performed At [facility]: ARNULFO Giron MD and Francsico J Lind MD PROCEDURES: 1.Diagnostic left heart catheterization. 2.Transcatheter aortic valve replacement with 29 mm CoreValve Evolut PRO inside the stentless porcine bioprosthesis (27mm [place] valve). 3.Ascending aortogram. 4.Descending abdominal aortogram. 5.Temporary [...] guidance using a micropuncture needle, and a 6-Vincentian sheath was placed. Then the left femoral [...] was removed and was exchanged for a [place] Plus 0.018 inch wire.The wire was then advanced and the catheter was removed.The proximal portion of the wire was housed in its protective hoop.Attention was then turned to the contralateral femoral artery. After a small incision and spread, theartery was punctured under fluoroscopic guidance using the [place] Plus wire as a target.The puncture was with a micropuncture needle which was then exchanged for a 6-Vincentian sheath, which was in turn exchanged for a Proglide suture.The suture was taped into place and was exchanged for a 10-Vincentian dilator. Over a Super Stiff wire, the 10-Vincentian dilator was then exchanged for a 20Fr [...] on ascending aortogram.Through the pigtail catheter, a HowStuffWorksari small wire was placed,over the wire for [...] capture system was then exchanged for the 6-Vincentian angled pigtail. A second diagnostic left heart [...] this episode of care. Performing Organization Address [facility] Phone Number [facility] [address] [place] [address] Sodium level, syringe (04/09/2018 8:55 AM CDT)Only the most recent of3 resultswithin the time period is included. Sodium, syringe 137 135 - 148 mEq/L [facility] DEPARTMENT OF PATHOLOGY AND GENOMIC MEDICINE Specimen Blood Performing Organization Address City/[facility]/Zipcode Phone Number [facility] DEPARTMENT OF PATHOLOGY AND [address] [place] [address] GENOMIC MEDICINE Potassium, syringe (04/09/2018 8:55 AM CDT)Only the most recent of3 resultswithin the time period is included. Potassium, syringe 3.4 (L) 3.5 - 5.0 mEq/L [facility] DEPARTMENT OF PATHOLOGY AND GENOMIC MEDICINE Specimen Blood Performing Organization Address City/[facility] Phone Number [facility] DEPARTMENT OF PATHOLOGY AND [address] [place] [address] Ionized calcium, arterial (04/09/2018 8:55 AM CDT)Only the most recent of3 resultswithin the time period is included. Ionized calcium, arterial 1.24 1.11 - 1.32 mmol/L [facility] DEPARTMENT OF PATHOLOGY AND GENOMIC MEDICINE Specimen Blood Performing Organization Address City/[facility] Phone Number [facility] DEPARTMENT OF PATHOLOGY AND [address] [place] [address] Hemoglobin, syringe (04/09/2018 8:55 AM CDT)Only the most recent of3 resultswithin the time period is included. Hemoglobin, syringe 7.8 (L) 12.0 - 16.0 g/dL [facility] DEPARTMENT OF PATHOLOGY AND GENOMIC MEDICINE Specimen Blood Performing Organization Address [facility] Phone Number [facility] DEPARTMENT OF PATHOLOGY AND [address] [place] [address] Glucose level, syringe (04/09/2018 8:55 AM CDT)Only the most recent of3 resultswithin the time period is included. Glucose, syringe 109 (H) 65 - 99 mg/dL [facility] DEPARTMENT OF PATHOLOGY AND GENOMIC MEDICINE Specimen Blood Performing Organization Address [facility] Phone Number [facility] DEPARTMENT OF PATHOLOGY AND [address] [place] [address] Arterial blood gas (04/09/2018 8:55 AM CDT)Only the most recent of3 resultswithin the time period is included. pH, arterial 7.48 (H) 7.35 - 7.45 [facility] DEPARTMENT OF PATHOLOGY AND GENOMIC MEDICINE pCO2, arterial 44 35 - 45 mmHg [facility] DEPARTMENT OF PATHOLOGY AND GENOMIC MEDICINE pO2, arterial 427 (H) 80 - 90 mmHg [facility] DEPARTMENT OF PATHOLOGY AND GENOMIC MEDICINE Bicarbonate, arterial 32.3 (H) 21.0 - 28.0 mmol/L [facility] DEPARTMENT OF PATHOLOGY AND GENOMIC MEDICINE Base excess, arterial 8 (H) -2 - 2 mEq/L [facility] DEPARTMENT OF PATHOLOGY AND GENOMIC MEDICINE O2 saturation, arterial 100 95 - 100 % [facility] DEPARTMENT OF PATHOLOGY AND GENOMIC MEDICINE Specimen Blood Performing Organization Address [facility] Phone Number [facility] DEPARTMENT OF PATHOLOGY AND [address] [place] [address] Prepare RBC, 2 Units (04/08/2018 5:27 PM CDT) Product name Red Blood Cells -1, [facility] DEPARTMENT OF Leukored PATHOLOGY AND GENOMIC MEDICINE Unit number [id number] [facility] DEPARTMENT OF PATHOLOGY AND GENOMIC MEDICINE Product code [id number] [facility] DEPARTMENT OF PATHOLOGY AND GENOMIC MEDICINE Dispense status Returned to not [facility] DEPARTMENT OF transfused PATHOLOGY AND GENOMIC MEDICINE Blood expiration date [facility] DEPARTMENT OF PATHOLOGY AND GENOMIC MEDICINE Blood type code 6200 [facility] DEPARTMENT OF PATHOLOGY AND GENOMIC MEDICINE Blood type A POSITIVE [facility] DEPARTMENT OF PATHOLOGY AND GENOMIC MEDICINE Product name Red Blood Cells -1, [facility] DEPARTMENT OF Leukored PATHOLOGY AND GENOMIC MEDICINE Unit number [id number] [facility] DEPARTMENT OF PATHOLOGY AND GENOMIC MEDICINE Product code [id number] [facility] DEPARTMENT OF PATHOLOGY AND GENOMIC MEDICINE Dispense status Returned to not [facility] DEPARTMENT OF transfused PATHOLOGY AND GENOMIC MEDICINE Blood expiration date [facility] DEPARTMENT OF PATHOLOGY AND GENOMIC MEDICINE Blood type code 6200 [facility] DEPARTMENT OF PATHOLOGY AND GENOMIC MEDICINE Blood type A POSITIVE [facility] DEPARTMENT OF PATHOLOGY AND GENOMIC MEDICINE Performing Organization Address City/State/[facility] Phone Number [facility] DEPARTMENT OF PATHOLOGY AND [address] [place] [address] GENOMIC MEDICINE Type and screen (04/08/2018 5:27 PM CDT) ABO grouping A [facility] DEPARTMENT OF PATHOLOGY AND GENOMIC MEDICINE Rh type POS [facility] DEPARTMENT OF PATHOLOGY AND GENOMIC MEDICINE Antibody screen (gel) NEG [facility] DEPARTMENT OF PATHOLOGY AND GENOMIC MEDICINE Specimen Blood Performing Organization Address City/[facility] Phone Number [facility] DEPARTMENT OF PATHOLOGY AND [address] [place] [address] GENOMIC MEDICINE Spirometry pre & post w/ bronchodilator, diffusion (04/08/2018 1:00 PM CDT) FEV1 Pre 0.63 1.50 - 2.60 L [...] LLN 63 [facility] Performing Organization Address City/State/Zipcodc Phone Number [facility] [address] [place] [address] Comprehensive metabolic panel (04/08/2018 4:00 AM CDT)Only the most recent of3 resultswithin the time period is included. Sodium 141 135 - 148 mEq/L [facility] DEPARTMENT OF PATHOLOGY AND GENOMIC MEDICINE Potassium 4.2 3.5 - 5.0 mEq/L [facility] DEPARTMENT OF PATHOLOGY AND GENOMIC MEDICINE Chloride 97 (L) 98 - 112 mEq/L [facility] DEPARTMENT OF PATHOLOGY AND GENOMIC MEDICINE CO2 38 (H) 24 - 31 mEq/L [facility] DEPARTMENT OF PATHOLOGY AND GENOMIC MEDICINE Anion gap 6@ANIO (L) 7 - 15 mEq/L [facility] DEPARTMENT OF PATHOLOGY AND GENOMIC MEDICINE BUN 41 (H) 8 - 23 mg/dL [facility] DEPARTMENT OF PATHOLOGY AND GENOMIC MEDICINE Creatinine 0.9 0.5 - 0.9 mg/dL [facility] DEPARTMENT OF PATHOLOGY AND GENOMIC MEDICINE Glucose 85 65 - 99 mg/dL [facility] DEPARTMENT OF PATHOLOGY AND GENOMIC MEDICINE Calcium 8.5 (L) 8.8 - 10.2 mg/dL [facility] DEPARTMENT OF PATHOLOGY AND GENOMIC MEDICINE Protein 5.7 (L) 6.3 - 8.3 g/dL [facility] DEPARTMENT OF Comment: PATHOLOGY AND GENOMIC [place] 4.6-7.0 g/dL MEDICINE 1 week 4.4-7.6 g/dL 7 months-1year5.1-7.3 g/dL 1-2 years5.6-7.5 g/dL >3 years6.0-8.0 g/dL 18-150 6.3-8.3 g/dL Albumin 2.1 (L) 3.5 - 5.0 g/dL [facility] DEPARTMENT OF PATHOLOGY AND GENOMIC MEDICINE A/G ratio 0.6 (L) 0.7 - 3.8 [facility] DEPARTMENT OF PATHOLOGY AND GENOMIC MEDICINE Alkaline phosphatase 46 35 - 104 U/L [facility] DEPARTMENT OF PATHOLOGY AND GENOMIC MEDICINE AST 16 10 - 35 U/L [facility] DEPARTMENT OF PATHOLOGY AND GENOMIC MEDICINE ALT 9 5 - 50 U/L [facility] DEPARTMENT OF PATHOLOGY AND GENOMIC MEDICINE Total bilirubin 0.3 0.0 - 1.2 mg/dL [facility] DEPARTMENT OF PATHOLOGY AND GENOMIC MEDICINE Specimen Plasma specimen Performing Organization Address City/State/[facility] Phone Number [facility] DEPARTMENT OF PATHOLOGY AND [address] [place] [address] Hemoglobin A1c (04/05/2018 3:05 PM CDT) Hemoglobin A1C 4.9 4.0 - 5.6 % [facility] DEPARTMENT OF PATHOLOGY Comment: [facility] HbA1c cutoffs for diagnosing diabetes: 4.0% - 5.6%=normal 5.7% - 6.4%=increased risk for diabetes (prediabetes) >=6.5%=diabetes Goals for glycemic control (ADA 2016) < 7.0%Target for non adults with diabetes. More or less stringent targets may be appropriate for individual patients. <7.5% Target for Children and adolescents with type 1 diabetes. Specimen Blood Performing Organization Address City/State/Zipcode Phone Number [facility] DEPARTMENT OF PATHOLOGY AND [address] Echocardiogram transesophageal (04/04/2018 10:17 AM CDT) Narrative Performed At [facility] Transesophageal Echo Report [id number], [place] [address] Pat.Name:BILL OLIVIA.ID:[id number] .Date: 04/04/2018Refer.MD:FRANCISCO J LIND MD Exam Time: 8:22:00 AMStudy Type:FRANCISCA Height:62inWeight: 106lb BSA: 1.46 m2 DOBAge:1945,72Y Sex: FEMALEBP:122/58 HR:83 bpmSonogrphr: Evan Batista MD [facility]. Stat.:Inpatient Room:[place] [address] Study Status:Final Echo Event ID:[id number] Order ID:[id number] Reason for Study:r/o vegetation on aortic valve History / Clinical:Hypertension, AORTIC VALVE REPLACEMENT Procedures:3D Echo, Transesophageal Echo with Colorflow Doppler Race: SUMMARY: Severe aortic regurgitation.Pressure half time 104 ms. Holodiastolic flow reversal in the descending thoracic aorta. LV EF is moderately depressed.Normal RV systolic function. FINDINGS: FRANCISCA:The attending checker bakery products performed the FRANCISCA procedure and waspresent for [...] Anesthesia: Moderate Sedation Physician: Rom Lopez M.D. Tutoring Assistant: Evan Batista MD Pre TEEBP HR Post FRANCISCA BP HR 122/58 54218/48 89 Meds:Viscous xylocaine, Cetacaine spray to oropharynx, Versed 1 mg IV, Fentanyl 25 mcg IV Complications: None Condition: Stable MEASUREMENTS: 2D Parasternal [place] LVOT 1.9 cmLA Ds4.1 cm LVIDd5 cmAo Rtd 2.6 cm LVIDs3.8 cmLV Eiiw829.8 g(87-129) LV%fs 23 % LVM Index 95.1 g/m2 IVSd 0.7 cmRWT0.4 LVPWd0.9 cm DOPPLER AV Pressure Half Time AV P1/2t 104 msec Signed 04/04/2018 11:38 AM Rom Lopez M.D. Procedure Note Interface, Radiology Results In - 04/04/2018 11:38 AM CDT Transesophageal Echo Report [id number], [place], [place] [address] [facility].Name: BILL OLIVIA.ID: [id number] .Date: 04/04/2018 Refer.MD: FRANCISCO J LIND MD Exam Time: 8:22:00 AM Study Type:FRANCISCA Height: 62in Weight: 106lb BSA: 1.46 m2 Age: 5 1945,72Y Sex: FEMALE BP: 122/58 HR: 83 bpm Sonogrphr: Evan Batista MD [facility]. Stat.:Inpatient Room: [place] [address] Study Status:Final Echo Event ID:[id number] Order ID: [id number] Reason for Study:r/o vegetation on aortic valve History / Clinical:Hypertension, AORTIC VALVE REPLACEMENT Procedures:3D Echo, Transesophageal Echo with Colorflow Doppler Race: SUMMARY: Severe aortic regurgitation. Pressure half time 104 ms. Holodiastolic flow reversal in the descending thoracic aorta. LV EF is moderately depressed. Normal RV systolic function. FINDINGS: FRANCISCA: The attending checker bakery products performed the FRANCISCA procedure and was present [...] Anesthesia: Moderate Sedation Physician: Rom Lopez M.D. Tutoring Assistant: Evan Batista MD Pre FRANCISCA BP HR Post FRANCISCA BP HR 122/58 83 101/48 89 Meds: Viscous xylocaine, Cetacaine spray to oropharynx, Versed 1 mg IV, Fentanyl 25 mcg IV Complications: None Condition: Stable MEASUREMENTS: 2D Parasternal Long [place] LVOT 1.9 cm LA Ds 4.1 cm LVIDd 5 cm Ao Rtd 2.6 cm LVIDs 3.8 cm LV Mass 138.8 g (87-129) LV%fs 23 % LVM Index 95.1 g/m2 IVSd 0.7 cm RWT 0.4 LVPWd 0.9 cm DOPPLER AV Pressure Half Time AV P1/2t 104 msec Signed 04/04/2018 11:38 AM Rom Lopez M.D. Performing Organization Address City/State/Zipcode Phone Number [facility] [address] [place] [address] B natriuretic peptide (04/04/2018 5:10 AM CDT)Only the most recent of2 resultswithin the time period is included. BNP 230 (H) 0 - 100 pg/mL [facility] DEPARTMENT OF PATHOLOGY AND GENOMIC MEDICINE Performing Organization Address City/State/Zipcode Phone Number [facility] DEPARTMENT OF PATHOLOGY AND [address] [place] [address] GENOMIC MEDICINE XR Chest 1 Vw (04/02/2018 4:29 PM CDT) Narrative Performed At EXAMINATION:XR CHEST 1 VW [...] size of the left pleural effusion, now duntp-mt-bnxjvape in degree. There is a glype-ye-vxvsdgst right-sided pleural effusion. There is no pneumothorax. Bones:There is mild osteopenia. Patient is status post median sternotomy with intact wires. There is no acute displaced fracture or dislocation. IMPRESSION: Status post left-sided thoracentesis with interval reduction in size of left pleural effusion, now tbfok-mn-ssochkut. No left-sided pneumothorax. Jmlqi-vb-hjdsalxt right pleural effusion. Bibasilar opacities likely represent atelectasis. Aspiration and/or pneumonia are also possible in the appropriate clinical context. [facility]-[id number] Procedure Note Hm Interface, Radiology Results Incoming - 04/02/2018 4:37 [...] size of the left pleural effusion, now kwvzk-lt-haixttth in degree. There is a zmbkl-qx-xithaerr right-sided pleural effusion. There is no pneumothorax. Bones: There is mild osteopenia. Patient is status post median sternotomy with intact wires. There is no acute displaced fracture or dislocation. IMPRESSION: Status post left-sided thoracentesis with interval reduction in size of left pleural effusion, now ygtfv-vt-kriivzmu. No left-sided pneumothorax. Foscs-il-znjdzulk right pleural effusion. Bibasilar opacities likely represent atelectasis. Aspiration and/or pneumonia are also possible in the appropriate clinical context. [facility]-[id number] Performing Organization Address [facility] Phone Number [address] [address] Fungus smear (04/02/2018 4:17 PM CDT) Fungus smear No fungi observed. [facility] DEPARTMENT OF PATHOLOGY Comment: AND GENOMIC MEDICINE Specimen Information Specimen Source: Thoracentesis fluid Specimen Site: Pleural Fluid Specimen Thoracentesis fluid - Pleural Fluid Performing Organization Address [facility] Phone Number [facility] DEPARTMENT OF PATHOLOGY AND [address] [place] [address] GENOMIC MEDICINE AFB culture (04/02/2018 4:17 PM CDT) AFB culture isolate No growth after 6 weeks of incubation. [facility] DEPARTMENT OF Comment: PATHOLOGY AND GENOMIC Specimen Information MEDICINE Specimen Source: Thoracentesis fluid Specimen Site: Pleural Fluid Specimen Thoracentesis fluid - Pleural Fluid Performing Organization Address [facility] Phone Number [facility] DEPARTMENT OF PATHOLOGY AND [address] [place] [address] GENOMIC MEDICINE Aerobic culture (04/02/2018 4:17 PM CDT) Aerobic culture isolate No growth after 3 days. [facility] DEPARTMENT OF Comment: PATHOLOGY AND GENOMIC Specimen Information MEDICINE Specimen Source: Thoracentesis fluid Specimen Site: Pleural Fluid Specimen Thoracentesis fluid - Pleural Fluid Performing Organization Address City/[facility] Phone Number [facility] DEPARTMENT OF PATHOLOGY AND [address] [place] [address] GENOMIC MEDICINE Gram stain (04/02/2018 4:17 PM CDT) Gram stain isolate Many WBC's [facility] DEPARTMENT OF No organisms seen PATHOLOGY AND GENOMIC MEDICINE Comment: Specimen Information Specimen Source: Thoracentesis fluid Specimen Site: Pleural Fluid Specimen Thoracentesis fluid - Pleural Fluid Performing Organization Address [facility] Phone Number [facility] DEPARTMENT OF PATHOLOGY AND [address] [place] [address] AFB stain (04/02/2018 4:17 PM CDT) AFB stain No acid fast bacilli (AFB) seen. [facility] DEPARTMENT OF PATHOLOGY AND Comment: GENOMIC MEDICINE Specimen Information Specimen Source: Thoracentesis fluid Specimen Site: Pleural Fluid Specimen Thoracentesis fluid - Pleural Fluid Performing Organization Address [facility] Phone Number [facility] DEPARTMENT OF PATHOLOGY AND [address] [place] [address] Fungus culture (04/02/2018 4:17 PM CDT) Fungus culture isolate No growth after 4 weeks of incubation. [facility] DEPARTMENT OF Comment: PATHOLOGY AND GENOMIC Specimen Information MEDICINE Specimen Source: Thoracentesis fluid Specimen Site: Pleural Fluid Specimen Thoracentesis fluid - Pleural Fluid Performing Organization Address [facility] Phone Number [facility] DEPARTMENT OF PATHOLOGY AND [address] [place] [address] Anaerobic culture (04/02/2018 4:17 PM CDT) Anaerobic culture No anaerobic organisms isolated. [facility] DEPARTMENT OF isolate Comment: PATHOLOGY AND GENOMIC Specimen Information MEDICINE Specimen Source: Thoracentesis fluid Specimen Site: Pleural Fluid Specimen Thoracentesis fluid - Pleural Fluid Performing Organization Address [facility] Phone Number [facility] DEPARTMENT OF PATHOLOGY AND [address] [place] [address] [place] Thoracentesis With Imaging (04/02/2018 4:15 PM CDT) Narrative Performed At EXAMINATION:US THORACENTESIS WITH IMAGING [...] was used for local anesthesia. A 5 Vincent[place] Vitasoleh catheter was inserted into the pleural space. 870 mLof pleural fluid was removed. 20 mL of aspirated fluid was also sent for laboratory analysis. The patient tolerated the procedure without difficulty and postprocedure chest x-ray demonstrated no pneumothorax. IMPRESSION: Ultrasound-guided left thoracentesis. [facility]-[id number] Procedure Note Interface, Radiology Results Incoming - [...] was used for local anesthesia. A 5 Vincentian Yueh catheter was inserted into the pleural space. 870 mL of pleural fluid was removed. 20 mL of aspirated fluid was also sent for laboratory analysis. The patient tolerated the procedure without difficulty and postprocedure chest x-ray demonstrated no pneumothorax. IMPRESSION: Ultrasound-guided left thoracentesis. [facility]-[id number] Performing Organization Address City/State/Zipcode Phone Number [facility] [address] [place] [address] Cv cta tavr workup (cta coronary,cta thoracic aorta,cta abdominal runoff) (04/02 2:50 PM CDT) Narrative Performed At [facility] Nuclear Cardiology and Cardiac CT [address] [place] [address] CTA TAVR Protocol Pat.Name:BILL OLIVIA Pat.ID:[id number] .Date: 04/02/2018Refer.MD:FRANCISCO J LIND MD Exam Time: 2:23:00 PMStudy Type:CTA TAVR Protocol Height:62inWeight: 119.75lb BSA: 1.54 m2 DOBAge:1945,72Y Sex: FEMALEBP:125/56 HR:81 bpm Nuclear Tech:Dale Gardner RT(CT)(CT), [facility] CPT - 4: TAVR w Coronaries [id number] Nuclear Event ID:[id number] Order ID:[id number] Reason for Study:Aortic Insufficiency Procedures:CTA TAVR Protocol SUMMARY: Technique: IV contrast was administered and sequential 0.[address] cuts were obtained through the chest using the Siemens Somatom Force CT scanner. Post-processing and 3D reconstruction were done using the Medabil workstation. Interactive image viewing and volumetric display [...] Cardiovascular CTA Protocol and interpreted by a Cigar Machine Feeder.Should a more comprehensive assessment of non-cardiovascular findings be desired, please consult a radiologist.These images are available in the [facility] [employer] PACS system. Signed 04/02/2018 04:17 PM Daniel Sotelo MD Procedure Note Interface, Radiology Results In - 04/02/2018 4:17 PM CDT Nuclear Cardiology and Cardiac CT [address] [place] [address] CTA TAVR Protocol Pat.Name: BILL OLIVIA.ID: [id number] St.Date: 04/02/2018 Refer.MD: FRANCISCO J LIND MD Exam Time: 2:23:00 PM Study Type:CTA TAVR Protocol Height: 62in Weight: 119.75lb BSA: 1.54 m2 Age: 5 1945,72Y Sex: FEMALE BP: 125/56 HR: 81 bpm Nuclear Tech:RT Mila(CT)(CT), [facility] CPT - 4: TAVR w Coronaries [id number] Nuclear Event ID:[id number] Order ID: [id number] Reason for Study:Aortic Insufficiency Procedures:CTA TAVR Protocol SUMMARY: Technique: IV contrast was administered and sequential 0.[address] cuts were obtained through the chest using the Siemens Cartela ABom Force CT scanner. Post-processing and 3D reconstruction were done using the Medabil workstation. Interactive image viewing and volumetric display [...] Cardiovascular CTA Protocol and interpreted by a Cigar Machine Feeder. Should a more comprehensive assessment of non-cardiovascular findings be desired, please consult a radiologist. These images are available in the [facility] [employer] PACS system. Signed 04/02/2018 04:17 PM Daniel Sotelo MD Performing Organization Address City/State/Zipcode Phone Number [facility] [address] [place] [id number] Us carotid duplex (04/02/2018 2:10 PM CDT) Narrative Performed At [facility] Vascular Ultrasound Laboratory Carotid Artery Duplex Report [address] [facility], [facility] [address], [place] [id number] For principal quality engineer purposes, the categorization of the degree of the stenosis of this exam is based on criteria described in the IAC carotid stenosis grading white paper( www.intersocietal.org/Vascular) and Leonel Ballesteros., James Bales, et al. Carotid artery stenosis: [place]-scale and Doppler US diagnosis--Society of Radiologists in Ultrasound Consensus Conference. Radiology. 2003 Jun; 229(2):340-6. Pat.Name:BILL OLIVIA Pat.ID:[id number] .Date: 04/02/2018Refer.MD:FRANCISCO J LIND MD Exam Time: 1:24:00 PMStudy Type:Carotid DOBAge:1945,72Y Sex: FEMALE Sonogrphr: PAT[facility]iche[facility], [facility] TapeVol: SB, CPT - 4: 57011 Echo Event ID:[id number] Order ID:[id number] Reason for Study:Gradual decline in strenth and [...] disease. 2.Abnormal doppler flows and velocities Carotid Findings:RightEstela HqaFlw AntegradeAntegrade Subclavian Biphasic Biphasic MEASUREMENTS: DOPPLER Left CCA Dist CCA Dist PSV 125 cm/sCCA Dist EDV3.15 cm/s Left CCA Mid CCA Mid YTV261 cm/sCCA Mid EDV0 cm/s Left CCA Prox CCA Prox PSV 127 cm/sCCA Prox EDV 2.1 cm/s Left ICA Dist ICA Dist PSV64.9 cm/Pili Dist EDV2.16 cm/s Left ICA Mid ICA Mid [id number] cm/Pili Mid EDV 3.15 cm/s Left ICA Prox ICA Prox PSV 154 cm/Pili Prox EDV1.05 cm/s Left ECA Prox ECA Prox PSV 132 cm/sECA Prox EDV 4.2 cm/s Left SCA Prox SCA Prox PSV 163 cm/sSCA Prox EDV 4.2 cm/s Left Vertebral Vertebral GLK208 cm/sVertebral EDV0 cm/s Right CCA Dist CCA Dist PSV81.7 cm/sCCA Dist EDV 0.749 cm/s Right CCA Mid CCA Mid EEI817 cm/sCCA Mid EDV 0.75 cm/s Right CCA Prox CCA Prox PSV 105 cm/sCCA Prox EDV 0 cm/s Right ICA Dist ICA Dist PSV 109 cm/Pili Dist EDV 1.5 cm/s Right ICA Mid ICA Mid CNB359 cm/Pili Mid EDV1.5 cm/s Right ICA Prox [...] Vascular Ultrasound Laboratory Carotid Artery Duplex Report [address] [place] [address] For principal quality engineer purposes, the categorization of the degree of the stenosis of this exam is based on criteria described in the IAC carotid stenosis grading white paper( www.intersocietal.org/Vascular) and Jody Ballesteros, James Bales, et al. Carotid artery stenosis: [place]-scale and Doppler US diagnosis--Society of Radiologists in Ultrasound Consensus Conference. Radiology. 2003 Nov; 229(2):340-6. Pat.Name: BILL OLIVIA.ID: [id number] .Date: 04/02/2018 Refer.MD: FRANCISCO J LIND MD Exam Time: 1:24:00 PM Study Type:Carotid Age: 5 1945,72Y Sex: FEMALE Sonogrphr: PAT[facility], [facility] Tape Vol: SB, CPT - 4: 66990 Echo Event ID:[id number] Order ID: [id number] Reason for Study:Gradual decline in strenth and [...] PM John Romo MD Performing Organization Address [facility]/Zipcode Phone Number [facility] [address] [place] [address] Echocardiogram complete w contrast and 3D if needed (04/02/2018 9:14 AM CDT) Narrative Performed At [facility] Echocardiography Report [id number] [place] [address] Pat.Name:BILL OLIVIA Opal Pat.ID:[id number] .Date: 04/02/2018Refer.MD:FRANCISCO J LIND MD Exam Time: 9:47:00 AMStudy Type:Routine Echo Height:62inWeight: 120lb BSA: 1.54 m2 DOBAge:1945,72Y Sex: FEMALEBP:101/43 HR:85 bpmSonogrphr: MADDIE Kurtz Pat. Stat.:Inpatient Room:[facility] Study Status:Final Echo Event ID:[id number] Order ID:[id number] Reason for Study:Pre-op History / Clinical:Hypertension, AORTIC [...] valve regurgitation. FINDINGS: LV: LV size is xisx-cl-zvwuosoaor enlarged. There is moderate eccentricLV hypertrophy. LV [...] not well seen. MEASUREMENTS: 2D Parasternal [place] LVOT 1.9 cmIVSd 1 cm LA Ds5.3 cmLVPWd1.1 cm Ao Rtd 3.2 cmIndex2.1 cm/m LV Kdus573 g(87-129) LVIDd5.2 cmIndex3.4 cm/m LVM Okxtl341.1 g/m2 LVIDs3.9 cmRWT0.4 LV%fs 25.7 % DOPPLER AV For Flow/ADEOLA AV pkVel 275.7 cm/s (100-170) AV AC/ET 0.3 AV mnVel 173.5 cm/Jewel TVI57.4 cm AV pkPG 30.4 mmHgAVpkAcRt 4149.2 cm/s2 AV Mean G 14.8 mmHgAV QwQk563.5 cm/s2 AV AC115 msec (83-118) AV Area1.6 cm2(3-5) AV ET331 msec LVOT For Flow LVOT Area2.8 cm2 LVOT SV 91.7 ml XITKjeXsw163.3 cm/sHR80.5 bpm LVOTpkPG 7.6 mmHgLVOT CO7.4 l/min LVOTmnPG 3.5 mmHgLVOT CI4.8 l/m/m2 LVOT TVI32.3 cm Signed 04/02/2018 05:57 PM Klaus Ryan M.D. Procedure Note Interface, Radiology Results In - 04/02/2018 5:58 PM CDT Echocardiography Report [id number] [place] [address] Pat.Name: BILL OLIVIA Opal Pat.ID: [id number] .Date: 04/02/2018 Refer.MD: FRANCISCO J LIND MD Exam Time: 9:47:00 AM Study Type:Routine Echo Height: 62in Weight: 120lb BSA: 1.54 m2 Age: 5 1945,72Y Sex: FEMALE BP: 101/43 HR: 85 bpm Sonogrphr: MADDIE Kurtz Pat. Stat.:Inpatient Room: D 967 Study Status:Final Echo Event ID:[id number] Order ID: [id number] Reason for Study:Pre-op History / Clinical:Hypertension, AORTIC [...] valve regurgitation. FINDINGS: LV: LV size is unnr-sr-hcgdpfnwjf enlarged. There is moderate eccentric LV hypertrophy. [...] not well seen. MEASUREMENTS: 2D Parasternal [place] LVOT 1.9 cm IVSd 1 cm LA [...] PM Klaus Ryan M.D. Performing Organization Address City/State/Zipcode Phone Number [facility] [address] [place] [address] Urinalysis screen and microscopy, with reflex to culture (04/01/2018 10:00 PM CDT) Specimen site Clean catch [facility] DEPARTMENT OF PATHOLOGY AND GENOMIC MEDICINE Color, UA Yellow [facility] DEPARTMENT OF PATHOLOGY AND GENOMIC MEDICINE Appearance, UA Turbid [facility] DEPARTMENT OF PATHOLOGY AND GENOMIC MEDICINE Specific gravity, UA 1.013 1.001 - 1.035 [facility] DEPARTMENT OF PATHOLOGY AND GENOMIC MEDICINE pH, UA 7.0 5.0 - 8.5 [facility] DEPARTMENT OF PATHOLOGY AND GENOMIC MEDICINE Protein, UA Negative Negative [facility] DEPARTMENT OF PATHOLOGY AND GENOMIC MEDICINE Glucose, UA Negative Negative [facility] DEPARTMENT OF PATHOLOGY AND GENOMIC MEDICINE Ketones, UA Negative Negative [facility] DEPARTMENT OF PATHOLOGY AND GENOMIC MEDICINE Bilirubin, UA Negative Negative [facility] DEPARTMENT OF PATHOLOGY AND GENOMIC MEDICINE Blood, UA Negative Negative [facility] DEPARTMENT OF PATHOLOGY AND GENOMIC MEDICINE Nitrite, UA Negative Negative [facility] DEPARTMENT OF PATHOLOGY AND GENOMIC MEDICINE Urobilinogen, UA 2.0 (A) <2.0 [facility] DEPARTMENT OF PATHOLOGY AND GENOMIC MEDICINE Leukocyte esterase, UA Negative Negative [facility] DEPARTMENT OF PATHOLOGY AND GENOMIC MEDICINE WBC, UA <1 0 - 4 /HPF [facility] DEPARTMENT OF PATHOLOGY AND GENOMIC MEDICINE RBC, UA 1 0 - 5 /HPF [facility] DEPARTMENT OF PATHOLOGY AND GENOMIC MEDICINE Bacteria, UA Few None seen [facility] DEPARTMENT OF PATHOLOGY AND GENOMIC MEDICINE Yeast, UA None seen [facility] DEPARTMENT OF PATHOLOGY AND GENOMIC MEDICINE Yeast with pseudohyphae, UA None seen [facility] DEPARTMENT OF PATHOLOGY AND GENOMIC MEDICINE Amorphous crystals Moderate [facility] DEPARTMENT OF PATHOLOGY AND GENOMIC MEDICINE Calcium oxalate crystals, UA Few [facility] DEPARTMENT OF PATHOLOGY AND GENOMIC MEDICINE Hyaline casts, UA 7 /LPF [facility] DEPARTMENT OF PATHOLOGY AND GENOMIC MEDICINE Specimen Urine Performing Organization Address City/State/Zipcode Phone Number [facility] DEPARTMENT OF PATHOLOGY AND [address] [place] [phone] [facility] Urine culture (04/01/2018 10:00 PM CDT) Urine culture SEE COMMENTComment: Bacteriuria [facility] DEPARTMENT OF PATHOLOGY screen negative. AND GENOMIC MEDICINE Performing Organization Address City/[facility]/Zipcode Phone Number [facility] DEPARTMENT OF PATHOLOGY AND [address] [place] [phone] [facility] XR Chest 1 Vw Portable (04/01/2018 8:33 PM CDT) Narrative Performed At EXAMINATION: XR CHEST 1 VW PORTABLE RADIANT INDICATION: preop COMPARISON: Most recent prior IMPRESSION: Stable cardiomegaly. Prior sternotomy. Arteriosclerosis aortic arch. Moderate left and small to moderate right pleural effusions with compressive atelectasis. Central pulmonary vascular congestion. No visible pneumothorax. [facility]-[id number] Procedure Note Hm Interface, Radiology Results Incoming - 04/01/2018 9:05 PM CDT EXAMINATION: XR CHEST 1 VW PORTABLE INDICATION: preop COMPARISON: Most recent prior IMPRESSION: Stable cardiomegaly. Prior sternotomy. Arteriosclerosis aortic arch. Moderate left and small to moderate right pleural effusions with compressive atelectasis. Central pulmonary vascular congestion. No visible pneumothorax. [facility]-[id number] Performing Organization Address [facility]/Zipcode Phone Number [facility] [address] [place] [phone] Partial thromboplastin time, activated (04/01/2018 8:20 PM CDT) PTT 27.2 23.0 - 36.0 sec [facility] DEPARTMENT OF PATHOLOGY Comment: AND [facility] PTT therapeutic range for unfractionated heparin is 61.0-112.0 seconds which corresponds to Anti-Xa 0.3-0.7 U/ml. Specimen Blood Performing Organization Address [facility] Cent[facility] Phone Number [facility] DEPARTMENT OF PATHOLOGY AND [address] [place] [address] [facility] Prothrombin time with INR (04/01/2018 8:20 PM CDT) Prothrombin time 13.9 12.0 - 15.0 sec [facility] DEPARTMENT OF PATHOLOGY AND GENOMIC MEDICINE INR 1.1 [facility] DEPARTMENT OF Comment: PATHOLOGY AND GENOMIC The International Normalized Ratio (INR) is a therapeutic MEDICINE monitoring tool for patients who are stable on oral anticoagulant therapy. An INR of 2.0-3.0 is suggested for deep vein thrombosis/pulmonary embolism. Specimen Blood Performing Organization Address [facility] Phone Number [facility] DEPARTMENT OF PATHOLOGY AND [address] [place] [phone] [facility] Blood culture, aerobic & anaerobic (04/01/2018 8:00 PM CDT)Only the most recent of2 resultswithin the time period is included. Blood culture isolate No growth after 5 days of incubation. [facility] DEPARTMENT OF Comment: PATHOLOGY AND GENOMIC Specimen Information MEDICINE Specimen Source: Blood Specimen Site: Peripheral Hand Right Specimen Blood Performing Organization Address [facility]/Zipcode Phone Number [facility] DEPARTMENT OF PATHOLOGY AND [address] [place] [phone] [facility] Thyroid stimulating hormone (04/01/2018 7:22 PM CDT) TSH 1.92 0.27 - 4.20 uIU/mL [facility] DEPARTMENT OF PATHOLOGY AND GENOMIC [facility] Specimen Plasma specimen Performing Organization Address City/[facility] Cent[facility] Phone Number [facility] DEPARTMENT OF PATHOLOGY AND [address] [place] [phone] GENOMIC MEDICINE T4, free (04/01/2018 7:22 PM CDT) T4, free 1.2 0.9 - 1.7 ng/dL [facility] DEPARTMENT OF PATHOLOGY AND GENOMIC MEDICINE Specimen Plasma specimen Performing Organization Address [facility] Phone Number [facility] DEPARTMENT OF PATHOLOGY AND [address] [place] [address] [facility] MEDICINE Hepatic function panel (04/01/2018 7:22 PM CDT) Albumin 2.5 (L) 3.5 - 5.0 g/dL [facility] DEPARTMENT OF PATHOLOGY AND GENOMIC MEDICINE Total bilirubin 0.3 0.0 - 1.2 mg/dL [facility] DEPARTMENT OF PATHOLOGY AND GENOMIC MEDICINE Bilirubin direct <0.2 0.0 - 0.3 mg/dL [facility] DEPARTMENT OF PATHOLOGY AND GENOMIC MEDICINE Alkaline phosphatase 50 35 - 104 U/L [facility] DEPARTMENT OF PATHOLOGY AND GENOMIC MEDICINE Protein 6.6 6.3 - 8.3 g/dL [facility] DEPARTMENT OF Comment: PATHOLOGY AND GENOMIC [place] 4.6-7.0 g/dL MEDICINE 1 week 4.4-7.6 g/dL 7 months-1year5.1-7.3 g/dL 1-2 years5.6-7.5 g/dL >3 years6.0-8.0 g/dL 18-150 6.3-8.3 g/dL ALT 13 5 - 50 U/L [facility] DEPARTMENT OF PATHOLOGY AND GENOMIC MEDICINE AST 16 10 - 35 U/L [facility] DEPARTMENT OF PATHOLOGY AND GENOMIC MEDICINE Specimen Plasma specimen Performing Organization Address City/[facility] Phone Number [facility] DEPARTMENT OF PATHOLOGY AND [address] [place] [address] GENOMIC MEDICINE after 08/20/2017 Insurance Payer Benefit Plan / Group Subscriber ID Type Phone Address MEDICARE MEDICARE PART A AND B xxxxxxxxxx Medicare [place], [place] AARP AARP SUPPLEMENT xxxxxxxxx-x Commercial Advance Directives Patient has advance care planning documents on file. For more information, please contact:Jose Alfredo [id number] [place] [place] [address]
[2018-08-21 17:22] LABS: Absolute Lymphocytes (CBC) 0.7 K/uL (0.7-4.9); Absolute Monocytes 0.5 K/uL (0.1-1.3); Basophils % 0.1 % (0-1.3); Eosinophils % 0.1 % (0-4.4); Hematocrit 32.4 % (36.0-45.0); Lymphocytes % 6.2 % (15.3-44.8); MPV 7.9 fL (7.6-11.3); Monocytes % 4.7 % (3.3-12.3); RBC Red Blood Cell Count 3.48 M/uL (3.86-4.86)
[2018-08-21 17:23] LABS: Protime INR 0.97
[2018-08-21 17:31] LABS: Albumin 2.3 g/dL (3.4-5.0); Bilirubin Direct 0.2 mg/dL (0-0.2); Bilirubin Total 0.3 mg/dL (0.2-1.0); Magnesium 2.1 mg/dL (1.8-2.4); Potassium 3.8 mmol/L (3.5-5.1); Protein, Total 6.1 g/dL (6.4-8.2); Troponin (Emerg Dept Use Only) 0.07 ng/mL (0.0-0.045)
--- NOTE | 2018-08-21 17:41 | RAD REPORT ---
EXAM DESCRIPTION: RAD - Chest Single View - 08/21/2018 5:34 pm CLINICAL HISTORY: CHEST PAIN Chest pain. COMPARISON: Chest Single View dated 07/05/2018; Chest Pa And Lat (2 Views) dated 06/23/2018; Chest Pa And Lat (2 Views) dated 06/21/2018; Chest Single View dated 06/19/2018 FINDINGS: Portable technique limits examination quality. Moderate left and small right pleural effusion is present, chronic and unchanged since prior study. T he heart is mildly prominent. Postsurgical changes are present of aortic valve replacement. IMPRESSION: Chronic bilateral pleural effusions, unchanged.
[2018-08-21 18:00] LABS: Anisocytosis 1+; Blood Morphology Comment NOTED (NOT SEEN); Macrocytosis 1+; Platelet Estimate ADEQ; Urine White Blood Cell Casts OK
--- NOTE | 2018-08-21 18:17 | RAD REPORT ---
EXAM DESCRIPTION: RAD - Thoracic Spine Ap/Lat - 08/21/2018 6:06 pm CLINICAL HISTORY: PAIN Radiculopathy COMPARISON: No comparisons FINDINGS: Diffuse osteopenia is seen. No acute compression fracture. No significant malalignment. Pl eural effusions are present bilaterally, larger on the left. IMPRESSION: No acute thoracic spine finding seen.
--- NOTE | 2018-08-21 19:03 | EDPHYS ---
Physician Documentation [facility] Name: Shannan Olivia Age: 72 yrs Sex: Female : 1945 Arrival Date: 08/21/2018 Time: 16:53 Bed 2 Private MD: ED Physician Ugo Rosario HPI: 08/21 18:16 This 72 yrs old Female presents to ER via EMS with complaints of Chest Pain > kdr 31 y/o, Cough. 18:16 The patient presents with pain that is acute, and decreased range of motion. The kdr symptoms are located in the thoracic area. Onset: The symptoms/episode began/occurred suddenly, yesterday. She states that she has had an upper respiratory illness for about a week with a productive white phlegm sputum. She denies measured fever but has had rigors. Today, she started to have what she described as chest (mid sternal) discomfort which was now radiating to her back. At the time of my exam she seemed to be able to replicate the pain when leaning forward and then sitting back. Associated signs and symptoms: Pertinent negatives: chest pain, Cough and congestion . The problem was sustained without known cause. Modifying factors: The patient symptoms are alleviated by heat application. Severity of symptoms: At their worst the symptoms were moderate, in the emergency department the symptoms. The patient has not experienced similar symptoms in the past. The patient has not recently seen a physician. Historical: - Allergies: 16:59 NKA; la1 - Home Meds: 16:59 pantoprazole 40 mg Oral TbEC 1 tab once daily for Gastroesophageal reflux [Active]; la1 Plavix 75 mg Oral tab 1 tab once daily [Active]; mirtazapine 15 mg Oral TbDL 1 tab once daily [Active]; prednisone 10 mg Oral tab 1 tab 2 times per day [Active]; carvedilol 3.125 mg Oral tab 1 tab every 12 hours [Active]; spironolactone 25 mg Oral tab 1 tab once daily [Active]; montelukast 10 mg Oral tab 1 tab once daily for Maintenance Therapy for Asthma [Active]; furosemide 40 mg Oral tab 1 tab every other day [Active]; lorazepam 0.5 mg Oral tab 1 tab 2 times per day [Active]; - PMHx: 16:59 Anxiety; shingles; pleural effusion-06/2015; Pneumonia; Hypertension; CHF; COPD; la1 Asthma; acid reflux; - PSHx: 16:59 None; valve replacement; la1 - Immunization history:: Flu vaccine is up to date. - Social history:: Smoking status: Patient/guardian denies using tobacco. - Ebola Screening: : Patient denies travel to an Ebola-affected area in the 21 days before illness onset. ROS: 08/22 09:44 Constitutional: Negative for fever, chills, and weight loss, Eyes: Negative for injury, kdr pain, redness, and discharge, ENT: Negative for injury, pain, and discharge, Neck: Negative for injury, pain, and swelling, Abdomen/GI: Negative for abdominal pain, nausea, vomiting, diarrhea, and constipation, Back: Negative for injury and pain, : Negative for injury, bleeding, discharge, and swelling, MS/Extremity: Negative for injury and deformity, Skin: Negative for injury, rash, and discoloration, Neuro: Negative for headache, weakness, numbness, tingling, and seizure activity. Psych: Negative for depression, anxiety, suicide ideation, homicidal ideation, and hallucinations, Allergy/Immunology: Negative for hives, rash, and allergies, Endocrine: Negative for neck swelling, polydipsia, polyuria, polyphagia, and marked weight changes, Hematologic/Lymphatic: Negative for swollen nodes, abnormal bleeding, and unusual bruising. Cardiovascular: Positive for chest pain, of the mid-sternal area, Negative for edema, orthopnea, palpitations, paroxysmal nocturnal dyspnea. Respiratory: Positive for cough, "sounds productive", shortness of breath, on exertion. Exam: 09:44 Constitutional: This is a well developed, well nourished patient who is awake, alert, kdr and in no acute distress. Head/Face: Normocephalic, atraumatic. Eyes: Pupils equal round and reactive to light, extra-ocular motions intact. Lids and lashes normal. Conjunctiva and sclera are non-icteric and not injected. Cornea within normal limits. Periorbital areas with no swelling, redness, or edema. Neck: Trachea midline, no thyromegaly or masses palpated, and no cervical lymphadenopathy. Supple, full range of motion without nuchal rigidity, or vertebral point tenderness. No Meningismus. Chest/axilla: Normal chest wall appearance and motion. Nontender with no deformity. No lesions are appreciated. Cardiovascular: Regular rate and rhythm with a normal S1 and S2. No gallops, murmurs, or rubs. Normal PMI, no JVD. No pulse deficits. Abdomen/GI: Soft, non-tender, with normal bowel sounds. No distension or tympany. No guarding or rebound. No evidence of tenderness throughout. Back: No spinal tenderness. No costovertebral tenderness. Full range of motion. Skin: Warm, dry with normal turgor. Normal color with no rashes, no lesions, and no evidence of cellulitis. MS/ Extremity: Pulses equal, no cyanosis. Neurovascular intact. Full, normal range of motion. Neuro: Awake and alert, GCS 15, oriented to person, place, time, and situation. Cranial nerves II-XII grossly intact. Motor strength 5/5 in all extremities. Sensory grossly intact. Cerebellar exam normal. Normal gait. Psych: Awake, alert, with orientation to person, place and time. Behavior, mood, and affect are within normal limits. 09:44 Cardiovascular: Rate: normal, Rhythm: regular, Pulses: no pulse deficits are appreciated, Heart sounds: murmur, grade 2 over 6, Edema: 1+ edema to level of left midcalf, left ankle, left foot, right midcalf, right ankle and right foot. Vital Signs: 08/21 16:59 BP 122 / 55; Pulse 82; Resp 28; Temp 98.8; Pulse Ox 98% on 2 lpm NC; Weight 47.17 kg; aj1 Height 5 ft. 2 in. (157.48 cm) (R); Pain 6/10; 18:36 BP 101 / 60; Pulse 73; Resp 23; Pulse Ox 98% on 2 lpm NC; aj1 19:30 BP 96 / 60; Pulse 74; Resp 19; Pulse Ox 97% on 2 lpm NC; aj1 20:49 BP 104 / 70; Pulse 73; Resp 26; Pulse Ox 98% on R/A; aj1 21:45 BP 105 / 67; Pulse 65; Resp 21; Pulse Ox 99% on 2 lpm NC; aj1 22:22 BP 105 / 67; Pulse 66; Resp 19; Pulse Ox 99% on 2 lpm NC; aj1 16:59 Body Mass Index 19.02 (47.17 kg, 157.48 cm) aj1 MDM: 19:02 Patient medically screened. kdr 08/22 09:44 Data reviewed: vital signs, nurses notes, lab test result(s), radiologic studies. kdr Counseling: I had a detailed discussion with the patient and/or guardian regarding: the historical points, exam findings, and any diagnostic results supporting the discharge/admit diagnosis, lab results, radiology results, the need for further work-up and treatment in the hospital. 08/21 16:59 Order name: Basic Metabolic Panel; Complete Time: 18:51 kdr 08/21 16:59 Order name: CBC with Diff; Complete Time: 18:51 kdr 08/21 16:59 Order name: LFT's; Complete Time: 18:51 kdr 08/21 16:59 Order name: Magnesium; Complete Time: 18:51 kdr 08/21 16:59 Order name: NT PRO-BNP; Complete Time: 18:51 kdr 08/21 16:59 Order name: PT-INR; Complete Time: 18:51 kdr 08/21 16:59 Order name: Troponin (emerg Dept Use Only); Complete Time: 18:51 kdr 08/21 16:59 Order name: XRAY Chest (1 view); Complete Time: 18:51 kdr 08/21 16:59 Order name: EKG; Complete Time: 17:00 kdr 08/21 16:59 Order name: Cardiac monitoring; Complete Time: 17:06 kdr 08/21 16:59 Order name: EKG - Nurse/Tech; Complete Time: 17:06 kdr 08/21 16:59 Order name: IV Saline Lock; Complete Time: 17:06 kdr 08/21 17:15 Order name: Spine Thoracic Ap/Lat XRAY; Complete Time: 18:51 kdr 08/21 18:00 Order name: CBC Smear Scan; Complete Time: 18:51 EDMS 08/21 16:59 Order name: Labs collected and sent; Complete Time: 17:06 kdr 08/21 16:59 Order name: O2 Per Protocol; Complete Time: 17:06 kdr 08/21 16:59 Order name: O2 Sat Monitoring; Complete Time: 17:06 kdr Administered Medications: No medications were administered Disposition: 08/21/18 19:02 Hospitalization ordered by Kelley Howard for Observation. Preliminary diagnosis are Chest pain, unspecified, Acute upper respiratory infection, unspecified. - Bed requested for Telemetry/MedSurg (observation). - Status is Observation. aj1 - Condition is Fair. - Problem is new. - Symptoms have improved. UTI on Admission? No Signatures: Dispatcher [employer] EDNishi Manzano, RN RN aj1 Ugo Rosario MD MD kdr Abhi Vicente RN RN la1 Chana Eng RN RN cg Corrections: (The following items were deleted from the chart) 08/21 20:54 19:02 Hospitalization Ordered by Kelley Howard MD for Observation. Preliminary cg diagnosis is Chest pain, unspecified; Acute upper respiratory infection, unspecified. Bed requested for Telemetry/MedSurg (observation). Status is Observation. Condition is Fair. Problem is new. Symptoms have improved. UTI on Admission? No. kdr 22:33 20:54 08/21/2018 19:02 Hospitalization Ordered by Kelley Howard MD for Observation. aj1 Preliminary diagnosis is Chest pain, unspecified; Acute upper respiratory infection, unspecified. Bed requested for Telemetry/MedSurg (observation). Status is Observation. Condition is Fair. Problem is new. Symptoms have improved. UTI on Admission? No. cg
--- NOTE | 2018-08-21 19:03 | ER ---
Nurse's Notes [facility] Name: Shannan Olivia Age: 72 yrs Sex: Female : 1945 Arrival Date: 08/21/2018 Time: 16:53 Bed 2 Private MD: Diagnosis: Chest pain, unspecified;Acute upper respiratory infection, unspecified Presentation: 08/21 16:59 Presenting complaint: Patient states: She has had a productive cough for the past week. aj1 Today she started to have substernal chest pain that radiates to the back. Patient also reports SOB. Breath sounds with rhonchi and crackles on the right side. Patient received A\T\A neb en route, which she states helped with her SOB. Transition of care: patient was not received from another setting of care. Onset of symptoms was August 21, 2018 at 16:00. Risk Assessment: Do you want to hurt yourself or someone else? Patient reports no desire to harm self or others. Initial Sepsis Screen: Does the patient meet any 2 criteria? RR > 20 per min. No. Patient's initial sepsis screen is negative. Does the patient have a suspected source of infection? Yes: Productive cough/pneumonia. Care prior to arrival: None. 16:59 Method Of Arrival: EMS: [facility] aj1 16:59 Acuity: KANU 3 aj1 Triage Assessment: 16:59 General: Appears in no apparent distress. uncomfortable, Behavior is calm, cooperative, aj1 appropriate for age. Pain: Complains of pain in mid-sternal area Pain radiates to mid back area Pain currently is 6 out of 10 on a pain scale. Quality of pain is described as pressure. Neuro: Level of Consciousness is awake, alert, obeys commands. Cardiovascular: Patient's skin is warm and dry. Historical: - Allergies: 16:59 NKA; la1 - Home Meds: 16:59 pantoprazole 40 mg Oral TbEC 1 tab once daily for Gastroesophageal reflux [Active]; la1 Plavix 75 mg Oral tab 1 tab once daily [Active]; mirtazapine 15 mg Oral TbDL 1 tab once daily [Active]; prednisone 10 mg Oral tab 1 tab 2 times per day [Active]; carvedilol 3.125 mg Oral tab 1 tab every 12 hours [Active]; spironolactone 25 mg Oral tab 1 tab once daily [Active]; montelukast 10 mg Oral tab 1 tab once daily for Maintenance Therapy for Asthma [Active]; furosemide 40 mg Oral tab 1 tab every other day [Active]; lorazepam 0.5 mg Oral tab 1 tab 2 times per day [Active]; - PMHx: 16:59 Anxiety; shingles; pleural effusion-06/2015; Pneumonia; Hypertension; CHF; COPD; la1 Asthma; acid reflux; - PSHx: 16:59 None; valve replacement; la1 - Immunization history:: Flu vaccine is up to date. - Social history:: Smoking status: Patient/guardian denies using tobacco. - Ebola Screening: : Patient denies travel to an Ebola-affected area in the 21 days before illness onset. Screenin:04 Abuse screen: Denies threats or abuse. Denies injuries from another. Nutritional aj1 screening: No deficits noted. Tuberculosis screening: No symptoms or risk factors identified. 22:04 Fall Risk Fall in past 12 months (25 points). No secondary diagnosis (0 pts). IV access aj1 (20 points). Ambulatory Aid- None/Bed Rest/Nurse Assist (0 pts). Gait- Normal/Bed Rest/Wheelchair (0 pts) Mental Status- Oriented to own ability (0 pts). Total Chavez Fall Scale indicates High Risk Score (45 or more points). Family Present and informed to notify staff if the need to leave the bedside As available patient and family educated on Fall Prevention Program and Strategies. Assessment: 17:04 General: Appears in no apparent distress. uncomfortable, Behavior is calm, cooperative, aj1 appropriate for age. Pain: Complains of pain in mid-sternal area Pain radiates to mid back area Pain currently is 6 out of 10 on a pain scale. Quality of pain is described as pressure, Pain began 1 hour ago. Neuro: Level of Consciousness is awake, alert, obeys commands, Oriented to person, place, time, situation, Speech is normal, Facial symmetry appears normal. Cardiovascular: Reports chest pain, shortness of breath, Heart tones S1 S2 present Patient's skin is warm and dry. Rhythm is sinus rhythm. Respiratory: Reports shortness of breath cough that is productive, Airway is patent Respiratory effort is even, unlabored, Respiratory pattern is regular, symmetrical, Breath sounds with crackles in right posterior upper lobe and right posterior middle lobe Breath sounds with rhonchi. GI: No signs and/or symptoms were reported involving the gastrointestinal system. : No signs and/or symptoms were reported regarding the genitourinary system. EENT: No signs and/or symptoms were reported regarding the EENT system. Derm: No signs and/or symptoms reported regarding the dermatologic system. Skin is pink, warm \T\ dry. normal. Musculoskeletal: No signs and/or symptoms reported regarding the musculoskeletal system. Circulation, motion, and sensation intact. 18:36 Reassessment: Patient appears in no apparent distress at this time. No changes from aj1 previously documented assessment. Patient and/or family updated on plan of care and expected duration. Pain level reassessed. Patient is alert, oriented x 3, equal unlabored respirations, skin warm/dry/pink. 19:30 Reassessment: Patient and/or family updated on plan of care and expected duration. Pain aj1 level reassessed. General: Appears in no apparent distress. comfortable, Behavior is calm, cooperative, appropriate for age. Pain: Denies pain. Neuro: Level of Consciousness is awake, alert, obeys commands, Speech is normal, Facial symmetry appears normal. Cardiovascular: Patient's skin is warm and dry. Rhythm is sinus rhythm. Respiratory: Airway is patent Respiratory effort is even, unlabored, Respiratory pattern is regular, symmetrical. Derm: Skin is pink, warm \T\ dry. normal. Musculoskeletal: Circulation, motion, and sensation intact. 20:40 Reassessment: Patient appears in no apparent distress at this time. No changes from aj1 previously documented assessment. Patient and/or family updated on plan of care and expected duration. Pain level reassessed. Patient is alert, oriented x 3, equal unlabored respirations, skin warm/dry/pink. 21:40 Reassessment: Patient appears in no apparent distress at this time. No changes from aj1 previously documented assessment. Patient and/or family updated on plan of care and expected duration. Pain level reassessed. Patient is alert, oriented x 3, equal unlabored respirations, skin warm/dry/pink. 22:22 Reassessment: Patient appears in no apparent distress at this time. No changes from aj1 previously documented assessment. Patient and/or family updated on plan of care and expected duration. Pain level reassessed. Patient is alert, oriented x 3, equal unlabored respirations, skin warm/dry/pink. Vital Signs: 16:59 BP 122 / 55; Pulse 82; Resp 28; Temp 98.8; Pulse Ox 98% on 2 lpm NC; Weight 47.17 kg; aj1 Height 5 ft. 2 in. (157.48 cm) (R); Pain 6/10; 18:36 BP 101 / 60; Pulse 73; Resp 23; Pulse Ox 98% on 2 lpm NC; aj1 19:30 BP 96 / 60; Pulse 74; Resp 19; Pulse Ox 97% on 2 lpm NC; aj1 20:49 BP 104 / 70; Pulse 73; Resp 26; Pulse Ox 98% on R/A; aj1 21:45 BP 105 / 67; Pulse 65; Resp 21; Pulse Ox 99% on 2 lpm NC; aj1 22:22 BP 105 / 67; Pulse 66; Resp 19; Pulse Ox 99% on 2 lpm NC; aj1 16:59 Body Mass Index 19.02 (47.17 kg, 157.48 cm) aj1 ED Course: 16:53 Patient arrived in ED. la1 16:56 Ugo Rosario MD is Attending Physician. kdr 16:58 Nishi Kumar RN is Primary Nurse. aj1 16:59 Arm band placed on Patient placed in an exam room. aj1 17:00 EKG done, by sprinkler repair technician. reviewed by Ugo Rosario MD. sm3 17:01 Triage completed. aj1 17:04 No provider procedures requiring assistance completed. Patient maintains SpO2 aj1 saturation greater than 95% on room air. 17:04 Patient has correct armband on for positive identification. Bed in low position. Call aj1 light in reach. Side rails up X 1. fly tier on. Pulse ox on. NIBP on. 17:34 XRAY Chest (1 view) In Process Unspecified. EDMS 18:06 Spine Thoracic Ap/Lat XRAY In Process Unspecified. EDMS 18:59 Kelley Howard MD is Hospitalizing Provider. kdr 22:10 Report given to CHAPIN Juarez on 4th floor. aj1 22:23 Patient admitted, IV remains in place. aj1 Administered Medications: No medications were administered Outcome: 19:02 Decision to Hospitalize by Provider. kdr 22:23 Admitted to Tele accompanied by tech, via wheelchair, with chart. aj1 22:23 Condition: stable 22:23 Discharge instructions given to patient, Instructed on the need for admit, Demonstrated understanding of instructions. 22:33 Patient left the ED. aj1 Signatures: Dispatcher [employer] EDNishi Manzano, RN RN aj1 Ugo Rosario MD MD kdr Attema, Lee, RN RN la1 Elysia Nieves [facility]
--- NOTE | 2018-08-21 20:21 | P.HP ---
Certification for Inpatient Patient admitted to: Observation With expected LOS: <2 Midnights Practitioner: I am a practitioner with admitting privileges, knowledge of patient current condition, hospital course, and medical plan of care. Services: Services provided to patient in accordance with Admission requirements found in Title 42 Section 412.3 of the Code of Federal Regulations Patient History Date of Service: 08/21/18 Reason for admission: chest pain History of Present Illness: Ms Olivia is a 72 years old woman with history of COPD on home oxygen 2L by NH, history of Aortic valve replacement, HTN, who was recently admitted for pneumonia, came to ED complaining of chest pain. Her pain is substernal, dull, radiated to her back. Intensity 6/10. She denied nausea or diaphoresis episodes , but has had SOB, more than usual. She also states that since 1 week ago, has increased her cough, is productive with clear secretions. A few days ago, she fell, having a right elbow laceration, which is healing. She denied fever or chills. EMS gave her breathing treatments, improving her SOB. Lab work, shows normal WBC count, trop I 0.07, EKG without with nonspecific T wave abnormalities. CXR shows chronic changes, bilateral pleural effusion, seen in previous XR, but no acute infiltrate. Spinal thoracic XR shows no acute abnormalities. Allergies No Known Allergies Allergy (Verified 07/06/18 05:29) Home medications list reviewed: Yes Home Medications: Carvedilol [Coreg*] 3.125 mg PO BID 06/04/15 Furosemide [Lasix*] 20 mg PO DAILY 06/04/15 Montelukast [Singulair*] 10 mg PO DAILY 06/04/15 LORazepam [Ativan*] 0.5 mg PO BID PRN 03/29/18 Clopidogrel Bisulfate [Plavix*] 75 mg PO DAILY 06/19/18 predniSONE [Deltasone*] 10 mg PO BID #60 tab 06/24/18 Mirtazapine [Remeron*] 15 mg PO BEDTIME 07/06/18 Spironolactone [Aldactone*] 25 mg PO DAILY 07/11/18 levoFLOXacin [Levaquin] 750 mg PO DAILY #12 tab 07/11/18 - Past Medical/Surgical History Diabetic: No -: CHF -: Acid Reflux -: Asthma -: HTN -: Pleural Effusion -: Pnemonia -: Aortic valve replacement -: Chest tube placement- removed 2015 -: Status post VATS further right-sided effusion - Family History Father -: Heart disease, Hypertension Mother -: Hypertension, Diabetes, Stroke - Social History Smoking Status: Never smoker Alcohol use: No CD- Drugs: No Caffeine use: Yes Place of Residence: Home Review of Systems 10-point ROS is otherwise unremarkable Physical Examination - Physical Exam General: Alert, In no apparent distress HEENT: Atraumatic, PERRLA, Mucous membr. moist/pink, EOMI, Sclerae nonicteric Neck: Supple, 2+ carotid pulse no bruit, No LAD, Without JVD or thyroid abnormality Respiratory: Diminished, Rhonchi/gurgles (scattered rhonchi bilateral), Other ( no wheezing.) Cardiovascular: Regular rate/rhythm, Normal S1 S2 Gastrointestinal: Normal bowel sounds, No tenderness Musculoskeletal: No tenderness Integumentary: No rashes Neurological: Normal speech, Normal strength at 5/5 x4 extr, Normal tone, Normal affect Lymphatics: No axilla or inguinal lymphadenopathy - Studies Laboratory Data (last 24 hrs) 08/21/18 17:00: PT 11.4, INR 0.97 08/21/18 17:00: WBC 11.2 H, Hgb 10.8 L, Hct 32.4 L, Plt Count 271 08/21/18 17:00: Sodium 141, Potassium 3.8, BUN 34 H, Creatinine 0.68, Glucose 89 , Magnesium 2.1, Total Bilirubin 0.3, AST 19, ALT 17, Alkaline Phosphatase 54 Assessment and Plan - Problems (Diagnosis) (1) Chest pain Current Visit: Yes Status: Acute Qualifiers: Chest pain type: chest pain on breathing Qualified Code(s): R07.1 - Chest pain on breathing; R07.81 - Pleurodynia (2) Fall Current Visit: Yes Status: Acute Qualifiers: Encounter type: initial encounter Qualified Code(s): W19.XXXA - Unspecified fall, initial encounter (3) Reactive airway disease Current Visit: Yes Status: Acute Qualifiers: Asthma severity: unspecified severity Asthma persistence: unspecified Asthma complication type: with acute exacerbation Qualified Code(s): J45.901 - Unspecified asthma with (acute) exacerbation (4) Pleural effusion, bilateral Onset Date: 05/15/16 Current Visit: No Status: Acute - Plan The patient will be admitted to the hospital due to chest pain, and reactive airway with acute exacerbation. Initial trop I mildly elevated. Will order serial cardiac enzymes, EKG, consult cardiology team. Will order IV steroids and breathing treatments. Consult Dr Seran. - Advance Directives Does patient have a Living Will: Yes Does patient have a Durable POA for Healthcare: Yes - Code Status/Comfort Care Code Status Assessed: Yes Code Status: Full Code
[2018-08-21] MEDS ORDERED: ACETAMINOPHEN 500 MG TAB PO PRN (23:02)
[2018-08-21] MEDS ORDERED: IPRATROPIUM BROM 0.5MG/2.5ML NEB PRN (23:02)
[2018-08-21] MEDS ORDERED: ALBUTEROL 2.5 MG/3 ML NEB SOL NEB PRN (23:02)
[2018-08-21] MEDS ORDERED: ONDANSETRON 4 MG/2 ML VIAL IV PRN (23:02)
[2018-08-21 23:03] VITALS: BMI 17.9
[2018-08-21] MEDS: ASPIRIN 81 MG CHEWABLE TABLET PO SCH (23:59)
[2018-08-21] MEDS: NA CHLORIDE 0.9% 1,000 ML IV SCH (23:59)
--- NOTE | 2018-08-22 06:29 | EKG ---
Test Date: 2018-08-21 Test Time: 16:52:15 Salesperson Shoes: MATY MEASUREMENT RESULTS: Intervals: Rate: 76 NC: 148 QRSD: 80 QT: 356 QTc: 400 Wilmot: P: 19 NC: 148 QRS: 16 T: 29 INTERPRETIVE STATEMENTS: Normal sinus rhythm Possible Left atrial enlargement Possible Anterior infarct, age undetermined Abnormal ECG Compared to ECG 07/05/2018 19:18:41 Myocardial infarct finding now present Sinus tachycardia no longer present Atrial premature complex(es) no longer present Electronically Signed On 08-22-18 06:28:22 COMMUNITY HEALTH REPRESENTATIVE by Rashaun He
[2018-08-22 06:33] LABS: Absolute Lymphocytes (CBC) 0.4 K/uL (0.7-4.9); Absolute Monocytes 0.1 K/uL (0.1-1.3); Absolute Neutrophil 7.8 K/uL (1.8-8.0); Hematocrit 28.4 % (36.0-45.0); Lymphocytes % 5.1 % (15.3-44.8); MPV 7.7 fL (7.6-11.3); Monocytes % 1.4 % (3.3-12.3); RBC Red Blood Cell Count 3.02 M/uL (3.86-4.86)
[2018-08-22 06:47] LABS: BUN Blood Urea Nitrogen 32 mg/dL (7-18); Bicarbonate 34 mmol/L (21-32); Glucose Level 202 mg/dL (74-106); Sodium Level 142 mmol/L (136-145)
[2018-08-22] MEDS: ASPIRIN 81 MG CHEWABLE TABLET PO SCH (08:27)
[2018-08-22] MEDS: METHYLPREDNISOLONE 40 MG INJ IV SCH ×3 (08:28→16:33)
[2018-08-22] MEDS: ENOXAPARIN 40 MG/0.4 ML SQ SCH (08:28)
[2018-08-22] MEDS: NA CHLORIDE 0.9% 1,000 ML IV SCH (08:36)
[2018-08-22] MEDS ORDERED: LORAZEPAM 0.5 MG TABLET PO ONE (09:24)
--- NOTE | 2018-08-22 13:01 | CON ---
Date of Consultation: 08/22/2018 Reason For Consultation: Chest pain. History Of Present Illness: Ms. Olivia is 72. She has a history of anxiety disorder, COPD, hype rtension, gastroesophageal reflux disease, congestive heart failure. She is status post AVR. At one point in March of 2018, she was found to have a vegetation. She underwent a TAVR by Dr. Diogo kaiser. Has done well from that department. She really came in mostly with cough, COPD exacerbation , but chest pain was pleuritic and occurred mostly when she coughed. Never had a CABG. Her ejection fraction is 42%. She has chronic systolic congestive heart failure. Past Medical History: As stated above. Allergies: NONE. Review of Systems: Negative. Social History: Negative. Family History: Noncontributory. Medications At Home: Include prednisone, Coreg, Plavix, Lasix, Singulair, and Protonix. Physical Examination: General: She was pleasant, alert, oriented x3, in no acute distress. Breathing much better. No arr hythmias. HEENT: Negative. Neck: Supple without any bruit, lymphadenopathy, JVD, or thyromegaly. Chest: Revealed wheezing on expiration, but no rales. Cardiac: Revealed regular rhythm and rate without any murmurs, gallops, or rubs. Abdomen: Benign. Extremities: Revealed no clubbing, cyanosis, or edema. Diagnostic Data: She had a troponin of 0.07 x2. BNP 448. Chest x-ray showed bilateral small pleura l effusion. Impression And Plan: 1.Pleuritic chest pain with chronic obstructive pulmonary disease exacerbation. 2.Chronic systolic congestive heart failure. 3.Anxiety disorder. 4.Hypertension. 5.Gastroesophageal reflux disease. 6.Status post recent transcatheter aortic valve replacement. I think we need to continue her presen t medication as it is right now. Another echocardiogram would be reasonable considering she just rec ently had aortic valve replacement. She does not need any further cardiac workup. She can go home w henever it is okay with Dr. Leos. LEANDER/MARISSA Voice ID: [id number] Report ID: [id number]
--- NOTE | 2018-08-22 15:34 | ECHO ---
HEIGHT: 5 ft 2 in WEIGHT: 98 lb 4.8 oz DATE OF STUDY: 08/22/[address]: Yousif Villasenor MD 2-DIMENSIONAL: YES M.MODE: YES DOPPLER: YES COLOR FLOW: YES TDS: NO PORTABLE: NO DEFINITY: NO BUBBLE STUDY: NO DIAGNOSIS: AORTIC VALVE REPLACEMENT/ VEGETATION CARDIAC HISTORY: CATHERIZATION: YES SURGERY: YES PROSTHETIC VALVE: YES PACEMAKER: NO MEASUREMENTS (cm) DIASTOLIC (NORMALS) SYSTOLIC (NORMALS) IVSd 0.9 (0.6-1.2) LA Diam 3.1 (1.9-4.0) LVEF 61% LVIDd 3.7 (3.5-5.7) LVIDs 2.5 (2.0-3.5) %FS 32% LVPWd 0.9 (0.6-1.2) Ao Diam 2.1 (2.0-3.7) 2 DIMENSIONAL ASSESSMENT: RIGHT ATRIUM: NORMAL LEFT ATRIUM: NORMAL RIGHT VENTRICLE: NORMAL LEFT VENTRICLE: NORMAL TRICUSPID VALVE: NORMAL MITRAL VALVE: MITRAL ANNULAR CALCIFICATION PULMONIC VALVE: NORMAL AORTIC VALVE: STATUS POST TRANSCATHETER AORTIC VALVE REPLACEMENT PERICARDIAL EFFUSION: NONE AORTIC ROOT: NORMAL LEFT VENTRICULAR WALL MOTION: NORMAL DOPPLER/COLOR FLOW: MILD TRICUSPID REGURGITATION. COMMENTS: MILD TRICUSPID REGURGITATION. STATUS POST TRANSCATHETER AORTIC VALVE REPLACEMENT- NO VEGETATIONS. MITRAL ANNULAR CALCIFICATION. NORMAL LEFT VETRICULAR EJECTION FRACTION. NO WALL MOTION ABNORMALITIES. TECHNOLOGIST: MADDIE PAULINO
--- NOTE | 2018-08-22 15:57 | P.PN ---
Subjective Date of Service: 08/22/18 Chief Complaint: chest pain Subjective: Improving Patient seen and examined. Chart reviewed and case discussed with RN. Specific complaints other than pain in her elbow from the fall. Shortness of breath improving Review of Systems 10-point ROS is otherwise unremarkable Respiratory: As per HPI Physical Examination - Vital Signs Temperature: 99.1 F Blood Pressure: 106/56 Pulse: 65 Respirations: 20 Pulse Ox (%): 98 - Physical Exam General: Alert, In no apparent distress, Oriented x3, Other (Ill-appearing frail cachectic elderly female) HEENT: Atraumatic, PERRLA, EOMI Neck: Supple, JVD not distended Respiratory: Diminished, Dull Cardiovascular: No edema, Normal pulses, Regular rate/rhythm, Normal S1 S2 Gastrointestinal: Normal bowel sounds, Soft and benign, Non-distended, No tenderness Musculoskeletal: No clubbing, No tenderness Integumentary: No cyanosis, Erythema, Other (Abrasion on the right elbow) Neurological: Normal speech, Normal strength at 5/5 x4 extr, Normal tone, Normal affect - Studies Laboratory Data (last 24 hrs) 08/21/18 17:00: PT 11.4, INR 0.97 08/21/18 17:00: WBC 11.2 H, Hgb 10.8 L, Hct 32.4 L, Plt Count 271 08/21/18 17:00: Sodium 141, Potassium 3.8, BUN 34 H, Creatinine 0.68, Glucose 89 , Magnesium 2.1, Total Bilirubin 0.3, AST 19, ALT 17, Alkaline Phosphatase 54 Medications List Reviewed: Yes Assessment And Plan - Current Problems (Diagnosis) (1) Chest pain Onset Date: 08/22/18 Current Visit: Yes Status: Acute Qualifiers: Chest pain type: chest pain on breathing Qualified Code(s): R07.1 - Chest pain on breathing; R07.81 - Pleurodynia (2) Fall Onset Date: 08/22/18 Current Visit: Yes Status: Acute Qualifiers: Encounter type: initial encounter Qualified Code(s): W19.XXXA - Unspecified fall, initial encounter (3) Reactive airway disease Onset Date: 08/22/18 Current Visit: Yes Status: Acute Qualifiers: Asthma severity: unspecified severity Asthma persistence: unspecified Asthma complication type: with acute exacerbation Qualified Code(s): J45.901 - Unspecified asthma with (acute) exacerbation (4) Anxiety Onset Date: 04/01/18 Current Visit: No Status: Acute (5) Congestive heart failure (CHF) Current Visit: No Status: Acute Qualifiers: Heart failure type: systolic (6) Dyspnea Onset Date: 05/15/16 Current Visit: No Status: Acute (7) Pleural effusion Current Visit: No Status: Chronic - Plan Continue current treatment Wean off O2 Echocardiogram shows a 61% EF Cleared from cardiology standpoint Wean steroids to p.o. in a.m. Discharge Plan: Home Plan to discharge in: 24 Hours - Code Status/Comfort Care Code Status Assessed: Yes
[2018-08-22] MEDS ORDERED: LORAZEPAM 0.5 MG TABLET PO PRN (16:00)
[2018-08-22] MEDS: ENSURE ENLIVE 237 ML CAN PO SCH (20:43)
[2018-08-22] MEDS: CARVEDILOL 3.125 MG TAB PO SCH (20:43)
[2018-08-22] MEDS ORDERED: MIRTAZAPINE 15 MG TAB PO SCH (21:00)
[2018-08-23] MEDS: METHYLPREDNISOLONE 40 MG INJ IV SCH ×2 (00:05→09:07)
[2018-08-23 06:22] LABS: Absolute Lymphocytes (CBC) 0.4 K/uL (0.7-4.9); Absolute Monocytes 0.2 K/uL (0.1-1.3); Absolute Neutrophil 10.8 K/uL (1.8-8.0); Hematocrit 28.7 % (36.0-45.0); Lymphocytes % 3.9 % (15.3-44.8); MPV 7.9 fL (7.6-11.3); Monocytes % 2.1 % (3.3-12.3); RBC Red Blood Cell Count 3.06 M/uL (3.86-4.86)
[2018-08-23 06:27] LABS: ALT/SGPT 14 U/L (12-78); AST/SGOT 13 U/L (15-37); Albumin 1.8 g/dL (3.4-5.0); Alkaline Phosphatase 44 U/L (45-117); BUN Blood Urea Nitrogen 33 mg/dL (7-18); Bicarbonate 35 mmol/L (21-32); Bilirubin Total 0.1 mg/dL (0.2-1.0); Glucose Level 135 mg/dL (74-106); Protein, Total 4.9 g/dL (6.4-8.2); Sodium Level 145 mmol/L (136-145)
[2018-08-23] MEDS ORDERED: PANTOPRAZOLE 40MG TABLET PO SCH (07:30)
[2018-08-23 07:34] LABS: Blood Morphology Comment NOT SEEN (NOT SEEN); Platelet Estimate ADEQ; Urine White Blood Cell Casts OK
[2018-08-23 09:00] VITALS: BP 125/70; TEMP 97.5
[2018-08-23] MEDS ORDERED: HOME MED 1 EA UNK (Pantoprazole Sodium [Protonix] 20 MG) PO SCH (09:00)
[2018-08-23] MEDS ORDERED: CLOPIDOGREL 75 MG TABLET PO SCH (09:00)
[2018-08-23] MEDS ORDERED: FUROSEMIDE 20 MG TABLET PO SCH (09:00)
[2018-08-23] MEDS: ENSURE ENLIVE 237 ML CAN PO SCH (09:00)
[2018-08-23] MEDS ORDERED: SPIRONOLACTONE 25 MG TABLET PO SCH (09:00)
[2018-08-23] MEDS ORDERED: MONTELUKAST 10 MG TAB PO SCH (09:00)
[2018-08-23] MEDS: CARVEDILOL 3.125 MG TAB PO SCH (09:08)
[2018-08-23] MEDS: ENOXAPARIN 40 MG/0.4 ML SQ SCH (09:09)
[2018-08-23 10:31] VITALS: O2SAT 98
--- NOTE | 2018-08-24 12:06 | DS ---
Date of Discharge: 08/23/2018 Transportation Refrigeration Technician: Dr. Villasenor with Cardiology. Discharge Diagnoses: 1.Chest pain, resolved. 2.Status post fall, initial encounter. 3.Reactive airway disease with acute exacerbation, active airway disease with acute exacerbation. 4.Generalized anxiety disorder. 5.Congestive heart failure, systolic, chronic. 6.Dyspnea. 7.Pleural effusion, chronic. Hospital Course: The patient is a wound 72-year-old female with a history of COPD, reactive airway d isease, on home oxygen, history of recent aortic valve replacement transcatheter, hypertension, who w as recently admitted for pneumonia, comes in with chest pain. The patient did have a fall and hurt h er back and elbow with some mild laceration. The patient did have elevated troponin 0.07. Nonspecif ic T-wave abnormalities on EKG. On chest x-ray, she was found to have bilateral pleural effusions. A spinal thoracic x-ray did not show any acute abnormalities related to her fall. The patient was ev aluated by Dr. Villasenor for elevated troponin and chest pain. Cardiac stress test was recommended as patient recently had transcatheter aortic valve replacement. Her echocardiogram was also done, which showed EF of 61%. No vegetations were found. No wall motion abnormalities. The patient did not garcia ve any stress test. However, echocardiogram was recommended by Dr. Villasenor with results as mentioned . The patient otherwise did well. Her chest pain resolved. Her breathing had improved. The patien t was back to her baseline level of oxygenation. The patient is steroid dependent and will be discha rged on steroid taper. Medications: As per medication reconciliation list. Followup: Follow up with primary care physician in 2-3 days. Follow up with marksmanship instructor, Dr. Alexsander roberts in 2 weeks. Return to ER for worsening condition. Double dose of home steroids for the next 5 da ys, then resume home dose of 10 mg b.i.d. Diet: Low-sodium, fluid-restricted diet. Activity: Fall precautions. Physical Examination: General: Awake, alert, oriented, no acute distress. Elderly female, frail, cachectic. BMI 18. CV: S1, S2. Respiratory: Moving air well bilaterally. Mildly diminished breath sounds at the bases. Gastrointestinal: Abdomen is soft, nontender, nondistended. Positive bowel sounds. Extremities: No clubbing, cyanosis, edema. Neurologic: Nonfocal. SA/MODL Voice ID: [id number] Report ID: [id number]
== END 2018-08-23 13:20 | disposition home health service (06) ==
LOC: ER 16:52 → ERHOLD 19:58 → 4TH 22:22
PROVIDERS: ADMIT Internal Medicine; ATTEND Internal Medicine
DX: R07.9 Chest pain, unspecified (principal); J45.901 Unspecified asthma with (acute) exacerbation; F41.1 Generalized anxiety disorder; I11.0 Hypertensive heart disease with heart failure; I50.22 Chronic systolic (congestive) heart failure; J44.9 Chronic obstructive pulmonary disease, unspecified; Z95.2 Presence of prosthetic heart valve
CPT/HCPCS: 36415 ×2; 71045; 72070; 80048 ×2; 80053; 80076; 83735; 83880; 84484 ×4; 85025 ×3; 85610; 93005; 93306; 94760 ×3; 99285; G0378 ×2; J1650 ×2; J2920 ×5; J7030

== ENCOUNTER 2018-10-26 12:52 | Emergency (ER) | payer OTHER, MEDICARE ==
--- OUTSIDE RECORDS SUMMARY | 2018-10-26 12:56 | XMS REPORT | Clinical Summary ---
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 Encounters Date Type Specialty Care [...] valve replacement) 04/01/2018 Intake Access N/A after 10/25/2017 Family History Medical History Relation Name Comments [...] 04/10/2019 Multidisciplinary Visit Cardiology Korey Giron MD [address] [address] Health Maintenance Due Date Last Done Comments BREAST CANCER SCREENING 1996 COLON CANCER SCREENING 1996 SHINGLES VACCINES (#1) 1996 65+ PNEUMOCOCCAL VACCINE (1 of 2 - PCV13) 12/08/2011 PNEUMOCOCCAL POLYSACCHARIDE VACCINE AGE 65 AND OVER 12/08/2011 INFLUENZA VACCINE 03/27/2018 Implants Implanted Type Area Corrections Officer Device Shelf Model / Identifier Expiration Serial / Date Lot Evolut Pro 29'Valve - [id number] - [id number] Cardiovascular N/A: [employer] 01/02/2020 EVOLUTPRO 29 US / Implanted: Qty: 1 on 04/09/2018 by Francisco J Lind MD Implants N/A COREVALVE [id number] / [id number] System Clsr Sut Meditd 6fr Perclose Proglide - [id number] Surgical N/A: THEODORE [id number] / Implanted: 04/09/2018 (Quantity not on file) Implants; N/A VASCULAR / Expanders; DEVICES Extenders; Surgical Wires System Clsr Sut Meditd 6fr Perclose Proglide - [id number] Surgical N/A: THEODORE [id number] / Implanted: 04/09/2018 (Quantity not on file) Implants; N/A VASCULAR / Expanders; DEVICES Extenders; Surgical Wires Catheter Card Nimo 6fr 125cm Ep Bipolar Pace Elctrd N/A: [employer] [id number] / Implanted: Qty: 1 on 04/09/2018 by Francisco J Lind MD Groin / Procedures Procedure Name Priority Date/Time Associated Diagnosis Comments ECHOCARDIOGRAM 2D Routine 05/09/2018 5:23 Aortic valve disorder Results for this COMPLETE W MMODE PM CDT S/P TAVR procedure are in SPECTRAL COLOR DOPPLER (transcatheter aortic the results (28372) valve replacement) section. ECG 12-LEAD Routine 05/09/2018 [...] are in SPECTRAL COLOR DOPPLER the results (34294) section. POC GLUCOSE Routine 04/10/2018 7:57 Results [...] 04/09/2018 6:55 AM Staff: Anesthesiologist: OLAF ROSAS Resident/LABORATORY TECHNOLOGY TEACHER/AA: MARICRUZ SANCHES Performed by: Resident/LABORATORY TECHNOLOGY TEACHER and resident/LABORATORY TECHNOLOGY TEACHER/AA Pre-procedure: patient identified, IV checked, site and [...] to catheter itself. Bleeding improved with pressure. IN AN ELECTIVE ENDOTRACHEAL AIRWAY Routine 04/09/2018 8:08 AM CDT Procedure Note - Olaf Rosas MD - 04/09/2018 8:08 AM CDT Airway Performed by: MARICRUZ SANCHES Authorized by: MARICRUZ SANCHES Location: OR Urgency: Elective Difficult Airway: No Anesthesiologist: OLAF ROSAS Resident/LABORATORY TECHNOLOGY TEACHER/AA: MARICRUZ SANCHES Performed by: resident/LABORATORY TECHNOLOGY TEACHER and resident/LABORATORY TECHNOLOGY TEACHER/AA Preoxygenated with 100% O2: Yes C-spine Precautions [...] are in SPECTRAL COLOR DOPPLER the results (56622) section. ZZESTIMATED GFR Routine 04/02/2018 4:00 AM [...] procedure are in the results section. after 10/25/2017 Results Echocardiogram complete w contrast and 3D if needed (05/09/2018 5:23 PM CDT) Narrative Performed At [facility] Echocardiography Report Pat.Name:BILL OLIVIA Pat.ID:[id number] St.Date: 05/09/2018 Refer.MD:KOREY GIRON MD Exam Time: 4:40:00 PMStudy Type:Routine Echo Height:62inWeight: 108lb BSA: 1.47 m2 DOBAge:1945,72Y Sex: FEMALEBP:112/61 HR:80 bpm Sonogrphr: Viola Diez, RCS, RCCS, CCT Pat. Stat.:Outpatient[facility] TapeVol: [facility], Study Status:Final Echo Event ID:[id number] Order ID:[id number] Reason for Study:S/P AVR History / Clinical:Hypertension, [...] of 0-5 mmHg. MEASUREMENTS: 2D Parasternal Long [place] LVOT 1.8 cmLA Ds4.1 cm LVIDd4.3 cmIndex2.9 cm/m Ao An2 cm LVIDs2.9 cmAo Rtd 2.3 cm Index1.6 cm/m LV%fs 33.3 % LV Sega660.9 g(87-129) IVSd 0.9 cmLVM Index 78.8 g/m2 LVPWd0.8 cmRWT0.4 LA Volume LA Vol52 peHsyba88.4 ml/m DOPPLER LVOT Stroke Vol LVOT 1.8 cmLVOT CO4 l/min LVOT TVI19.9 cmLVOT CI2.7 l/m/m2 LVOT Tm282 vecpDY42 bpm LVOT SV 50.8 ml AV For [...] Results In - 05/10/2018 11:38 PM CDT [facility] Echocardiography Report Pat.Name: BILL OLIVIA Pat.ID: [id number] St.Date: 05/09/2018 Refer.MD: KOREY GIRON MD Exam Time: 4:40:00 PM Study Type:Routine Echo Height: 62in Weight: 108lb BSA: 1.47 m2 Age: 4 1945,72Y Sex: FEMALE BP: 112/61 HR: 80 bpm Sonogrphr: Viola Diez, RCS, RCCS, CCT Pat. Stat.:Outpatient Room: [address] Vol: [facility], Study Status:Final Echo Event ID:[id number] Order ID: [id number] Reason for Study:S/P AVR History / Clinical:Hypertension, [...] of 0-5 mmHg. MEASUREMENTS: 2D Parasternal Long [place] LVOT 1.8 cm LA Ds 4.1 cm [...] PM Teena Bryant M.D. Performing Organization Address [facility] Phone Number [facility] [address] [place] [address] ECG 12 lead (05/09/2018 3:36 PM CDT)Only the most recent of3 resultswithin the time period is included. Ventricular rate 89 [facility] MUSE Atrial rate [address] [facility] MUSE IN interval [address] [facility] MUSE QRSD interval 88 [facility] QT interval 350 [facility] QTC interval [address] [facility] M[facility] P axis 1 38 [facility] QRS axis [address] [facility] MUSE T wave axis [address] [facility] MUSE EKG impression Normal sinus rhythm-Normal ECG-In automated [facility] M[facility] comparison with ECG of 11-APR-2018 19:45,-Questionable change in QRS axis- Performing Organization Address [facility] Phone Number [facility] MUSE [address] [place] [address] CBC with platelet and differential (04/12/2018 4:25 AM CDT)Only the most recent of7 resultswithin the time period is included. WBC 7.64 4.50 - 11.00 k/uL [facility] DEPARTMENT OF PATHOLOGY AND GENOMIC MEDICINE RBC 2.49 (L) 4.20 - 5.50 m/uL [facility] DEPARTMENT OF PATHOLOGY AND GENOMIC MEDICINE HGB 7.6 (L) 12.0 - 16.0 g/dL [facility] DEPARTMENT OF PATHOLOGY AND GENOMIC MEDICINE HCT 25.2 (L) 37.0 - 47.0 % [facility] DEPARTMENT OF PATHOLOGY AND GENOMIC MEDICINE MCV 101.2 (H) 82.0 - 100.[address] [facility] DEPARTMENT OF PATHOLOGY AND GENOMIC MEDICINE MCH 30.5 27.0 - 34.[address] [facility] DEPARTMENT OF PATHOLOGY AND GENOMIC MEDICINE MCHC 30.2 (L) 31.0 - 37.0 g/dL [facility] DEPARTMENT OF PATHOLOGY AND GENOMIC MEDICINE RDW - SD 56.3 (H) 37.0 - 55.[address] [facility] DEPARTMENT OF PATHOLOGY AND GENOMIC MEDICINE MPV 9.8 8.8 - 13.[address] [facility] DEPARTMENT OF PATHOLOGY AND GENOMIC MEDICINE Platelet count 222 150 - 400 k/uL [facility] DEPARTMENT OF PATHOLOGY AND GENOMIC MEDICINE Nucleated RBC 0.00 /[address] [facility] DEPARTMENT OF PATHOLOGY AND GENOMIC MEDICINE Neutrophils 73.3 (H) 39.0 - 69.0 % [facility] DEPARTMENT OF PATHOLOGY AND GENOMIC MEDICINE Lymphocytes 15.7 (L) 25.0 - 45.0 % [facility] DEPARTMENT OF PATHOLOGY AND GENOMIC MEDICINE Monocytes 8.8 0.0 - 10.0 % [facility] DEPARTMENT OF PATHOLOGY AND GENOMIC MEDICINE Eosinophils 1.4 0.0 - 5.0 % [facility] DEPARTMENT OF PATHOLOGY AND GENOMIC MEDICINE Basophils 0.4 0.0 - 1.0 % [facility] DEPARTMENT OF PATHOLOGY AND GENOMIC MEDICINE Immature granulocytes 0.4Comment: 0.0 - 1.0 % [facility] DEPARTMENT OF "Immature PATHOLOGY AND GENOMIC granulocytes" MEDICINE (promyelocytes, myelocytes, metamyelocytes) Specimen Blood Performing Organization Address City/State/Zipcode Phone Number [facility] DEPARTMENT OF PATHOLOGY AND [address] [place] [address] [facility] Estimated GFR (04/12/2018 4:00 AM CDT)Only the most recent of11 resultswithin the time period is included. GFR Non Af Amer 71 mL/min/1.[address] [facility] DEPARTMENT OF PATHOLOGY AND GENOMIC MEDICINE GFR Af Amer 86 mL/min/1.[address] [facility] DEPARTMENT OF Comment: PATHOLOGY AND GENOMIC [...] Americans. Specimen Plasma specimen Performing Organization Address City/[facility] Phone Number [facility] DEPARTMENT OF PATHOLOGY AND [address] [place] [address] Phosphorus level (04/12/2018 4:00 AM CDT)Only the most recent of4 resultswithin the time period is included. Phosphorus 2.3 (L) 2.4 - 4.5 mg/dL [facility] DEPARTMENT OF PATHOLOGY AND GENOMIC MEDICINE Specimen Plasma specimen Performing Organization Address [facility] Phone Number [facility] DEPARTMENT OF PATHOLOGY AND [address] [place] [address] MEDICINE Magnesium level (04/12/2018 4:00 AM CDT)Only the most recent of7 resultswithin the time period is included. Magnesium 2.2 1.6 - 2.4 mg/dL [facility] DEPARTMENT OF PATHOLOGY AND GENOMIC MEDICINE Specimen Plasma specimen Performing Organization Address [facility] Phone Number [facility] DEPARTMENT OF PATHOLOGY AND [address] [place] [address] MEDICINE Basic metabolic panel (04/12/2018 4:00 AM CDT)Only the most recent of8 resultswithin the time period is included. Sodium 142 135 - 148 mEq/L [facility] DEPARTMENT OF PATHOLOGY AND GENOMIC MEDICINE Potassium 4.1 3.5 - 5.0 mEq/L [facility] DEPARTMENT OF PATHOLOGY AND GENOMIC MEDICINE Chloride 99 98 - 112 mEq/L [facility] DEPARTMENT OF PATHOLOGY AND GENOMIC MEDICINE CO2 36 (H) 24 - 31 mEq/L [facility] DEPARTMENT OF PATHOLOGY AND GENOMIC MEDICINE Anion gap 7@ANIO 7 - 15 mEq/L [facility] DEPARTMENT OF PATHOLOGY AND GENOMIC MEDICINE BUN 25 (H) 8 - 23 mg/dL [facility] DEPARTMENT OF PATHOLOGY AND GENOMIC MEDICINE Creatinine 0.8 0.5 - 0.9 mg/dL [facility] DEPARTMENT OF PATHOLOGY AND GENOMIC MEDICINE Glucose 79 65 - 99 mg/dL [facility] DEPARTMENT OF PATHOLOGY AND GENOMIC MEDICINE Calcium 8.6 (L) 8.8 - 10.2 mg/dL [facility] DEPARTMENT OF PATHOLOGY AND GENOMIC MEDICINE Specimen Plasma specimen Performing Organization Address [facility] Phone Number [facility] DEPARTMENT OF PATHOLOGY AND [address] [place] [address] MEDICINE XR Chest 2 Vw (04/10/2018 10:19 PM [...] Cardiac silhouette is stable.Visualized osseous structures arestable. [facility]-[id number] Procedure Note Interface, Radiology Results Incoming - [...] is stable. Visualized osseous structures are stable. [facility]-[id number] Performing Organization Address [facility] Phone Number [facility] [address] [place] [address] POC glucose (04/10/2018 6:10 PM CDT)Only the most recent of4 resultswithin the time period is included. POC glucose 84 65 - 99 mg/dL [facility] DEPARTMENT OF PATHOLOGY Comment: AND GENOMIC MEDICINE [facility] Notified RN Meter ID: [id number] Pulmonary Fellow: Umanzor Sun Performing Organization Address [facility] Phone Number [facility] DEPARTMENT OF PATHOLOGY AND [address] [place] [address] GENOMIC MEDICINE Echocardiogram complete w contrast and 3D if needed (04/10/2018 10:15 AM CDT) Narrative [facility] E[facility] Report [address] [place] [address] Pat.Name:BIN BILL D Pat.ID:[id number] St.Date: 04/10/2018 Refer.MD:FRANCISCO J LIND MD Exam Time: 9:44:00 AMStudy Type:Routine Echo Height:62inWeight: 107lb BSA: 1.47 m2 DOBAge:1945,72Y Sex: FEMALEBP:113/56 HR:76 bpmSonogrphr: Jose E Sung RDCS Pat. Stat.:Inpatient Room:D9E 967A Study Status:Final Echo Event ID:[id number] Order ID:[id number] Reason for Study:Prosthetic Valves - Initial postoperative [...] RAPof 10 mmHg. MEASUREMENTS: 2D Parasternal Long [place] LVOT 1.9 cmLVPWd0.9 cm LVIDd5.1 cmIndex3.4 cm/m LA Ds4.3 cm LVIDs3.6 cmLV Bilg258.5 g(87-129) LV%fs 29.7 % LVM Svteh270.4 g/m2 IVSd 1 cmRWT0.4 LA Sng Plane [...] mmHgAVpkAcRt 8551.9 cm/s2 AV Mean G6.5 mmHgAV DoZy291.3 cm/s2 AV AC 80 msec (83-118) AV Area2.1 cm2(3-5) AV ET261 msec LVOT For Flow LVOT Area2.8 cm2 LVOT SV 63.2 ml YLELsdNly392 cm/sHR84.4 bpm LVOTpkPG 5.8 mmHgLVOT CO5.3 l/min LVOTmnPG 3 mmHgLVOT CI3.6 l/m/m2 LVOT TVI22.3 cm WALL MOTION: RESTING WALL MOTION: Basal Inferoseptal, Basal Inferior, Basal Inferolateral, Basal Anterolateral shane are hypokinetic. Normal in all other shane. Wall Index=1.2 Signed 04/10/2018 05:27 PM Pedro Luis Nuno M.D. Procedure Note Interface, Radiology Results In - 04/10/2018 5:27 PM CDT Echocardiography Report [address] [place] [address] Pat.Name: BILL OLIVIA Pat.ID: [id number] .Date: 04/10/2018 Refer.MD: FRANCISCO J LIND MD Exam Time: 9:44:00 AM Study Type:Routine Echo Height: 62in Weight: 107lb BSA: 1.47 m2 Age: 4 1945,72Y Sex: FEMALE BP: 113/56 HR: 76 bpm Sonogrphr: Jose E Sung RDCS Pat. Stat.:Inpatient Room: [address] Study Status:Final Echo Event ID:[id number] Order ID: [id number] Reason for Study:Prosthetic Valves - Initial postoperative [...] of 10 mmHg. MEASUREMENTS: 2D Parasternal Long [place] LVOT 1.9 cm LVPWd 0.9 cm LVIDd [...] Organization Address City/State/Zipcode Phone Number [facility] [address] [place] [address] Lipid panel (04/10/2018 4:33 AM CDT)Only the most recent of2 resultswithin the time period is included. Cholesterol 156 <200 mg/dL [facility] DEPARTMENT OF PATHOLOGY AND GENOMIC MEDICINE Triglycerides 45 <150 mg/dL [facility] DEPARTMENT OF PATHOLOGY AND GENOMIC MEDICINE HDL cholesterol 51 >40 mg/dL [facility] DEPARTMENT OF PATHOLOGY AND GENOMIC MEDICINE LDL cholesterol 97Comment: Result <100 mg/dL [facility] DEPARTMENT OF obtained by direct LDL PATHOLOGY AND GENOMIC measurement MEDICINE [facility] Comment: PATHOLOGY AND GENOMIC Total Cholesterol (mg/dL) MEDICINE <200 Desirable 590-692Hzaxdzsblf-ritv >=240High Triglycerides (mg/dL) <150 Normal 962-884Gqgagzulnl-bkoo 200-499High >=500Very high HDL Cholesterol (mg/dL) <40Low (male) <40Low (female) LDL Cholesterol (mg/dL) <100 Optimal 100-129Near or above optimal 497-627Qaqhcpnyly-rcqi 160-189High >=190Very high Risk Catergories that modify [...] mg/dL) Specimen Plasma specimen Performing Organization Address City/[facility] Phone Number [facility] DEPARTMENT OF PATHOLOGY AND [address] [place] [address] [facility] MEDICINE ECG Pre/Post Op (PRN) (04/09/2018 1:48 PM CDT) Ventricular rate 67 [facility] Atrial rate 67 [facility] IN interval 170 [facility] QRSD interval 94 [facility] QT interval 380 [facility] QTC interval 401 [facility] P axis 1 20 [facility] QRS axis 1 31 [facility] T wave axis 39 [facility] EKG impression Normal sinus rhythm with sinus [facility] MUSE arrhythmia-Possible Left atrial enlargement-T wave abnormality, consider anterior ischemia-Abnormal ECG-No previous ECGs available- Performing Organization Address [facility] Phone Number [facility] MUSE [address] [place] [address] Cv sawyer cork slabs procedure (04/09/2018 9:30 AM CDT) Narrative Performed At [facility]-SURGEONS: ARNULFO Giron MD and Francisco J Lind MD PROCEDURES: 1.Diagnostic left heart catheterization. 2.Transcatheter aortic valve replacement with 29 mm CoreValve Evolut PRO inside the stentless porcine bioprosthesis (27mm [place] valve). 3.Ascending aortogram. 4.Descending abdominal aortogram. 5.Temporary [...] guidance using a micropuncture needle, and a 6-Malagasy sheath was placed. Then the left femoral [...] was removed and was exchanged for a [place] Plus 0.018 inch wire.The wire was then advanced and the catheter was removed.The proximal portion of the wire was housed in its protective hoop.Attention was then turned to the contralateral femoral artery. After a small incision and spread, theartery was punctured under fluoroscopic guidance using the [place] Plus wire as a target.The puncture was with a micropuncture needle which was then exchanged for a 6-Malagasy sheath, which was in turn exchanged for a Proglide suture.The suture was taped into place and was exchanged for a 10-Malagasy dilator. Over a Super Stiff wire, the 10-Malagasy dilator was then exchanged for a 20Fr [...] on ascending aortogram.Through the pigtail catheter, a Cruise Compare small wire was placed,over the wire for [...] capture system was then exchanged for the 6-Malagasy angled pigtail. A second diagnostic left heart [...] this episode of care. Performing Organization Address [facility] Phone Number [facility] [address] [place] [address] Sodium level, syringe (04/09/2018 8:55 AM CDT)Only the most recent of3 resultswithin the time period is included. Sodium, syringe 137 135 - 148 mEq/L [facility] DEPARTMENT OF PATHOLOGY AND GENOMIC MEDICINE Specimen Blood Performing Organization Address [facility] Phone Number [facility] DEPARTMENT OF PATHOLOGY AND [address] [place] [address] GENOMIC MEDICINE Potassium, syringe (04/09/2018 8:55 AM CDT)Only the most recent of3 resultswithin the time period is included. Potassium, syringe 3.4 (L) 3.5 - 5.0 mEq/L [facility] DEPARTMENT OF PATHOLOGY AND GENOMIC MEDICINE Specimen Blood Performing Organization Address [facility] Phone Number [facility] DEPARTMENT OF PATHOLOGY AND [address] [place] [address] Ionized calcium, arterial (04/09/2018 8:55 AM CDT)Only the most recent of3 resultswithin the time period is included. Ionized calcium, arterial 1.24 1.11 - 1.32 mmol/L [facility] DEPARTMENT OF PATHOLOGY AND GENOMIC MEDICINE Specimen Blood Performing Organization Address [facility] Phone Number [facility] DEPARTMENT OF PATHOLOGY AND [address] [place] [address] Hemoglobin, syringe (04/09/2018 8:55 AM CDT)Only the most recent of3 resultswithin the time period is included. Hemoglobin, syringe 7.8 (L) 12.0 - 16.0 g/dL [facility] DEPARTMENT OF PATHOLOGY AND GENOMIC MEDICINE Specimen Blood Performing Organization Address [facility] Number [facility] DEPARTMENT OF PATHOLOGY AND [address] [place] [address] Glucose level, syringe (04/09/2018 8:55 AM CDT)Only the most recent of3 resultswithin the time period is included. Glucose, syringe 109 (H) 65 - 99 mg/dL [facility] DEPARTMENT OF PATHOLOGY AND GENOMIC MEDICINE Specimen Blood Performing Organization Address [facility] Phone Number [facility] DEPARTMENT OF PATHOLOGY AND [address] [place] [address] Arterial blood gas (04/09/2018 8:55 AM CDT)Only the most recent of3 resultswithin the time period is included. pH, arterial 7.48 (H) 7.35 - 7.[address] [facility] DEPARTMENT OF PATHOLOGY AND GENOMIC MEDICINE pCO2, arterial 44 35 - [address] [facility] DEPARTMENT OF PATHOLOGY AND GENOMIC MEDICINE pO2, arterial 427 (H) 80 - [address] [facility] DEPARTMENT OF PATHOLOGY AND GENOMIC MEDICINE Bicarbonate, arterial 32.3 (H) 21.0 - 28.0 mmol/L [facility] DEPARTMENT OF PATHOLOGY AND GENOMIC MEDICINE Base excess, arterial 8 (H) -2 - 2 mEq/L [facility] DEPARTMENT OF PATHOLOGY AND GENOMIC MEDICINE O2 saturation, arterial 100 95 - 100 % [facility] DEPARTMENT OF PATHOLOGY AND GENOMIC MEDICINE Specimen Blood Performing Organization Address [facility] Phone Number [facility] DEPARTMENT OF PATHOLOGY AND [address] [place] [address] [employer] MEDICINE Prepare RBC, 2 Units (04/08/2018 5:27 PM CDT) Product name Red Blood Cells -1, [facility] DEPARTMENT OF Leukored PATHOLOGY AND GENOMIC MEDICINE Unit number [id number] [facility] DEPARTMENT OF PATHOLOGY AND GENOMIC MEDICINE Product code [id number] [facility] DEPARTMENT OF PATHOLOGY AND GENOMIC MEDICINE Dispense status Returned to not [facility] DEPARTMENT OF transfused PATHOLOGY AND GENOMIC MEDICINE Blood expiration date [facility] DEPARTMENT OF PATHOLOGY AND GENOMIC MEDICINE Blood type code [address] [facility] DEPARTMENT OF PATHOLOGY AND GENOMIC MEDICINE Blood type A POSITIVE [facility] DEPARTMENT OF PATHOLOGY AND GENOMIC MEDICINE Product name Red Blood Cells -1, [facility] DEPARTMENT OF Leukored PATHOLOGY AND GENOMIC MEDICINE Unit number [id number] [facility] DEPARTMENT OF PATHOLOGY AND GENOMIC MEDICINE Product code [id number] [facility] DEPARTMENT OF PATHOLOGY AND GENOMIC MEDICINE Dispense status Returned to not [facility] DEPARTMENT OF transfused PATHOLOGY AND GENOMIC MEDICINE Blood expiration date [facility] DEPARTMENT OF PATHOLOGY AND GENOMIC MEDICINE Blood type code [address] [facility] DEPARTMENT OF PATHOLOGY AND GENOMIC MEDICINE Blood type A POSITIVE [facility] DEPARTMENT OF PATHOLOGY AND GENOMIC MEDICINE Performing Organization Address City/State/[facility] Phone Number [facility] DEPARTMENT OF PATHOLOGY AND [address] [place] [address] GENOMIC MEDICINE Type and screen (04/08/2018 5:27 PM CDT) ABO grouping A [facility] DEPARTMENT OF PATHOLOGY AND GENOMIC MEDICINE Rh type POS [facility] DEPARTMENT OF PATHOLOGY AND GENOMIC MEDICINE Antibody screen (gel) NEG [facility] DEPARTMENT OF PATHOLOGY AND GENOMIC MEDICINE Specimen Blood Performing Organization Address City/[facility] Phone Number [facility] DEPARTMENT OF PATHOLOGY AND [address] [place] [address] [employer] MEDICINE Spirometry pre & post w/ bronchodilator, [...] LLN 63 [facility] Performing Organization Address City/State/[facility] Phone Number [facility] [address] [place] [address] Comprehensive metabolic panel (04/08/2018 4:00 AM CDT)Only the most recent of3 resultswithin the time period is included. Sodium 141 135 - 148 mEq/L [facility] DEPARTMENT OF PATHOLOGY AND GENOMIC MEDICINE Potassium 4.2 3.5 - 5.0 mEq/L [facility] DEPARTMENT OF PATHOLOGY AND GENOMIC MEDICINE Chloride 97 (L) 98 - 112 mEq/L [facility] DEPARTMENT OF PATHOLOGY AND GENOMIC MEDICINE CO2 38 (H) 24 - 31 mEq/L [facility] DEPARTMENT OF PATHOLOGY AND GENOMIC MEDICINE Anion gap 6@ANIO (L) 7 - 15 mEq/L [facility] DEPARTMENT OF PATHOLOGY AND GENOMIC MEDICINE BUN 41 (H) 8 - 23 mg/dL [facility] DEPARTMENT OF PATHOLOGY AND GENOMIC MEDICINE Creatinine 0.9 0.5 - 0.9 mg/dL [facility] DEPARTMENT OF PATHOLOGY AND GENOMIC MEDICINE Glucose 85 65 - 99 mg/dL [facility] DEPARTMENT OF PATHOLOGY AND GENOMIC MEDICINE Calcium 8.5 (L) 8.8 - 10.2 mg/dL [facility] DEPARTMENT OF PATHOLOGY AND GENOMIC MEDICINE Protein 5.7 (L) 6.3 - 8.3 g/dL [facility] DEPARTMENT OF Comment: PATHOLOGY AND GENOMIC [place] 4.6-7.0 g/dL MEDICINE 1 week 4.4-7.6 g/dL 7 months-1year5.1-7.3 g/dL 1-2 years5.6-7.5 g/dL >3 years6.0-8.0 g/dL 18-150 6.3-8.3 g/dL Albumin 2.1 (L) 3.5 - 5.0 g/dL [facility] [facility]OMIC MEDICINE A/G ratio 0.6 (L) 0.7 - 3.[address] [facility] DEPARTMENT OF PATHOLOGY AND GENOMIC MEDICINE Alkaline phosphatase 46 35 - 104 U/L [facility] DEPARTMENT OF PATHOLOGY AND GENOMIC MEDICINE AST 16 10 - 35 U/[address] [facility] DEPARTMENT OF PATHOLOGY AND GENOMIC MEDICINE ALT 9 5 - 50 U/L [facility] DEPARTMENT OF PATHOLOGY AND GENOMIC MEDICINE Total bilirubin 0.3 0.0 - 1.2 mg/dL [facility] DEPARTMENT OF PATHOLOGY AND GENOMIC MEDICINE Specimen Plasma specimen Performing Organization Address City/[facility] Phone Number [facility] DEPARTMENT OF PATHOLOGY AND [address] [place] [address] [facility] Hemoglobin A1c (04/05/2018 3:05 PM CDT) Hemoglobin A1C 4.9 4.0 - 5.6 % [facility] DEPARTMENT OF PATHOLOGY Comment: [facility] HbA1c cutoffs for diagnosing diabetes: 4.0% - 5.6%=normal 5.7% - 6.4%=increased risk for diabetes (prediabetes) >=6.5%=diabetes Goals for glycemic control (ADA 2016) < 7.0%Target for non adults with diabetes. More or less stringent targets may be appropriate for individual patients. <7.5% Target for Children and adolescents with type 1 diabetes. Specimen Blood Performing Organization Address City/[facility] Phone Number [facility] DEPARTMENT OF PATHOLOGY AND [address] [place] [address], [place] [address] [facility] Echocardiogram transesophageal (04/04/2018 10:17 AM CDT) Narrative Performed At [facility] Transesophageal Echo Report [address], [place], [place] [address] [facility]ly [facility].Name:BILL OLIVIA.ID:[id number] .Date: 04/04/2018Refer.MD:FRANCISCO J LIND MD Exam Time: 8:22:00 AMStudy Type:FRANCISCA Height:62inWeight: 106lb BSA: 1.46 m2 DOBAge:1945,72Y Sex: FEMALEBP:122/58 HR:83 bpmSonogrphr: Evan Baitsta MD [facility]. Stat.:Inpatient Room:[place] [address] Study Status:Final Echo Event ID:[id number] Order ID:[id number] Reason for Study:r/o vegetation on aortic valve History / Clinical:Hypertension, AORTIC VALVE REPLACEMENT Procedures:3D Echo, Transesophageal Echo with Colorflow Doppler Race: SUMMARY: Severe aortic regurgitation.Pressure half time 104 ms. Holodiastolic flow reversal in the descending thoracic aorta. LV EF is moderately depressed.Normal RV systolic function. FINDINGS: FRANCISCA:The attending youth care worker performed the FRANCISCA procedure and waspresent for [...] Anesthesia: Moderate Sedation Physician: Rom Lopez M.D. Retail Worker: Evan Batista MD Pre TEEBP HR Post FRANCISCA BP HR 122/58 07746/48 89 Meds:Viscous xylocaine, Cetacaine spray to oropharynx, Versed 1 mg IV, Fentanyl 25 mcg IV Complications: None Condition: Stable MEASUREMENTS: 2D Parasternal Long [place] LVOT 1.9 cmLA Ds4.1 cm LVIDd5 cmAo Rtd 2.6 cm LVIDs3.8 cmLV Ftnj741.8 g(87-129) LV%fs 23 % LVM Index 95.1 g/m2 IVSd 0.7 cmRWT0.4 LVPWd0.9 cm DOPPLER AV Pressure Half Time AV P1/2t 104 msec Signed 04/04/2018 11:38 AM Rom Lopez M.D. Procedure Note Interface, Radiology Results In - 04/04/2018 11:38 AM CDT Transesophageal Echo Report [address], [place], [place] [address] Pat.Name: BILL OLIVIA Pat.ID: [id number] .Date: 04/04/2018 Refer.MD: FRANCISCO J LIND MD Exam Time: 8:22:00 AM Study Type:FRANCISCA Height: 62in Weight: 106lb BSA: 1.46 m2 Age: 4 1945,72Y Sex: FEMALE BP: 122/58 HR: 83 bpm Sonogrphr: Evan Batista MD [facility]. Stat.:Inpatient Room: [place] [address] Study Status:Final Echo Event ID:[id number] Order ID: [id number] Reason for Study:r/o vegetation on aortic valve History / Clinical:Hypertension, AORTIC VALVE REPLACEMENT Procedures:3D Echo, Transesophageal Echo with Colorflow Doppler Race: SUMMARY: Severe aortic regurgitation. Pressure half time 104 ms. Holodiastolic flow reversal in the descending thoracic aorta. LV EF is moderately depressed. Normal RV systolic function. FINDINGS: FRANCISCA: The attending youth care worker performed the FRANCISCA procedure and was present [...] Anesthesia: Moderate Sedation Physician: Rom Lopez M.D. Retail Worker: Evan Batista MD Pre FRANCISCA BP HR Post FRANCISCA BP HR 122/58 83 101/48 89 Meds: Viscous xylocaine, Cetacaine spray to oropharynx, Versed 1 mg IV, Fentanyl 25 mcg IV Complications: None Condition: Stable MEASUREMENTS: 2D Parasternal Long [place] LVOT 1.9 cm LA Ds 4.1 cm LVIDd 5 cm Ao Rtd 2.6 cm LVIDs 3.8 cm LV Mass 138.8 g (87-129) LV%fs 23 % LVM Index 95.1 g/m2 IVSd 0.7 cm RWT 0.4 LVPWd 0.9 cm DOPPLER AV Pressure Half Time AV P1/2t 104 msec Signed 04/04/2018 11:38 AM Rom Lopez M.D. Performing Organization Address City/State/Zipcode Phone Number [facility] [address] [place] [address] B natriuretic peptide (04/04/2018 5:10 AM CDT)Only the most recent of2 resultswithin the time period is included. BNP 230 (H) 0 - 100 pg/mL [facility] DEPARTMENT OF PATHOLOGY AND GENOMIC MEDICINE Performing Organization Address City/State/Zipcode Phone Number [facility] DEPARTMENT OF PATHOLOGY AND [address] [place] [address] GENOMIC MEDICINE XR Chest 1 Vw (04/02/2018 [...] size of the left pleural effusion, now sepsb-jp-hhoipszz in degree. There is a scpwg-tk-aihautud right-sided pleural effusion. There is no pneumothorax. Bones:There is mild osteopenia. Patient is status post median sternotomy with intact wires. There is no acute displaced fracture or dislocation. IMPRESSION: Status post left-sided thoracentesis with interval reduction in size of left pleural effusion, now kfiqu-jf-vocgriow. No left-sided pneumothorax. Gidws-us-uuacbesv right pleural effusion. Bibasilar opacities likely represent atelectasis. Aspiration and/or pneumonia are also possible in the appropriate clinical context. [facility]-[id number] Procedure Note Interface, Radiology Results Incoming - [...] size of the left pleural effusion, now nkmsq-fr-uumetlhi in degree. There is a pqgrq-ij-pczpxhwz right-sided pleural effusion. There is no pneumothorax. Bones: There is mild osteopenia. Patient is status post median sternotomy with intact wires. There is no acute displaced fracture or dislocation. IMPRESSION: Status post left-sided thoracentesis with interval reduction in size of left pleural effusion, now xfawz-as-jnpnlyls. No left-sided pneumothorax. Fzmpp-hn-pajdldas right pleural effusion. Bibasilar opacities likely represent atelectasis. Aspiration and/or pneumonia are also possible in the appropriate clinical context. [facility]-[id number] Performing Organization Address [facility] Phone Number [address] [address] Fungus smear (04/02/2018 4:17 PM CDT) Fungus smear No fungi observed. [facility] DEPARTMENT OF PATHOLOGY Comment: AND GENOMIC MEDICINE Specimen Information Specimen Source: Thoracentesis fluid Specimen Site: Pleural Fluid Specimen Thoracentesis fluid - Pleural Fluid Performing Organization Address [facility] Phone Number [facility] DEPARTMENT OF PATHOLOGY AND [address] [place] [address] GENOMIC MEDICINE AFB culture (04/02/2018 4:17 PM CDT) AFB culture isolate No growth after [address] weeks of incubation[address] [facility] DEPARTMENT OF Comment: PATHOLOGY AND GENOMIC Specimen Information MEDICINE Specimen Source: Thoracentesis fluid Specimen Site: Pleural Fluid Specimen Thoracentesis fluid - Pleural Fluid Performing Organization Address [facility] Phone Number [facility] DEPARTMENT OF PATHOLOGY AND [address] [place] [address] GENOMIC MEDICINE Aerobic culture (04/02/2018 4:17 PM CDT) Aerobic culture isolate No growth after [address] [facility] DEPARTMENT OF Comment: PATHOLOGY AND GENOMIC Specimen Information MEDICINE Specimen Source: Thoracentesis fluid Specimen Site: Pleural Fluid Specimen Thoracentesis fluid - Pleural Fluid Performing Organization Address [facility] Phone Number [facility] DEPARTMENT OF PATHOLOGY AND [address] [place] [address] GENOMIC MEDICINE Gram stain (04/02/2018 4:17 PM CDT) Gram stain isolate Many WBC's [facility] DEPARTMENT OF No organisms seen PATHOLOGY AND GENOMIC MEDICINE Comment: Specimen Information Specimen Source: Thoracentesis fluid Specimen Site: Pleural Fluid Specimen Thoracentesis fluid - Pleural Fluid Performing Organization Address City/[facility] Phone Number [facility] DEPARTMENT OF PATHOLOGY AND [address] [place] [phone] [place] [address] AFB stain (04/02/2018 4:17 PM CDT) AFB stain No acid fast bacilli (AFB) seen. [facility] DEPARTMENT OF PATHOLOGY AND Comment: GENOMIC MEDICINE Specimen Information Specimen Source: Thoracentesis fluid Specimen Site: Pleural Fluid Specimen Thoracentesis fluid - Pleural Fluid Performing Organization Address [facility] Phone Number [facility] DEPARTMENT OF PATHOLOGY AND [address] [place] [address] Fungus culture (04/02/2018 4:17 PM CDT) Fungus culture isolate No growth after [address] of incubation[address] [facility] DEPARTMENT OF Comment: PATHOLOGY AND GENOMIC Specimen Information MEDICINE Specimen Source: Thoracentesis fluid Specimen Site: Pleural Fluid Specimen Thoracentesis fluid - Pleural Fluid Performing Organization Address [facility] Phone Number [facility] DEPARTMENT OF PATHOLOGY AND [address] [place] [address] Anaerobic culture (04/02/2018 4:17 PM CDT) Anaerobic culture No anaerobic organisms isolated. [facility] DEPARTMENT OF isolate Comment: PATHOLOGY AND GENOMIC Specimen Information MEDICINE Specimen Source: Thoracentesis fluid Specimen Site: Pleural Fluid Specimen Thoracentesis fluid - Pleural Fluid Performing Organization Address [facility] Phone Number [facility] DEPARTMENT OF PATHOLOGY AND [address] [place] [address] [place] Thoracentesis With Imaging (04/02/2018 4:15 PM [...] was used for local anesthesia. A 5 Malagasy Care Thread catheter was inserted into the pleural space. 870 mLof pleural fluid was removed. 20 mL of aspirated fluid was also sent for laboratory analysis. The patient tolerated the procedure without difficulty and postprocedure chest x-ray demonstrated no pneumothorax. IMPRESSION: Ultrasound-guided left thoracentesis. [facility]-[id number] Procedure Note Interface, Radiology Results Incoming - [...] was used for local anesthesia. A 5 Malagasy Yueh catheter was inserted into the pleural space. 870 mL of pleural fluid was removed. 20 mL of aspirated fluid was also sent for laboratory analysis. The patient tolerated the procedure without difficulty and postprocedure chest x-ray demonstrated no pneumothorax. IMPRESSION: Ultrasound-guided left thoracentesis. [facility]-[id number] Performing Organization Address City/[facility] Phone Number [facility] [address] [place] [address] Cv cta tavr workup (cta coronary,cta thoracic aorta,cta abdominal runoff) (04/02 2:50 PM CDT) Narrative Performed At [facility] Nuclear Cardiology and Cardiac CT [address] [place] [address] CTA TAVR Protocol Pat.Name:BILL OLIVIA Opal Garcia.ID:[id number] .Date: 04/02/2018Refer.MD:FRANCISCO J LIND MD Exam Time: 2:23:00 PMStudy Type:CTA TAVR Protocol Height:62inWeight: 119.75lb BSA: 1.54 m2 DOBAge:1945,72Y Sex: FEMALEBP:125/56 HR:81 bpm Nuclear Tech:Dale Gardner RT([place])(CT), [facility] CPT - 4: TAVR w Coronaries [id number] Nuclear Event ID:[id number] Order ID:[id number] Reason for Study:Aortic Insufficiency Procedures:CTA TAVR Protocol SUMMARY: Technique: IV contrast was administered and sequential 0.[address] cuts were obtained through the chest using the Siemens Somatom Force CT scanner. Post-processing and 3D reconstruction were done using the M[employer] workstation. Interactive image viewing and volumetric display [...] Cardiovascular CTA Protocol and interpreted by a Clerk Rating.Should a more comprehensive assessment of non-cardiovascular findings be desired, please consult a radiologist.These images are available in the [facility] [employer] PACS system. Signed 04/02/2018 04:17 PM Daniel Sotelo MD Procedure Note Interface, Radiology Results In - 04/02/2018 4:17 PM CDT Nuclear Cardiology and Cardiac CT [address] [place] [address] CTA TAVR Protocol Pat.Name: BILL OLIVIA Radha.ID: [id number] St.Date: 04/02/2018 Refer.MD: FRANCISCO J LIND MD Exam Time: 2:23:00 PM Study Type:CTA TAVR Protocol Height: 62in Weight: 119.75lb BSA: 1.54 m2 Age: 4 1945,72Y Sex: FEMALE BP: 125/56 HR: 81 bpm Nuclear Tech:RT [place])(CT), [facility] CPT - 4: TAVR w Coronaries [id number] Nuclear Event ID:[id number] Order ID: [id number] Reason for Study:Aortic Insufficiency Procedures:CTA TAVR Protocol SUMMARY: Technique: IV contrast was administered and sequential 0.[address] cuts were obtained through the chest using the Siemens Somatom Force CT scanner. Post-processing and 3D reconstruction were done using the Myn[employer] workstation. Interactive image viewing and volumetric display [...] Cardiovascular CTA Protocol and interpreted by a Clerk Rating. Should a more comprehensive assessment of non-cardiovascular findings be desired, please consult a radiologist. These images are available in the [facility] [employer] PACS system. Signed 04/02/2018 04:17 PM Daniel Sotelo MD Performing Organization Address City/State/Zipcode Phone Number [facility] [address] [place] [phone] [place] carotid duplex (04/02/2018 2:10 PM CDT) Narrative Performed At [facility] Vascular Ultrasound Laboratory Carotid Artery Duplex Report [address] [facility], [facility] [address], [place] [phone] For it quality analyst purposes, the categorization of the degree of the stenosis of this exam is based on criteria described in the IAC carotid stenosis grading white paper( www.intersocietal.org/Vascular) and Jody Ballesteros, James Bales, et al. Carotid artery stenosis: cleveland-scale and Doppler US diagnosis--Society of Radiologists in Ultrasound Consensus Conference. Radiology. 2003 Jun; 229(2):340-6. Pat.Name:BILL OLIVIA Pat.ID:[id number] .Date: 04/02/2018Refer.MD:FRANCISCO J LIND MD Exam Time: 1:24:00 PMStudy Type:Carotid DOBAge:1945,72Y Sex: FEMALE Sonogrphr: PATRICK Richey, [facility]. Stat.:[facility] TapeVol: SB, CPT - 4: 11894 Echo Event ID:[id number] Order ID:[id number] Reason for Study:Gradual decline in strenth and [...] 2.Abnormal doppler flows and velocities Carotid Findings:Junaid HaqFlw AntegradeAntegrade Subclavian Biphasic Biphasic MEASUREMENTS: DOPPLER Left CCA Dist CCA Dist PSV 125 cm/sCCA Dist EDV3.15 cm/s Left CCA Mid CCA Mid TAA017 cm/sCCA Mid EDV0 cm/s Left CCA Prox CCA Prox PSV 127 cm/sCCA Prox EDV 2.1 cm/s Left ICA Dist ICA Dist PSV64.9 cm/Pili Dist EDV2.16 cm/s Left ICA Mid ICA Mid FRK428 cm/Pili Mid EDV 3.15 cm/s Left ICA Prox ICA Prox PSV 154 cm/Pili Prox EDV1.05 cm/s Left ECA Prox ECA Prox PSV 132 cm/sECA Prox EDV 4.2 cm/s Left SCA Prox SCA Prox PSV 163 cm/sSCA Prox EDV 4.2 cm/s Left Vertebral Vertebral KPR067 cm/sVertebral EDV0 cm/s Right CCA Dist CCA Dist PSV81.7 cm/sCCA Dist EDV 0.749 cm/s Right CCA Mid CCA Mid DZI659 cm/sCCA Mid EDV 0.75 cm/s Right CCA Prox CCA Prox PSV 105 cm/sCCA Prox EDV 0 cm/s Right ICA Dist ICA Dist PSV 109 cm/Pili Dist EDV 1.5 cm/s Right ICA Mid ICA Mid [id number] cm/Pili Mid EDV1.5 cm/s Right ICA Prox [...] Vascular Ultrasound Laboratory Carotid Artery Duplex Report [address] [place] [address] For it quality analyst purposes, the categorization of the degree of the stenosis of this exam is based on criteria described in the IAC carotid stenosis grading white paper( www.intersocietal.org/Vascular) and Jody Ballesteros, James Bales, et al. Carotid artery stenosis: cleveland-scale and Doppler US diagnosis--Society of Radiologists in Ultrasound Consensus Conference. Radiology. 2003 Nov; 229(2):340-6. Pat.Name: BILL OLIVIA Pat.ID: [id number] .Date: 04/02/2018 Refer.MD: FRANCISCO J LIND MD Exam Time: 1:24:00 PM Study Type:Carotid Age: 4 1945,72Y Sex: FEMALE Sonogrphr: PATRICK Richey, [facility]ENTERBPat. Stat.:Inpatient Room: D967A Tape Vol: SB, CPT - 4: 37049 Echo Event ID:[id number] Order ID: [id number] Reason for Study:Gradual decline in strenth and [...] PM John Romo MD Performing Organization Address [facility] Hospitalcode Phone Number [facility] [address] [place] [address] Echocardiogram complete w contrast and 3D if needed (04/02/2018 9:14 AM CDT) Narrative Performed At [facility] Echocardiography Report [address] [place] [address] Pat.Name:ANGELICADIMA BILL Opal Pat.ID:[id number] .Date: 04/02/2018Refer.MD:FRANCISCO J LIND MD Exam Time: 9:47:00 AMStudy Type:Routine Echo Height:62inWeight: 120lb BSA: 1.54 m2 DOBAge:1945,72Y Sex: FEMALEBP:101/43 HR:85 bpmSonogrphr: MADDIE Kurtz Pat. Stat.:Inpatient Room:[facility] Study Status:Final Echo Event ID:[id number] Order ID:[id number] Reason for Study:Pre-op History / Clinical:Hypertension, AORTIC [...] valve regurgitation. FINDINGS: LV: LV size is udbd-wn-hgrbzxxqqx enlarged. There is moderate eccentricLV hypertrophy. LV [...] not well seen. MEASUREMENTS: 2D Parasternal Long [place] LVOT 1.9 cmIVSd 1 cm LA Ds5.3 cmLVPWd1.1 cm Ao Rtd 3.2 cmIndex2.1 cm/m LV Qzub388 g(87-129) LVIDd5.2 cmIndex3.4 cm/m LVM Seaku653.1 g/m2 LVIDs3.9 cmRWT0.4 LV%fs 25.7 % DOPPLER AV For Flow/ADEOLA AV pkVel 275.7 cm/s (100-170) AV AC/ET 0.3 AV mnVel 173.5 cm/Jewel TVI57.4 cm AV pkPG 30.4 mmHgAVpkAcRt 4149.2 cm/s2 AV Mean G 14.8 mmHgAV DfGv948.5 cm/s2 AV AC115 msec (83-118) AV Area1.6 cm2(3-5) AV ET331 msec LVOT For Flow LVOT Area2.8 cm2 LVOT SV 91.7 ml KKFCpzCnp065.3 cm/sHR80.5 bpm LVOTpkPG 7.6 mmHgLVOT CO7.4 l/min LVOTmnPG 3.5 mmHgLVOT CI4.8 l/m/m2 LVOT TVI32.3 cm Signed 04/02/2018 05:57 PM Klaus Ryan M.D. Procedure Note Interface, Radiology Results In - 04/02/2018 5:58 PM CDT Echocardiography Report [address] [place] [address] Pat.Name: BILL OLIVIA Pat.ID: [id number] .Date: 04/02/2018 Refer.: FRANCISCO J LIND MD Exam Time: 9:47:00 AM Study Type:Routine Echo Height: 62in Weight: 120lb BSA: 1.54 m2 Age: 4 1945,72Y Sex: FEMALE BP: 101/43 HR: 85 bpm Sonogrphr: MADDIE Kurtz Pat. Stat.:Inpatient Room: D 967 Study Status:Final Echo Event ID:[id number] Order ID: [id number] Reason for Study:Pre-op History / Clinical:Hypertension, AORTIC [...] valve regurgitation. FINDINGS: LV: LV size is mmgz-pq-hrtutpxvyk enlarged. There is moderate eccentric LV hypertrophy. [...] not well seen. MEASUREMENTS: 2D Parasternal Long [place] LVOT 1.9 cm IVSd 1 cm LA [...] Performing Organization Address City/State/Zipcode Phone Number [facility] [address] [place] [address] Urinalysis screen and microscopy, with reflex to culture (04/01/2018 10:00 PM CDT) Specimen site Clean catch [facility] DEPARTMENT OF PATHOLOGY AND GENOMIC MEDICINE Color, UA Yellow [facility] DEPARTMENT OF PATHOLOGY AND GENOMIC MEDICINE Appearance, UA Turbid [facility] DEPARTMENT OF PATHOLOGY AND GENOMIC MEDICINE Specific gravity, UA 1.013 1.001 - 1.[address] [facility] DEPARTMENT OF PATHOLOGY AND GENOMIC MEDICINE pH, UA 7.0 5.0 - 8.[address] [facility] DEPARTMENT OF PATHOLOGY AND GENOMIC MEDICINE Protein, UA Negative Negative [facility] DEPARTMENT OF PATHOLOGY AND GENOMIC MEDICINE Glucose, UA Negative Negative [facility] DEPARTMENT OF PATHOLOGY AND GENOMIC MEDICINE Ketones, UA Negative Negative [facility] DEPARTMENT OF PATHOLOGY AND GENOMIC MEDICINE Bilirubin, UA Negative Negative [facility] DEPARTMENT OF PATHOLOGY AND GENOMIC MEDICINE Blood, UA Negative Negative [facility] DEPARTMENT OF PATHOLOGY AND GENOMIC MEDICINE Nitrite, UA Negative Negative [facility] DEPARTMENT OF PATHOLOGY AND GENOMIC MEDICINE Urobilinogen, UA 2.0 (A) <2.[address] [facility] DEPARTMENT OF PATHOLOGY AND GENOMIC MEDICINE Leukocyte esterase, UA Negative Negative [facility] DEPARTMENT OF PATHOLOGY AND GENOMIC MEDICINE WBC, UA <1 0 - 4 /HPF [facility] DEPARTMENT OF PATHOLOGY AND GENOMIC MEDICINE RBC, UA 1 0 - 5 /HPF [facility] DEPARTMENT OF PATHOLOGY AND GENOMIC MEDICINE Bacteria, UA Few None seen [facility] DEPARTMENT OF PATHOLOGY AND GENOMIC MEDICINE Yeast, UA None seen [facility] DEPARTMENT OF PATHOLOGY AND GENOMIC MEDICINE Yeast with pseudohyphae, UA None seen [facility] DEPARTMENT OF PATHOLOGY AND GENOMIC MEDICINE Amorphous crystals Moderate [facility] DEPARTMENT OF PATHOLOGY AND GENOMIC MEDICINE Calcium oxalate crystals, UA Few [facility] DEPARTMENT OF PATHOLOGY AND GENOMIC MEDICINE Hyaline casts, UA 7 /LPF [facility] DEPARTMENT OF PATHOLOGY AND GENOMIC MEDICINE Specimen Urine Performing Organization Address City/[facility]/Zipcode Phone Number [facility] DEPARTMENT OF PATHOLOGY AND [address] [place] [address] Urine culture (04/01/2018 10:00 PM CDT) Urine culture SEE COMMENTComment: Bacteriuria [facility] DEPARTMENT OF PATHOLOGY screen negative. AND GENOMIC MEDICINE Performing Organization Address City/[facility]/Zipcode Phone Number [facility] DEPARTMENT OF PATHOLOGY AND [address] [place] [address] XR Chest 1 Vw Portable (04/01/2018 8:33 PM CDT) Narrative Performed At EXAMINATION: XR CHEST 1 VW PORTABLE [facility] INDICATION: preop COMPARISON: Most recent prior IMPRESSION: Stable cardiomegaly. Prior sternotomy. Arteriosclerosis aortic arch. Moderate left and small to moderate right pleural effusions with compressive atelectasis. Central pulmonary vascular congestion. No visible pneumothorax. [facility]-[id number] Procedure Note Interface, Radiology Results Incoming - 04/01/2018 9:05 PM CDT EXAMINATION: XR CHEST 1 VW PORTABLE INDICATION: preop COMPARISON: Most recent prior IMPRESSION: Stable cardiomegaly. Prior sternotomy. Arteriosclerosis aortic arch. Moderate left and small to moderate right pleural effusions with compressive atelectasis. Central pulmonary vascular congestion. No visible pneumothorax. [facility]-[id number] Performing Organization Address [facility] Phone Number [facility] [address] [place] [phone] Partial thromboplastin time, activated (04/01/2018 8:20 PM CDT) PTT 27.2 23.0 - 36.[address] [facility] DEPARTMENT OF PATHOLOGY Comment: AND [facility] PTT therapeutic range for unfractionated heparin is 61.0-112.0 seconds which corresponds to Anti-Xa 0.3-0.7 U/ml. Specimen Blood Performing Organization Address [facility] Phone Number [facility] DEPARTMENT OF PATHOLOGY AND [address] [place] [id number] [facility] Prothrombin time with INR (04/01/2018 8:20 PM CDT) Prothrombin time 13.9 12.0 - 15.[address] [facility] DEPARTMENT OF PATHOLOGY AND GENOMIC MEDICINE INR 1.[address] [facility] DEPARTMENT OF Comment: PATHOLOGY AND GENOMIC The International Normalized Ratio (INR) is a therapeutic MEDICINE monitoring tool for patients who are stable on oral anticoagulant therapy. An INR of 2.0-3.0 is suggested for deep vein thrombosis/pulmonary embolism. Specimen Blood Performing Organization Address [facility] Phone Number [facility] DEPARTMENT OF PATHOLOGY AND [address] [place] [phone] [facility] Blood culture, aerobic & anaerobic (04/01/2018 8:00 PM CDT)Only the most recent of2 resultswithin the time period is included. Blood culture isolate No growth after [address] days of incubation[address] [facility] DEPARTMENT OF Comment: PATHOLOGY AND GENOMIC Specimen Information MEDICINE Specimen Source: Blood Specimen Site: Peripheral Hand Right Specimen Blood Performing Organization Address [facility] Phone Number [facility] DEPARTMENT OF PATHOLOGY AND [address] [place] [phone] [facility] Thyroid stimulating hormone (04/01/2018 7:22 PM CDT) TSH 1.92 0.27 - 4.20 uIU/mL [facility] DEPARTMENT OF PATHOLOGY AND GENOMIC [facility] Specimen Plasma specimen Performing Organization Address [facility]/Zipcode Phone Number [facility] DEPARTMENT OF PATHOLOGY AND [address] [place] [address] GENOMIC MEDICINE T4, free (04/01/2018 7:22 PM CDT) T4, free 1.2 0.9 - 1.7 ng/dL [facility] DEPARTMENT OF PATHOLOGY AND GENOMIC MEDICINE Specimen Plasma specimen Performing Organization Address [facility] Phone Number [facility] DEPARTMENT OF PATHOLOGY AND [address] [place] [phone] [facility]IC[facility] Hepatic function panel (04/01/2018 7:22 PM CDT) Albumin 2.5 (L) 3.5 - 5.0 g/dL [facility] DEPARTMENT OF PATHOLOGY AND GENOMIC MEDICINE Total bilirubin 0.3 0.0 - 1.2 mg/dL [facility] DEPARTMENT OF PATHOLOGY AND GENOMIC MEDICINE Bilirubin direct <0.2 0.0 - 0.3 mg/dL [facility] DEPARTMENT OF PATHOLOGY AND GENOMIC MEDICINE Alkaline phosphatase 50 35 - 104 U/L [facility] DEPARTMENT OF PATHOLOGY AND GENOMIC MEDICINE Protein 6.6 6.3 - 8.3 g/dL [facility] DEPARTMENT OF Comment: PATHOLOGY AND GENOMIC [place] 4.6-7.0 g/dL MEDICINE 1 week 4.4-7.6 g/dL 7 months-1year5.1-7.3 g/dL 1-2 years5.6-7.5 g/dL >3 years6.0-8.0 g/dL 18-150 6.3-8.3 g/dL ALT 13 5 - 50 U/L [facility] DEPARTMENT OF PATHOLOGY AND GENOMIC MEDICINE AST 16 10 - 35 U/L [facility] DEPARTMENT OF PATHOLOGY AND GENOMIC MEDICINE Specimen Plasma specimen Performing Organization Address [facility] Phone Number [facility] DEPARTMENT OF PATHOLOGY AND [address] [place] [phone] GENOMIC MEDICINE after 10/25/2017 Insurance Payer Benefit Plan / Group Subscriber ID Type Phone Address MEDICARE MEDICARE PART A AND B xxxxxxxxxx Medicare [place], [place] AARP AARP SUPPLEMENT xxxxxxxxx-x Commercial Advance Directives Patient has advance care planning documents on file. For more information, please contact:Jose Alfredo [id number] [place] [address]
[2018-10-26] MEDS ORDERED: ACETAMINOPHEN 500 MG TAB ONE (13:37)
--- NOTE | 2018-10-26 14:08 | RAD REPORT ---
EXAM DESCRIPTION: CT - Thorax Wo Con - 10/26/2018 1:50 pm CLINICAL HISTORY: Chest pain COMPARISON: July 2018 chest x-ray and 2015 CT chest TECHNIQUE: Computed axial tomography of the chest was obtained. Contrast was not requested. All CT scans are performed using dose optimization technique as appropriate and may include automated exposure control or mA/KV adjustment according to patient size. FINDINGS: The evaluation of mediastinum, armaan and vessels is limited secondary to lack of IV contras t administration. Moderate left pleural effusion is present. A 6 x 3 centimeter loculated right pleural effusion is pre sent. A 5 centimeter right lower lobe opacity is seen. Mild left lower lobe atelectasis. No mediastinal or hilar lymphadenopathy is seen. An ascending thoracic aortic stent in place IMPRESSION: Moderate left pleural effusion 6 x 3 centimeter loculated right pleural effusion 5 centimeter right lower lobe opacity may represent atelectasis or mass. Thoracic aortic stent
--- NOTE | 2018-10-26 14:50 | EDPHYS ---
Physician Documentation [facility] Name: Shannan Olivia Age: 72 yrs Sex: Female : 1945 Arrival Date: 10/26/2018 Time: 12:56 Bed 26 Private MD: Mickey Gates C ED Physician Alphonse Solis HPI: 10/26 14:43 This 72 yrs old Female presents to ER via Wheelchair with complaints of Back ma2 Pain. 14:43 The patient presents with pain that is acute. The symptoms are located in the midback . ma2 Onset: The symptoms/episode began/occurred gradually, 1 day(s) ago. Associated signs and symptoms: Pertinent negatives: chest pain, dysuria, hematuria, nausea, weakness. Severity of symptoms: At their worst the symptoms were moderate, in the emergency department the symptoms are unchanged. The patient has not experienced similar symptoms in the past. has hx of chronic lung disease and pleural effusion here with mid back pain, that started few hrs after she was trying to pull her spouse from a car, pain is constant and worse with movement or twisting the back no chest pain . Historical: - Allergies: 13:08 NKA; aa5 - PMHx: 13:08 acid reflux; Anxiety; Asthma; CHF; COPD; Hypertension; pleural effusion-06/2015; aa5 Pneumonia; shingles; - PSHx: 13:08 valve replacement; aa5 - Immunization history:: Flu vaccine is up to date. - Social history:: Smoking status: Patient/guardian denies using tobacco, Patient/guardian denies using alcohol, street drugs, The patient lives with family. - Ebola Screening: : No symptoms or risks identified at this time. - Family history:: not pertinent. ROS: 14:43 Constitutional: Negative for fever, chills, and weight loss. ma2 14:43 MS/extremity: Positive for decreased range of motion, pain, Negative for contusion, swelling, tenderness. 14:43 All other systems are negative. Exam: 14:43 Constitutional: This is a well developed, well nourished patient who is awake, alert, ma2 and in no acute distress. Cardiovascular: Regular rate and rhythm with a normal S1 and S2. No gallops, murmurs, or rubs. Normal PMI, no JVD. No pulse deficits. Respiratory: Lungs have equal breath sounds bilaterally, clear to auscultation and percussion. No rales, rhonchi or wheezes noted. No increased work of breathing, no retractions or nasal flaring. Abdomen/GI: Soft, non-tender, with normal bowel sounds. No distension or tympany. No guarding or rebound. No evidence of tenderness throughout. 14:43 Skin: Warm, dry with normal turgor. Normal color with no rashes, no lesions, and no evidence of cellulitis. MS/ Extremity: Pulses equal, no cyanosis. Neurovascular intact. Full, normal range of motion. Neuro: Awake and alert, GCS 15, oriented to person, place, time, and situation. Cranial nerves II-XII grossly intact. Motor strength 5/5 in all extremities. Sensory grossly intact. Cerebellar exam normal. Normal gait. 14:43 Chest/axilla: Palpation: no acute changes, crepitus, is not appreciated, tenderness, that is mild, of the right lateral posterior chest. Vital Signs: 13:08 BP 96 / 60; Pulse 88; Resp 18 S; Temp 98.1(TE); Pulse Ox 97% 2 lpm ; Weight 47.17 kg aa5 (R); Pain 4/10; 13:57 BP 105 / 55; Pulse 85; Resp 19; Pulse Ox 100% on 2 lpm NC; ca1 14:49 BP 91 / 57; Pulse 81; Resp 18; Pulse Ox 100% on 2 lpm NC; ca1 13:08 Pt reports pain is 9/10 with any movement. aa5 MDM: 13:25 Patient medically screened. ma2 14:43 Differential diagnosis: Ligament Injury Osteoarthritis sprain. Data reviewed: vital ma2 signs, nurses notes, radiologic studies. Response to treatment: the patient's symptoms have resolved after treatment. 14:49 ED course: has mild luculated right plural effusion and opacity on ct however it is ma2 unlikely that this is the cause of her pain as pain is higher in med back and reproducible on exam . 03 13:26 Order name: CT Chest Wo Con; Complete Time: 14:42 ma2 Administered Medications: 13:29 Drug: Tylenol 1000 mg Route: PO; ca1 14:50 Follow up: Response: No adverse reaction; Pain is decreased ca1 Disposition: 10/26/18 14:49 Discharged to Home. Impression: Low back pain. - Condition is Stable. - Discharge Instructions: Back Pain, Adult. - Prescriptions for Tylenol- Codeine #3 300-30 mg Oral Tablet - take 2 tablet by ORAL route every 6 hours As needed; 30 tablet. Cyclobenzaprine 10 mg Oral Tablet - take 1 tablet by ORAL route every 8 hours As needed; 30 tablet. - Medication Reconciliation Form, Thank You Letter, Antibiotic Education, Prescription Opioid Use form. - Follow up: Private Physician; When: Tomorrow; Reason: Continuance of care. - Problem is new. - Symptoms are resolved. Signatures: Dispatcher [employer] EDMS Dee Baig RN RN aa5 Alphonse Solis MD MD ma2 Izzy Moreno RN RN ca1 Corrections: (The following items were deleted from the chart) 15:14 14:49 10/26/2018 14:49 Discharged to Home. Impression: Low back pain. Condition is ca1 Stable. Forms are Medication Reconciliation Form, Thank You Letter, Antibiotic Education, Prescription Opioid Use. Follow up: Private Physician; When: Tomorrow; Reason: Continuance of care. Problem is new. Symptoms are resolved. ma2
--- NOTE | 2018-10-26 14:50 | ER ---
Nurse's Notes [facility] Name: Shannan Olivia Age: 72 yrs Sex: Female : 1945 Arrival Date: 10/26/2018 Time: 12:56 Bed 26 Private MD: Mickey Gates C Diagnosis: Low back pain Presentation: 10/26 13:05 Presenting complaint: Patient states: "Sunday my mid back started hurting". Pt states aa5 "maybe it was when I was helping my get onto the couch". Transition of care: patient was not received from another setting of care. Onset of symptoms was September 2018. Risk Assessment: Do you want to hurt yourself or someone else? Patient reports no desire to harm self or others. Initial Sepsis Screen: Does the patient meet any 2 criteria? No. Patient's initial sepsis screen is negative. Does the patient have a suspected source of infection? No. Patient's initial sepsis screen is negative. Care prior to arrival: None. 13:05 Method Of Arrival: Wheelchair aa5 13:05 Acuity: KANU 4 aa5 Historical: - Allergies: 13:08 NKA; aa5 - PMHx: 13:08 acid reflux; Anxiety; Asthma; CHF; COPD; Hypertension; pleural effusion-06/2015; aa5 Pneumonia; shingles; - PSHx: 13:08 valve replacement; aa5 - Immunization history:: Flu vaccine is up to date. - Social history:: Smoking status: Patient/guardian denies using tobacco, Patient/guardian denies using alcohol, street drugs, The patient lives with family. - Ebola Screening: : No symptoms or risks identified at this time. - Family history:: not pertinent. Screenin:15 Abuse screen: Denies threats or abuse. Denies injuries from another. Nutritional ca1 screening: No deficits noted. Tuberculosis screening: No symptoms or risk factors identified. Fall Risk None identified. Assessment: 13:15 General: Appears in no apparent distress. Behavior is calm, cooperative, appropriate ca1 for age. Pain: Complains of pain in thoracic area, left mid back and right mid back Pain radiates to right lateral anterior chest Pain currently is 5 out of 10 on a pain scale. Pain began 2-3 days ago. Neuro: Level of Consciousness is awake, alert, obeys commands, Oriented to person, place, time, situation. Cardiovascular: Heart tones S1 S2 present Capillary refill < 3 seconds Patient's skin is warm and dry. Respiratory: Airway is patent Respiratory effort is even, unlabored, Respiratory pattern is regular, symmetrical, Breath sounds are clear bilaterally. GI: Abdomen is flat, non-distended, Bowel sounds present X 4 quads. Abd is soft and non tender X 4 quads. : No signs and/or symptoms were reported regarding the genitourinary system. EENT: No signs and/or symptoms were reported regarding the EENT system. Derm: Skin is fragile, is thin, Skin is pink, warm \\T\\ dry. Musculoskeletal: Circulation, motion, and sensation intact. 13:57 Reassessment: Patient appears in no apparent distress at this time. Patient and/or ca1 family updated on plan of care and expected duration. Pain level reassessed. Patient is alert, oriented x 3, equal unlabored respirations, skin warm/dry/pink. Pt from CT scan. 14:49 Reassessment: Patient appears in no apparent distress at this time. Patient and/or ca1 family updated on plan of care and expected duration. Pain level reassessed. Patient is alert, oriented x 3, equal unlabored respirations, skin warm/dry/pink. Patient states feeling better. Vital Signs: 13:08 BP 96 / 60; Pulse 88; Resp 18 S; Temp 98.1(TE); Pulse Ox 97% 2 lpm ; Weight 47.17 kg aa5 (R); Pain 4/10; 13:57 BP 105 / 55; Pulse 85; Resp 19; Pulse Ox 100% on 2 lpm NC; ca1 14:49 BP 91 / 57; Pulse 81; Resp 18; Pulse Ox 100% on 2 lpm NC; ca1 13:08 Pt reports pain is 9/10 with any movement. aa5 ED Course: 12:56 Patient arrived in ED. mr 12:56 Mickey Gates MD is Private Physician. mr 13:05 Arm band placed on. aa5 13:07 Triage completed. aa5 13:22 Bed in low position. Call light in reach. Side rails up X 1. Side rails up X2. Warm jp3 blanket given. Pulse ox on. NIBP on. 13:24 Miguelito Yancey NP is PHCP. pm1 13:24 Alphonse Solis MD is Attending Physician. pm1 13:29 Izzy Moreno, RN is Primary Nurse. ca1 13:40 CT completed. Patient tolerated procedure well. Patient moved to CT. Patient moved back kw1 from CT. 13:50 CT Chest Wo Con In Process Unspecified. EDMS 14:56 No provider procedures requiring assistance completed. Patient did not have IV access ca1 during this emergency room visit. Administered Medications: 13:29 Drug: Tylenol 1000 mg Route: PO; ca1 14:50 Follow up: Response: No adverse reaction; Pain is decreased ca1 Outcome: 14:49 Discharge ordered by . ma2 15:14 Discharged to home via wheelchair. ca1 15:14 Condition: stable 15:14 Discharge instructions given to patient, Instructed on discharge instructions, follow up and referral plans. medication usage, Demonstrated understanding of instructions, follow-up care, medications, Prescriptions given X 2. 15:14 Patient left the ED. ca1 Signatures: Dispatcher [employer] EDWV OlsenAnnamarie mr BaigDee RN RN aa5 Miguelito Yancey, RESPITE PROVIDER RESPITE PROVIDER pm1 Luly Kern kw1 Alphonse Solis MD MD ma2 Hieu Myers jp3 Izzy Moreno, RN RN ca1
[2018-10-26 15:41] VITALS: TEMP 98.1
[2018-10-26 15:42] VITALS: O2SAT 100
[2018-10-26 15:43] VITALS: BP 91/57
== END 2018-10-26 15:14 | disposition home or self-care (01) ==
LOC: ER 12:52
DX: M54.5 Low back pain (principal); I10 Essential (primary) hypertension
CPT/HCPCS: 71250; 99284

== ENCOUNTER 2018-10-31 16:02 | Emergency (ER) | payer OTHER, MEDICARE ==
--- OUTSIDE RECORDS SUMMARY | 2018-10-31 16:06 | XMS REPORT | Clinical Summary ---
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 Encounters Date Type Specialty Care [...] valve replacement) 04/01/2018 Intake Access N/A after 10/30/2017 Family History Medical History Relation Name Comments [...] Care Team Description 04/10/2019 Multidisciplinary Visit Cardiology oKrey Giron MD [address] [address] Health Maintenance Due Date Last Done Comments BREAST CANCER SCREENING 1996 COLON CANCER SCREENING 1996 SHINGLES VACCINES (#1) 1996 65+ PNEUMOCOCCAL VACCINE (1 of 2 - PCV13) 12/08/2011 PNEUMOCOCCAL POLYSACCHARIDE VACCINE AGE 65 AND OVER 12/08/2011 INFLUENZA VACCINE 03/27/2018 Implants Implanted Type Area Children'S Literature Professor Device Shelf Model / Identifier Expiration Serial / Date Lot Evolut Pro 29'Valve - [id number] - [id number] Cardiovascular N/A: [employer] 01/02/2020 EVOLUTPRO 29 US / Implanted: Qty: 1 on 04/09/2018 by Francisco J Lind MD Implants N/A COREVALVE [id number] / [id number] System Clsr Sut Meditd 6fr Perclose Proglide - [id number] Surgical N/A: THEODORE [id number] / Implanted: 04/09/2018 (Quantity not on file) Implants; N/A VASCULAR / Expanders; DEVICES Extenders; Surgical Wires System Clsr Sut Meditd 6fr Perclose Proglide - [id number] Surgical N/A: THEODORE [id number] / Implanted: 04/09/2018 (Quantity not on file) Implants; N/A VASCULAR / Expanders; DEVICES Extenders; Surgical Wires Catheter Card Nimo 6fr 125cm Ep Bipolar Pace Elctrd N/A: BARD [employer] [id number] / Implanted: Qty: 1 on 04/09/2018 by Francisco J Lind MD Groin / Procedures Procedure Name Priority Date/Time Associated Diagnosis Comments ECHOCARDIOGRAM 2D Routine 05/09/2018 5:23 Aortic valve disorder Results for this COMPLETE W MMODE PM CDT S/P TAVR procedure are in SPECTRAL COLOR DOPPLER (transcatheter aortic the results (83110) valve replacement) section. ECG 12-LEAD Routine 05/09/2018 [...] are in SPECTRAL COLOR DOPPLER the results (85791) section. POC GLUCOSE Routine 04/10/2018 7:57 Results [...] 04/09/2018 6:55 AM Staff: Anesthesiologist: OLAF ROSAS Resident/VESSEL TRAFFIC OFFICER/AA: MARICRUZ SANCHES Performed by: Resident/VESSEL TRAFFIC OFFICER and resident/VESSEL TRAFFIC OFFICER/AA Pre-procedure: patient identified, IV checked, site and [...] to catheter itself. Bleeding improved with pressure. DC AN ELECTIVE ENDOTRACHEAL AIRWAY Routine 04/09/2018 8:08 AM CDT Procedure Note - Olaf Rosas MD - 04/09/2018 8:08 AM CDT Airway Performed by: MARICRUZ SANCHES Authorized by: MARICRUZ SANCHES Location: OR Urgency: Elective Difficult Airway: No Anesthesiologist: OLAF ROSAS Resident/VESSEL TRAFFIC OFFICER/AA: MARICRUZ SANCHES Performed by: resident/VESSEL TRAFFIC OFFICER and resident/VESSEL TRAFFIC OFFICER/AA Preoxygenated with 100% O2: Yes C-spine Precautions [...] are in SPECTRAL COLOR DOPPLER the results (41001) section. ZZESTIMATED GFR Routine 04/02/2018 4:00 AM [...] procedure are in the results section. after 10/30/2017 Results Echocardiogram complete w contrast and 3D if needed (05/09/2018 5:23 PM CDT) Narrative Performed At [facility] Echocardiography Report Pat.Name:BILL OLIVIA Pat.ID:[id number] St.Date: 05/09/2018 Refer.MD:KOREY GIRON MD Exam Time: 4:40:00 PMStudy Type:Routine Echo Height:62inWeight: 108lb BSA: 1.47 m2 DOBAge:1945,72Y Sex: FEMALEBP:112/61 HR:80 bpm Sonogrphr: Viola Diez, RCS, RCCS, CCT Pat. Stat.:[facility] TapeVol: [facility], Study Status:Final Echo Event ID:[id number] Order ID:[id number] Reason for Study:S/P AVR History / Clinical:Hypertension, [...] of 0-5 mmHg. MEASUREMENTS: 2D Parasternal [place] LVOT 1.8 cmLA Ds4.1 cm LVIDd4.3 cmIndex2.9 cm/m Ao An2 cm LVIDs2.9 cmAo Rtd 2.3 cm Index1.6 cm/m LV%fs 33.3 % LV Etvx756.9 g(87-129) IVSd 0.9 cmLVM Index 78.8 g/m2 LVPWd0.8 cmRWT0.4 LA Volume LA Vol52 hsHmvpq31.4 ml/m DOPPLER LVOT Stroke Vol LVOT 1.8 cmLVOT CO4 l/min LVOT TVI19.9 cmLVOT CI2.7 l/m/m2 LVOT Tm282 ynvjPG76 bpm LVOT SV 50.8 ml AV For [...] Results In - 05/10/2018 11:38 PM CDT [facility] Echocardiography Report Pat.Name: BILL OLIVIA Pat.ID: [id number] St.Date: 05/09/2018 Refer.MD: KOREY GIRON MD Exam Time: 4:40:00 PM Study Type:Routine Echo Height: 62in Weight: 108lb BSA: 1.47 m2 Age: 5 1945,72Y Sex: FEMALE BP: 112/61 HR: 80 bpm Sonogrphr: Viola Diez, RCS, RCCS, CCT Pat. Stat.:Outpatient Room: [address] Vol: [facility], Study Status:Final Echo Event ID:[id number] Order ID: [id number] Reason for Study:S/P AVR History / Clinical:Hypertension, [...] of 0-5 mmHg. MEASUREMENTS: 2D Parasternal [place] LVOT 1.8 cm LA Ds 4.1 cm [...] PM Teena Bryant M.D. Performing Organization Address [facility] Phone Number [facility] [address] [place] [address] ECG 12 lead (05/09/2018 3:36 PM CDT)Only the most recent of3 resultswithin the time period is included. Ventricular rate 89 [facility] MUSE Atrial rate 89 [facility] MUSE DC interval 154 [facility] MUSE QRSD interval 88 [facility] MUSE QT interval 350 [facility] QTC interval 425 [facility] MUSE P axis 1 38 [facility] MUSE QRS axis 1 86 [facility] MUSE T wave axis 20 [facility] MUSE EKG impression Normal sinus rhythm-Normal ECG-In automated [facility] MUSE comparison with ECG of 11-APR-2018 19:45,-Questionable change in QRS axis- Performing Organization Address [facility] Phone Number [facility] MUSE [address] [place] [address] CBC with platelet and differential (04/12/2018 4:25 AM CDT)Only the most recent of7 resultswithin the time period is included. WBC 7.64 4.50 - 11.00 k/uL [facility] DEPARTMENT OF PATHOLOGY AND GENOMIC MEDICINE RBC 2.49 (L) 4.20 - 5.50 m/uL [facility] DEPARTMENT OF PATHOLOGY AND GENOMIC MEDICINE HGB 7.6 (L) 12.0 - 16.0 g/dL [facility] DEPARTMENT OF PATHOLOGY AND GENOMIC MEDICINE HCT 25.2 (L) 37.0 - 47.0 % [facility] DEPARTMENT OF PATHOLOGY AND GENOMIC MEDICINE MCV 101.2 (H) 82.0 - 100.0 fL [facility] DEPARTMENT OF PATHOLOGY AND GENOMIC MEDICINE MCH 30.5 27.0 - 34.0 pg [facility] DEPARTMENT OF PATHOLOGY AND GENOMIC MEDICINE MCHC 30.2 (L) 31.0 - 37.0 g/dL [facility] DEPARTMENT OF PATHOLOGY AND GENOMIC MEDICINE RDW - SD 56.3 (H) 37.0 - 55.0 fL [facility] DEPARTMENT OF PATHOLOGY AND GENOMIC MEDICINE MPV 9.8 8.8 - 13.2 fL [facility] DEPARTMENT OF PATHOLOGY AND GENOMIC MEDICINE Platelet count 222 150 - 400 k/uL [facility] DEPARTMENT OF PATHOLOGY AND GENOMIC MEDICINE Nucleated RBC 0.00 /100 WBC [facility] DEPARTMENT OF PATHOLOGY AND GENOMIC MEDICINE Neutrophils 73.3 (H) 39.0 - 69.0 % [facility] DEPARTMENT OF PATHOLOGY AND GENOMIC MEDICINE Lymphocytes 15.7 (L) 25.0 - 45.0 % [facility] DEPARTMENT OF PATHOLOGY AND GENOMIC MEDICINE Monocytes 8.8 0.0 - 10.0 % [facility] DEPARTMENT OF PATHOLOGY AND GENOMIC MEDICINE Eosinophils 1.4 0.0 - 5.0 % [facility] DEPARTMENT OF PATHOLOGY AND GENOMIC MEDICINE Basophils 0.4 0.0 - 1.0 % [facility] DEPARTMENT OF PATHOLOGY AND GENOMIC MEDICINE Immature granulocytes 0.4Comment: 0.0 - 1.0 % [facility] DEPARTMENT OF "Immature PATHOLOGY AND GENOMIC granulocytes" MEDICINE (promyelocytes, myelocytes, metamyelocytes) Specimen Blood Performing Organization Address City/State/Zipcode Phone Number [facility] DEPARTMENT OF PATHOLOGY AND [address] [place] [address] [facility] Estimated GFR (04/12/2018 4:00 AM CDT)Only the most recent of11 resultswithin the time period is included. GFR Non Af Amer 71 mL/min/1.73 m2 [facility] DEPARTMENT OF PATHOLOGY AND GENOMIC MEDICINE GFR Af Amer 86 mL/min/1.73 m2 [facility] DEPARTMENT OF Comment: PATHOLOGY AND [...] Americans. Specimen Plasma specimen Performing Organization Address City/[facility] Phone Number [facility] DEPARTMENT OF PATHOLOGY AND [address] [place] [address] Phosphorus level (04/12/2018 4:00 AM CDT)Only the most recent of4 resultswithin the time period is included. Phosphorus 2.3 (L) 2.4 - 4.5 mg/dL [facility] DEPARTMENT OF PATHOLOGY AND GENOMIC MEDICINE Specimen Plasma specimen Performing Organization Address [facility] Phone Number [facility] DEPARTMENT OF PATHOLOGY AND [address] [place] [address] MEDICINE Magnesium level (04/12/2018 4:00 AM CDT)Only the most recent of7 resultswithin the time period is included. Magnesium 2.2 1.6 - 2.4 mg/dL [facility] DEPARTMENT OF PATHOLOGY AND GENOMIC MEDICINE Specimen Plasma specimen Performing Organization Address [facility] Phone Number [facility] DEPARTMENT OF PATHOLOGY AND [address] [place] [address] MEDICINE Basic metabolic panel (04/12/2018 4:00 AM CDT)Only the most recent of8 resultswithin the time period is included. Sodium 142 135 - 148 mEq/L [facility] DEPARTMENT OF PATHOLOGY AND GENOMIC MEDICINE Potassium 4.1 3.5 - 5.0 mEq/L [facility] DEPARTMENT OF PATHOLOGY AND GENOMIC MEDICINE Chloride 99 98 - 112 mEq/L [facility] DEPARTMENT OF PATHOLOGY AND GENOMIC MEDICINE CO2 36 (H) 24 - 31 mEq/L [facility] DEPARTMENT OF PATHOLOGY AND GENOMIC MEDICINE Anion gap 7@ANIO 7 - 15 mEq/L [facility] DEPARTMENT OF PATHOLOGY AND GENOMIC MEDICINE BUN 25 (H) 8 - 23 mg/dL [facility] DEPARTMENT OF PATHOLOGY AND GENOMIC MEDICINE Creatinine 0.8 0.5 - 0.9 mg/dL [facility] DEPARTMENT OF PATHOLOGY AND GENOMIC MEDICINE Glucose 79 65 - 99 mg/dL [facility] DEPARTMENT OF PATHOLOGY AND GENOMIC MEDICINE Calcium 8.6 (L) 8.8 - 10.2 mg/dL [facility] DEPARTMENT OF PATHOLOGY AND GENOMIC MEDICINE Specimen Plasma specimen Performing Organization Address [facility] Phone Number [facility] DEPARTMENT OF PATHOLOGY AND [address] [place] [address] MEDICINE XR Chest 2 Vw (04/10/2018 10:19 [...] Cardiac silhouette is stable.Visualized osseous structures arestable. [facility]-[id number] Procedure Note Interface, Radiology Results Incoming - [...] is stable. Visualized osseous structures are stable. [facility]-[id number] Performing Organization Address [facility] Phone Number [facility] [address] [place] [address] POC glucose (04/10/2018 6:10 PM CDT)Only the most recent of4 resultswithin the time period is included. POC glucose 84 65 - 99 mg/dL [facility] DEPARTMENT OF PATHOLOGY Comment: AND GENOMIC MEDICINE [facility] Notified RN Meter ID: [id number] Confidential Secretary: Umanzor Sun Performing Organization Address [facility] Phone Number [facility] DEPARTMENT OF PATHOLOGY AND [address] [place] [address] GENOMIC MEDICINE Echocardiogram complete w contrast and 3D if needed (04/10/2018 10:15 AM CDT) Narrative Performed At [facility] Echocardiography Report [address] [place] [address] Pat.Name:BIN BILL D Pat.ID:[id number] St.Date: 04/10/2018 Refer.MD:FRANCISCO J LIND MD Exam Time: 9:44:00 AMStudy Type:Routine Echo Height:62inWeight: 107lb BSA: 1.47 m2 DOBAge:1945,72Y Sex: FEMALEBP:113/56 HR:76 bpmSonogrphr: Jose E Sung RDCS Pat. Stat.:Inpatient Room:D9E 967A Study Status:Final Echo Event ID:[id number] Order ID:[id number] Reason for Study:Prosthetic Valves - Initial postoperative [...] RAPof 10 mmHg. MEASUREMENTS: 2D Parasternal [place] LVOT 1.9 cmLVPWd0.9 cm LVIDd5.1 cmIndex3.4 cm/m LA Ds4.3 cm LVIDs3.6 cmLV Jsqq952.5 g(87-129) LV%fs 29.7 % LVM Dpzqe755.4 g/m2 IVSd 1 cmRWT0.4 LA Sng Plane [...] mmHgAVpkAcRt 8551.9 cm/s2 AV Mean G6.5 mmHgAV YgTa338.3 cm/s2 AV AC 80 msec (83-118) AV Area2.1 cm2(3-5) AV ET261 msec LVOT For Flow LVOT Area2.8 cm2 LVOT SV 63.2 ml HTOIxyNqw425 cm/sHR84.4 bpm LVOTpkPG 5.8 mmHgLVOT CO5.3 l/min LVOTmnPG 3 mmHgLVOT CI3.6 l/m/m2 LVOT TVI22.3 cm WALL MOTION: RESTING WALL MOTION: Basal Inferoseptal, Basal Inferior, Basal Inferolateral, Basal Anterolateral shane are hypokinetic. Normal in all other shane. Wall Index=1.2 Signed 04/10/2018 05:27 PM Pedro Luis Nuno M.D. Procedure Note Interface, Radiology Results In - 04/10/2018 5:27 PM CDT Echocardiography Report [address] [place] [address] Pat.Name: BILL OLIVIA Pat.ID: [id number] .Date: 04/10/2018 Refer.MD: FRANCISCO J LIND MD Exam Time: 9:44:00 AM Study Type:Routine Echo Height: 62in Weight: 107lb BSA: 1.47 m2 Age: 4 1945,72Y Sex: FEMALE BP: 113/56 HR: 76 bpm Sonogrphr: Jose E Sung RDCS Pat. Stat.:Inpatient Room: [address] Study Status:Final Echo Event ID:[id number] Order ID: [id number] Reason for Study:Prosthetic Valves - Initial postoperative [...] of 10 mmHg. MEASUREMENTS: 2D Parasternal [place] LVOT 1.9 cm LVPWd 0.9 cm LVIDd [...] Organization Address City/State/Zipcode Phone Number [facility] [address] [place] [address] Lipid panel (04/10/2018 4:33 AM CDT)Only the most recent of2 resultswithin the time period is included. Cholesterol 156 <200 mg/dL [facility] DEPARTMENT OF PATHOLOGY AND GENOMIC MEDICINE Triglycerides 45 <150 mg/dL [facility] DEPARTMENT OF PATHOLOGY AND GENOMIC MEDICINE HDL cholesterol 51 >40 mg/dL [facility] DEPARTMENT OF PATHOLOGY AND GENOMIC MEDICINE LDL cholesterol 97Comment: Result <100 mg/dL [facility] DEPARTMENT OF obtained by direct LDL PATHOLOGY AND GENOMIC measurement MEDICINE Lipid [facility] OF Comment: PATHOLOGY AND GENOMIC Total Cholesterol (mg/dL) MEDICINE <200 Desirable 484-784Ffgwxybgod-qflz >=240High Triglycerides (mg/dL) <150 Normal 424-750Zlpsozevhc-nrba 200-499High >=500Very high HDL Cholesterol (mg/dL) <40Low (male) <40Low (female) LDL Cholesterol (mg/dL) <100 Optimal 100-129Near or above optimal 866-225Kfjtruzctc-cmgw 160-189High >=190Very high Risk Catergories that modify [...] mg/dL) Specimen Plasma specimen Performing Organization Address City/[facility] Phone Number [facility] DEPARTMENT OF PATHOLOGY AND [address] [place] [address] [facility] MEDICINE ECG Pre/Post Op (PRN) (04/09/2018 1:48 PM CDT) Ventricular rate 67 [facility] Atrial rate 67 [facility] DC interval 170 [facility] QRSD interval 94 [facility] QT interval 380 [facility] QTC interval 401 [facility] P axis 1 20 [facility] QRS axis 1 31 [facility] T wave axis 39 [facility] EKG impression Normal sinus rhythm with sinus [facility] MUSE arrhythmia-Possible Left atrial enlargement-T wave abnormality, consider anterior ischemia-Abnormal ECG-No previous ECGs available- Performing Organization Address [facility] Phone Number [facility] MUSE [address] [place] [address] Cv medical laboratory technicians procedure (04/09/2018 9:30 AM CDT) Narrative Performed At [facility]SURGEONS: ARNULFO Giron MD and Francisco J Lind MD PROCEDURES: 1.Diagnostic left heart catheterization. 2.Transcatheter aortic valve replacement with 29 mm CoreValve Evolut PRO inside the stentless porcine bioprosthesis (27mm [place]mira valve). 3.Ascending aortogram. 4.Descending abdominal aortogram. 5.Temporary [...] guidance using a micropuncture needle, and a 6-Maltese sheath was placed. Then the left femoral [...] was removed and was exchanged for a [place] Plus 0.018 inch wire.The wire was then advanced and the catheter was removed.The proximal portion of the wire was housed in its protective hoop.Attention was then turned to the contralateral femoral artery. After a small incision and spread, theartery was punctured under fluoroscopic guidance using the [place] Plus wire as a target.The puncture was with a micropuncture needle which was then exchanged for a 6-Maltese sheath, which was in turn exchanged for a Proglide suture.The suture was taped into place and was exchanged for a 10-Maltese dilator. Over a Super Stiff wire, the 10-Maltese dilator was then exchanged for a 20Fr [...] on ascending aortogram.Through the pigtail catheter, a Ubimo small wire was placed,over the wire for [...] capture system was then exchanged for the 6-Maltese angled pigtail. A second diagnostic left heart [...] this episode of care. Performing Organization Address [facility] Phone Number [facility] [address] [place] [address] Sodium level, syringe (04/09/2018 8:55 AM CDT)Only the most recent of3 resultswithin the time period is included. Sodium, syringe 137 135 - 148 mEq/L [facility] DEPARTMENT OF PATHOLOGY AND GENOMIC MEDICINE Specimen Blood Performing Organization Address [facility] Phone Number [facility] DEPARTMENT OF PATHOLOGY AND [address] [place] [address] GENOMIC MEDICINE Potassium, syringe (04/09/2018 8:55 AM CDT)Only the most recent of3 resultswithin the time period is included. Potassium, syringe 3.4 (L) 3.5 - 5.0 mEq/L [facility] DEPARTMENT OF PATHOLOGY AND GENOMIC MEDICINE Specimen Blood Performing Organization Address [facility] Phone Number [facility] DEPARTMENT OF PATHOLOGY AND [address] [place] [address] Ionized calcium, arterial (04/09/2018 8:55 AM CDT)Only the most recent of3 resultswithin the time period is included. Ionized calcium, arterial 1.24 1.11 - 1.32 mmol/L [facility] DEPARTMENT OF PATHOLOGY AND GENOMIC MEDICINE Specimen Blood Performing Organization Address [facility] Phone Number [facility] DEPARTMENT OF PATHOLOGY AND [address] [place] [address] Hemoglobin, syringe (04/09/2018 8:55 AM CDT)Only the most recent of3 resultswithin the time period is included. Hemoglobin, syringe 7.8 (L) 12.0 - 16.0 g/dL [facility] DEPARTMENT OF PATHOLOGY AND GENOMIC MEDICINE Specimen Blood Performing Organization Address [facility] Number [facility] DEPARTMENT OF PATHOLOGY AND [address] [place] [address] Glucose level, syringe (04/09/2018 8:55 AM CDT)Only the most recent of3 resultswithin the time period is included. Glucose, syringe 109 (H) 65 - 99 mg/dL [facility] DEPARTMENT OF PATHOLOGY AND GENOMIC MEDICINE Specimen Blood Performing Organization Address [facility] Phone Number [facility] DEPARTMENT OF PATHOLOGY AND [address] [place] [address] Arterial blood gas (04/09/2018 8:55 AM CDT)Only the most recent of3 resultswithin the time period is included. pH, arterial 7.48 (H) 7.35 - 7.45 [facility] DEPARTMENT OF PATHOLOGY AND GENOMIC MEDICINE pCO2, arterial 44 35 - 45 mmHg [facility] DEPARTMENT OF PATHOLOGY AND GENOMIC MEDICINE pO2, arterial 427 (H) 80 - 90 mmHg [facility] DEPARTMENT OF PATHOLOGY AND GENOMIC MEDICINE Bicarbonate, arterial 32.3 (H) 21.0 - 28.0 mmol/L [facility] DEPARTMENT OF PATHOLOGY AND GENOMIC MEDICINE Base excess, arterial 8 (H) -2 - 2 mEq/L [facility] DEPARTMENT OF PATHOLOGY AND GENOMIC MEDICINE O2 saturation, arterial 100 95 - 100 % [facility] DEPARTMENT OF PATHOLOGY AND GENOMIC MEDICINE Specimen Blood Performing Organization Address [facility] Phone Number [facility] DEPARTMENT OF PATHOLOGY AND [address] [place] [address] [employer] MEDICINE Prepare RBC, 2 Units (04/08/2018 5:27 PM CDT) Product name Red Blood Cells -1, [facility] DEPARTMENT OF Leukored PATHOLOGY AND GENOMIC MEDICINE Unit number [id number] [facility] DEPARTMENT OF PATHOLOGY AND GENOMIC MEDICINE Product code [id number] [facility] DEPARTMENT OF PATHOLOGY AND GENOMIC MEDICINE Dispense status Returned to not [facility] DEPARTMENT OF transfused PATHOLOGY AND GENOMIC MEDICINE Blood expiration date [facility] DEPARTMENT OF PATHOLOGY AND GENOMIC MEDICINE Blood type code 6200 [facility] DEPARTMENT OF PATHOLOGY AND GENOMIC MEDICINE Blood type A POSITIVE [facility] DEPARTMENT OF PATHOLOGY AND GENOMIC MEDICINE Product name Red Blood Cells -1, [facility] DEPARTMENT OF Leukored PATHOLOGY AND GENOMIC MEDICINE Unit number [id number] [facility] DEPARTMENT OF PATHOLOGY AND GENOMIC MEDICINE Product code [id number] [facility] DEPARTMENT OF PATHOLOGY AND GENOMIC MEDICINE Dispense status Returned to not [facility] DEPARTMENT OF transfused PATHOLOGY AND GENOMIC MEDICINE Blood expiration date [facility] DEPARTMENT OF PATHOLOGY AND GENOMIC MEDICINE Blood type code 6200 [facility] DEPARTMENT OF PATHOLOGY AND GENOMIC MEDICINE Blood type A POSITIVE [facility] DEPARTMENT OF PATHOLOGY AND GENOMIC MEDICINE Performing Organization Address City/State/[facility] Phone Number [facility] DEPARTMENT OF PATHOLOGY AND [address] [place] [address] GENOMIC MEDICINE Type and screen (04/08/2018 5:27 PM CDT) ABO grouping A [facility] DEPARTMENT OF PATHOLOGY AND GENOMIC MEDICINE Rh type POS [facility] DEPARTMENT OF PATHOLOGY AND GENOMIC MEDICINE Antibody screen (gel) NEG [facility] DEPARTMENT OF PATHOLOGY AND GENOMIC MEDICINE Specimen Blood Performing Organization Address City/[facility] Phone Number [facility] DEPARTMENT OF PATHOLOGY AND [address] [place] [address] [employer] MEDICINE Spirometry pre & post w/ bronchodilator, [...] LLN 63 [facility] Performing Organization Address City/State/[facility] Phone Number [facility] [address] [place] [address] Comprehensive metabolic panel (04/08/2018 4:00 AM CDT)Only the most recent of3 resultswithin the time period is included. Sodium 141 135 - 148 mEq/L [facility] DEPARTMENT OF PATHOLOGY AND GENOMIC MEDICINE Potassium 4.2 3.5 - 5.0 mEq/L [facility] DEPARTMENT OF PATHOLOGY AND GENOMIC MEDICINE Chloride 97 (L) 98 - 112 mEq/L [facility] DEPARTMENT OF PATHOLOGY AND GENOMIC MEDICINE CO2 38 (H) 24 - 31 mEq/L [facility] DEPARTMENT OF PATHOLOGY AND GENOMIC MEDICINE Anion gap 6@ANIO (L) 7 - 15 mEq/L [facility] DEPARTMENT OF PATHOLOGY AND GENOMIC MEDICINE BUN 41 (H) 8 - 23 mg/dL [facility] DEPARTMENT OF PATHOLOGY AND GENOMIC MEDICINE Creatinine 0.9 0.5 - 0.9 mg/dL [facility] DEPARTMENT OF PATHOLOGY AND GENOMIC MEDICINE Glucose 85 65 - 99 mg/dL [facility] DEPARTMENT OF PATHOLOGY AND GENOMIC MEDICINE Calcium 8.5 (L) 8.8 - 10.2 mg/dL [facility] DEPARTMENT OF PATHOLOGY AND GENOMIC MEDICINE Protein 5.7 (L) 6.3 - 8.3 g/dL [facility] [facility] DEPART[facility] OF Comment: PATHOLOGY AND GENOMIC [place] 4.6-7.0 g/dL MEDICINE 1 week 4.4-7.6 g/dL 7 months-1year5.1-7.3 g/dL 1-2 years5.6-7.5 g/dL >3 years6.0-8.0 g/dL 18-150 6.3-8.3 g/dL Albumin 2.1 (L) 3.5 - 5.0 g/dL [facility] DEPARTMENT OF PATHOLOGY AND GENOMIC MEDICINE A/G ratio 0.6 (L) 0.7 - 3.8 [facility] DEPARTMENT OF PATHOLOGY AND GENOMIC MEDICINE Alkaline phosphatase 46 35 - 104 U/L [facility] DEPARTMENT OF PATHOLOGY AND GENOMIC MEDICINE AST 16 10 - 35 U/L [facility] DEPARTMENT OF PATHOLOGY AND GENOMIC MEDICINE ALT 9 5 - 50 U/L [facility] DEPARTMENT OF PATHOLOGY AND GENOMIC MEDICINE Total bilirubin 0.3 0.0 - 1.2 mg/dL [facility] DEPARTMENT OF PATHOLOGY AND GENOMIC MEDICINE Specimen Plasma specimen Performing Organization Address City/[facility] Phone Number [facility] DEPARTMENT OF PATHOLOGY AND [address] [place] [address] [facility] Hemoglobin A1c (04/05/2018 3:05 PM CDT) Hemoglobin A1C 4.9 4.0 - 5.6 % [facility] DEPARTMENT OF PATHOLOGY Comment: [facility] HbA1c cutoffs for diagnosing diabetes: 4.0% - 5.6%=normal 5.7% - 6.4%=increased risk for diabetes (prediabetes) >=6.5%=diabetes Goals for glycemic control (ADA 2016) < 7.0%Target for non adults with diabetes. More or less stringent targets may be appropriate for individual patients. <7.5% Target for Children and adolescents with type 1 diabetes. Specimen Blood Performing Organization Address City/[facility] Cent[facility]ode Phone Number [facility] DEPARTMENT OF PATHOLOGY AND [address] [place] [address], [place] [address] [employer] MEDICINE Echocardiogram transesophageal (04/04/2018 10:17 AM CDT) Narrative Performed At [facility] Transesophageal Echo Report [address], [place], [place] [address] [facility].Name:BILL OLIVIA.ID:[id number] .Date: 04/04/2018Refer.MD:FRANCISCO J LIND MD Exam Time: 8:22:00 AMStudy Type:FRANCISCA Height:62inWeight: 106lb BSA: 1.46 m2 DOBAge:1945,72Y Sex: FEMALEBP:122/58 HR:83 bpmSonogrphr: Evan Batista MD [facility]. Stat.:Inpatient Room:[place] [address] Study Status:Final Echo Event ID:[id number] Order ID:[id number] Reason for Study:r/o vegetation on aortic valve History / Clinical:Hypertension, AORTIC VALVE REPLACEMENT Procedures:3D Echo, Transesophageal Echo with Colorflow Doppler Race: SUMMARY: Severe aortic regurgitation.Pressure half time 104 ms. Holodiastolic flow reversal in the descending thoracic aorta. LV EF is moderately depressed.Normal RV systolic function. FINDINGS: FRANCISCA:The attending sas administrator performed the FRANCISCA procedure and waspresent for [...] Anesthesia: Moderate Sedation Physician: Rom Lopez M.D. Feed Weigher: Evan Batista MD Pre TEEBP HR Post FRANCISCA BP HR 122/58 07181/48 89 Meds:Viscous xylocaine, Cetacaine spray to oropharynx, Versed 1 mg IV, Fentanyl 25 mcg IV Complications: None Condition: Stable MEASUREMENTS: 2D Parasternal Long [place] LVOT 1.9 cmLA Ds4.1 cm LVIDd5 cmAo Rtd 2.6 cm LVIDs3.8 cmLV Vzre058.8 g(87-129) LV%fs 23 % LVM Index 95.1 g/m2 IVSd 0.7 cmRWT0.4 LVPWd0.9 cm DOPPLER AV Pressure Half Time AV P1/2t 104 msec Signed 04/04/2018 11:38 AM Rom Lopez M.D. Procedure Note Interface, Radiology Results In - 04/04/2018 11:38 AM CDT Transesophageal Echo Report [address], [place], [place] [address] Pat.Name: BILL OLIVIA Pat.ID: [id number] .Date: 04/04/2018 Refer.MD: FRANCISCO J LIND MD Exam Time: 8:22:00 AM Study Type:FRANCISCA Height: 62in Weight: 106lb BSA: 1.46 m2 Age: 4 1945,72Y Sex: FEMALE BP: 122/58 HR: 83 bpm Sonogrphr: Evan Batista MD [facility]. Stat.:Inpatient Room: [place] [address] Study Status:Final Echo Event ID:[id number] Order ID: [id number] Reason for Study:r/o vegetation on aortic valve History / Clinical:Hypertension, AORTIC VALVE REPLACEMENT Procedures:3D Echo, Transesophageal Echo with Colorflow Doppler Race: SUMMARY: Severe aortic regurgitation. Pressure half time 104 ms. Holodiastolic flow reversal in the descending thoracic aorta. LV EF is moderately depressed. Normal RV systolic function. FINDINGS: FRANCISCA: The attending sas administrator performed the FRANCISCA procedure and was present [...] Anesthesia: Moderate Sedation Physician: Rom Lopez M.D. Feed Weigher: Evan Batista MD Pre FRANCISCA BP HR Post FRANCISCA BP HR 122/58 83 101/48 89 Meds: Viscous xylocaine, Cetacaine spray to oropharynx, Versed 1 mg IV, Fentanyl 25 mcg IV Complications: None Condition: Stable MEASUREMENTS: 2D Parasternal [place] LVOT 1.9 cm LA Ds 4.1 cm LVIDd 5 cm Ao Rtd 2.6 cm LVIDs 3.8 cm LV Mass 138.8 g (87-129) LV%fs 23 % LVM Index 95.1 g/m2 IVSd 0.7 cm RWT 0.4 LVPWd 0.9 cm DOPPLER AV Pressure Half Time AV P1/2t 104 msec Signed 04/04/2018 11:38 AM Rom Lopez M.D. Performing Organization Address City/State/Zipcode Phone Number [facility] [address] [place] [address] B natriuretic peptide (04/04/2018 5:10 AM CDT)Only the most recent of2 resultswithin the time period is included. BNP 230 (H) 0 - 100 pg/mL [facility] DEPARTMENT OF PATHOLOGY AND GENOMIC MEDICINE Performing Organization Address City/State/Zipcode Phone Number [facility] DEPARTMENT OF PATHOLOGY AND [address] [place] [address] GENOMIC MEDICINE XR Chest 1 Vw (04/02/2018 [...] size of the left pleural effusion, now sjark-gj-rcxwfphw in degree. There is a bcjlt-ko-veomrmhy right-sided pleural effusion. There is no pneumothorax. Bones:There is mild osteopenia. Patient is status post median sternotomy with intact wires. There is no acute displaced fracture or dislocation. IMPRESSION: Status post left-sided thoracentesis with interval reduction in size of left pleural effusion, now xmlbn-dl-ytsfxsni. No left-sided pneumothorax. Xvuhc-bj-ovmdbmfo right pleural effusion. Bibasilar opacities likely represent atelectasis. Aspiration and/or pneumonia are also possible in the appropriate clinical context. [facility]-[id number] Procedure Note Interface, Radiology Results Incoming - [...] size of the left pleural effusion, now pvigd-ob-xjjcfmju in degree. There is a vvsnq-ic-qjmeotiw right-sided pleural effusion. There is no pneumothorax. Bones: There is mild osteopenia. Patient is status post median sternotomy with intact wires. There is no acute displaced fracture or dislocation. IMPRESSION: Status post left-sided thoracentesis with interval reduction in size of left pleural effusion, now mzhjp-bj-wgqileuq. No left-sided pneumothorax. Caizf-us-dxbktaac right pleural effusion. Bibasilar opacities likely represent atelectasis. Aspiration and/or pneumonia are also possible in the appropriate clinical context. [facility]-[id number] Performing Organization Address [facility] Centercode Phone Number [address] [address] Fungus smear (04/02/2018 4:17 PM CDT) Fungus smear No fungi observed. [facility] DEPARTMENT OF PATHOLOGY Comment: AND GENOMIC MEDICINE Specimen Information Specimen Source: Thoracentesis fluid Specimen Site: Pleural Fluid Specimen Thoracentesis fluid - Pleural Fluid Performing Organization Address [facility]ercotx Phone Number [facility] DEPARTMENT OF PATHOLOGY AND [address] [place] [address] GENOMIC MEDICINE AFB culture (04/02/2018 4:17 PM CDT) AFB culture isolate No growth after 6 weeks of incubation. [facility] DEPARTMENT OF Comment: PATHOLOGY AND GENOMIC Specimen Information MEDICINE Specimen Source: Thoracentesis fluid Specimen Site: Pleural Fluid Specimen Thoracentesis fluid - Pleural Fluid Performing Organization Address [facility] Centercode Phone Number [facility] DEPARTMENT OF PATHOLOGY AND [address] [place] [address] GENOMIC MEDICINE Aerobic culture (04/02/2018 4:17 PM CDT) Aerobic culture isolate No growth after 3 days. [facility] DEPARTMENT OF Comment: PATHOLOGY AND GENOMIC Specimen Information MEDICINE Specimen Source: Thoracentesis fluid Specimen Site: Pleural Fluid Specimen Thoracentesis fluid - Pleural Fluid Performing Organization Address [facility] Centercode Phone Number [facility] DEPARTMENT OF PATHOLOGY AND [address] [place] [address] GENOMIC MEDICINE Gram stain (04/02/2018 4:17 PM CDT) Gram stain isolate Many WBC's [facility] DEPARTMENT OF No organisms seen PATHOLOGY AND GENOMIC MEDICINE Comment: Specimen Information Specimen Source: Thoracentesis fluid Specimen Site: Pleural Fluid Specimen Thoracentesis fluid - Pleural Fluid Performing Organization Address City/[facility] Centercode Phone Number [facility] DEPARTMENT OF PATHOLOGY AND [address] [place] [phone] [place] [address] AFB stain (04/02/2018 4:17 PM CDT) AFB stain No acid fast bacilli (AFB) seen. [facility] DEPARTMENT OF PATHOLOGY AND Comment: GENOMIC MEDICINE Specimen Information Specimen Source: Thoracentesis fluid Specimen Site: Pleural Fluid Specimen Thoracentesis fluid - Pleural Fluid Performing Organization Address [facility] Centercode Phone Number [facility] DEPARTMENT OF PATHOLOGY AND [address] [place] [address] Fungus culture (04/02/2018 4:17 PM CDT) Fungus culture isolate No growth after 4 weeks of incubation. [facility] DEPARTMENT OF Comment: PATHOLOGY AND GENOMIC Specimen Information MEDICINE Specimen Source: Thoracentesis fluid Specimen Site: Pleural Fluid Specimen Thoracentesis fluid - Pleural Fluid Performing Organization Address [facility] Phone Number [facility] DEPARTMENT OF PATHOLOGY AND [address] [place] [address] Anaerobic culture (04/02/2018 4:17 PM CDT) Anaerobic culture No anaerobic organisms isolated. [facility] DEPARTMENT OF isolate Comment: PATHOLOGY AND GENOMIC Specimen Information MEDICINE Specimen Source: Thoracentesis fluid Specimen Site: Pleural Fluid Specimen Thoracentesis fluid - Pleural Fluid Performing Organization Address [facility] Phone Number [facility] DEPARTMENT OF PATHOLOGY AND [address] [place] [address] [place] Thoracentesis With Imaging (04/02/2018 4:15 PM [...] was used for local anesthesia. A 5 Maltese Spontacts catheter was inserted into the pleural space. 870 mLof pleural fluid was removed. 20 mL of aspirated fluid was also sent for laboratory analysis. The patient tolerated the procedure without difficulty and postprocedure chest x-ray demonstrated no pneumothorax. IMPRESSION: Ultrasound-guided left thoracentesis. [facility]-[id number] Procedure Note Interface, Radiology Results Incoming - [...] was used for local anesthesia. A 5 Maltese Yueh catheter was inserted into the pleural space. 870 mL of pleural fluid was removed. 20 mL of aspirated fluid was also sent for laboratory analysis. The patient tolerated the procedure without difficulty and postprocedure chest x-ray demonstrated no pneumothorax. IMPRESSION: Ultrasound-guided left thoracentesis. [facility]-[id number] Performing Organization Address City/[facility] Centercode Phone Number [facility] [address] [place] [address] Cv cta tavr workup (cta coronary,cta thoracic aorta,cta abdominal runoff) (04/02 2:50 PM CDT) Narrative Performed At [facility] Nuclear Cardiology and Cardiac CT [address] [place] [address] CTA TAVR Protocol Pat.Name:BILL OLIVIA Opal Garcia.ID:[id number] .Date: 04/02/2018Refer.MD:FRANCISCO J LIND MD Exam Time: 2:23:00 PMStudy Type:CTA TAVR Protocol Height:62inWeight: 119.75lb BSA: 1.54 m2 DOBAge:1945,72Y Sex: FEMALEBP:125/56 HR:81 bpm Nuclear Tech:Dale Gardner RT(NM)(CT), [facility] CPT - 4: TAVR w Coronaries [id number] Nuclear Event ID:[id number] Order ID:[id number] Reason for Study:Aortic Insufficiency Procedures:CTA TAVR Protocol SUMMARY: Technique: IV contrast was administered and sequential 0.[address] cuts were obtained through the chest using the Siemens Somatom Force CT scanner. Post-processing and 3D reconstruction were done using the [employer] workstation. Interactive image viewing and volumetric display [...] Cardiovascular CTA Protocol and interpreted by a Purchasing Administrator.Should a more comprehensive assessment of non-cardiovascular findings be desired, please consult a radiologist.These images are available in the [facility] Mantis Dep[employer] PACS system. Signed 04/02/2018 04:17 PM Daniel Sotelo MD Procedure Note Interface, Radiology Results In - 04/02/2018 4:17 PM CDT Nuclear Cardiology and Cardiac CT [address] [place] [address] CTA TAVR Protocol Pat.Name: BILL OLIVIA Radha.ID: [id number] St.Date: 04/02/2018 Refer.MD: FRANCISCO J LIND MD Exam Time: 2:23:00 PM Study Type:CTA TAVR Protocol Height: 62in Weight: 119.75lb BSA: 1.54 m2 Age: 4 1945,72Y Sex: FEMALE BP: 125/56 HR: 81 bpm Nuclear Tech:RT Mila(KS)(CT), [facility] CPT - 4: TAVR w Coronaries [id number] Nuclear Event ID:[id number] Order ID: [id number] Reason for Study:Aortic Insufficiency Procedures:CTA TAVR Protocol SUMMARY: Technique: IV contrast was administered and sequential 0.[address] cuts were obtained through the chest using the Siemens Somatom Force CT scanner. Post-processing and 3D reconstruction were done using the [employer] workstation. Interactive image viewing and volumetric display [...] Cardiovascular CTA Protocol and interpreted by a Purchasing Administrator. Should a more comprehensive assessment of non-cardiovascular findings be desired, please consult a radiologist. These images are available in the [facility] [employer] Dep[employer] PACS system. Signed 04/02/2018 04:17 PM Daniel Sotelo MD Performing Organization Address City/State/Zipcode Phone Number [facility] [address] [phone] [place] carotid duplex (04/02/2018 2:10 PM CDT) Narrative Performed At [facility] Vascular Ultrasound Laboratory Carotid Artery Duplex Report [address] [facility], [facility] [address], [place] [id number] For supplier quality manager purposes, the categorization of the degree of the stenosis of this exam is based on criteria described in the IAC carotid stenosis grading white paper( www.intersocietal.org/Vascular) and Jody Ballesteros, aJmes Bales, et al. Carotid artery stenosis: cleveland-scale and Doppler US diagnosis--Society of Radiologists in Ultrasound Consensus Conference. Radiology. 2003 Jun; 229(2):340-6. Pat.Name:BILL OLIVIA Pat.ID:[id number] .Date: 04/02/2018Refer.MD:FRANCISCO J LIND MD Exam Time: 1:24:00 PMStudy Type:Carotid DOBAge:1945,72Y Sex: FEMALE Sonogrphr: PATRICK Richey, [facility]Pat. Stat.:[facility] TapeVol: SB, CPT - 4: 29961 Echo Event ID:[id number] Order ID:[id number] Reason for Study:Gradual decline in strenth and [...] EDV3.15 cm/s Left CCA Mid CCA Mid CJO511 cm/sCCA Mid EDV0 cm/s Left CCA Prox CCA Prox PSV 127 cm/sCCA Prox EDV 2.1 cm/s Left ICA Dist ICA Dist PSV64.9 cm/Pili Dist EDV2.16 cm/s Left ICA Mid ICA Mid GQM633 cm/Pili Mid EDV 3.15 cm/s Left ICA Prox ICA Prox PSV 154 cm/Pili Prox EDV1.05 cm/s Left ECA Prox ECA Prox PSV 132 cm/sECA Prox EDV 4.2 cm/s Left SCA Prox SCA Prox PSV 163 cm/sSCA Prox EDV 4.2 cm/s Left Vertebral Vertebral QSE926 cm/sVertebral EDV0 cm/s Right CCA Dist CCA Dist PSV81.7 cm/sCCA Dist EDV 0.749 cm/s Right CCA Mid CCA Mid GKG534 cm/sCCA Mid EDV 0.75 cm/s Right CCA Prox CCA Prox PSV 105 cm/sCCA Prox EDV 0 cm/s Right ICA Dist ICA Dist PSV 109 cm/Pili Dist EDV 1.5 cm/s Right ICA Mid ICA Mid VCZ171 cm/Pili Mid EDV1.5 cm/s Right ICA Prox [...] Vascular Ultrasound Laboratory Carotid Artery Duplex Report [address] [place] [address] For supplier quality manager purposes, the categorization of the degree of the stenosis of this exam is based on criteria described in the IAC carotid stenosis grading white paper( www.intersocietal.org/Vascular) and Jody Ballesteros, James Bales, et al. Carotid artery stenosis: cleveland-scale and Doppler US diagnosis--Society of Radiologists in Ultrasound Consensus Conference. Radiology. 2003 Nov; 229(2):340-6. Pat.Name: BILL OLIVIA Pat.ID: [id number] .Date: 04/02/2018 Refer.MD: FRANCISCO J LIND MD Exam Time: 1:24:00 PM Study Type:Carotid Age: 5 1945,72Y Sex: FEMALE Sonogrphr: PATRICK iRchey, [facility]Pat. Stat.:Inpatient Room: D967A Tape Vol: SB, CPT - 4: 85547 Echo Event ID:[id number] Order ID: [id number] Reason for Study:Gradual decline in strenth and [...] PM John Romo MD Performing Organization Address [facility] Centercode Phone Number [facility] [address] [place] [address] Echocardiogram complete w contrast and 3D if needed (04/02/2018 9:14 AM CDT) Narrative Performed At [facility] Echocardiography Report [address] [place] [address] Pat.Name:ANGELICADIMA BILL Opal Pat.ID:[id number] .Date: 04/02/2018Refer.MD:FRANCISCO J LIND MD Exam Time: 9:47:00 AMStudy Type:Routine Echo Height:62inWeight: 120lb BSA: 1.54 m2 DOBAge:1945,72Y Sex: FEMALEBP:101/43 HR:85 bpmSonogrphr: MADDIE Kurtz Pat. Stat.:Inpatient Room:[facility] Study Status:Final Echo Event ID:[id number] Order ID:[id number] Reason for Study:Pre-op History / Clinical:Hypertension, AORTIC [...] valve regurgitation. FINDINGS: LV: LV size is pybw-cs-djfziwznwm enlarged. There is moderate eccentricLV hypertrophy. LV [...] not well seen. MEASUREMENTS: 2D Parasternal [place] LVOT 1.9 cmIVSd 1 cm LA Ds5.3 cmLVPWd1.1 cm Ao Rtd 3.2 cmIndex2.1 cm/m LV Ggno400 g(87-129) LVIDd5.2 cmIndex3.4 cm/m LVM Bmrul857.1 g/m2 LVIDs3.9 cmRWT0.4 LV%fs 25.7 % DOPPLER AV For Flow/ADEOLA AV pkVel 275.7 cm/s (100-170) AV AC/ET 0.3 AV mnVel 173.5 cm/Jewel TVI57.4 cm AV pkPG 30.4 mmHgAVpkAcRt 4149.2 cm/s2 AV Mean G 14.8 mmHgAV StJc928.5 cm/s2 AV AC115 msec (83-118) AV Area1.6 cm2(3-5) AV ET331 msec LVOT For Flow LVOT Area2.8 cm2 LVOT SV 91.7 ml WNNOqyRbc599.3 cm/sHR80.5 bpm LVOTpkPG 7.6 mmHgLVOT CO7.4 l/min LVOTmnPG 3.5 mmHgLVOT CI4.8 l/m/m2 LVOT TVI32.3 cm Signed 04/02/2018 05:57 PM Klaus Ryan M.D. Procedure Note Interface, Radiology Results In - 04/02/2018 5:58 PM CDT Echocardiography Report [address] [place] [address] Pat.Name: BILL OLIVIA Pat.ID: [id number] .Date: 04/02/2018 Refer.: FRANCISCO J LIND MD Exam Time: 9:47:00 AM Study Type:Routine Echo Height: 62in Weight: 120lb BSA: 1.54 m2 Age: 4 1945,72Y Sex: FEMALE BP: 101/43 HR: 85 bpm Sonogrphr: MADDIE Kurtz Pat. Stat.:Inpatient Room: D 967 Study Status:Final Echo Event ID:[id number] Order ID: [id number] Reason for Study:Pre-op History / Clinical:Hypertension, AORTIC [...] valve regurgitation. FINDINGS: LV: LV size is syze-lx-ccankdoyox enlarged. There is moderate eccentric LV hypertrophy. [...] not well seen. MEASUREMENTS: 2D Parasternal Long [place] LVOT 1.9 cm IVSd 1 cm LA [...] Performing Organization Address City/State/Zipcode Phone Number [facility] [address] [place] [address] Urinalysis screen and microscopy, with reflex to culture (04/01/2018 10:00 PM CDT) Specimen site Clean catch [facility] DEPARTMENT OF PATHOLOGY AND GENOMIC MEDICINE Color, UA Yellow [facility] DEPARTMENT OF PATHOLOGY AND GENOMIC MEDICINE Appearance, UA Turbid [facility] DEPARTMENT OF PATHOLOGY AND GENOMIC MEDICINE Specific gravity, UA 1.013 1.001 - 1.035 [facility] DEPARTMENT OF PATHOLOGY AND GENOMIC MEDICINE pH, UA 7.0 5.0 - 8.5 [facility] DEPARTMENT OF PATHOLOGY AND GENOMIC MEDICINE Protein, UA Negative Negative [facility] DEPARTMENT OF PATHOLOGY AND GENOMIC MEDICINE Glucose, UA Negative Negative [facility] DEPARTMENT OF PATHOLOGY AND GENOMIC MEDICINE Ketones, UA Negative Negative [facility] DEPARTMENT OF PATHOLOGY AND GENOMIC MEDICINE Bilirubin, UA Negative Negative [facility] DEPARTMENT OF PATHOLOGY AND GENOMIC MEDICINE Blood, UA Negative Negative [facility] DEPARTMENT OF PATHOLOGY AND GENOMIC MEDICINE Nitrite, UA Negative Negative [facility] DEPARTMENT OF PATHOLOGY AND GENOMIC MEDICINE Urobilinogen, UA 2.0 (A) <2.0 [facility] DEPARTMENT OF PATHOLOGY AND GENOMIC MEDICINE Leukocyte esterase, UA Negative Negative [facility] DEPARTMENT OF PATHOLOGY AND GENOMIC MEDICINE WBC, UA <1 0 - 4 /HPF [facility] DEPARTMENT OF PATHOLOGY AND GENOMIC MEDICINE RBC, UA 1 0 - 5 /HPF [facility] DEPARTMENT OF PATHOLOGY AND GENOMIC MEDICINE Bacteria, UA Few None seen [facility] DEPARTMENT OF PATHOLOGY AND GENOMIC MEDICINE Yeast, UA None seen [facility] DEPARTMENT OF PATHOLOGY AND GENOMIC MEDICINE Yeast with pseudohyphae, UA None seen [facility] DEPARTMENT OF PATHOLOGY AND GENOMIC MEDICINE Amorphous crystals Moderate [facility] DEPARTMENT OF PATHOLOGY AND GENOMIC MEDICINE Calcium oxalate crystals, UA Few [facility] DEPARTMENT OF PATHOLOGY AND GENOMIC MEDICINE Hyaline casts, UA 7 /LPF [facility] DEPARTMENT OF PATHOLOGY AND GENOMIC MEDICINE Specimen Urine Performing Organization Address City/[facility]/Zipcode Phone Number [facility] DEPARTMENT OF PATHOLOGY AND [address] [place] [address] Urine culture (04/01/2018 10:00 PM CDT) Urine culture SEE COMMENTComment: Bacteriuria [facility] DEPARTMENT OF PATHOLOGY screen negative. AND GENOMIC MEDICINE Performing Organization Address City/[facility]/Zipcode Phone Number [facility] DEPARTMENT OF PATHOLOGY AND [address] [place] [address] XR Chest 1 Vw Portable (04/01/2018 8:33 PM CDT) Narrative Performed At EXAMINATION: XR CHEST 1 VW PORTABLE [facility] INDICATION: preop COMPARISON: Most recent prior IMPRESSION: Stable cardiomegaly. Prior sternotomy. Arteriosclerosis aortic arch. Moderate left and small to moderate right pleural effusions with compressive atelectasis. Central pulmonary vascular congestion. No visible pneumothorax. [facility]-[id number] Procedure Note Interface, Radiology Results Incoming - 04/01/2018 9:05 PM CDT EXAMINATION: XR CHEST 1 VW PORTABLE INDICATION: preop COMPARISON: Most recent prior IMPRESSION: Stable cardiomegaly. Prior sternotomy. Arteriosclerosis aortic arch. Moderate left and small to moderate right pleural effusions with compressive atelectasis. Central pulmonary vascular congestion. No visible pneumothorax. [facility]-[id number] Performing Organization Address [facility] Centercode Phone Number [facility] [address] [place] [phone] Partial thromboplastin time, activated (04/01/2018 8:20 PM CDT) PTT 27.2 23.0 - 36.0 sec [facility] DEPARTMENT OF PATHOLOGY Comment: AND [facility] PTT therapeutic range for unfractionated heparin is 61.0-112.0 seconds which corresponds to Anti-Xa 0.3-0.7 U/ml. Specimen Blood Performing Organization Address [facility] Centercode Phone Number [facility] DEPARTMENT OF PATHOLOGY AND [address] [place] [phone] [facility] Prothrombin time with INR (04/01/2018 8:20 PM CDT) Prothrombin time 13.9 12.0 - 15.0 sec [facility] DEPARTMENT OF PATHOLOGY AND GENOMIC MEDICINE INR 1.1 [facility] DEPARTMENT OF Comment: PATHOLOGY AND GENOMIC The International Normalized Ratio (INR) is a therapeutic MEDICINE monitoring tool for patients who are stable on oral anticoagulant therapy. An INR of 2.0-3.0 is suggested for deep vein thrombosis/pulmonary embolism. Specimen Blood Performing Organization Address [facility] Phone Number [facility] DEPARTMENT OF PATHOLOGY AND [address] [place] [phone] [facility] Blood culture, aerobic & anaerobic (04/01/2018 8:00 PM CDT)Only the most recent of2 resultswithin the time period is included. Blood culture isolate No growth after 5 days of incubation. [facility] DEPARTMENT OF Comment: PATHOLOGY AND GENOMIC Specimen Information MEDICINE Specimen Source: Blood Specimen Site: Peripheral Hand Right Specimen Blood Performing Organization Address [facility] Phone Number [facility] DEPARTMENT OF PATHOLOGY AND [address] [place] [phone] [facility] Thyroid stimulating hormone (04/01/2018 7:22 PM CDT) TSH 1.92 0.27 - 4.20 uIU/mL [facility] DEPARTMENT OF PATHOLOGY AND GENOMIC [facility] Specimen Plasma specimen Performing Organization Address [facility]/Zipcode Phone Number [facility] DEPARTMENT OF PATHOLOGY AND [address] [place] [address] GENOMIC MEDICINE T4, free (04/01/2018 7:22 PM CDT) T4, free 1.2 0.9 - 1.7 ng/dL [facility] DEPARTMENT OF PATHOLOGY AND GENOMIC MEDICINE Specimen Plasma specimen Performing Organization Address [facility] Phone Number [facility] DEPARTMENT OF PATHOLOGY AND [address] [place] [phone] [facility]ICINE Hepatic function panel (04/01/2018 7:22 PM CDT) Albumin 2.5 (L) 3.5 - 5.0 g/dL [facility] DEPARTMENT OF PATHOLOGY AND GENOMIC MEDICINE Total bilirubin 0.3 0.0 - 1.2 mg/dL [facility] DEPARTMENT OF PATHOLOGY AND GENOMIC MEDICINE Bilirubin direct <0.2 0.0 - 0.3 mg/dL [facility] DEPARTMENT OF PATHOLOGY AND GENOMIC MEDICINE Alkaline phosphatase 50 35 - 104 U/L [facility] DEPARTMENT OF PATHOLOGY AND GENOMIC MEDICINE Protein 6.6 6.3 - 8.3 g/dL [facility] DEPARTMENT OF Comment: PATHOLOGY AND GENOMIC [place] 4.6-7.0 g/dL MEDICINE 1 week 4.4-7.6 g/dL 7 months-1year5.1-7.3 g/dL 1-2 years5.6-7.5 g/dL >3 years6.0-8.0 g/dL 18-150 6.3-8.3 g/dL ALT 13 5 - 50 U/L [facility] DEPARTMENT OF PATHOLOGY AND GENOMIC MEDICINE AST 16 10 - 35 U/L [facility] DEPARTMENT OF PATHOLOGY AND GENOMIC MEDICINE Specimen Plasma specimen Performing Organization Address [facility] Phone Number [facility] DEPARTMENT OF PATHOLOGY AND [address] [place] [phone] GENOMIC MEDICINE after 10/30/2017 Insurance Payer Benefit Plan / Group Subscriber ID Type Phone Address MEDICARE MEDICARE PART A AND B xxxxxxxxxx Medicare [place] AARP AARP SUPPLEMENT xxxxxxxxx-x Commercial Advance Directives Patient has advance care planning documents on file. For more information, please contact:Jose Alfredo [id number] [facility] ([place] [address]
--- NOTE | 2018-10-31 17:21 | RAD REPORT ---
EXAM DESCRIPTION: Jane Navarro And Gustavo (2 Views)10/31/2018 5:03 pm CLINICAL HISTORY: Cough COMPARISON: October 27, 2018 FINDINGS: Moderate to large left pleural effusion is present. Loculated right pleural effusion appears unchanged. Bibasilar lung atelectasis. The heart remains enlarged. Postsurgical changes involve the chest
[2018-10-31 18:13] LABS: Absolute Lymphocytes (CBC) 0.8 K/uL (0.7-4.9); Absolute Monocytes 0.4 K/uL (0.1-1.3); Absolute Neutrophil 8.2 K/uL (1.8-8.0); Basophils % 0.1 % (0-1.3); Hematocrit 30.5 % (36.0-45.0); Lymphocytes % 8.8 % (15.3-44.8); Monocytes % 4.6 % (3.3-12.3); RBC Red Blood Cell Count 3.29 M/uL (3.86-4.86)
[2018-10-31 18:14] LABS: Protime INR 1.02
[2018-10-31 18:32] LABS: ALT/SGPT 10 U/L (12-78); AST/SGOT 11 U/L (15-37); Albumin 2.2 g/dL (3.4-5.0); Alkaline Phosphatase 73 U/L (45-117); BUN Blood Urea Nitrogen 28 mg/dL (7-18); Bicarbonate 37 mmol/L (21-32); Bilirubin Direct < 0.1 mg/dL (0-0.2); Bilirubin Total 0.2 mg/dL (0.2-1.0); Glucose Level 122 mg/dL (74-106); NT PRO-BNP 293 pg/mL (<125); Potassium 4.2 mmol/L (3.5-5.1); Protein, Total 6.7 g/dL (6.4-8.2); Sodium Level 138 mmol/L (136-145); Troponin (Emerg Dept Use Only) < 0.02 ng/mL (0.0-0.045)
[2018-10-31 18:45] LABS: Blood Morphology Comment NOTED (NOT SEEN); Hypochromasia 1+; Platelet Estimate ADEQ; Stomatocytes 1+; Urine White Blood Cell Casts OK
[2018-10-31] MEDS ORDERED: MORPHINE 4 MG/ML SYR ONE (19:37)
[2018-10-31] MEDS ORDERED: ONDANSETRON 4 MG/2 ML VIAL ONE ×2 (19:37→20:23)
[2018-10-31] MEDS ORDERED: ACETAMINOPHEN 500 MG TAB ONE (19:53)
[2018-10-31] MEDS ORDERED: FENTANYL CITR 100 MCG/2 ML ONE (20:23)
--- NOTE | 2018-10-31 22:10 | ER ---
Nurse's Notes [facility] Name: Shannan Olivia Age: 72 yrs Sex: Female : 1945 Arrival Date: 10/31/2018 Time: 16:03 Bed 19 Private MD: Mickey Gates C Diagnosis: Low back pain Presentation: 10/31 16:09 Presenting complaint: Low back pain, nonproductive cough, and SOB x 3 days. Transition hb of care: patient was not received from another setting of care. Onset of symptoms was October 28, 2018. Risk Assessment: Do you want to hurt yourself or someone else? Patient reports no desire to harm self or others. Care prior to arrival: on home O2, 2L via NC. 16:09 Method Of Arrival: Wheelchair hb 16:09 Acuity: KANU 3 hb Triage Assessment: 18:15 General: Appears distressed, comfortable, slender, Behavior is cooperative, appropriate bp for age, anxious. Pain: Complains of pain in back. EENT: No deficits noted. Neuro: Level of Consciousness is alert, obeys commands, lethargic, Oriented to person, place, time, situation, Appropriate for age. Cardiovascular: Rhythm is sinus rhythm. Respiratory: Airway is patent Respiratory effort is even, labored, Respiratory pattern is tachypnea. GI: No signs and/or symptoms were reported involving the gastrointestinal system. : No signs and/or symptoms were reported regarding the genitourinary system. Derm: No deficits noted. Musculoskeletal: Circulation, motion, and sensation intact. Range of motion: intact in all extremities. Historical: - Allergies: 16:11 NKA; hb - PMHx: 18:10 acid reflux; Anxiety; Asthma; CHF; COPD; Hypertension; pleural effusion-06/2015; bp Pneumonia; shingles; - Immunization history:: Adult Immunizations up to date. - Social history:: Smoking status: Patient/guardian denies using tobacco. - Ebola Screening: : No symptoms or risks identified at this time. Screenin:10 Abuse screen: Denies threats or abuse. Denies injuries from another. Nutritional bp screening: No deficits noted. Tuberculosis screening: No symptoms or risk factors identified. Fall Risk None identified. Assessment: 18:15 General: SEE TRIAGE TAB. bp 19:34 Reassessment: Patient and/or family updated on plan of care and expected duration. Pain ed1 level reassessed. Patient is alert, oriented x 3, equal unlabored respirations, skin warm/dry/pink. Patient states symptoms have not improved. Pt requesting Tylenol for pain. Pain: Complains of pain in diaphragm Pain radiates to back Pain currently is 8 out of 10 on a pain scale. Quality of pain is described as sharp, Pain began 2-3 days ago. Is continuous. Neuro: Level of Consciousness is awake, alert, obeys commands, Oriented to person, place, time, situation. 20:30 Reassessment: Patient appears in no apparent distress at this time. No changes from ed1 previously documented assessment. Patient and/or family updated on plan of care and expected duration. Pain level reassessed. Patient is alert, oriented x 3, equal unlabored respirations, skin warm/dry/pink. Patient states symptoms have not improved. 21:29 Reassessment: Pt's approach nurses station asking if we knew where a white bag ed1 with medication is. I did not receive any report of a mediation bag being with the pt. Charge Nurse, Teri, informed. 21:44 Reassessment: Patient appears in no apparent distress at this time. Patient and/or ed1 family updated on plan of care and expected duration. Pain level reassessed. Patient is alert, oriented x 3, equal unlabored respirations, skin warm/dry/pink. Patient states feeling better. Patient states symptoms have improved. 22:30 Reassessment: Patient appears in no apparent distress at this time. Patient and/or ed1 family updated on plan of care and expected duration. Pain level reassessed. Patient is alert, oriented x 3, equal unlabored respirations, skin warm/dry/pink. Patient states feeling better. Patient states symptoms have improved. Vital Signs: 16:10 BP 120 / 67; Pulse 114; Resp 20; Temp 97.3; Pulse Ox 94% on 2 lpm NC; Pain 8/10; hb 18:00 BP 106 / 61; Pulse 98; Resp 24; Pulse Ox 98% on 2 lpm NC; bp 19:34 BP 113 / 63; Pulse 94; Resp 22; Pulse Ox 99% on 2 lpm NC; Pain 8/10; ed1 20:18 BP 110 / 62; Pulse 84; Resp 18; Pulse Ox 98% on 2 lpm NC; mt 21:44 BP 127 / 64; Pulse 78; Resp 16; Pulse Ox 99% on 2 lpm NC; Pain 3/10; ed1 22:30 BP 114 / 76; Pulse 74; Resp 17; Pulse Ox 95% on 2 lpm NC; Pain 2/10; ed1 ED Course: 16:03 Patient arrived in ED. rg4 16:04 Mickey Gates MD is Private Physician. rg4 16:10 Triage completed. hb 16:10 Arm band placed on. hb 17:03 Chest Pa And Lat (2 Views) XRAY In Process Unspecified. EDMS 17:29 Bronson Rodriguez, RN is Primary Nurse. bp 17:30 Miguelito Yancey NP is PHCP. pm1 17:30 Ugo Rosario MD is Attending Physician. pm1 18:02 Initial lab(s) drawn, by pa, sent to lab. Inserted saline lock: 20 gauge in right aj1 forearm, using aseptic technique. Blood collected. 18:09 EKG done, by geoscience technician. reviewed by Miguelito Yancey NP. sm3 18:10 Patient has correct armband on for positive identification. Bed in low position. Call bp light in reach. Side rails up X2. Adult w/ patient. 19:19 Primary Nurse role handed off by Bronson Rodriguez RN ed1 19:19 Dori Sy, CHAPIN is Primary Nurse. ed1 19:34 Awaiting disposition. ed1 21:55 X-ray completed. Patient tolerated procedure well. ls3 22:08 Mickey Gates MD is Referral Physician. pm1 22:30 No provider procedures requiring assistance completed. IV discontinued, intact, ed1 bleeding controlled, No redness/swelling at site. Pressure dressing applied. Administered Medications: 19:37 Not Given (Patient Refused): morphine 4 mg IVP once ed1 19:37 Not Given (Patient Refused): Zofran 4 mg IVP once; over 2 minutes ed1 19:47 Drug: Tylenol 1000 mg Route: PO; ed1 20:21 Follow up: Response: No adverse reaction; No change in condition; Pain is unchanged, ed1 physician notified 20:20 Drug: fentaNYL (PF) 25 mcg Route: IVP; Site: right forearm; ed1 21:00 Follow up: Response: No adverse reaction; Pain is decreased ed1 20:20 Drug: Zofran 4 mg Route: IVP; Site: right forearm; ed1 21:00 Follow up: Response: No adverse reaction ed1 Outcome: 22:08 Discharge ordered by . pm1 22:30 Discharged to home via wheelchair, with family. ed1 22:30 Condition: good 22:30 Discharge instructions given to patient, Instructed on discharge instructions, follow up and referral plans. medication usage, Demonstrated understanding of instructions, follow-up care, medications, Prescriptions given X 1. 22:32 Patient left the ED. ed1 Signatures: Dispatcher [employer] EDMS Nishi Kumar RN RN aj1 Dori Sy RN RN ed1 Miguelito Yancey, [employer]LING SUPERVISOR pm1 Pennie Sin RN RN Niurka Reyes4 Nichole Gallegos mt, Brian, RN RN Elysia Scott sm3 Ishan Vo ls3 Corrections: (The following items were deleted from the chart) 19:37 19:34 BP 113 / 63; Pulse 94bpm; Resp 28bpm; Pulse Ox 99% 2 lpm Nasal Cannula; Pain ed1 810; ed1
--- NOTE | 2018-10-31 22:10 | EDPHYS ---
Physician Documentation [facility] Name: Shannan Olivia Age: 72 yrs Sex: Female : 1945 Arrival Date: 10/31/2018 Time: 16:03 Bed 19 Private MD: Mickey Gates C ED Physician Ugo Rosario HPI: 10/31 17:30 This 72 yrs old Female presents to ER via Wheelchair with complaints of Back pm1 Pain, Breathing Difficulty. 17:30 The patient presents with pain that is acute, with no known mechanism of injury. The pm1 symptoms are located in the low back. Onset: The symptoms/episode began/occurred 3 day(s) ago. The pain does not radiate. Associated signs and symptoms: Pertinent positives: bilateral lower rib pain, Pertinent negatives: abdominal pain, chest pain, dysuria, fever, headache, nausea, vomiting. The problem was sustained from unknown cause. Modifying factors: The patient symptoms are alleviated by nothing, the patient symptoms are aggravated by nothing. The patient has experienced similar episodes in the past, multiple times. The patient has not recently seen a physician, the patient's primary care provider is Dr. Gates. Patient with history of chronic pleural effusions. Patient presenting with low back pain that is worse for the past 3 days. Has some bilateral anterior lower rib pain with her back pain. Patient at her baseline shortness of breath and her main complaint is the pain. Historical: - Allergies: 16:11 NKA; hb - PMHx: 18:10 acid reflux; Anxiety; Asthma; CHF; COPD; Hypertension; pleural effusion-06/2015; bp Pneumonia; shingles; - Immunization history:: Adult Immunizations up to date. - Social history:: Smoking status: Patient/guardian denies using tobacco. - Ebola Screening: : No symptoms or risks identified at this time. ROS: 17:30 Constitutional: Negative for fever, chills, and weight loss, Eyes: Negative for injury, pm1 pain, redness, and discharge, ENT: Negative for injury, pain, and discharge, Neck: Negative for injury, pain, and swelling, Cardiovascular: Negative for chest pain, palpitations, and edema. 17:30 Abdomen/GI: Negative for abdominal pain, nausea, vomiting, diarrhea, and constipation. 17:30 : Negative for injury, bleeding, discharge, and swelling, MS/Extremity: Negative for injury and deformity, Skin: Negative for injury, rash, and discoloration, Neuro: Negative for headache, weakness, numbness, tingling, and seizure. 17:30 Respiratory: Positive for cough, with green sputum, shortness of breath, Negative for wheezing. 17:30 Back: Positive for of the low back area, pain. Exam: 17:30 Constitutional: This is a well developed, well nourished patient who is awake, alert, pm1 and in no acute distress. Head/Face: Normocephalic, atraumatic. Eyes: Pupils equal round and reactive to light, extra-ocular motions intact. Lids and lashes normal. Conjunctiva and sclera are non-icteric and not injected. Cornea within normal limits. Periorbital areas with no swelling, redness, or edema. ENT: Nares patent. No nasal discharge, no septal abnormalities noted. Tympanic membranes are normal and external auditory canals are clear. Oropharynx with no redness, swelling, or masses, exudates, or evidence of obstruction, uvula midline. Mucous membranes moist. Neck: Trachea midline, no thyromegaly or masses palpated, and no cervical lymphadenopathy. Supple, full range of motion without nuchal rigidity, or vertebral point tenderness. No Meningismus. Cardiovascular: Regular rate and rhythm with a normal S1 and S2. No gallops, murmurs, or rubs. Normal PMI, no JVD. No pulse deficits. 17:30 Abdomen/GI: Soft, non-tender, with normal bowel sounds. No distension or tympany. No guarding or rebound. No evidence of tenderness throughout. 17:30 Skin: Warm, dry with normal turgor. Normal color with no rashes, no lesions, and no evidence of cellulitis. MS/ Extremity: Pulses equal, no cyanosis. Neurovascular intact. Full, normal range of motion. 17:30 Chest/axilla: Inspection: normal, Palpation: tenderness, of the lower anterior ribs bilaterally, that totally reproduces the patient's complaints. 17:30 Respiratory: the patient does not display signs of respiratory distress, Respirations: normal, Breath sounds: decreased breath sounds, are located in both bases. 17:30 Back: pain, of the low back area, vertebral tenderness, is not appreciated. 17:30 Neuro: Orientation: is normal, Motor: is normal, moves all fours. Vital Signs: 16:10 BP 120 / 67; Pulse 114; Resp 20; Temp 97.3; Pulse Ox 94% on 2 lpm NC; Pain 8/10; hb 18:00 BP 106 / 61; Pulse 98; Resp 24; Pulse Ox 98% on 2 lpm NC; bp 19:34 BP 113 / 63; Pulse 94; Resp 22; Pulse Ox 99% on 2 lpm NC; Pain 8/10; ed1 20:18 BP 110 / 62; Pulse 84; Resp 18; Pulse Ox 98% on 2 lpm NC; mt 21:44 BP 127 / 64; Pulse 78; Resp 16; Pulse Ox 99% on 2 lpm NC; Pain 3/10; ed1 22:30 BP 114 / 76; Pulse 74; Resp 17; Pulse Ox 95% on 2 lpm NC; Pain 2/10; ed1 MDM: 17:30 Patient medically screened. pm1 19:40 Physician consultation: A Kody JIN was contacted at 19:30, regarding patient's pm1 condition, would like further tests performed, Informed Dr. Gates that patient's main concern is pain management and fear of taking narcotics. He would like the patient to have a lumbar x-ray to rule out any compression fractures. Give patient pain medication in the ER and discharge home with tylenol #3 if she feels comfortable going home after pain management. 21:20 Data reviewed: vital signs. Data interpreted: Pulse oximetry: on room air is 98 %. pm1 Interpretation: normal. 21:20 ED course: Patient's pain improved with fentanyl in the ER. pm1 22:08 Counseling: I had a detailed discussion with the patient and/or guardian regarding: the pm1 historical points, exam findings, and any diagnostic results supporting the discharge/admit diagnosis, lab results, radiology results, the need for outpatient follow up, to return to the emergency department if symptoms worsen or persist or if there are any questions or concerns that arise at home. 10/31 17:49 Order name: Basic Metabolic Panel; Complete Time: 18:35 pm1 10/31 17:49 Order name: CBC with Diff; Complete Time: 19:04 pm1 10/31 17:49 Order name: LFT's; Complete Time: 18:35 pm1 10/31 17:49 Order name: Magnesium; Complete Time: 18:35 pm1 10/31 17:49 Order name: NT PRO-BNP; Complete Time: 18:35 pm1 10/31 17:49 Order name: PT-INR; Complete Time: 18:31 pm1 10/31 16:28 Order name: Chest Pa And Lat (2 Views) XRAY; Complete Time: 17:30 snw 10/31 17:49 Order name: Troponin (emerg Dept Use Only); Complete Time: 18:35 pm1 10/31 17:49 Order name: EKG; Complete Time: 17:49 pm1 10/31 17:49 Order name: Cardiac monitoring; Complete Time: 18:05 pm1 10/31 17:49 Order name: EKG - Nurse/Tech; Complete Time: 18:02 pm1 10/31 17:49 Order name: IV Saline Lock; Complete Time: 18:02 pm1 10/31 17:49 Order name: Labs collected and sent; Complete Time: 18:02 pm1 10/31 17:49 Order name: O2 Per Protocol; Complete Time: 18:05 pm1 10/31 17:49 Order name: O2 Sat Monitoring; Complete Time: 18:05 pm1 Administered Medications: 19:37 Not Given (Patient Refused): morphine 4 mg IVP once ed1 19:37 Not Given (Patient Refused): Zofran 4 mg IVP once; over 2 minutes ed1 19:47 Drug: Tylenol 1000 mg Route: PO; ed1 20:21 Follow up: Response: No adverse reaction; No change in condition; Pain is unchanged, ed1 physician notified 20:20 Drug: fentaNYL (PF) 25 mcg Route: IVP; Site: right forearm; ed1 21:00 Follow up: Response: No adverse reaction; Pain is decreased ed1 20:20 Drug: Zofran 4 mg Route: IVP; Site: right forearm; ed1 21:00 Follow up: Response: No adverse reaction ed1 Disposition: 11/01 06:57 Co-signature as Attending Physician, Ugo Rosario MD I agree with the assessment and kdr plan of care. Chart complete. Disposition: 10/31/18 22:08 Discharged to Home. Impression: Low back pain. - Condition is Stable. - Discharge Instructions: Back Pain, Adult. - Prescriptions for Tylenol- Codeine #3 300-30 mg Oral Tablet - take 2 tablets by ORAL route every 6 hours As needed; 20 tablet. - Medication Reconciliation Form, Thank You Letter, Antibiotic Education, Prescription Opioid Use form. - Follow up: Emergency Department; When: As needed; Reason: Worsening of condition. Follow up: Mickey Gates MD; When: 2 - 3 days; Reason: Recheck today's complaints, Continuance of care, Re-evaluation by your physician. - Problem is new. - Symptoms have improved. Signatures: Dispatcher [employer] EDMS Ugo Rosario MD MD [facility] Dori Sy RN RN ed1 Miguelito Yancey NP RETRIMMER pm1 Pennie Sin, RN RN Bronson Rodriguez, RN RN bp Corrections: (The following items were deleted from the chart) 10/31 22:32 22:08 10/31/2018 22:08 Discharged to Home. Impression: Low back pain. Condition is ed1 Stable. Forms are Medication Reconciliation Form, Thank You Letter, Antibiotic Education, Prescription Opioid Use. Follow up: Emergency Department; When: As needed; Reason: Worsening of condition. Follow up: Mickey Gates; When: 2 - 3 days; Reason: Recheck today's complaints, Continuance of care, Re-evaluation by your physician. Problem is new. Symptoms have improved. pm1
[2018-10-31 22:38] VITALS: TEMP 97.3
[2018-10-31 22:44] VITALS: BP 114/76; O2SAT 95
--- NOTE | 2018-11-01 05:50 | EKG ---
Test Date: 2018-10-31 Test Time: 17:57:12 Flight Operations Engineer: MATY MEASUREMENT RESULTS: Intervals: Rate: 100 UT: 148 QRSD: 82 QT: 330 QTc: 425 [place]: P: 37 UT: 148 QRS: 53 T: 47 INTERPRETIVE STATEMENTS: Normal sinus rhythm Normal ECG Compared to ECG 08/21/2018 16:52:15 Myocardial infarct finding no longer present Electronically Signed On 11-01-18 05:49:20 WHEEL ALIGNER by Rashaun He
--- NOTE | 2018-11-01 08:08 | RAD REPORT ---
EXAM DESCRIPTION: RAD - Lumbar Spine 3 Views - 10/31/2018 9:55 pm CLINICAL HISTORY: PAIN Radiculopathy COMPARISON: No comparisons FINDINGS: Vertebral body heights appear maintained. No compression fracture noted. Degenerative valverde ges present at L2-3 with vacuum disc degeneration and endplate sclerosis. 6 mm degenerative retrolist hesis of L2 on 3 noted. Mild dextroscoliosis is seen. Calcification is seen in the left renal pelvis. Mild aortic atherosclerosis. IMPRESSION: Moderate lumbar spine degenerative changes seen, greatest at L2-3. Left renal calculus.
== END 2018-10-31 22:32 | disposition home or self-care (01) ==
LOC: ER 16:02
DX: M54.5 Low back pain (principal); I10 Essential (primary) hypertension
CPT/HCPCS: 93005; 85025; 80048; 36415; 83735; 85610; 80076; 84484; 83880; 71046; 72100; 96375; 96374; 99284; J3010; J2405

== ENCOUNTER 2018-11-06 07:27 | Inpatient (IN) | payer OTHER, MEDICARE ==
--- OUTSIDE RECORDS SUMMARY | 2018-11-06 07:31 | XMS REPORT | Clinical Summary ---
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 Encounters Date Type Specialty Care [...] valve replacement) 04/01/2018 Intake Access N/A after 11/05/2017 Family History Medical History Relation Name Comments [...] 04/10/2019 Multidisciplinary Visit Cardiology Korey Giron MD [address] [address] Health Maintenance Due Date Last Done Comments BREAST CANCER SCREENING 1996 COLON CANCER SCREENING 1996 SHINGLES VACCINES (#1) 1996 65+ PNEUMOCOCCAL VACCINE (1 of 2 - PCV13) 12/08/2011 PNEUMOCOCCAL POLYSACCHARIDE VACCINE AGE 65 AND OVER 12/08/2011 INFLUENZA VACCINE 03/27/2018 Implants Implanted Type Area Janitorial Maintenance Worker Device Shelf Model / Identifier Expiration Serial / Date Lot Evolut Pro 29'Valve - [id number] - [id number] Cardiovascular N/A: [employer] 01/02/2020 EVOLUTPRO 29 US / Implanted: Qty: 1 on 04/09/2018 by Francisco J Lind MD Implants N/A COREVALVE [id number] / [id number] System Clsr Sut Meditd 6fr Perclose Proglide - [id number] Surgical N/A: THEODORE [id number] / Implanted: 04/09/2018 (Quantity not on file) Implants; N/A VASCULAR / Expanders; DEVICES Extenders; Surgical Wires System Clsr Sut Meditd 6fr Perclose Proglide - [id number] Surgical N/A: THEODORE [id number] / Implanted: 04/09/2018 (Quantity not on file) Implants; N/A VASCULAR / Expanders; DEVICES Extenders; Surgical Wires Catheter Card Nimo 6fr 125cm Ep Bipolar Pace Elctrd N/A: BARD [employer] [id number] / Implanted: Qty: 1 on 04/09/2018 by Francisco J Lind MD Groin / Procedures Procedure Name Priority Date/Time Associated Diagnosis Comments ECHOCARDIOGRAM 2D Routine 05/09/2018 5:23 Aortic valve disorder Results for this COMPLETE W MMODE PM CDT S/P TAVR procedure are in SPECTRAL COLOR DOPPLER (transcatheter aortic the results (46349) valve replacement) section. ECG 12-LEAD Routine 05/09/2018 [...] are in SPECTRAL COLOR DOPPLER the results (37811) section. POC GLUCOSE Routine 04/10/2018 7:57 Results [...] 04/09/2018 6:55 AM Staff: Anesthesiologist: OLAF ROSAS Resident/DESULFURIZER OPERATOR/AA: MARICRUZ SANCHES Performed by: Resident/DESULFURIZER OPERATOR and resident/DESULFURIZER OPERATOR/AA Pre-procedure: patient identified, IV checked, site and [...] to catheter itself. Bleeding improved with pressure. DE AN ELECTIVE ENDOTRACHEAL AIRWAY Routine 04/09/2018 8:08 AM CDT Procedure Note - Olaf Rosas MD - 04/09/2018 8:08 AM CDT Airway Performed by: MARICRUZ SANCHES Authorized by: MARICRUZ SANCHES Location: OR Urgency: Elective Difficult Airway: No Anesthesiologist: OLAF ROSAS Resident/DESULFURIZER OPERATOR/AA: MARICRUZ SANCHES Performed by: resident/DESULFURIZER OPERATOR and resident/DESULFURIZER OPERATOR/AA Preoxygenated with 100% O2: Yes C-spine Precautions [...] the results section. XR CHEST 1 VW NON PORT STAT 04/02/2018 4:29 PM Results for this [...] are in SPECTRAL COLOR DOPPLER the results (05018) section. ZZESTIMATED GFR Routine 04/02/2018 4:00 AM [...] procedure are in the results section. after 11/05/2017 Results Echocardiogram complete w contrast and 3D if needed (05/09/2018 5:23 PM CDT) Narrative Performed At [facility] Echocardiography Report Pat.Name:BILL OLIVIA Pat.ID:[id number] .Date: 05/09/2018 Refer.MD:KOREY GIRON MD Exam Time: 4:40:00 PMStudy Type:Routine Echo Height:62inWeight: 108lb BSA: 1.47 m2 DOBAge:1945,72Y Sex: FEMALEBP:112/61 HR:80 bpm Sonogrphr: Viola Diez, RCS, RCCS, CCT Pat. Stat.:OutpatientRoom[facility] TapeVol: [facility], Study Status:Final Echo Event ID:[id number] Order ID:[id number] Reason for Study:S/P AVR History / Clinical:Hypertension, [...] of 0-5 mmHg. MEASUREMENTS: 2D Parasternal Long [place] LVOT 1.8 cmLA Ds4.1 cm LVIDd4.3 cmIndex2.9 cm/m Ao An2 cm LVIDs2.9 cmAo Rtd 2.3 cm Index1.6 cm/m LV%fs 33.3 % LV Agix583.9 g(87-129) IVSd 0.9 cmLVM Index 78.8 g/m2 LVPWd0.8 cmRWT0.4 LA Volume LA Vol52 weIhfwl70.4 ml/m DOPPLER LVOT Stroke Vol LVOT 1.8 cmLVOT CO4 l/min LVOT TVI19.9 cmLVOT CI2.7 l/m/m2 LVOT Tm282 lrimNP67 bpm LVOT SV 50.8 ml AV For [...] Results In - 05/10/2018 11:38 PM CDT [facility] Echocardiography Report Pat.Name: BILL OLIVIA Pat.ID: [id number] St.Date: 05/09/2018 Refer.MD: KOREY GIRON MD Exam Time: 4:40:00 PM Study Type:Routine Echo Height: 62in Weight: 108lb BSA: 1.47 m2 Age: 4 1945,72Y Sex: FEMALE BP: 112/61 HR: 80 bpm Sonogrphr: Viola Diez, RCS, RCCS, CCT Pat. Stat.:Outpatient Room: [address] Vol: [facility], Study Status:Final Echo Event ID:[id number] Order ID: [id number] Reason for Study:S/P AVR History / Clinical:Hypertension, [...] of 0-5 mmHg. MEASUREMENTS: 2D Parasternal Long [place] LVOT 1.8 cm LA Ds 4.1 cm [...] PM Teena Bryant M.D. Performing Organization Address [facility]/[place] Phone Number [facility] [address] [place] [address] ECG 12 lead (05/09/2018 3:36 PM CDT)Only the most recent of3 resultswithin the time period is included. Ventricular rate 89 [facility] MUSE Atrial rate 89 [facility] MUSE DE interval 154 [facility] QRSD interval 88 [facility] QT interval 350 [facility] QTC interval 425 [facility] MUSE P axis 1 38 [facility] MUSE QRS axis 1 86 [facility] MUSE T wave axis 20 [facility] MUSE EKG impression Normal sinus rhythm-Normal ECG-In automated [facility] MUSE comparison with ECG of 11-APR-2018 19:45,-Questionable change in QRS axis- Performing Organization Address [facility]/[place] Phone Number [facility] MUSE [address] [place] [address] CBC with platelet and differential (04/12/2018 4:25 AM CDT)Only the most recent of7 resultswithin the time period is included. WBC 7.64 4.50 - 11.00 k/uL [facility] DEPARTMENT OF PATHOLOGY AND GENOMIC MEDICINE RBC 2.49 (L) 4.20 - 5.50 m/uL [facility] DEPARTMENT OF PATHOLOGY AND GENOMIC MEDICINE HGB 7.6 (L) 12.0 - 16.0 g/dL [facility] DEPARTMENT OF PATHOLOGY AND GENOMIC MEDICINE HCT 25.2 (L) 37.0 - 47.0 % [facility] DEPARTMENT OF PATHOLOGY AND GENOMIC MEDICINE MCV 101.2 (H) 82.0 - 100.0 fL [facility] DEPARTMENT OF PATHOLOGY AND GENOMIC MEDICINE MCH 30.5 27.0 - 34.0 pg [facility] DEPARTMENT OF PATHOLOGY AND GENOMIC MEDICINE MCHC 30.2 (L) 31.0 - 37.0 g/dL [facility] DEPARTMENT OF PATHOLOGY AND GENOMIC MEDICINE RDW - SD 56.3 (H) 37.0 - 55.0 fL [facility] DEPARTMENT OF PATHOLOGY AND GENOMIC MEDICINE MPV 9.8 8.8 - 13.2 fL [facility] DEPARTMENT OF PATHOLOGY AND GENOMIC MEDICINE Platelet count 222 150 - 400 k/uL [facility] DEPARTMENT OF PATHOLOGY AND GENOMIC MEDICINE Nucleated RBC 0.00 /100 WBC [facility] DEPARTMENT OF PATHOLOGY AND GENOMIC MEDICINE Neutrophils 73.3 (H) 39.0 - 69.0 % [facility] DEPARTMENT OF PATHOLOGY AND GENOMIC MEDICINE Lymphocytes 15.7 (L) 25.0 - 45.0 % [facility] DEPARTMENT OF PATHOLOGY AND GENOMIC MEDICINE Monocytes 8.8 0.0 - 10.0 % [facility] DEPARTMENT OF PATHOLOGY AND GENOMIC MEDICINE Eosinophils 1.4 0.0 - 5.0 % [facility] DEPARTMENT OF PATHOLOGY AND GENOMIC MEDICINE Basophils 0.4 0.0 - 1.0 % [facility] DEPARTMENT OF PATHOLOGY AND GENOMIC MEDICINE Immature granulocytes 0.4Comment: 0.0 - 1.0 % [facility] DEPARTMENT OF "Immature PATHOLOGY AND GENOMIC granulocytes" MEDICINE (promyelocytes, myelocytes, metamyelocytes) Specimen Blood Performing Organization Address City/State/Zipcode Phone Number [facility] DEPARTMENT OF PATHOLOGY AND [address] [place] [address] [facility] Estimated GFR (04/12/2018 4:00 AM CDT)Only the most recent of11 resultswithin the time period is included. GFR Non Af Amer 71 mL/min/1.73 m2 [facility] DEPARTMENT OF PATHOLOGY AND GENOMIC MEDICINE GFR Af Amer 86 mL/min/1.73 m2 [facility] DEPARTMENT OF Comment: PATHOLOGY AND GENOMIC [...] Americans. Specimen Plasma specimen Performing Organization Address City/[facility]/[place] Phone Number [facility] DEPARTMENT OF PATHOLOGY AND [address] [place] [address] Phosphorus level (04/12/2018 4:00 AM CDT)Only the most recent of4 resultswithin the time period is included. Phosphorus 2.3 (L) 2.4 - 4.5 mg/dL [facility] DEPARTMENT OF PATHOLOGY AND GENOMIC MEDICINE Specimen Plasma specimen Performing Organization Address [facility]/[place] Phone Number [facility] DEPARTMENT OF PATHOLOGY AND [address] [place] [address] Magnesium level (04/12/2018 4:00 AM CDT)Only the most recent of7 resultswithin the time period is included. Magnesium 2.2 1.6 - 2.4 mg/dL [facility] DEPARTMENT OF PATHOLOGY AND GENOMIC MEDICINE Specimen Plasma specimen Performing Organization Address [facility] Phone Number [facility] DEPARTMENT OF PATHOLOGY AND [address] [place] [address] Basic metabolic panel (04/12/2018 4:00 AM CDT)Only the most recent of8 resultswithin the time period is included. Sodium 142 135 - 148 mEq/L [facility] DEPARTMENT OF PATHOLOGY AND GENOMIC MEDICINE Potassium 4.1 3.5 - 5.0 mEq/L [facility] DEPARTMENT OF PATHOLOGY AND GENOMIC MEDICINE Chloride 99 98 - 112 mEq/L [facility] DEPARTMENT OF PATHOLOGY AND GENOMIC MEDICINE CO2 36 (H) 24 - 31 mEq/L [facility] DEPARTMENT OF PATHOLOGY AND GENOMIC MEDICINE Anion gap 7@ANIO 7 - 15 mEq/L [facility] DEPARTMENT OF PATHOLOGY AND GENOMIC MEDICINE BUN 25 (H) 8 - 23 mg/dL [facility] DEPARTMENT OF PATHOLOGY AND GENOMIC MEDICINE Creatinine 0.8 0.5 - 0.9 mg/dL [facility] DEPARTMENT OF PATHOLOGY AND GENOMIC MEDICINE Glucose 79 65 - 99 mg/dL [facility] DEPARTMENT OF PATHOLOGY AND GENOMIC MEDICINE Calcium 8.6 (L) 8.8 - 10.2 mg/dL [facility] DEPARTMENT OF PATHOLOGY AND GENOMIC MEDICINE Specimen Plasma specimen Performing Organization Address [facility] Phone Number [facility] DEPARTMENT OF PATHOLOGY AND [address] [place] [address] MEDICINE XR Chest 2 Vw (04/10/2018 10:19 [...] Cardiac silhouette is stable.Visualized osseous structures arestable. [facility]-[id number] Procedure Note Interface, Radiology Results Incoming - [...] is stable. Visualized osseous structures are stable. [facility]-[id number] Performing Organization Address [facility] Phone Number [facility] [address] [place] [address] POC glucose (04/10/2018 6:10 PM CDT)Only the most recent of4 resultswithin the time period is included. POC glucose 84 65 - 99 mg/dL [facility] DEPARTMENT OF PATHOLOGY Comment: AND GENOMIC MEDICINE [facility] Notified RN Meter ID: [id number] Polymer Tester: Noé Garsia Performing Organization Address [facility]/[place] Phone Number [facility] DEPARTMENT OF PATHOLOGY AND [address] [place] [address] GENOMIC MEDICINE Echocardiogram complete w contrast and 3D if needed (04/10/2018 10:15 AM CDT) Narrative Performed At [facility] Echocardiography Report [address] [place] [address] Pat.Name:BILL OLIVIA Pat.ID:[id number] .Date: 04/10/2018 Refer.MD:FRANCISCO J LIND MD Exam Time: 9:44:00 AMStudy Type:Routine Echo Height:62inWeight: 107lb BSA: 1.47 m2 DOBAge:1945,72Y Sex: FEMALEBP:113/56 HR:76 bpmSonogrphr: Jose E Sung RDCS Pat. Stat.:Inpatient Room:[facility] [address] Study Status:Final Echo Event ID:[id number] Order ID:[id number] Reason for Study:Prosthetic Valves - Initial postoperative [...] RAPof 10 mmHg. MEASUREMENTS: 2D Parasternal Long [place] LVOT 1.9 cmLVPWd0.9 cm LVIDd5.1 cmIndex3.4 cm/m LA Ds4.3 cm LVIDs3.6 cmLV Brdl466.5 g(87-129) LV%fs 29.7 % LVM Dlonj305.4 g/m2 IVSd 1 cmRWT0.4 LA Sng Plane [...] mmHgAVpkAcRt 8551.9 cm/s2 AV Mean G6.5 mmHgAV DgPu977.3 cm/s2 AV AC 80 msec (83-118) AV Area2.1 cm2(3-5) AV ET261 msec LVOT For Flow LVOT Area2.8 cm2 LVOT SV 63.2 ml BUKEnzClm704 cm/sHR84.4 bpm LVOTpkPG 5.8 mmHgLVOT CO5.3 l/min LVOTmnPG 3 mmHgLVOT CI3.6 l/m/m2 LVOT TVI22.3 cm WALL MOTION: RESTING WALL MOTION: Basal Inferoseptal, Basal Inferior, Basal Inferolateral, Basal Anterolateral shane are hypokinetic. Normal in all other shane. Wall Index=1.2 Signed 04/10/2018 05:27 PM Pedro Luis Nuno M.D. Procedure Note Interface, Radiology Results In - 04/10/2018 5:27 PM CDT Echocardiography Report [address] [place] [address] Pat.Name: BILL OLIVIA Pat.ID: [id number] .Date: 04/10/2018 Refer.MD: FRANCISCO J LIND MD Exam Time: 9:44:00 AM Study Type:Routine Echo Height: 62in Weight: 107lb BSA: 1.47 m2 Age: 4 1945,72Y Sex: FEMALE BP: 113/56 HR: 76 bpm Sonogrphr: Jose E Sung RDCS Pat. Stat.:Inpatient Room: [address] Study Status:Final Echo Event ID:[id number] Order ID: [id number] Reason for Study:Prosthetic Valves - Initial postoperative [...] of 10 mmHg. MEASUREMENTS: 2D Parasternal Long [place] LVOT 1.9 cm LVPWd 0.9 cm LVIDd [...] Organization Address City/State/Zipcode Phone Number [facility] [address] [place] [address] Lipid panel (04/10/2018 4:33 AM CDT)Only the most recent of2 resultswithin the time period is included. Cholesterol 156 <200 mg/dL [facility] DEPARTMENT OF PATHOLOGY AND GENOMIC MEDICINE Triglycerides 45 <150 mg/dL [facility] DEPARTMENT OF PATHOLOGY AND GENOMIC MEDICINE HDL cholesterol 51 >40 mg/dL [facility] DEPARTMENT OF PATHOLOGY AND GENOMIC MEDICINE LDL cholesterol 97Comment: Result <100 mg/dL [facility] DEPARTMENT OF obtained by direct LDL PATHOLOGY AND GENOMIC measurement MEDICINE Lipid panel interpretation SeeBelow [facility] DEPARTMENT OF Comment: PATHOLOGY AND GENOMIC Total Cholesterol (mg/dL) MEDICINE <200 Desirable 747-294Uvnbugggxv-vbew >=240High Triglycerides (mg/dL) <150 Normal 195-897Refubwdmlt-edsl 200-499High >=500Very high HDL Cholesterol (mg/dL) <40Low (male) <40Low (female) LDL Cholesterol (mg/dL) <100 Optimal 100-129Near or above optimal 029-205Bopvyjaodj-dmcn 160-189High >=190Very high Risk Catergories that modify [...] mg/dL) Specimen Plasma specimen Performing Organization Address [facility]/[place] Phone Number [facility] DEPARTMENT OF PATHOLOGY AND [address] [place] [address] [facility] MEDICINE ECG Pre/Post Op (PRN) (04/09/2018 1:48 PM CDT) Ventricular rate 67 [facility]USE Atrial rate 67 [facility] M[facility] DE interval 170 [facility] QRSD interval 94 [facility] QT interval 380 [facility] QTC interval 401 [facility] P axis 1 20 [facility] MUSE QRS axis 1 31 [facility] MUSE T wave axis 39 [facility] MUSE EKG impression Normal sinus rhythm with sinus [facility] MUSE arrhythmia-Possible Left atrial enlargement-T wave abnormality, consider anterior ischemia-Abnormal ECG-No previous ECGs available- Performing Organization Address [facility]/[place] Phone Number [facility] MUSE [address] [place] [address] Cv laborer plumbing procedure (04/09/2018 9:30 AM CDT) Narrative Performed At [facility]: ARNULFO Giron MD and Francisco J Lind MD PROCEDURES: 1.Diagnostic left heart catheterization. 2.Transcatheter aortic valve replacement with 29 mm CoreValve Evolut PRO inside the stentless porcine bioprosthesis (27mm Appling valve). 3.Ascending aortogram. 4.Descending abdominal aortogram. 5.Temporary [...] guidance using a micropuncture needle, and a 6-Canadian sheath was placed. Then the left femoral [...] was removed and was exchanged for a Orutsararmiut Plus 0.018 inch wire.The wire was then advanced and the catheter was removed.The proximal portion of the wire was housed in its protective hoop.Attention was then turned to the contralateral femoral artery. After a small incision and spread, theartery was punctured under fluoroscopic guidance using the Orutsararmiut Plus wire as a target.The puncture was with a micropuncture needle which was then exchanged for a 6-Canadian sheath, which was in turn exchanged for a Proglide suture.The suture was taped into place and was exchanged for a 10-Canadian dilator. Over a Super Stiff wire, the 10-Canadian dilator was then exchanged for a 20Fr [...] on ascending aortogram.Through the pigtail catheter, a MedAdherenceari small wire was placed,over the wire for [...] capture system was then exchanged for the 6-Canadian angled pigtail. A second diagnostic left heart [...] this episode of care. Performing Organization Address [facility] Phone Number [facility] [address] [place] [address] Sodium level, syringe (04/09/2018 8:55 AM CDT)Only the most recent of3 resultswithin the time period is included. Sodium, syringe 137 135 - 148 mEq/L [facility] DEPARTMENT OF PATHOLOGY AND GENOMIC MEDICINE Specimen Blood Performing Organization Address City/[facility]/Zipcode Phone Number [facility] DEPARTMENT OF PATHOLOGY AND [address] [place] [id number] GENOMIC MEDICINE Potassium, syringe (04/09/2018 8:55 AM CDT)Only the most recent of3 resultswithin the time period is included. Potassium, syringe 3.4 (L) 3.5 - 5.0 mEq/L [facility] DEPARTMENT OF PATHOLOGY AND GENOMIC MEDICINE Specimen Blood Performing Organization Address [facility] Phone Number [facility] DEPARTMENT OF PATHOLOGY AND [address] [place] [address] Ionized calcium, arterial (04/09/2018 8:55 AM CDT)Only the most recent of3 resultswithin the time period is included. Ionized calcium, arterial 1.24 1.11 - 1.32 mmol/L [facility] DEPARTMENT OF PATHOLOGY AND GENOMIC MEDICINE Specimen Blood Performing Organization Address [facility] Phone Number [facility] DEPARTMENT OF PATHOLOGY AND [address] [place] [address] Hemoglobin, syringe (04/09/2018 8:55 AM CDT)Only the most recent of3 resultswithin the time period is included. Hemoglobin, syringe 7.8 (L) 12.0 - 16.0 g/dL [facility] DEPARTMENT OF PATHOLOGY AND GENOMIC MEDICINE Specimen Blood Performing Organization Address [facility] Phone Number [facility] DEPARTMENT OF PATHOLOGY AND [address] [place] [address] Glucose level, syringe (04/09/2018 8:55 AM CDT)Only the most recent of3 resultswithin the time period is included. Glucose, syringe 109 (H) 65 - 99 mg/dL [facility] DEPARTMENT OF PATHOLOGY AND GENOMIC MEDICINE Specimen Blood Performing Organization Address [facility] Number [facility] DEPARTMENT OF PATHOLOGY AND [address] [place] [address] Arterial blood gas (04/09/2018 8:55 AM CDT)Only the most recent of3 resultswithin the time period is included. pH, arterial 7.48 (H) 7.35 - 7.45 [facility] DEPARTMENT OF PATHOLOGY AND GENOMIC MEDICINE pCO2, arterial 44 35 - 45 mmHg [facility] DEPARTMENT OF PATHOLOGY AND GENOMIC MEDICINE pO2, arterial 427 (H) 80 - 90 mmHg [facility] DEPARTMENT OF PATHOLOGY AND GENOMIC MEDICINE Bicarbonate, arterial 32.3 (H) 21.0 - 28.0 mmol/L [facility] DEPARTMENT OF PATHOLOGY AND GENOMIC MEDICINE Base excess, arterial 8 (H) -2 - 2 mEq/L [facility] DEPARTMENT OF PATHOLOGY AND GENOMIC MEDICINE O2 saturation, arterial 100 95 - 100 % [facility] DEPARTMENT OF PATHOLOGY AND GENOMIC MEDICINE Specimen Blood Performing Organization Address [facility] Phone Number [facility] DEPARTMENT OF PATHOLOGY AND [address] [place] [address] [employer] MEDICINE Prepare RBC, 2 Units (04/08/2018 5:27 PM CDT) Product name Red Blood Cells -1, [facility] DEPARTMENT OF Leukored PATHOLOGY AND GENOMIC MEDICINE Unit number [id number] [facility] DEPARTMENT OF PATHOLOGY AND GENOMIC MEDICINE Product code [id number] [facility] DEPARTMENT OF PATHOLOGY AND GENOMIC MEDICINE Dispense status Returned to BB not [facility] DEPARTMENT OF transfused PATHOLOGY AND GENOMIC MEDICINE Blood expiration date [facility] DEPARTMENT OF PATHOLOGY AND GENOMIC MEDICINE Blood type code 6200 [facility] DEPARTMENT OF PATHOLOGY AND GENOMIC MEDICINE Blood type A POSITIVE [facility] DEPARTMENT OF PATHOLOGY AND GENOMIC MEDICINE Product name Red Blood Cells -1, [facility] DEPARTMENT OF Leukored PATHOLOGY AND GENOMIC MEDICINE Unit number [id number] [facility] DEPARTMENT OF PATHOLOGY AND GENOMIC MEDICINE Product code [id number] [facility] DEPARTMENT OF PATHOLOGY AND GENOMIC MEDICINE Dispense status Returned to not [facility] DEPARTMENT OF transfused PATHOLOGY AND GENOMIC MEDICINE Blood expiration date [facility] DEPARTMENT OF PATHOLOGY AND GENOMIC MEDICINE Blood type code 6200 [facility] DEPARTMENT OF PATHOLOGY AND GENOMIC MEDICINE Blood type A POSITIVE [facility] DEPARTMENT OF PATHOLOGY AND GENOMIC MEDICINE Performing Organization Address City/State/Zipcode Phone Number [facility] DEPARTMENT OF PATHOLOGY AND [address] [place] [address] GENOMIC MEDICINE Type and screen (04/08/2018 5:27 PM CDT) ABO grouping A [facility] DEPARTMENT OF PATHOLOGY AND GENOMIC MEDICINE Rh type POS [facility] DEPARTMENT OF PATHOLOGY AND GENOMIC MEDICINE Antibody screen (gel) NEG [facility] DEPARTMENT OF PATHOLOGY AND GENOMIC MEDICINE Specimen Blood Performing Organization Address City/[facility]/[place] Phone Number [facility] DEPARTMENT OF PATHOLOGY AND [address] [place] [address] MEDICINE Spirometry pre & post w/ bronchodilator, [...] LLN 63 [facility] Performing Organization Address City/State/[place] Phone Number [facility] [address] [place] [address] Comprehensive metabolic panel (04/08/2018 4:00 AM CDT)Only the most recent of3 resultswithin the time period is included. Sodium 141 135 - 148 mEq/L [facility] DEPARTMENT OF PATHOLOGY AND GENOMIC MEDICINE Potassium 4.2 3.5 - 5.0 mEq/L [facility] DEPARTMENT OF PATHOLOGY AND GENOMIC MEDICINE Chloride 97 (L) 98 - 112 mEq/L [facility] DEPARTMENT OF PATHOLOGY AND GENOMIC MEDICINE CO2 38 (H) 24 - 31 mEq/L [facility] DEPARTMENT OF PATHOLOGY AND GENOMIC MEDICINE Anion gap 6@ANIO (L) 7 - 15 mEq/L [facility] DEPARTMENT OF PATHOLOGY AND GENOMIC MEDICINE BUN 41 (H) 8 - 23 mg/dL [facility] DEPARTMENT OF PATHOLOGY AND GENOMIC MEDICINE Creatinine 0.9 0.5 - 0.9 mg/dL [facility] DEPARTMENT OF PATHOLOGY AND GENOMIC MEDICINE Glucose 85 65 - 99 mg/dL [facility] DEPARTMENT OF PATHOLOGY AND GENOMIC MEDICINE Calcium 8.5 (L) 8.8 - 10.2 mg/dL [facility] DEPARTMENT OF PATHOLOGY AND GENOMIC MEDICINE Protein 5.7 (L) 6.3 - 8.3 g/dL [facility] DEPARTMENT OF Comment: PATHOLOGY AND GENOMIC [place] 4.6-7.0 g/dL MEDICINE 1 week 4.4-7.6 g/dL 7 months-1year5.1-7.3 g/dL 1-2 years5.6-7.5 g/dL >3 years6.0-8.0 g/dL 18-150 6.3-8.3 g/dL Albumin 2.1 (L) 3.5 - 5.0 g/dL [facility] DEPARTMENT OF PATHOLOGY AND GENOMIC MEDICINE A/G ratio 0.6 (L) 0.7 - 3.8 [facility] DEPARTMENT OF PATHOLOGY AND GENOMIC MEDICINE Alkaline phosphatase 46 35 - 104 U/L [facility] DEPARTMENT OF PATHOLOGY AND GENOMIC MEDICINE AST 16 10 - 35 U/L [facility] DEPARTMENT OF PATHOLOGY AND GENOMIC MEDICINE ALT 9 5 - 50 U/L [facility] DEPARTMENT OF PATHOLOGY AND GENOMIC MEDICINE Total bilirubin 0.3 0.0 - 1.2 mg/dL [facility] DEPARTMENT OF PATHOLOGY AND GENOMIC MEDICINE Specimen Plasma specimen Performing Organization Address City/[facility]/[place] Phone Number [facility] DEPARTMENT OF PATHOLOGY [place] [address] [facility] Hemoglobin A1c (04/05/2018 3:05 PM CDT) Hemoglobin A1C 4.9 4.0 - 5.6 % [facility] DEPARTMENT OF PATHOLOGY Comment: [facility] HbA1c cutoffs for diagnosing diabetes: 4.0% - 5.6%=normal 5.7% - 6.4%=increased risk for diabetes (prediabetes) >=6.5%=diabetes Goals for glycemic control (ADA 2016) < 7.0%Target for non adults with diabetes. More or less stringent targets may be appropriate for individual patients. <7.5% Target for Children and adolescents with type 1 diabetes. Specimen Blood Performing Organization Address City/State/Zipcode Phone Number [facility] DEPARTMENT OF PATHOLOGY [place] [address] [employer] [facility] Echocardiogram transesophageal (04/04/2018 10:17 AM CDT) Narrative Performed At [facility] Transesophageal Echo Report [address], [place], [place] [address] [facility].Name:BILL OLIVIA.ID:[id number] .Date: 04/04/2018Refer.MD:FRANCISCO J LIND MD Exam Time: 8:22:00 AMStudy Type:FRANCISCA Height:62inWeight: 106lb BSA: 1.46 m2 DOBAge:1945,72Y Sex: FEMALEBP:122/58 HR:83 bpmSonogrphr: Evan Batista MD [facility]. Stat.:Inpatient Room:[place] [address] Study Status:Final Echo Event ID:[id number] Order ID:[id number] Reason for Study:r/o vegetation on aortic valve History / Clinical:Hypertension, AORTIC VALVE REPLACEMENT Procedures:3D Echo, Transesophageal Echo with Colorflow Doppler Race: SUMMARY: Severe aortic regurgitation.Pressure half time 104 ms. Holodiastolic flow reversal in the descending thoracic aorta. LV EF is moderately depressed.Normal RV systolic function. FINDINGS: FRANCISCA:The attending atmospheric chemist performed the FRANCISCA procedure and waspresent for [...] Anesthesia: Moderate Sedation Physician: Rom Lopez M.D. Abalone Processor: Evan Batista MD Pre TEEBP HR Post FRANCISCA BP HR 122/58 64424/48 89 Meds:Viscous xylocaine, Cetacaine spray to oropharynx, Versed 1 mg IV, Fentanyl 25 mcg IV Complications: None Condition: Stable MEASUREMENTS: 2D Parasternal Long [place] LVOT 1.9 cmLA Ds4.1 cm LVIDd5 cmAo Rtd 2.6 cm LVIDs3.8 cmLV Dcgc942.8 g(87-129) LV%fs 23 % LVM Index 95.1 g/m2 IVSd 0.7 cmRWT0.4 LVPWd0.9 cm DOPPLER AV Pressure Half Time AV P1/2t 104 msec Signed 04/04/2018 11:38 AM Rom Lopez M.D. Procedure Note Interface, Radiology Results In - 04/04/2018 11:38 AM CDT Transesophageal Echo Report [address], [place], [place] [address] Pat.Name: BILL OLIVIA Pat.ID: [id number] .Date: 04/04/2018 Refer.MD: FRANCISCO J LIND MD Exam Time: 8:22:00 AM Study Type:FRANCISCA Height: 62in Weight: 106lb BSA: 1.46 m2 Age: 4 1945,72Y Sex: FEMALE BP: 122/58 HR: 83 bpm Sonogrphr: Evan Batista MD [facility]. Stat.:Inpatient Room: [place] [address] Study Status:Final Echo Event ID:[id number] Order ID: [id number] Reason for Study:r/o vegetation on aortic valve History / Clinical:Hypertension, AORTIC VALVE REPLACEMENT Procedures:3D Echo, Transesophageal Echo with Colorflow Doppler Race: SUMMARY: Severe aortic regurgitation. Pressure half time 104 ms. Holodiastolic flow reversal in the descending thoracic aorta. LV EF is moderately depressed. Normal RV systolic function. FINDINGS: FRANCISCA: The attending atmospheric chemist performed the FRANCISCA procedure and was present [...] Anesthesia: Moderate Sedation Physician: Rom Lopez M.D. Abalone Processor: Evan Batista MD Pre FRANCISCA BP HR Post FRANCISCA BP HR 122/58 83 101/48 89 Meds: Viscous xylocaine, Cetacaine spray to oropharynx, Versed 1 mg IV, Fentanyl 25 mcg IV Complications: None Condition: Stable MEASUREMENTS: 2D Parasternal Long [place] LVOT 1.9 cm LA Ds 4.1 cm LVIDd 5 cm Ao Rtd 2.6 cm LVIDs 3.8 cm LV Mass 138.8 g (87-129) LV%fs 23 % LVM Index 95.1 g/m2 IVSd 0.7 cm RWT 0.4 LVPWd 0.9 cm DOPPLER AV Pressure Half Time AV P1/2t 104 msec Signed 04/04/2018 11:38 AM Rom Lopez M.D. Performing Organization Address City/State/Zipcode Phone Number [facility] [address] [place] [address] B natriuretic peptide (04/04/2018 5:10 AM CDT)Only the most recent of2 resultswithin the time period is included. BNP 230 (H) 0 - 100 pg/mL [facility] DEPARTMENT OF PATHOLOGY AND GENOMIC MEDICINE Performing Organization Address City/State/Zipcode Phone Number [facility] DEPARTMENT OF PATHOLOGY AND [address] [place] [address] GENOMIC MEDICINE XR Chest 1 Vw (04/02/2018 [...] size of the left pleural effusion, now vkenu-gh-wujrooxv in degree. There is a virun-nh-gptlaxgo right-sided pleural effusion. There is no pneumothorax. Bones:There is mild osteopenia. Patient is status post median sternotomy with intact wires. There is no acute displaced fracture or dislocation. IMPRESSION: Status post left-sided thoracentesis with interval reduction in size of left pleural effusion, now xzirm-ax-pbeqgdtt. No left-sided pneumothorax. Pkobe-ef-wnwpxaxz right pleural effusion. Bibasilar opacities likely represent atelectasis. Aspiration and/or pneumonia are also possible in the appropriate clinical context. [facility]-[id number] Procedure Note Interface, Radiology Results Incoming - [...] size of the left pleural effusion, now aympo-qu-phcliyjb in degree. There is a fgqxd-hw-nwrstjcw right-sided pleural effusion. There is no pneumothorax. Bones: There is mild osteopenia. Patient is status post median sternotomy with intact wires. There is no acute displaced fracture or dislocation. IMPRESSION: Status post left-sided thoracentesis with interval reduction in size of left pleural effusion, now cughd-mf-pchyvmcd. No left-sided pneumothorax. Pfibf-oz-ngcivjzg right pleural effusion. Bibasilar opacities likely represent atelectasis. Aspiration and/or pneumonia are also possible in the appropriate clinical context. [facility]-[id number] Performing Organization Address [facility]/[place] Phone Number [address] [address] Fungus smear (04/02/2018 4:17 PM CDT) Fungus smear No fungi observed. [facility] DEPARTMENT OF PATHOLOGY Comment: AND GENOMIC MEDICINE Specimen Information Specimen Source: Thoracentesis fluid Specimen Site: Pleural Fluid Specimen Thoracentesis fluid - Pleural Fluid Performing Organization Address [facility] Phone Number [facility] DEPARTMENT OF PATHOLOGY AND [address] [place] [address] GENOMIC MEDICINE AFB culture (04/02/2018 4:17 PM CDT) AFB culture isolate No growth after 6 weeks of incubation. [facility] DEPARTMENT OF Comment: PATHOLOGY AND GENOMIC Specimen Information MEDICINE Specimen Source: Thoracentesis fluid Specimen Site: Pleural Fluid Specimen Thoracentesis fluid - Pleural Fluid Performing Organization Address [facility]/[place] Phone Number [facility] DEPARTMENT OF PATHOLOGY AND [address] [place] [address] GENOMIC MEDICINE Aerobic culture (04/02/2018 4:17 PM CDT) Aerobic culture isolate No growth after 3 days. [facility] DEPARTMENT OF Comment: PATHOLOGY AND GENOMIC Specimen Information MEDICINE Specimen Source: Thoracentesis fluid Specimen Site: Pleural Fluid Specimen Thoracentesis fluid - Pleural Fluid Performing Organization Address [facility]/[place] Phone Number [facility] DEPARTMENT OF PATHOLOGY AND [address] [place] [address] GENOMIC MEDICINE Gram stain (04/02/2018 4:17 PM CDT) Gram stain isolate Many WBC's [facility] DEPARTMENT OF No organisms seen PATHOLOGY AND GENOMIC MEDICINE Comment: Specimen Information Specimen Source: Thoracentesis fluid Specimen Site: Pleural Fluid Specimen Thoracentesis fluid - Pleural Fluid Performing Organization Address [facility]/[place] Phone Number [facility] DEPARTMENT OF PATHOLOGY AND [address] [place] [address] AFB stain (04/02/2018 4:17 PM CDT) AFB stain No acid fast bacilli (AFB) seen. [facility] DEPARTMENT OF PATHOLOGY AND Comment: GENOMIC MEDICINE Specimen Information Specimen Source: Thoracentesis fluid Specimen Site: Pleural Fluid Specimen Thoracentesis fluid - Pleural Fluid Performing Organization Address [facility]/[place] Phone Number [facility] DEPARTMENT OF PATHOLOGY AND [address] [place] [address] Fungus culture (04/02/2018 4:17 PM CDT) Fungus culture isolate No growth after 4 weeks of incubation. [facility] DEPARTMENT OF Comment: PATHOLOGY AND GENOMIC Specimen Information MEDICINE Specimen Source: Thoracentesis fluid Specimen Site: Pleural Fluid Specimen Thoracentesis fluid - Pleural Fluid Performing Organization Address [facility] Phone Number [facility] DEPARTMENT OF PATHOLOGY AND [address] [place] [address] Anaerobic culture (04/02/2018 4:17 PM CDT) Anaerobic culture No anaerobic organisms isolated. [facility] DEPARTMENT OF isolate Comment: PATHOLOGY AND GENOMIC Specimen Information MEDICINE Specimen Source: Thoracentesis fluid Specimen Site: Pleural Fluid Specimen Thoracentesis fluid - Pleural Fluid Performing Organization Address [facility] Phone Number [facility] DEPARTMENT OF PATHOLOGY AND [address] [place] [address] [place] Thoracentesis With Imaging (04/02/2018 4:15 PM [...] was used for local anesthesia. A 5 [employer] catheter was inserted into the pleural space. 870 mLof pleural fluid was removed. 20 mL of aspirated fluid was also sent for laboratory analysis. The patient tolerated the procedure without difficulty and postprocedure chest x-ray demonstrated no pneumothorax. IMPRESSION: Ultrasound-guided left thoracentesis. [facility]-[id number] Procedure Note Interface, Radiology Results Incoming - [...] was used for local anesthesia. A 5 Canadian Yueh catheter was inserted into the pleural space. 870 mL of pleural fluid was removed. 20 mL of aspirated fluid was also sent for laboratory analysis. The patient tolerated the procedure without difficulty and postprocedure chest x-ray demonstrated no pneumothorax. IMPRESSION: Ultrasound-guided left thoracentesis. [facility]-[id number] Performing Organization Address City/State/[place] Phone Number [facility] [address] [place] [address] Cv cta tavr workup (cta coronary,cta thoracic aorta,cta abdominal runoff) (04/02 2:50 PM CDT) Narrative Performed At [facility] Nuclear Cardiology and Cardiac CT [address] [place] [address] CTA TAVR Protocol Pat.Name:ANGELICADIMABILL Opal Garcia.ID:[id number] .Date: 04/02/2018Refer.MD:FRANCISCO J LIND MD Exam Time: 2:23:00 PMStudy Type:CTA TAVR Protocol Height:62inWeight: 119.75lb BSA: 1.54 m2 DOBAge:1945,72Y Sex: FEMALEBP:125/56 HR:81 bpm Nuclear Tech:Dale Gardner RT(NM)(CT), [facility] CPT - 4: TAVR w Coronaries [id number] Nuclear Event ID:[id number] Order ID:[id number] Reason for Study:Aortic Insufficiency Procedures:CTA TAVR Protocol SUMMARY: Technique: IV contrast was administered and sequential 0.[address] cuts were obtained through the chest using the Siemens Somatom Force CT scanner. Post-processing and 3D reconstruction were done using the [employer] workstation. Interactive image viewing and volumetric display [...] Cardiovascular CTA Protocol and interpreted by a Flooring Mechanic.Should a more comprehensive assessment of non-cardiovascular findings be desired, please consult a radiologist.These images are available in the [facility] [employer] PACS system. Signed 04/02/2018 04:17 PM Daniel Sotelo MD Procedure Note Interface, Radiology Results In - 04/02/2018 4:17 PM CDT Nuclear Cardiology and Cardiac CT [address] [place] [address] CTA TAVR Protocol Pat.Name: BILL OLIVIA Pat.ID: [id number] St.Date: 04/02/2018 Refer.MD: FRANCISCO J LIND MD Exam Time: 2:23:00 PM Study Type:CTA TAVR Protocol Height: 62in Weight: 119.75lb BSA: 1.54 m2 Age: 4 1945,72Y Sex: FEMALE BP: 125/56 HR: 81 bpm Nuclear Tech:RT Mila([place])(CT), [facility] CPT - 4: TAVR w Coronaries [id number] Nuclear Event ID:[id number] Order ID: [id number] Reason for Study:Aortic Insufficiency Procedures:CTA TAVR Protocol SUMMARY: Technique: IV contrast was administered and sequential 0.[address] cuts were obtained through the chest using the Siemens Somatom Force CT scanner. Post-processing and 3D reconstruction were done using the [employer] workstation. Interactive image viewing and volumetric display [...] Cardiovascular CTA Protocol and interpreted by a Flooring Mechanic. Should a more comprehensive assessment of non-cardiovascular findings be desired, please consult a radiologist. These images are available in the [facility] [employer] PACS system. Signed 04/02/2018 04:17 PM Daniel Sotelo MD Performing Organization Address City/State/Zipcode Phone Number [address] [address] [phone] [place] carotid duplex (04/02/2018 2:10 PM CDT) Narrative Performed At [facility] Vascular Ultrasound Laboratory Carotid Artery Duplex Report [address] [facility] [facility] [address], [place] [id number] For quality control microbiology supervisor purposes, the categorization of the degree of the stenosis of this exam is based on criteria described in the IAC carotid stenosis grading white paper( www.intersocietal.org/Vascular) and Jody Ballesteros, James Bales, et al. Carotid artery stenosis: cleveland-scale and Doppler US diagnosis--Society of Radiologists in Ultrasound Consensus Conference. Radiology. 2003 Nov; 229(2):340-6. Pat.Name:BILL OLIVIA.ID:[id number] .Date: 04/02/2018Refer.MD:FRANCISCO J LIND MD Exam Time: 1:24:00 PMStudy Type:Carotid DOBAge:1945,72Y Sex: FEMALE Sonogrphr: PATRICK Richey, [facility] Stat.:[facility] TapeVol: SB, CPT - 4: [id number] Echo Event ID:[id number] Order ID:[id number] Reason for Study:Gradual decline in strenth and [...] EDV3.15 cm/s Left CCA Mid CCA Mid MJT067 cm/sCCA Mid EDV0 cm/s Left CCA Prox CCA Prox PSV 127 cm/sCCA Prox EDV 2.1 cm/s Left ICA Dist ICA Dist PSV64.9 cm/Pili Dist EDV2.16 cm/s Left ICA Mid ICA Mid [id number] cm/Pili Mid EDV 3.15 cm/s Left ICA Prox ICA Prox PSV 154 cm/Pili Prox EDV1.05 cm/s Left ECA Prox ECA Prox PSV 132 cm/sECA Prox EDV 4.2 cm/s Left SCA Prox SCA Prox PSV 163 cm/sSCA Prox EDV 4.2 cm/s Left Vertebral Vertebral OLU146 cm/sVertebral EDV0 cm/s Right CCA Dist CCA Dist PSV81.7 cm/sCCA Dist EDV 0.749 cm/s Right CCA Mid CCA Mid ZBF131 cm/sCCA Mid EDV 0.75 cm/s Right CCA Prox CCA Prox PSV 105 cm/sCCA Prox EDV 0 cm/s Right ICA Dist ICA Dist PSV 109 cm/Pili Dist EDV 1.5 cm/s Right ICA Mid ICA Mid BDH387 cm/Pili Mid EDV1.5 cm/s Right ICA Prox [...] Vascular Ultrasound Laboratory Carotid Artery Duplex Report [address] [place] [address] For quality control microbiology supervisor purposes, the categorization of the degree of the stenosis of this exam is based on criteria described in the IAC carotid stenosis grading white paper( www.intersocietal.org/Vascular) and Jody Ballesteros, James Bales, et al. Carotid artery stenosis: cleveland-scale and Doppler US diagnosis--Society of Radiologists in Ultrasound Consensus Conference. Radiology. 2003 Nov; 229(2):340-6. Pat.Name: BILL OLIVIA Pat.ID: [id number] .Date: 04/02/2018 Refer.MD: FRANCISCO J LIND MD Exam Time: 1:24:00 PM Study Type:Carotid Age: 4 1945,72Y Sex: FEMALE Sonogrphr: PATRICK Richey, [facility] Stat[facility] Room: D967A Tape Vol: SB, CPT - 4: 27626 Echo Event ID:[id number] Order ID: [id number] Reason for Study:Gradual decline in strenth and [...] PM John Romo MD Performing Organization Address [facility]/[place] Phone Number [facility] [address] [place] [address] Echocardiogram complete w contrast and 3D if needed (04/02/2018 9:14 AM CDT) Narrative Performed At [facility] Echocardiography Report [address] [place] [address] Pat.Name:BILL OLIVIA Pat.ID:[id number] .Date: 04/02/2018Refer.MD:FRANCISCO J LIND MD Exam Time: 9:47:00 AMStudy Type:Routine Echo Height:62inWeight: 120lb BSA: 1.54 m2 DOBAge:1945,72Y Sex: FEMALEBP:101/43 HR:85 bpmSonogrphr: MADDIE Kurtz Pat. Stat.:Inpatient Room:[facility] Study Status:Final Echo Event ID:[id number] Order ID:[id number] Reason for Study:Pre-op History / Clinical:Hypertension, AORTIC [...] valve regurgitation. FINDINGS: LV: LV size is jbyc-ep-idhoyscaun enlarged. There is moderate eccentricLV hypertrophy. LV [...] not well seen. MEASUREMENTS: 2D Parasternal Long [place] LVOT 1.9 cmIVSd 1 cm LA Ds5.3 cmLVPWd1.1 cm Ao Rtd 3.2 cmIndex2.1 cm/m LV Zikz500 g(87-129) LVIDd5.2 cmIndex3.4 cm/m LVM Dnlmw395.1 g/m2 LVIDs3.9 cmRWT0.4 LV%fs 25.7 % DOPPLER AV For Flow/ADEOLA AV pkVel 275.7 cm/s (100-170) AV AC/ET 0.3 AV mnVel 173.5 cm/Jewel TVI57.4 cm AV pkPG 30.4 mmHgAVpkAcRt 4149.2 cm/s2 AV Mean G 14.8 mmHgAV CtJd431.5 cm/s2 AV AC115 msec (83-118) AV Area1.6 cm2(3-5) AV ET331 msec LVOT For Flow LVOT Area2.8 cm2 LVOT SV 91.7 ml XHRLcqYob681.3 cm/sHR80.5 bpm LVOTpkPG 7.6 mmHgLVOT CO7.4 l/min LVOTmnPG 3.5 mmHgLVOT CI4.8 l/m/m2 LVOT TVI32.3 cm Signed 04/02/2018 05:57 PM Klaus Ryan M.D. Procedure Note Interface, Radiology Results In - 04/02/2018 5:58 PM CDT Echocardiography Report [address] [place] [address] Pat.Name: BILL OLIVIA Pat.ID: [id number] .Date: 04/02/2018 Refer.MD: FRANCISCO J LIND MD Exam Time: 9:47:00 AM Study Type:Routine Echo Height: 62in Weight: 120lb BSA: 1.54 m2 Age: 4 1945,72Y Sex: FEMALE BP: 101/43 HR: 85 bpm Sonogrphr: MADDIE Kurtz Pat. Stat.:Inpatient Room: 967 Study Status:Final Echo Event ID:[id number] Order ID: [id number] Reason for Study:Pre-op History / Clinical:Hypertension, AORTIC [...] valve regurgitation. FINDINGS: LV: LV size is mgid-kc-uullbuwchu enlarged. There is moderate eccentric LV hypertrophy. [...] not well seen. MEASUREMENTS: 2D Parasternal Long [place] LVOT 1.9 cm IVSd 1 cm LA [...] Performing Organization Address City/State/Zipcode Phone Number [facility] [address] [place] [address] Urinalysis screen and microscopy, with reflex to culture (04/01/2018 10:00 PM CDT) Specimen site Clean catch [facility] DEPARTMENT OF PATHOLOGY AND GENOMIC MEDICINE Color, UA Yellow [facility] DEPARTMENT OF PATHOLOGY AND GENOMIC MEDICINE Appearance, UA Turbid [facility] DEPARTMENT OF PATHOLOGY AND GENOMIC MEDICINE Specific gravity, UA 1.013 1.001 - 1.035 [facility] DEPARTMENT OF PATHOLOGY AND GENOMIC MEDICINE pH, UA 7.0 5.0 - 8.5 [facility] DEPARTMENT OF PATHOLOGY AND GENOMIC MEDICINE Protein, UA Negative Negative [facility] DEPARTMENT OF PATHOLOGY AND GENOMIC MEDICINE Glucose, UA Negative Negative [facility] DEPARTMENT OF PATHOLOGY AND GENOMIC MEDICINE Ketones, UA Negative Negative [facility] DEPARTMENT OF PATHOLOGY AND GENOMIC MEDICINE Bilirubin, UA Negative Negative [facility] DEPARTMENT OF PATHOLOGY AND GENOMIC MEDICINE Blood, UA Negative Negative [facility] DEPARTMENT OF PATHOLOGY AND GENOMIC MEDICINE Nitrite, UA Negative Negative [facility] DEPARTMENT OF PATHOLOGY AND GENOMIC MEDICINE Urobilinogen, UA 2.0 (A) <2.0 [facility] DEPARTMENT OF PATHOLOGY AND GENOMIC MEDICINE Leukocyte esterase, UA Negative Negative [facility] DEPARTMENT OF PATHOLOGY AND GENOMIC MEDICINE WBC, UA <1 0 - 4 /HPF [facility] DEPARTMENT OF PATHOLOGY AND GENOMIC MEDICINE RBC, UA 1 0 - 5 /HPF [facility] DEPARTMENT OF PATHOLOGY AND GENOMIC MEDICINE Bacteria, UA Few None seen [facility] DEPARTMENT OF PATHOLOGY AND GENOMIC MEDICINE Yeast, UA None seen [facility] DEPARTMENT OF PATHOLOGY AND GENOMIC MEDICINE Yeast with pseudohyphae, UA None seen [facility] DEPARTMENT OF PATHOLOGY AND GENOMIC MEDICINE Amorphous crystals Moderate [facility] DEPARTMENT OF PATHOLOGY AND GENOMIC MEDICINE Calcium oxalate crystals, UA Few [facility] DEPARTMENT OF PATHOLOGY AND GENOMIC MEDICINE Hyaline casts, UA 7 /LPF [facility] DEPARTMENT OF PATHOLOGY AND GENOMIC MEDICINE Specimen Urine Performing Organization Address City/[facility]/Zipcode Phone Number [facility] DEPARTMENT OF PATHOLOGY AND [address] [place] [address] MEDICINE Urine culture (04/01/2018 10:00 PM CDT) Urine culture SEE COMMENTComment: Bacteriuria [facility] DEPARTMENT OF PATHOLOGY screen negative. AND GENOMIC MEDICINE Performing Organization Address City/[facility]/Zipcode Phone Number [facility] DEPARTMENT OF PATHOLOGY AND [address] [place] [address] XR Chest 1 Vw Portable (04/01/2018 8:33 PM CDT) Narrative Performed At EXAMINATION: XR CHEST 1 VW PORTABLE [facility] INDICATION: preop COMPARISON: Most recent prior IMPRESSION: Stable cardiomegaly. Prior sternotomy. Arteriosclerosis aortic arch. Moderate left and small to moderate right pleural effusions with compressive atelectasis. Central pulmonary vascular congestion. No visible pneumothorax. [facility]-[id number] Procedure Note Hm Interface, Radiology Results Incoming - 04/01/2018 9:05 PM CDT EXAMINATION: XR CHEST 1 VW PORTABLE INDICATION: preop COMPARISON: Most recent prior IMPRESSION: Stable cardiomegaly. Prior sternotomy. Arteriosclerosis aortic arch. Moderate left and small to moderate right pleural effusions with compressive atelectasis. Central pulmonary vascular congestion. No visible pneumothorax. [facility]-[id number] Performing Organization Address [facility]/[place] Phone Number [facility] [address] [place] [address] Partial thromboplastin time, activated (04/01/2018 8:20 PM CDT) PTT 27.2 23.0 - 36.0 sec [facility] DEPARTMENT OF PATHOLOGY Comment: AND [facility] PTT therapeutic range for unfractionated heparin is 61.0-112.0 seconds which corresponds to Anti-Xa 0.3-0.7 U/ml. Specimen Blood Performing Organization Address [facility] Phone Number [facility] DEPARTMENT OF PATHOLOGY AND [address] [place] [address] [facility] Prothrombin time with INR (04/01/2018 8:20 PM CDT) Prothrombin time 13.9 12.0 - 15.0 sec [facility] DEPARTMENT OF PATHOLOGY AND GENOMIC MEDICINE INR 1.1 [facility] DEPARTMENT OF Comment: PATHOLOGY AND GENOMIC The International Normalized Ratio (INR) is a therapeutic MEDICINE monitoring tool for patients who are stable on oral anticoagulant therapy. An INR of 2.0-3.0 is suggested for deep vein thrombosis/pulmonary embolism. Specimen Blood Performing Organization Address [facility] [place] Phone Number [facility] DEPARTMENT OF PATHOLOGY AND [address] [place] [phone] [facility] Blood culture, aerobic & anaerobic (04/01/2018 8:00 PM CDT)Only the most recent of2 resultswithin the time period is included. Blood culture isolate No growth after 5 days of incubation. [facility] DEPARTMENT OF Comment: PATHOLOGY AND GENOMIC Specimen Information MEDICINE Specimen Source: Blood Specimen Site: Peripheral Hand Right Specimen Blood Performing Organization Address [facility] [place] Phone Number [facility] DEPARTMENT OF PATHOLOGY AND [address] [place] [phone] [facility] Thyroid stimulating hormone (04/01/2018 7:22 PM CDT) TSH 1.92 0.27 - 4.20 uIU/mL [facility] DEPARTMENT OF PATHOLOGY AND GENOMIC MEDICINE Specimen Plasma specimen Performing Organization Address [facility]/Zipcode Phone Number [facility] DEPARTMENT OF PATHOLOGY AND [address] [place] [phone] GENOMIC MEDICINE T4, free (04/01/2018 7:22 PM CDT) T4, free 1.2 0.9 - 1.7 ng/dL [facility] DEPARTMENT OF PATHOLOGY AND GENOMIC MEDICINE Specimen Plasma specimen Performing Organization Address City/[facility]/[place] Phone Number [facility] DEPARTMENT OF PATHOLOGY AND [address] [place] [phone] [facility] Hepatic function panel (04/01/2018 7:22 PM CDT) Albumin 2.5 (L) 3.5 - 5.0 g/dL [facility] DEPARTMENT OF PATHOLOGY AND GENOMIC MEDICINE Total bilirubin 0.3 0.0 - 1.2 mg/dL [facility] DEPARTMENT OF PATHOLOGY AND GENOMIC MEDICINE Bilirubin direct <0.2 0.0 - 0.3 mg/dL [facility] DEPARTMENT OF PATHOLOGY AND GENOMIC MEDICINE Alkaline phosphatase 50 35 - 104 U/L [facility] DEPARTMENT OF PATHOLOGY AND GENOMIC MEDICINE Protein 6.6 6.3 - 8.3 g/dL [facility] DEPARTMENT OF Comment: PATHOLOGY AND GENOMIC 4.6-7.0 g/dL MEDICINE 1 week 4.4-7.6 g/dL 7 months-1year5.1-7.3 g/dL 1-2 years5.6-7.5 g/dL >3 years6.0-8.0 g/dL 18-150 6.3-8.3 g/dL ALT 13 5 - 50 U/L [facility] DEPARTMENT OF PATHOLOGY AND GENOMIC MEDICINE AST 16 10 - 35 U/L [facility] DEPARTMENT OF PATHOLOGY AND GENOMIC MEDICINE Specimen Plasma specimen Performing Organization Address City/[facility]/[place] Phone Number [facility] DEPARTMENT OF PATHOLOGY AND [address] [place] [phone] GENOMIC MEDICINE after 11/05/2017 Insurance Payer Benefit Plan / Group Subscriber ID Type Phone Address MEDICARE MEDICARE PART A AND B xxxxxxxxxx Medicare [place], [place] AARP AARP SUPPLEMENT xxxxxxxxx-x Commercial Advance Directives Patient has advance care planning documents on file. For more information, please contact:Jose Alfredo Payne[address] [place] [address]
[2018-11-06] MEDS ORDERED: IPRATROPIUM BROM 0.5MG/2.5ML ONE (07:56)
[2018-11-06] MEDS ORDERED: LEVALBUTEROL 1.25 MG/3 ML NEB ONE (07:56)
[2018-11-06 08:10] LABS: Absolute Lymphocytes (CBC) 1.3 K/uL (0.7-4.9); Absolute Monocytes 0.7 K/uL (0.1-1.3); Absolute Neutrophil 10.5 K/uL (1.8-8.0); Basophils % 0.2 % (0-1.3); Eosinophils % 0.7 % (0-4.4); Hematocrit 35.3 % (36.0-45.0); MPV 6.8 fL (7.6-11.3); Monocytes % 5.5 % (3.3-12.3); Protime INR 0.98
[2018-11-06 08:24] LABS: ALT/SGPT 11 U/L (12-78); AST/SGOT 13 U/L (15-37); Albumin 2.4 g/dL (3.4-5.0); Alkaline Phosphatase 92 U/L (45-117); BUN Blood Urea Nitrogen 17 mg/dL (7-18); Bicarbonate 39 mmol/L (21-32); Bilirubin Direct 0.1 mg/dL (0-0.2); Bilirubin Total 0.3 mg/dL (0.2-1.0); Glucose Level 85 mg/dL (74-106); Magnesium 1.9 mg/dL (1.8-2.4); NT PRO-BNP 376 pg/mL (<125); Potassium 3.9 mmol/L (3.5-5.1); Protein, Total 6.9 g/dL (6.4-8.2); Sodium Level 136 mmol/L (136-145); Troponin (Emerg Dept Use Only) 0.08 ng/mL (0.0-0.045)
--- NOTE | 2018-11-06 08:36 | RAD REPORT ---
EXAM DESCRIPTION: RAD - Chest Single View - 11/06/2018 8:23 am CLINICAL HISTORY: COUGH Chest pain. COMPARISON: Chest Pa And Lat (2 Views) dated 10/31/2018; Chest Single View dated 08/21/2018; Chest Sin gle View dated 07/05/2018; Chest Pa And Lat (2 Views) dated 06/23/2018 FINDINGS: Portable technique limits examination quality. Bilateral pleural effusions are seen, moderate in size and larger on the left and unchanged since com parative examination. Atelectasis is suspected in both lung bases. The heart is mildly enlarged in si ze with sternotomy wires present.
[2018-11-06] MEDS ORDERED: METHYLPREDNISOLONE 125 MG INJ ONE (09:11)
[2018-11-06] MEDS ORDERED: FUROSEMIDE 20 MG/ 2ML VIAL ONE ×2 (09:12→09:24)
[2018-11-06] MEDS ORDERED: KETOROLAC 30 MG/ML INJ ONE (09:12)
[2018-11-06] MEDS ORDERED: ASPIRIN 81 MG CHEWABLE TABLET ONE (09:12)
--- NOTE | 2018-11-06 09:16 | EDPHYS ---
Physician Documentation [facility] Name: Shannan Olivia Age: 72 yrs Sex: Female : 1945 Arrival Date: 11/06/2018 Time: 07:29 Bed 7 Private MD: ED Physician Han Rodas HPI: 11/06 07:45 This 72 yrs old Female presents to ER via EMS with complaints of Rib Pain, cp Shortness Of Breath. 07:45 The patient has shortness of breath at rest. cp 07:45 Onset: The symptoms/episode began/occurred yesterday. Duration: The symptoms are cp continuous, and are steadily getting worse. Associated signs and symptoms: Pertinent positives: chest pain, productive cough, Pertinent negatives: diaphoresis, fever, hemoptysis. Severity of symptoms: in the emergency department the symptoms are unchanged despite home interventions. Historical: - Allergies: 07:39 NKA; sg - Home Meds: 07:39 carvedilol 3.125 mg Oral tab 1 tab every 12 hours [Active]; furosemide 40 mg Oral tab 1 sg tab Every other day [Active]; lorazepam 0.5 mg Oral tab 1 tab 2 times per day [Active]; mirtazapine 15 mg Oral TbDL 1 tab once daily [Active]; montelukast 10 mg Oral tab 1 tab once daily for Maintenance Therapy for Asthma [Active]; pantoprazole 40 mg Oral TbEC 1 tab once daily for Gastroesophageal reflux [Active]; Plavix 75 mg Oral tab 1 tab once daily [Active]; prednisone 10 mg Oral tab 1 tab 2 times per day [Active]; spironolactone 25 mg Oral tab 1 tab once daily [Active]; - PMHx: 07:39 acid reflux; Anxiety; Asthma; CHF; COPD; Hypertension; pleural effusion-06/2015; sg Pneumonia; shingles; - Immunization history:: Adult Immunizations up to date. - Social history:: Smoking status: Patient/guardian denies using tobacco. - Ebola Screening: : Patient negative for fever greater than or equal to 101.5 degrees Fahrenheit, and additional compatible Ebola Virus Disease symptoms Patient denies exposure to infectious person Patient denies travel to an Ebola-affected area in the 21 days before illness onset No symptoms or risks identified at this time. ROS: 07:50 Constitutional: Negative for body aches, fever, poor PO intake. cp 07:50 Eyes: Negative for injury, pain, redness, and discharge. cp 07:50 ENT: Negative for drainage from ear(s), ear pain, sore throat, difficulty swallowing, difficulty handling secretions. 07:50 Cardiovascular: Positive for chest pain, of the right lateral anterior chest and right lateral posterior chest, edema, Negative for palpitations. 07:50 Respiratory: Positive for cough, "sounds productive", orthopnea, shortness of breath, Negative for hemoptysis. 07:50 Abdomen/GI: Negative for abdominal pain, vomiting, diarrhea, constipation, anorexia, black/tarry stool, rectal bleeding. 07:50 Skin: Negative for cellulitis, rash. 07:50 Neuro: Negative for altered mental status, dizziness, headache, syncope, weakness. 07:50 All other systems are negative. Exam: 07:35 ECG was reviewed by the Attending Physician. cp 07:55 Constitutional: The patient appears in no acute distress, alert, awake, cp non-diaphoretic, non-toxic, well developed, well nourished. 07:55 Head/Face: Normocephalic, atraumatic. cp 07:55 Eyes: Pupils equal round and reactive to light, extra-ocular motions intact. Lids and lashes normal. Conjunctiva and sclera are non-icteric and not injected. Cornea within normal limits. Periorbital areas with no swelling, redness, or edema. ENT: Nares patent. No nasal discharge, no septal abnormalities noted. Tympanic membranes are normal and external auditory canals are clear. Oropharynx with no redness, swelling, or masses, exudates, or evidence of obstruction, uvula midline. Mucous membranes moist. 07:55 Neck: External neck: is normal, ROM/movement: is normal, is supple, without pain, no range of motions limitations, no meningismus, no nuchal rigidity. 07:55 Chest/axilla: Inspection: normal, Palpation: crepitus, is not appreciated, tenderness, that is mild, of the right lateral anterior chest and right lateral posterior chest, that partially reproduces the patient's complaints. 07:55 Cardiovascular: Rate: normal, Rhythm: regular, Pulses: Pulses are 2+ in right radial artery and left radial artery. Edema: ankle edema, that is mild, JVD: is not appreciated. 07:55 Respiratory: mild respiratory distress is noted, Respirations: labored breathing, that is mild, Breath sounds: rhonchi, that are moderate, are heard diffusely, + upper airway congestion. 07:55 Abdomen/GI: Inspection: abdomen appears normal, Bowel sounds: active, all quadrants, Palpation: abdomen is soft and non-tender, in all quadrants, rebound tenderness, is not appreciated, voluntary guarding, is not appreciated, involuntary guarding, is not appreciated. 07:55 Back: pain, is absent, ROM is normal. 07:55 Musculoskeletal/extremity: Exam is negative for decreased range of motion, deformity, injury. 07:55 Skin: cellulitis, is not appreciated, no rash present. 07:55 Neuro: Orientation: to person, place \\T\\ time. Mentation: is normal, Cerebellar function: is grossly normal, Motor: moves all fours, strength is normal, Sensation: is normal. Vital Signs: 07:30 BP 115 / 78; Pulse 96; Resp 20; Temp 97.7; Pulse Ox 98% ; sg 08:54 BP 137 / 75; Pulse 99; Resp 28; Pulse Ox 95% on 2 lpm NC; sv 09:48 BP 132 / 67; Pulse 103; Resp 15; Pulse Ox 95% on 2 lpm NC; sv 10:37 BP 112 / 79; Pulse 106; Resp 22; Pulse Ox 96% on 2 lpm NC; sv MDM: 07:39 Patient medically screened. cp 08:00 Differential diagnosis: Bronchitis CHF exacerbation, Chronic Obstructive Pulmonary cp Disease pneumonia, Pneumothorax pulmonary edema, Sepsis Unstable Angina. 09:13 Data reviewed: vital signs, nurses notes, lab test result(s), EKG, radiologic studies, cp plain films, and as a result, I will admit patient. Test interpretation: by ED physician or midlevel provider: ECG, plain radiologic studies. Response to treatment: the patient's symptoms have mildly improved after treatment. 09:14 Physician consultation: A Kody JIN was called at 09:05, was contacted at 09:05, regarding admission, to the telemetry unit. patient's condition. 11/06 07:39 Order name: Basic Metabolic Panel; Complete Time: 08:25 11/06 08:25 Interpretation: Normal except: CL 93; CO2 39. 11/06 07:39 Order name: CBC with Diff; Complete Time: 08:25 11/06 08:25 Interpretation: Normal except: WBC 12.6; RBC 3.80; HGB 11.4; HCT 35.3; PLT 577; MPV cp 6.8; GIL% 83.6; LYM% 10.0; NEUT A 10.5. 11/06 07:39 Order name: LFT's; Complete Time: 08:25 cp 11/06 08:39 Interpretation: Normal except: AST 13; ALT 11; ALB 2.4; GLOB 4.5; A/G 0.5. cp 11/06 07:39 Order name: Magnesium; Complete Time: 08:25 cp 11/06 07:39 Order name: NT PRO-BNP; Complete Time: 08:25 cp 11/06 07:39 Order name: PT-INR; Complete Time: 08:25 cp 11/06 07:39 Order name: Troponin (emerg Dept Use Only); Complete Time: 08:25 cp 11/06 08:26 Interpretation: Abnormal: TROPED 0.08. cp 11/06 07:39 Order name: Influenza Screen (a \\T\\ B); Complete Time: 08:25 cp 11/06 08:26 Interpretation: Reviewed. cp 11/06 09:32 Order name: Urine Microscopic Only jb1 11/06 09:32 Order name: Urine Culture jb1 11/06 09:35 Order name: Urine Dipstick--Ancillary (enter results) bd 11/06 09:40 Order name: Basic Metabolic Panel EDMI 11/06 09:40 Order name: Basic Metabolic Panel EDMI 11/06 09:40 Order name: CBC with Automated Diff EDMS 11/06 07:39 Order name: XRAY Chest (1 view); Complete Time: 08:39 cp 11/06 09:40 Order name: CBC with Automated Diff EDMS 11/06 09:40 Order name: NT PRO-BNP EDMS 11/06 09:40 Order name: NT PRO-BNP EDMS 11/06 09:40 Order name: Troponin I EDMS 11/06 09:40 Order name: Troponin I EDMS 11/06 09:40 Order name: Troponin I EDMS 11/06 09:45 Order name: Sputum Culture cp 11/06 10:02 Order name: Blood Culture Adult (2) sg 11/06 07:39 Order name: EKG; Complete Time: 07:40 cp 11/06 07:39 Order name: Cardiac monitoring; Complete Time: 07:41 cp 11/06 07:39 Order name: EKG - Nurse/Tech; Complete Time: 07:41 cp 11/06 07:39 Order name: IV Saline Lock; Complete Time: 07:41 cp 11/06 07:39 Order name: Labs collected and sent; Complete Time: 07:41 cp 11/06 07:39 Order name: O2 Per Protocol; Complete Time: 07:41 cp 11/06 07:39 Order name: O2 Sat Monitoring; Complete Time: 07:41 cp 11/06 09:14 Order name: Diet Regular; Complete Time: 09:15 cp 11/06 09:40 Order name: CONS Physician Consult EDMS 11/06 09:40 Order name: EKG Electrocardiogram EDMS 11/06 09:40 Order name: EKG Electrocardiogram EDMS EC:35 Rate is 92 beats/min. Rhythm is regular. IN interval is normal. QRS interval is normal. cp QT interval is normal. Interpreted by me. Reviewed by me. Administered Medications: 07:53 Drug: Xopenex (3) 1.25 mg Route: Inhalation; sg 07:53 Drug: AtroVENT Aerosol 0.5 mg Route: Inhalation; sg 09:05 Drug: TORadol 15 mg Route: IVP; Site: right antecubital; sv 09:07 Drug: SOLU-Medrol 60 mg Route: IVP; Site: right antecubital; sv 09:09 Drug: Lasix 20 mg Route: IVP; Site: right antecubital; sv 09:11 Drug: Aspirin Chewable Tablet 324 mg Route: PO; sv 09:17 Drug: Lasix 20 mg Route: IVP; Site: right antecubital; sv 10:38 Drug: LevaQUIN 500 mg Volume: 100 ml; Route: IVPB; Infused Over: 60 mins; Site: right sv antecubital; Disposition: 12:08 Co-signature as Attending Physician, Han Rodas MD I agree with the assessment and jared plan of care. Disposition: 11/06/18 09:16 Hospitalization ordered by Mickey Gates for Inpatient Admission. Preliminary diagnosis are Unspecified combined systolic (congestive) and diastolic (congestive) heart failure, Orthopnea. - Bed requested for Telemetry/MedSurg (Inpatient). - Status is Inpatient Admission. sv - Condition is Stable. - Problem is an acute exacerbation. - Symptoms have improved. UTI on Admission? No Signatures: Dispatcher [employer] EDMignon Aranda RN Lis Suarez RN RN dw Gay, Steven, Han Newton RN, MD MD cha Page, Corey, PA PA cp Corrections: (The following items were deleted from the chart) 10:10 09:16 Hospitalization Ordered by A Kody JIN for Inpatient Admission. Preliminary dw diagnosis is Unspecified combined systolic (congestive) and diastolic (congestive) heart failure; Orthopnea. Bed requested for Telemetry/MedSurg (Inpatient). Status is Inpatient Admission. Condition is Stable. Problem is an acute exacerbation. Symptoms have improved. UTI on Admission? No. cp 11:03 10:10 11/06/2018 09:16 Hospitalization Ordered by A Kody JIN for Inpatient Admission. sv Preliminary diagnosis is Unspecified combined systolic (congestive) and diastolic (congestive) heart failure; Orthopnea. Bed requested for Telemetry/MedSurg (Inpatient). Status is Inpatient Admission. Condition is Stable. Problem is an acute exacerbation. Symptoms have improved. UTI on Admission? No. dw
--- NOTE | 2018-11-06 09:16 | ER ---
Nurse's Notes [facility] Name: Shannan Olivia Age: 72 yrs Sex: Female : 1945 Arrival Date: 11/06/2018 Time: 07:29 Bed 7 Private MD: Diagnosis: Unspecified combined systolic (congestive) and diastolic (congestive) heart failure;Orthopnea Presentation: 11/06 07:30 Presenting complaint: EMS states: Was seen for similar pain and treated here in the ED, sg diagnosis of muscle pain and given scripts for pain control, pt reports shortness of breath this morning with dry painful cough, and right lower rib pain remains, EMS report room air Saturation of 92%, pt wheezes bilaterally so a med neb was administered, with improved condition per the pt report. Transition of care: patient was not received from another setting of care. Onset of symptoms was November 06, 2018. Risk Assessment: Do you want to hurt yourself or someone else? Patient reports no desire to harm self or others. Initial Sepsis Screen: Does the patient meet any 2 criteria? No. Patient's initial sepsis screen is negative. Does the patient have a suspected source of infection? No. Patient's initial sepsis screen is negative. Care prior to arrival: Med neb given. 07:30 Method Of Arrival: EMS: [facility] sg 07:30 Acuity: KANU 3 sg Historical: - Allergies: 07:39 NKA; sg - Home Meds: 07:39 carvedilol 3.125 mg Oral tab 1 tab every 12 hours [Active]; furosemide 40 mg Oral tab 1 sg tab Every other day [Active]; lorazepam 0.5 mg Oral tab 1 tab 2 times per day [Active]; mirtazapine 15 mg Oral TbDL 1 tab once daily [Active]; montelukast 10 mg Oral tab 1 tab once daily for Maintenance Therapy for Asthma [Active]; pantoprazole 40 mg Oral TbEC 1 tab once daily for Gastroesophageal reflux [Active]; Plavix 75 mg Oral tab 1 tab once daily [Active]; prednisone 10 mg Oral tab 1 tab 2 times per day [Active]; spironolactone 25 mg Oral tab 1 tab once daily [Active]; - PMHx: 07:39 acid reflux; Anxiety; Asthma; CHF; COPD; Hypertension; pleural effusion-06/2015; sg Pneumonia; shingles; - Immunization history:: Adult Immunizations up to date. - Social history:: Smoking status: Patient/guardian denies using tobacco. - Ebola Screening: : Patient negative for fever greater than or equal to 101.5 degrees Fahrenheit, and additional compatible Ebola Virus Disease symptoms Patient denies exposure to infectious person Patient denies travel to an Ebola-affected area in the 21 days before illness onset No symptoms or risks identified at this time. Screenin:30 Abuse screen: Denies threats or abuse. Denies injuries from another. Nutritional sg screening: No deficits noted. Tuberculosis screening: No symptoms or risk factors identified. Never had TB. Fall Risk None identified. Assessment: 07:30 General: Appears in no apparent distress. uncomfortable, slender, well groomed, well sg developed, well nourished, Behavior is calm, cooperative, appropriate for age. Pain: Complains of pain in right lateral posterior chest and right lateral anterior chest Quality of pain is described as aching. Neuro: Level of Consciousness is awake, alert, obeys commands, Oriented to person, place, time, Accounting Systems Analyst are equal bilaterally Speech is normal, Facial symmetry appears normal. Cardiovascular: Heart tones S1 S2 present Capillary refill is brisk in bilateral fingers Patient's skin is warm and dry. Cardiovascular: Rhythm is sinus rhythm. Respiratory: Airway is patent Respiratory effort is even, shallow, Respiratory pattern is symmetrical. GI: Abdomen is flat, non-distended, Reports tolerance of fluids, tolerance of food. : No signs and/or symptoms were reported regarding the genitourinary system. EENT: Nares are clear bilaterally Oral mucosa is moist. Derm: Skin is intact, is fragile, Skin is dry, Skin is pale, Skin temperature is warm. Musculoskeletal: No signs and/or symptoms reported regarding the musculoskeletal system. Reports pain in right lateral posterior chest and right lateral anterior chest. 09:17 Reassessment: Patient appears in no apparent distress at this time. No changes from sv previously documented assessment. Patient and/or family updated on plan of care and expected duration. Pain level reassessed. Patient is alert, oriented x 3, equal unlabored respirations, skin warm/dry/pink. 10:45 Reassessment: Patient appears in no apparent distress at this time. No changes from sv previously documented assessment. Patient and/or family updated on plan of care and expected duration. Pain level reassessed. Patient is alert, oriented x 3, equal unlabored respirations, skin warm/dry/pink. Vital Signs: 07:30 BP 115 / 78; Pulse 96; Resp 20; Temp 97.7; Pulse Ox 98% ; sg 08:54 BP 137 / 75; Pulse 99; Resp 28; Pulse Ox 95% on 2 lpm NC; sv 09:48 BP 132 / 67; Pulse 103; Resp 15; Pulse Ox 95% on 2 lpm NC; sv 10:37 BP 112 / 79; Pulse 106; Resp 22; Pulse Ox 96% on 2 lpm NC; sv ED Course: 07:29 Patient arrived in ED. sg 07:30 Patient has correct armband on for positive identification. Placed in gown. Bed in low sv position. Call light in reach. Side rails up X 1. Adult w/ patient. electronic device monitor on. Pulse ox on. NIBP on. 07:34 Han Felix PA is PHCP. cp 07:35 Triage completed. sg 07:36 EKG done, by engineering technician parking. reviewed by Han Rodas MD. at1 07:39 Han Rodas MD is Attending Physician. cp 07:40 Jaydon Reyes, RN is Primary Nurse. sg 07:40 Arm band placed on. sg 07:54 Flu and/or RSV swab sent to lab. sg 07:55 Initial lab(s) drawn, by ok, sent to lab. Inserted saline lock: 22 gauge in right jb1 antecubital area, using aseptic technique. Blood collected. 08:14 X-ray completed. Portable x-ray completed in exam room. Patient tolerated procedure jb2 well. 08:15 XRAY Chest (1 view) In Process Unspecified. EDMS 09:15 Mickey Gates MD is Hospitalizing Provider. cp 09:32 Urine collected: clean catch specimen, cloudy, rusty colored. jb1 10:15 Primary Nurse role handed off by Jaydon Reyes, RN sv 10:15 Mignon Ruiz RN is Primary Nurse. sv 10:41 No provider procedures requiring assistance completed. Patient admitted, IV remains in sv place. intact. Administered Medications: 07:53 Drug: Xopenex (3) 1.25 mg Route: Inhalation; sg 07:53 Drug: AtroVENT Aerosol 0.5 mg Route: Inhalation; sg 09:05 Drug: TORadol 15 mg Route: IVP; Site: right antecubital; sv 09:07 Drug: SOLU-Medrol 60 mg Route: IVP; Site: right antecubital; sv 09:09 Drug: Lasix 20 mg Route: IVP; Site: right antecubital; sv 09:11 Drug: Aspirin Chewable Tablet 324 mg Route: PO; sv 09:17 Drug: Lasix 20 mg Route: IVP; Site: right antecubital; sv 10:38 Drug: LevaQUIN 500 mg Volume: 100 ml; Route: IVPB; Infused Over: 60 mins; Site: right sv antecubital; Output: 10:41 Urine: 200ml (Voided); Total: 200ml. sv Outcome: 09:16 Decision to Hospitalize by Provider. cp 10:45 Admitted to Tele accompanied by tech, family with patient, via stretcher, room 429, sv with oxygen, with chart, Report called to Ratna SAMSON 10:45 Condition: stable 10:45 Instructed on the need for admit. 11:03 Patient left the ED. sv Signatures: Dispatcher [employer] Marbin Miranda jb1 Mignon Ruiz, CHAPIN RN sv Jaydon Reyes RN RN sg Rah Baker2 Lyla Major, timber killer EKG Jeromy1 Han Felix PA PA cp
[2018-11-06] MEDS ORDERED: ONDANSETRON 4 MG/2 ML VIAL IV PRN (09:35)
[2018-11-06 09:45] LABS: Urine Blood 2+ (NEG); Urine Glucose NEGATIVE (NEG); Urine Protein NEGATIVE (NEG); Urine Specific Gravity 1.015 (1.005-1.030); Urine pH 6.5 (5.0-7.0)
[2018-11-06 09:55] LABS: Calcium Oxalate Crystals- Ur PRESENT (NONE SEEN); Urine Bacteria <20 /HPF (<20); Urine Culture Reflex Order NOT NEEDED
[2018-11-06] MEDS ORDERED: ALBUTEROL 2.5 MG/3 ML NEB SOL NEB SCH (10:00)
[2018-11-06] MEDS ORDERED: IPRATROPIUM BROM 0.5MG/2.5ML NEB SCH (10:00)
[2018-11-06] MEDS ORDERED: Levofloxacin500mg IV 500 MG/100 ML BAG IV ONE (10:03)
[2018-11-06] MEDS: ALBUTEROL 2.5 MG/3 ML NEB SOL NEB SCH ×4 (12:00→20:00)
[2018-11-06] MEDS: IPRATROPIUM BROM 0.5MG/2.5ML NEB SCH ×4 (12:00→20:00)
[2018-11-06] MEDS: ACETAMINOPHEN 500 MG TAB PO PRN (13:32)
[2018-11-06] MEDS: ENOXAPARIN 40 MG/0.4 ML SQ SCH (17:41)
[2018-11-06] MEDS: CYCLOBENZAPRINE 10 MG TAB PO SCH (17:42)
--- NOTE | 2018-11-06 18:03 | HP ---
Date of Admission: 11/06/2018 Chief Complaint: Shortness of breath. History Of Present Illness: This is a 72-year-old female patient who started to have back pain and came into emergency room last week. After she was evaluated, she was discharged to go home. She comes in today with 3 days history of increasing shortness of breath and coughing up some dark greenish colored mucus. Denies any fever. Her back pain that she describes is in the mid back as well as right posterior lower rib cage area. This pain gets worse with coughing or deep breathing. No fall. No injury. After she came into the ER today, she was evaluated and I was contacted requesting admission to the hospital. When I saw her in the emergency room, her son and , they were present at bedside with her. Allergies: NO KNOWN ALLERGIES. Medications: List reviewed. Review of Systems: Respiratory: As mentioned above. Musculoskeletal: As mentioned above. All other systems reviewed and negative. Social History: Negative for smoking and alcohol use. Family History: Significant for hypertension, diabetes, and hyperlipidemia. Past Surgical History: Significant for TAVR procedure done March 2018, and in the past she had tonsillectomy, repair of thoracic aortic aneurysm in 2004, aortic valve replacement in 2004 and this was a bioprosthetic heart valve. Past Medical History: Significant for pneumonia, pleural effusion, hypertension , hyperlipidemia, osteoporosis, diverticulosis, and adrenal insufficiency. Physical Examination: Vital Signs: Height 5 feet and 3 inches, weight 103 lbs, blood pressure 115/78 , pulse 96, respiratory rate 20, temperature 97.7, oxygen saturation 98%. General: The patient appears weaker than normal, not any respiratory distress. Awake, alert, oriented. HEENT: Head atraumatic, normocephalic. Conjunctivae nonerythematous. Sclerae white. Mouth, no thrush or edema noted. Ears/Nose, no mass, lesion, discharge noted. Neck: Supple. No JVD, lymph nodes, bruit, thyromegaly noted. Lungs: Presence of some rales noted in lower lung brewer, especially more so on right side than the left side. Heart: Normal heart sounds, no murmur or gallop. Abdomen: Soft, bowel sounds normal. No guarding, rigidity, tenderness, mass, hepatosplenomegaly, distention, or bruit noted. Extremities: Bilateral grade 1 pedal edema. Skin: No rash, ulcer, cellulitis. Lymphatics: No lymph node enlargement in neck, supraclavicular, infraclavicular region. Neuro: No focal neurological deficit. Chest: Unremarkable. External Genitalia: Deferred. Rectal: Deferred. Laboratory Data: White count 12.6, hemoglobin 11.4, platelets 577. INR 0.98. Sodium 136, potassium 3.9, chloride 93, bicarb 39, BUN 17, creatinine 0.62, glucose 85. Liver function tests unremarkable. Chest x-ray, bilateral pleural effusions, moderate in size, larger on the left than the right side and unchanged since prior study. Impression: 1. Pneumonia. 2. Pleural effusion. 3. Pleurisy. 4. Hypertension. 5. Hyperlipidemia. 6. Osteoporosis. 7. Diverticulosis. 8. Anemia. 9. Adrenal insufficiency. 10. Chronic steroid therapy. Plan: We will go ahead and admit the patient to hospital for further evaluation and management of this problem. The patient is appropriate for inpatient and is expected to spend 2 midnights in the hospital. Consult [facility] i inspector Dr. Serna. We will continue oxygen nebulizer treatment, IV antibiotics. Send sputum for Gram stain culture, and I will review her recent ER visit record and if necessary we will consider doing CT scan of the chest. No need for any thoracentesis at this point. Details and plan of treatment discussed with the patient and her family members, who were son and , in the emergency room. MONIE/MARISSA Voice ID: [id number] MTDD
[2018-11-06] MEDS: LORAZEPAM 0.5 MG TABLET PO PRN (20:59)
[2018-11-06] MEDS: CARVEDILOL 3.125 MG TAB PO SCH (20:59)
[2018-11-06] MEDS: MIRTAZAPINE 15 MG TAB PO SCH (21:00)
[2018-11-07] MEDS: CYCLOBENZAPRINE 10 MG TAB PO SCH ×3 (01:05→15:09)
[2018-11-07] MEDS: IPRATROPIUM BROM 0.5MG/2.5ML NEB SCH ×6 (04:00→20:00)
[2018-11-07] MEDS: ALBUTEROL 2.5 MG/3 ML NEB SOL NEB SCH ×6 (04:00→20:00)
[2018-11-07 04:54] LABS: Absolute Lymphocytes (CBC) 0.9 K/uL (0.7-4.9); Absolute Monocytes 0.5 K/uL (0.1-1.3); Absolute Neutrophil 10.4 K/uL (1.8-8.0); Hematocrit 28.7 % (36.0-45.0); Lymphocytes % 7.7 % (15.3-44.8); MPV 6.7 fL (7.6-11.3); Monocytes % 3.9 % (3.3-12.3); RBC Red Blood Cell Count 3.08 M/uL (3.86-4.86)
[2018-11-07 05:04] LABS: BUN Blood Urea Nitrogen 19 mg/dL (7-18); Bicarbonate 39 mmol/L (21-32); Glucose Level 110 mg/dL (74-106); NT PRO-BNP 4474 pg/mL (<125); Potassium 4.6 mmol/L (3.5-5.1); Sodium Level 137 mmol/L (136-145)
[2018-11-07 06:04] LABS: Blood Morphology Comment NOT SEEN (NOT SEEN); Platelet Estimate ADEQ
--- NOTE | 2018-11-07 08:29 | P.CNS ---
Date of Consult: 11/07/18 Chief Complaint: Chest discomfort History of Present Illness: Patient is 72 years of age admitted with worsening right-sided chest discomfort shortness of breath productive cough this change in color the past 1 and half weeks prior to that she was doing well also experienced some lower extremity edema denies any fever or chills compliant with medication sputum positive for gram-negative rods most likely Pseudomonas Allergies No Known Allergies Allergy (Verified 08/22/18 02:35) Home Medications: Carvedilol 3.125 mg PO BID 08/22/18 Clopidogrel Bisulfate [Plavix*] 75 mg PO DAILY 08/22/18 Furosemide [Lasix*] 20 mg PO DAILY 08/22/18 LORazepam [Ativan*] 0.5 mg PO BIDP PRN 08/22/18 Mirtazapine [Remeron*] 15 mg PO BEDTIME 08/22/18 Pantoprazole Sodium [Protonix] 20 mg PO DAILY 08/22/18 Spironolactone 25 mg PO DAILY 08/22/18 predniSONE [Deltasone*] 10 mg PO DAILY 08/22/18 Acetaminophen with Codeine [Acetaminophen-Cod #3 Tablet] 300 mg PO PRN 11/06/18 Cyclobenzaprine [Flexeril*] 10 mg PO Q8H 11/06/18 Fluticasone/Umeclidin/Vilanter [Trelegy Ellipta 100-62.5-25] 1 puff IH DAILY - Past Medical/Surgical History Diabetic: No -: CHF -: Acid Reflux -: Asthma -: HTN -: Pleural Effusion -: Pnemonia -: COPD -: Aortic valve replacement -: Chest tube placement- removed 2015 -: Status post VATS further right-sided effusion - Family History Father Medical History: Heart disease, Hypertension Mother Medical History: Hypertension, Diabetes, Stroke Brother Medical History: Other (see notes) Notes: mental problem - Social History Smoking Status: Never smoker Alcohol use: No CD- Drugs: No Caffeine use: Yes Place of Residence: Home Review of Systems General: Weakness Respiratory: Cough, Shortness of Breath Cardiovascular: Edema Physical Examination Temp Pulse Resp BP Pulse Ox 98.1 F 88 16 105/64 98 11/07/18 04:00 11/07/18 04:00 11/07/18 04:00 11/07/18 04:00 11/07/18 04:00 General: Alert, Oriented x3, Mild distress HEENT: Atraumatic Neck: Supple Respiratory: Diminished (Diminished air entry bilaterally) Cardiovascular: Edema (2+ edema), Systolic murmur (Grade for4 systolic murmur) - Problems (1) Pseudomonas infection Current Visit: Yes Status: Acute Plan: Patient is 72 years of age in prior history of Pseudomonas lung infection admitted with chest pain the in sputum color strongly suspect that she is recurrent Pseudomonas infection patient has been sensitive to fluoroquinolones in the past and has responded well this time I suggest treatment for at least 3 weeks with levofloxacin labs all reviewed mildly elevated white count chest x- ray no change she has chronic bilateral pleural effusion left greater than the right vital signs stable stress dose of steroids
[2018-11-07] MEDS: HOME MED 1 EA UNK (Fluticasone/Umeclidin/Vilanter [Trelegy Ellipta 100-62.5-25] 1 PUFF) IH SCH (09:00)
[2018-11-07] MEDS: FUROSEMIDE 40 MG/4 ML VIAL IV SCH (09:00)
[2018-11-07] MEDS ORDERED: HOME MED 1 EA UNK (Pantoprazole Sodium [Protonix] 20 MG) PO SCH (09:00)
[2018-11-07] MEDS ORDERED: predniSONE 10 MG TAB PO SCH (09:00)
--- NOTE | 2018-11-07 10:29 | EKG ---
Test Date: 2018-11-06 Test Time: 07:28:44 Planning Technician: LUKE MEASUREMENT RESULTS: Intervals: Rate: 92 GA: 168 QRSD: 64 QT: 308 QTc: 380 [place]: P: 40 GA: 168 QRS: 25 T: 37 INTERPRETIVE STATEMENTS: Normal sinus rhythm Septal infarct, age undetermined Abnormal ECG Compared to ECG 10/31/2018 17:57:12 Myocardial infarct finding now present Electronically Signed On 11-06-18 08:08:48 CDT by Rashaun He
[2018-11-07] MEDS: Levofloxacin500mg IV 500 MG/100 ML BAG IV SCH (10:30)
[2018-11-07] MEDS: PANTOPRAZOLE 40MG TABLET PO SCH (10:35)
[2018-11-07] MEDS: ASPIRIN EC 81 MG TAB PO SCH (10:35)
[2018-11-07] MEDS: predniSONE 10 MG TAB PO SCH ×2 (10:35→21:17)
[2018-11-07] MEDS: CARVEDILOL 3.125 MG TAB PO SCH ×2 (10:35→21:17)
[2018-11-07] MEDS: CLOPIDOGREL 75 MG TABLET PO SCH (10:36)
[2018-11-07] MEDS: SPIRONOLACTONE 25 MG TABLET PO SCH (10:36)
--- NOTE | 2018-11-07 13:36 | PN ---
Date of Progress Note: 11/07/2018 Subjective: The patient was seen this morning for followup. She was lying in bed, not in any distre ss. Feels better today than yesterday. She still has pain in her right posterior chest wall area wi th coughing, but not with breathing anymore. Her mucus is still thick and discolored like yesterday, but improved compared to yesterday she reports and shortness of breath is better as she reports toda y. Objective: Vital Signs: Reviewed. HEENT: Unremarkable. Lungs: Bilateral scattered rales noted. Not in any distress. Heart: Sounds normal. Abdomen: Soft. Bowel sounds normal. No guarding, rigidity, tenderness, or distention. Extremities: No leg edema. Laboratory Data: White count 11.7, hemoglobin 9.2, platelets 455. Sodium 137, potassium 4.6, chlori de 94, bicarb 39, BUN 19, creatinine 0.60, glucose 110. Her first troponin 0.08, second troponin 0.7 3, third troponin 0.55. Impression: 1.Pneumonia. 2.Anemia. 3.Hypertension. 4.Prosthetic heart valve. 5.Abnormal cardiac enzymes. Plan: We will go ahead and continue current medications which is her current antibiotic. Her sputum culture already has started to grow gram-negative rods. In the past, she had infection with Pseudom onas, so we will continue to follow up on the sputum culture results and then make adjustment on anti biotic according to the culture. Dr. Serna from Pulmonary has seen her and if she ends up growing Pseudomonas, then he might consider antibiotic through nebulizer because of her recurrent infection with the same bacteria. Details were discussed with the patient. I will see her tomorrow for followup. MONIE/MODL Voice ID: [id number] Report ID: [id number]
[2018-11-07] MEDS: ACETAMINOPHEN 500 MG TAB PO PRN ×2 (15:10→21:17)
[2018-11-07] MEDS: ENOXAPARIN 40 MG/0.4 ML SQ SCH (17:47)
[2018-11-07] MEDS: MIRTAZAPINE 15 MG TAB PO SCH (21:17)
[2018-11-08] MEDS: IBUPROFEN 400 MG TAB PO PRN ×2 (00:42→16:30)
[2018-11-08] MEDS: CYCLOBENZAPRINE 10 MG TAB PO SCH ×4 (00:42→23:50)
[2018-11-08] MEDS: ALBUTEROL 2.5 MG/3 ML NEB SOL NEB SCH ×7 (04:00→23:25)
[2018-11-08] MEDS: IPRATROPIUM BROM 0.5MG/2.5ML NEB SCH ×7 (04:00→23:25)
[2018-11-08] MEDS: HOME MED 1 EA UNK (Fluticasone/Umeclidin/Vilanter [Trelegy Ellipta 100-62.5-25] 1 PUFF) IH SCH (09:00)
[2018-11-08] MEDS: Levofloxacin500mg IV 500 MG/100 ML BAG IV SCH (09:22)
[2018-11-08] MEDS: ASPIRIN EC 81 MG TAB PO SCH (09:22)
[2018-11-08] MEDS: predniSONE 10 MG TAB PO SCH ×2 (09:23→20:58)
[2018-11-08] MEDS: CARVEDILOL 3.125 MG TAB PO SCH ×2 (09:23→20:57)
[2018-11-08] MEDS: CLOPIDOGREL 75 MG TABLET PO SCH (09:23)
[2018-11-08] MEDS: PANTOPRAZOLE 40MG TABLET PO SCH (09:24)
[2018-11-08] MEDS: SPIRONOLACTONE 25 MG TABLET PO SCH (09:25)
[2018-11-08] MEDS: FUROSEMIDE 40 MG/4 ML VIAL IV SCH (09:25)
--- NOTE | 2018-11-08 13:05 | PN ---
Date of Progress Note: 11/08/2018 Subjective: The patient was seen this morning for followup. No new complaints or problems reported by her except she feels little better. Still has cough, chest congestion, coughing up mucus but over all has felt better. Objective: Vital signs: Reviewed. HEENT: Unremarkable. Lungs: Bilateral good equal entry. Presence of rales noted. No more rales today than yesterday. N ot using accessory muscles of respiration. Heart: Sounds normal. Abdomen: Soft. Bowel sounds normal. No guarding, rigidity, tenderness, or distention. Extremities: No leg edema. Laboratory Data: Sputum culture came back today growing Proteus and it is sensitive to Levaquin that patient is currently on. Impression: 1.Pneumonia. 2.Hypertension. 3.Prosthetic heart valve. 4.Generalized weakness. 5.Pleural effusion. Plan: We will go ahead and continue current antibiotic oxygen nebulizer treatment and oral prednison e that she is currently on. Also, request physical therapy to help ambulate the patient. Possible d ischarge to go home over this weekend depending on her condition. MONIE/MODL Voice ID: [id number] Report ID: [id number]
[2018-11-08] MEDS: ENOXAPARIN 40 MG/0.4 ML SQ SCH (16:30)
[2018-11-08] MEDS: MIRTAZAPINE 15 MG TAB PO SCH (20:57)
[2018-11-09] MEDS: IPRATROPIUM BROM 0.5MG/2.5ML NEB SCH ×6 (03:05→23:37)
[2018-11-09] MEDS: ALBUTEROL 2.5 MG/3 ML NEB SOL NEB SCH ×6 (03:05→23:38)
--- NOTE | 2018-11-09 08:27 | CON ---
Date of Consultation: 11/08/2018 Reason For Consultation: Elevated troponin. History Of Present Illness: Ms. Olivia is a 72-year-old woman. She is known to us from the [facility]. She has a history of congestive heart failure, asthma, gastroesophageal reflux disease, COPD, an xiety, and hypertension. She came in with shortness of breath, was found to have a pneumonia with bi lateral pleural effusion, greater on the left than the right. She also has adrenal insufficiency. S he has had a history of stagger. Last ejection fraction was 61% in July 2019 with a normal funct ioning valve. She has been seen by Dr. Rooney from Pulmonology, and there is no plan for paracentes is at this point. Apparently, she has had an infection with Pseudomonas before. She has already paulie wn gram-negative rods from the sputum. Final culture is pending. There is a possibility to give her antibiotics via inhalers if Pseudomonas is an infectious organism. Cardiac jones, she does not reall y have much in the way of symptoms. She denies any chest pain, palpitations, edema, or syncope. Past Medical History: As stated above. Allergies: NONE. Review of Systems: Negative. Social History: Negative. Family History: Noncontributory. Medications: At home include carvedilol 3.125 mg b.i.d., Lasix 40 mg daily. She is also on [place] e, Protonix, Plavix, and prednisone. Physical Examination: General: Ms. Olivia was in no acute distress. She was pleasant, alert, oriented x3. Sinus rhyt hm. HEENT: Negative. Neck: Supple without any bruit, or JVD. Chest: Revealed diffuse rales bibasilarly with decreased breath sounds bilaterally. Cardiac: Regular rhythm and rate without any murmurs, gallops, or rubs. Abdomen: Benign. Extremities: Revealed no clubbing, cyanosis, or edema. Diagnostic Data: Chest x-ray showed pneumonia with bilateral pleural effusion, left greater than rig ht. Her laboratory evaluation was fairly unremarkable. Her troponin was slightly elevated. Impression And Plan: 1.Elevated troponin secondary to pneumonia. 2.Pneumonia with bilateral pleural effusion, left greater than right, growing negative rods in the s putum. Other cultures pending. 3.History of stagger. An echocardiogram is pending. 4.Chronic diastolic congestive heart failure. 5.History of asthma, chronic obstructive pulmonary, gastroesophageal reflux disease, anxiety, and hy pertension well controlled. We will see what her echo shows. I discussed her case with Dr. Gates. No further cardiac workup at t his point. I do not think we are dealing with any acute coronary syndrome. LEANDER/MARISSA Voice ID: [id number] Report ID: [id number]
[2018-11-09] MEDS: CLOPIDOGREL 75 MG TABLET PO SCH (08:29)
[2018-11-09] MEDS: PANTOPRAZOLE 40MG TABLET PO SCH (08:29)
[2018-11-09] MEDS: CYCLOBENZAPRINE 10 MG TAB PO SCH ×3 (08:29→23:55)
[2018-11-09] MEDS: predniSONE 10 MG TAB PO SCH ×2 (08:30→20:55)
[2018-11-09] MEDS: ASPIRIN EC 81 MG TAB PO SCH (08:30)
[2018-11-09] MEDS: FUROSEMIDE 40 MG/4 ML VIAL IV SCH (08:30)
[2018-11-09] MEDS: CARVEDILOL 3.125 MG TAB PO SCH ×2 (08:30→20:54)
[2018-11-09] MEDS: Levofloxacin500mg IV 500 MG/100 ML BAG IV SCH (08:31)
[2018-11-09] MEDS: HOME MED 1 EA UNK (Fluticasone/Umeclidin/Vilanter [Trelegy Ellipta 100-62.5-25] 1 PUFF) IH SCH (08:33)
[2018-11-09] MEDS: SPIRONOLACTONE 25 MG TABLET PO SCH (10:02)
[2018-11-09] MEDS ORDERED: MAGNESIUM HYDROXIDE 8% 30 ML PO ONE (10:23)
[2018-11-09] MEDS: IBUPROFEN 400 MG TAB PO PRN ×2 (10:44→20:57)
--- NOTE | 2018-11-09 12:13 | PN ---
Date of Progress Note: 11/09/2018 Subjective: The patient was seen this morning for followup. No new complaints or problems reported by patient except she feels little better today than yesterday, but still has significant cough, shor tness of breath, and generalized weakness. She is not coughing up as much as she did before. Objective: Vital Signs: Reviewed. HEENT: Unremarkable except presence of white patches inside the mouth noted over buccal mucosa and h sharri palate. Lungs: Bilateral rales noted in both lung brewer, but overall better today than yesterday. Heart: Sounds normal. Abdomen: Soft. Bowel sounds normal. No guarding, rigidity, tenderness, distention. Extremities: Trace leg edema. Impression: 1.Pneumonia. 2.Pleural effusion. 3.Thrush. 4.Generalized weakness. 5.Hypertension. 6.Anemia. Plan: Continue current antibiotic Levaquin. Sputum culture results reviewed. It is growing Proteus sensitive to Levaquin. We will start the patient on clotrimazole. The patient has not had a bowel movement in last few days, so we will order milk of magnesia for her. Ambulation was encouraged. Depending on her condition tomorrow we will decide whether she is stable for discharge tomorrow or not. MONIE/MODL Voice ID: [id number] Report ID: [id number]
[2018-11-09] MEDS: CLOTRIMAZOLE 10 MG TROCHE PO SCH ×3 (12:51→20:54)
[2018-11-09] MEDS: ENOXAPARIN 40 MG/0.4 ML SQ SCH (16:09)
[2018-11-09] MEDS: MIRTAZAPINE 15 MG TAB PO SCH (20:54)
[2018-11-10] MEDS: IPRATROPIUM BROM 0.5MG/2.5ML NEB SCH ×6 (03:49→23:15)
[2018-11-10] MEDS: ALBUTEROL 2.5 MG/3 ML NEB SOL NEB SCH ×6 (03:49→23:15)
[2018-11-10 08:32] LABS: Absolute Lymphocytes (CBC) 0.7 K/uL (0.7-4.9); Absolute Monocytes 0.6 K/uL (0.1-1.3); Absolute Neutrophil 9.8 K/uL (1.8-8.0); Hematocrit 30.8 % (36.0-45.0); MPV 6.6 fL (7.6-11.3); Monocytes % 5.4 % (3.3-12.3); RBC Red Blood Cell Count 3.32 M/uL (3.86-4.86)
--- NOTE | 2018-11-10 08:51 | RAD REPORT ---
EXAM DESCRIPTION: Jane Single View11/10/2018 8:35 am CLINICAL HISTORY: Chest pain COMPARISON: November 06 FINDINGS: Bilateral pleural effusions appear mildly diminished in size. Bibasilar atelectasis present. The heart remains enlarged. IMPRESSION: Bilateral pleural effusions appear mildly diminished in size
[2018-11-10] MEDS: HOME MED 1 EA UNK (Fluticasone/Umeclidin/Vilanter [Trelegy Ellipta 100-62.5-25] 1 PUFF) IH SCH (09:00)
[2018-11-10] MEDS: CYCLOBENZAPRINE 10 MG TAB PO SCH ×2 (09:03→16:16)
[2018-11-10] MEDS: PANTOPRAZOLE 40MG TABLET PO SCH (09:03)
[2018-11-10] MEDS: CARVEDILOL 3.125 MG TAB PO SCH ×2 (09:03→20:59)
[2018-11-10] MEDS: SPIRONOLACTONE 25 MG TABLET PO SCH (09:03)
[2018-11-10] MEDS: FUROSEMIDE 40 MG/4 ML VIAL IV SCH (09:04)
[2018-11-10] MEDS: Levofloxacin500mg IV 500 MG/100 ML BAG IV SCH (09:04)
[2018-11-10] MEDS: CLOTRIMAZOLE 10 MG TROCHE PO SCH ×4 (09:04→20:59)
[2018-11-10] MEDS: predniSONE 10 MG TAB PO SCH (09:04)
[2018-11-10] MEDS: CLOPIDOGREL 75 MG TABLET PO SCH (09:04)
[2018-11-10] MEDS: ASPIRIN EC 81 MG TAB PO SCH (09:04)
[2018-11-10 09:05] LABS: Magnesium 2.4 mg/dL (1.8-2.4); Potassium 4.5 mmol/L (3.5-5.1)
[2018-11-10 09:59] LABS: Blood Morphology Comment NOTED (NOT SEEN); Platelet Estimate INCR; Polychromasia 1+
[2018-11-10] MEDS ORDERED: BISACODYL 10 MG RECTAL SUPP PR ONE (10:43)
[2018-11-10] MEDS: METHYLPREDNISOLONE 40 MG INJ IV SCH ×2 (11:22→17:18)
--- NOTE | 2018-11-10 15:59 | PN ---
Date of Progress Note: 11/10/2018 Subjective: The patient was seen this morning for followup. No new complaints or problems reported. By her overall, she feels little better today than yesterday, but still has significant weakness, c oughing, but not coughing up any mucus. Shortness of breath is slowly improving as she reports. Objective: Vital Signs: Reviewed. HEENT: Unremarkable. Lungs: Bilateral scattered rhonchi and rales present. Heart: Sounds normal. Abdomen: Soft. Bowel sounds normal. No guarding, rigidity, tenderness, or distention. Extremities: No leg edema. Laboratory Data: White count 11.1, hemoglobin 9.9, platelets 412. Sodium 137, potassium 4.5, chlori de 95, bicarb 41, BUN 28, creatinine 0.67, glucose 98. Chest x-ray with bilateral pleural effusion, appears mildly diminished in size compared to previous x-ray. Impression: 1.Pneumonia. 2.Bilateral pleural effusion. 3.Hypertension. 4.Constipation. Plan: The patient reports having constipation problem and has not had a bowel movement since she is in the hospital. Milk of magnesia did not help her and so we will go ahead and use Dulcolax rectal s uppository today. She is already on inhaler. We will continue that. Continue current antibiotic, a nd we will discontinue oral steroid and start her on IV steroid, Solu-Medrol per order. I will see her tomorrow for followup. MONIE/MODL Voice ID: [id number] Report ID: [id number]
[2018-11-10] MEDS: ENOXAPARIN 40 MG/0.4 ML SQ SCH (16:16)
[2018-11-10] MEDS: MIRTAZAPINE 15 MG TAB PO SCH (20:59)
[2018-11-11] MEDS: IBUPROFEN 400 MG TAB PO PRN (00:30)
[2018-11-11] MEDS: METHYLPREDNISOLONE 40 MG INJ IV SCH ×5 (00:30→23:13)
[2018-11-11] MEDS: CYCLOBENZAPRINE 10 MG TAB PO SCH ×4 (00:31→23:13)
[2018-11-11] MEDS: IPRATROPIUM BROM 0.5MG/2.5ML NEB SCH ×5 (03:40→20:00)
[2018-11-11] MEDS: ALBUTEROL 2.5 MG/3 ML NEB SOL NEB SCH ×5 (03:40→20:00)
[2018-11-11] MEDS ORDERED: BISACODYL 10 MG RECTAL SUPP PR ONE (07:44)
[2018-11-11] MEDS ORDERED: FLEET ENEMA ADULT PR ONE (07:44)
--- NOTE | 2018-11-11 08:10 | ECHO ---
HEIGHT: 5 ft 2 in WEIGHT: 104 lb 14.4 oz DATE OF STUDY: 11/08/[address]: Bridger Gates MD 2-DIMENSIONAL: YES M.MODE: YES DOPPLER: YES COLOR FLOW: YES TDS: NO PORTABLE: NO DEFINITY: NO BUBBLE STUDY: NO DIAGNOSIS: CONGESTIVE HEART FAILURE CARDIAC HISTORY: CATHERIZATION: YES SURGERY: YES PROSTHETIC VALVE: YES PACEMAKER: NO MEASUREMENTS (cm) DIASTOLIC (NORMALS) SYSTOLIC (NORMALS) IVSd 1.1 (0.6-1.2) LA Diam 3.3 (1.9-4.0) LVEF 56% LVIDd 2.7 (3.5-5.7) LVIDs 1.9 (2.0-3.5) %FS 28% LVPWd 1.3 (0.6-1.2) Ao Diam 2.9 (2.0-3.7) 2 DIMENSIONAL ASSESSMENT: RIGHT ATRIUM: NORMAL LEFT ATRIUM: DILATED RIGHT VENTRICLE: NORMAL LEFT VENTRICLE: NORMAL TRICUSPID VALVE: NORMAL MITRAL VALVE: MITRAL ANNULAR CALCIFICATION PULMONIC VALVE: NORAML AORTIC VALVE: TRANSCATHETER AORTIC VALVE REPLACEMENT PERICARDIAL EFFUSION: NONE AORTIC ROOT: NORMAL LEFT VENTRICULAR WALL MOTION: NORMAL DOPPLER/COLOR FLOW: MILD TRICUSPID REGURGITATION. COMMENTS: NORMAL LEFT VENTRICULAR SIZE AND FUNCTION. MITRAL ANNULAR CALCIFICATION. STATUS POST TRANSCATHETER AORTIC VALVE REPLACEMENT, NORMAL FUNCTION. NO WALL MOTION ABNORMALITY. TECHNOLOGIST: Nafisa WINKLER
[2018-11-11] MEDS: SPIRONOLACTONE 25 MG TABLET PO SCH (08:27)
[2018-11-11] MEDS: PANTOPRAZOLE 40MG TABLET PO SCH (08:27)
[2018-11-11] MEDS: ASPIRIN EC 81 MG TAB PO SCH (08:27)
[2018-11-11] MEDS: CLOPIDOGREL 75 MG TABLET PO SCH (08:27)
[2018-11-11] MEDS: CARVEDILOL 3.125 MG TAB PO SCH ×2 (08:28→21:10)
[2018-11-11] MEDS: Levofloxacin500mg IV 500 MG/100 ML BAG IV SCH (08:28)
[2018-11-11] MEDS: CLOTRIMAZOLE 10 MG TROCHE PO SCH ×4 (08:29→21:10)
[2018-11-11] MEDS: HOME MED 1 EA UNK (Fluticasone/Umeclidin/Vilanter [Trelegy Ellipta 100-62.5-25] 1 PUFF) IH SCH (09:00)
[2018-11-11] MEDS: ENOXAPARIN 40 MG/0.4 ML SQ SCH (16:40)
[2018-11-11] MEDS: MIRTAZAPINE 15 MG TAB PO SCH (21:10)
--- NOTE | 2018-11-12 02:55 | PN ---
Date of Progress Note: 11/11/2018 Subjective: Patient was seen this morning for followup. Overall, she feels better than last few day s. She has not had a bowel movement yet and did not respond to Dulcolax rectal suppository yesterday . Objective: Vital Signs: Reviewed. HEENT Examination: Unremarkable. Lungs: Bilateral good equal air entry. Presence of scattered rales. Heart: Sounds normal. Abdomen: Soft. Bowel sounds normal. No guarding, rigidity, tenderness, distention. Extremities: No leg edema. Impression: 1.Constipation. 2.Pneumonia. 3.Hypertension. Plan: We will go ahead and give Fleet Enema and Dulcolax rectal suppository today. Discontinue IV L asix. The patient is on spironolactone. We will continue that and at appropriate time we will start oral furosemide. IV antibiotic and steroid will be continued per order. I will see her tomorrow fo r followup. Possible discharge to go home tomorrow. Details were discussed with the patient. MONIE/MODL Voice ID: [id number] Report ID: [id number]
[2018-11-12] MEDS: IPRATROPIUM BROM 0.5MG/2.5ML NEB SCH ×5 (04:00→20:09)
[2018-11-12] MEDS: ALBUTEROL 2.5 MG/3 ML NEB SOL NEB SCH ×3 (04:00→07:52)
[2018-11-12] MEDS: METHYLPREDNISOLONE 40 MG INJ IV SCH ×4 (05:57→23:40)
[2018-11-12 06:44] VITALS: BMI 18.7
[2018-11-12] MEDS: CARVEDILOL 3.125 MG TAB PO SCH ×2 (08:42→20:46)
[2018-11-12] MEDS: CYCLOBENZAPRINE 10 MG TAB PO SCH ×3 (08:42→23:40)
[2018-11-12] MEDS: ASPIRIN EC 81 MG TAB PO SCH (08:42)
[2018-11-12] MEDS: CLOPIDOGREL 75 MG TABLET PO SCH (08:42)
[2018-11-12] MEDS: PANTOPRAZOLE 40MG TABLET PO SCH (08:42)
[2018-11-12] MEDS: SPIRONOLACTONE 25 MG TABLET PO SCH ×2 (08:43→20:46)
[2018-11-12] MEDS: CLOTRIMAZOLE 10 MG TROCHE PO SCH ×4 (08:43→20:47)
[2018-11-12] MEDS: Levofloxacin500mg IV 500 MG/100 ML BAG IV SCH (08:44)
[2018-11-12 11:12] LABS: Arterial Blood Carboxyhemoglob 1.3 % (0-1.5); Blood Gas Oxyhemoglobin 94.4 % (94-97); Blood O2 Saturation 96.3 % (92-98.5)
[2018-11-12] MEDS: ARFORMOTEROL TARTRATE 15 MCG/2 ML VIAL.NEB NEB SCH ×2 (13:25→20:09)
[2018-11-12] MEDS: ENOXAPARIN 40 MG/0.4 ML SQ SCH (16:06)
--- NOTE | 2018-11-12 17:45 | P.PN ---
Subjective Date of Service: 11/12/18 Chief Complaint: Shortness of breath and weakness No significant improvements patient is still complains of being weak although she is somewhat better still has some shortness of breath Proteus isolated in the sputum sensitive to levofloxacin Review of Systems General: Weakness Respiratory: Shortness of Breath Physical Examination - Vital Signs Temperature: 97.9 F Blood Pressure: 117/74 Pulse: 88 Respirations: 16 Pulse Ox (%): 95 - Physical Exam General: Alert, Oriented x3, Mild distress Respiratory: Clear to auscultation bilaterally, Diminished Assessment & Plan - Problems (Diagnosis) (1) Proteus infection Current Visit: Yes Status: Acute Plan: Patient has Proteus isolated from the sputum continue with levofloxacin as stated reducing the dose of prednisone to 10 mg twice a day I have also instructed the patient to use a flutter valve saturation satisfactory pleural effusions no significant change white count is mildly declined (2) CHF exacerbation Current Visit: No Status: Acute Plan: IV increase the spironolactone to 50 mg a day labs labs reviewed chest x-ray no change Qualifiers: Heart failure type: diastolic Qualified Code(s): I50.33 - Acute on chronic diastolic (congestive) heart failure
[2018-11-12] MEDS: MIRTAZAPINE 15 MG TAB PO SCH (20:45)
[2018-11-12] MEDS: IBUPROFEN 400 MG TAB PO PRN (23:40)
--- NOTE | 2018-11-13 01:46 | PN ---
Date of Progress Note: 11/12/2018 Subjective: The patient was seen this morning for followup. No new complaints or problems reported, except she is not feeling much better today than yesterday. Still has lot of cough and chest conges tion. She did have a bowel movement yesterday after Fleet enema. Objective: Vital Signs: Reviewed. HEENT: Examination unremarkable. Lungs: Bilateral good equal air entry. Presence of scattered rales all over both lung brewer. Heart: Sounds normal. Abdomen: Soft. Bowel sounds normal. No guarding, rigidity, tenderness, or distention. Extremities: No leg edema. Laboratory Data: CBC and chemistry from 11/10/2018, reviewed. Serum culture is growing Proteus. Impression: 1.Pneumonia. 2.Pleural effusion. 3.Metabolic alkalosis. 4.Hypertension. 5.Chronic steroid therapy. Plan: As of yesterday, the patient was started on IV steroid. We will continue that. We will hopef ully get some positive response by next day or 2 days, enough for us to possibly discharge her to go home on oral medications at that time. Meanwhile, we will continue other current medications. Genevieve Ernandez, oxygen, nebulizer treatment. MONIE/MODL Voice ID: [id number] Report ID: [id number]
[2018-11-13] MEDS: IPRATROPIUM BROM 0.5MG/2.5ML NEB SCH ×4 (02:00→20:00)
[2018-11-13] MEDS: METHYLPREDNISOLONE 40 MG INJ IV SCH ×3 (06:07→17:43)
[2018-11-13] MEDS: ARFORMOTEROL TARTRATE 15 MCG/2 ML VIAL.NEB NEB SCH ×2 (08:00→20:00)
[2018-11-13] MEDS ORDERED: DIGOXIN 0.25 MG/ML AMP IV ONE (08:43)
[2018-11-13] MEDS: SPIRONOLACTONE 25 MG TABLET PO SCH ×2 (09:00→21:57)
[2018-11-13] MEDS: CARVEDILOL 3.125 MG TAB PO SCH ×2 (09:37→21:56)
[2018-11-13] MEDS: APIXABAN 5 MG TABLET PO SCH ×2 (09:38→21:56)
[2018-11-13] MEDS: PANTOPRAZOLE 40MG TABLET PO SCH (09:38)
[2018-11-13] MEDS: ASPIRIN EC 81 MG TAB PO SCH (09:39)
[2018-11-13] MEDS: CLOTRIMAZOLE 10 MG TROCHE PO SCH ×4 (09:40→21:58)
[2018-11-13] MEDS: CYCLOBENZAPRINE 10 MG TAB PO SCH ×2 (09:48→17:41)
[2018-11-13] MEDS: Levofloxacin500mg IV 500 MG/100 ML BAG IV SCH (10:40)
--- NOTE | 2018-11-13 12:19 | EKG ---
Test Date: 2018-11-13 Test Time: 11:15:11 Manufacturing Management Associate: LUKE MEASUREMENT RESULTS: Intervals: Rate: 98 SD: 156 QRSD: 86 QT: 308 QTc: 393 [place]: P: 22 SD: 156 QRS: 4 T: 90 INTERPRETIVE STATEMENTS: Normal sinus rhythm Possible Left atrial enlargement T wave abnormality, consider anterior ischemia Abnormal ECG Compared to ECG 11/13/2018 08:07:24 T-wave abnormality now present Possible ischemia now present Atrial fibrillation no longer present ST (T wave) deviation no longer present Electronically Signed On 11-13-18 12:17:53 CDT by Rashaun He
--- NOTE | 2018-11-13 12:20 | EKG ---
Test Date: 2018-11-13 Test Time: 08:07:24 Stock Preparation Supervisor: LUKE MEASUREMENT RESULTS: Intervals: Rate: 131 [place]: QRSD: 90 QT: 302 QTc: 445 [place]: P: [place]: QRS: 22 T: 225 INTERPRETIVE STATEMENTS: Atrial fibrillation with rapid ventricular response Nonspecific ST and T wave abnormality, probably digitalis effect Abnormal ECG Compared to ECG 11/06/2018 07:28:44 ST (T wave) deviation now present Sinus rhythm no longer present Myocardial infarct finding no longer present Electronically Signed On 11-13-18 12:18:47 CDT by Rashaun He
--- NOTE | 2018-11-13 13:34 | PN ---
Subjective: Mrs. Olivia went into atrial fibrillation this morning. She is a complicated patien t with prosthetic aortic valve and a transcutaneous aortic valve within the old prosthetic valve, bio prosthetic valve. She still has moderate aortic stenosis and today she went into atrial fib. Her bl ood pressure is low. Her body weight is low. She has pulmonary hypertension, other underlying pulmo nary problems. I would be very reluctant to give amiodarone, higher dose of beta-blockers and calciu m blockers are not possible. We will try slower heart rate with digoxin, give Eliquis to prevent str okes and consider a cardioversion later today. We will keep her n.p.o. DINO/MARISSA Voice ID: [id number] Report ID: [id number]
[2018-11-13] MEDS: MIRTAZAPINE 15 MG TAB PO SCH (21:58)
--- NOTE | 2018-11-14 01:11 | PN ---
Date of Progress Note: 11/13/2018 Subjective: The patient was seen this morning for followup. She was lying in bed, not in any distre ss. Feels little better today than yesterday. Still has lot of generalized weakness, cough, and con gestion. Objective: Vital Signs: Reviewed. HEENT: Unremarkable. Lungs: Bilateral good equal air entry. Presence of scattered rales noted in all the lung brewer, bu t overall it is somewhat better today than yesterday. Not using any accessory muscles of respiration . Heart: Sounds normal. Abdomen: Soft. Bowel sounds normal. No guarding, rigidity, tenderness, or distention. Extremities: No leg edema. Impression: 1.Paroxysmal atrial fibrillation. 2.Pneumonia. 3.Pleural effusion. 4.Anemia. 5.Generalized weakness. Plan: After I saw her this morning, the patient went into atrial fibrillation with rapid ventricular rate. Cardiology consultation was requested and we will continue to follow with medical illustrator for th is. The patient has responded to IV steroid. We will continue that. Continue current IV antibiotic s, physical therapy, and current anticoagulation medication. Now, she is on Eliquis in place of Love nox due to atrial fibrillation problem. MONIE/MODL Voice ID: [id number] Report ID: [id number]
[2018-11-14] MEDS: CYCLOBENZAPRINE 10 MG TAB PO SCH ×4 (01:19→23:54)
[2018-11-14] MEDS: METHYLPREDNISOLONE 40 MG INJ IV SCH ×5 (01:21→23:54)
[2018-11-14] MEDS: IPRATROPIUM BROM 0.5MG/2.5ML NEB SCH ×3 (02:00→13:42)
[2018-11-14 07:53] LABS: Absolute Lymphocytes (CBC) 0.4 K/uL (0.7-4.9); Absolute Monocytes 0.6 K/uL (0.1-1.3); Basophils % 0.2 % (0-1.3); Hematocrit 32.1 % (36.0-45.0); Lymphocytes % 2.3 % (15.3-44.8); MPV 7.1 fL (7.6-11.3); Monocytes % 3.9 % (3.3-12.3); RBC Red Blood Cell Count 3.48 M/uL (3.86-4.86)
[2018-11-14 08:07] LABS: BUN Blood Urea Nitrogen 42 mg/dL (7-18); Bicarbonate 40 mmol/L (21-32); Glucose Level 119 mg/dL (74-106); Magnesium 2.3 mg/dL (1.8-2.4); Potassium 4.2 mmol/L (3.5-5.1); Sodium Level 140 mmol/L (136-145)
[2018-11-14] MEDS: ARFORMOTEROL TARTRATE 15 MCG/2 ML VIAL.NEB NEB SCH (08:59)
[2018-11-14] MEDS: ALBUTEROL 2.5 MG/3 ML NEB SOL NEB PRN (09:00)
[2018-11-14] MEDS: ASPIRIN EC 81 MG TAB PO SCH (09:00)
[2018-11-14] MEDS: Levofloxacin500mg IV 500 MG/100 ML BAG IV SCH (09:18)
[2018-11-14] MEDS: PANTOPRAZOLE 40MG TABLET PO SCH (09:19)
[2018-11-14] MEDS: CLOTRIMAZOLE 10 MG TROCHE PO SCH ×4 (09:19→21:19)
[2018-11-14] MEDS: CARVEDILOL 3.125 MG TAB PO SCH ×2 (09:19→21:19)
[2018-11-14] MEDS: SPIRONOLACTONE 25 MG TABLET PO SCH ×2 (09:20→21:19)
[2018-11-14] MEDS: APIXABAN 5 MG TABLET PO SCH ×2 (09:20→21:18)
[2018-11-14 10:20] LABS: Urine Appearance TURBID; Urine Blood 3+ (NEG); Urine Glucose NEGATIVE (NEG); Urine Protein 2+ (NEG); Urine Specific Gravity 1.025 (1.005-1.030); Urine Urobilinogen 0.2 mg/dL (0.2-1.0)
[2018-11-14 10:24] LABS: Urine Bilirubin NEG (NEG); Urine Color BROWN
[2018-11-14 10:44] LABS: Calcium Oxalate Crystals- Ur FEW (NONE SEEN); Urine Bacteria 20-50 /HPF (<20); Urine Culture Reflex Order NOT NEEDED; Urine RBC >50 /HPF (NONE SEEN)
[2018-11-14] MEDS: MIRTAZAPINE 15 MG TAB PO SCH (21:19)
[2018-11-15] MEDS: ARFORMOTEROL TARTRATE 15 MCG/2 ML VIAL.NEB NEB SCH ×3 (00:15→20:06)
[2018-11-15] MEDS: IPRATROPIUM BROM 0.5MG/2.5ML NEB SCH ×5 (00:15→20:04)
--- NOTE | 2018-11-15 03:19 | PN ---
Date of Progress Note: 11/14/2018 Subjective: The patient was seen this morning for followup. She was sitting at bedside. Her son was present and sister was present in the room with her. Objective: Vital Signs: Reviewed. HEENT: Examination unremarkable. Lungs: Bilateral scattered rhonchi and rales present, but overall it is better today than yesterday. Heart: Heart sounds normal. Abdomen: Soft. Bowel sounds normal. No guarding, rigidity, tenderness, or distention. Extremities: No leg edema. : The patient's family reported that her urine appears really brown and muddy type in appearance. Laboratory Data: Urinalysis done today shows 2+ esterase, rbc more than 50, 3+ blood, glucose negative, 2+ protein, bacteria 20-50. White count 15, hemoglobin 10.3, platelets 346. Sodium 140, potassium 4.2, chloride 96, bicarb 40, BUN 42, creatinine 0.63, glucose 119. Sputum culture growing Proteus. Impression: 1. Pneumonia. 2. Metabolic alkalosis. 3. Anemia. 4. Urinary tract infection. Plan: We will follow up on urine culture. Continue current antibiotic. Continue steroid, oxygen nebulizer treatment. The patient is on anticoagulation therapy using Eliquis. I will see her tomorrow for followup. Continue current IV steroid as she is responding well to IV steroids as far as her lung findings are concerned. MONIE/MODL Voice ID: [id number] Report ID: [id number] ASH
[2018-11-15] MEDS: METHYLPREDNISOLONE 40 MG INJ IV SCH ×4 (05:19→23:42)
[2018-11-15] MEDS: Levofloxacin500mg IV 500 MG/100 ML BAG IV SCH (09:00)
[2018-11-15] MEDS: APIXABAN 5 MG TABLET PO SCH ×2 (09:01→20:52)
[2018-11-15] MEDS: CLOTRIMAZOLE 10 MG TROCHE PO SCH ×4 (09:01→20:51)
[2018-11-15] MEDS: CYCLOBENZAPRINE 10 MG TAB PO SCH ×3 (09:01→23:42)
[2018-11-15] MEDS: CARVEDILOL 3.125 MG TAB PO SCH ×2 (09:03→20:51)
[2018-11-15] MEDS: PANTOPRAZOLE 40MG TABLET PO SCH (09:03)
[2018-11-15] MEDS: ASPIRIN EC 81 MG TAB PO SCH (09:08)
[2018-11-15] MEDS: SPIRONOLACTONE 25 MG TABLET PO SCH ×2 (09:08→20:52)
[2018-11-15] MEDS: MIRTAZAPINE 15 MG TAB PO SCH (20:51)
[2018-11-16] MEDS: LORAZEPAM 0.5 MG TABLET PO PRN (00:25)
[2018-11-16] MEDS: IPRATROPIUM BROM 0.5MG/2.5ML NEB SCH ×5 (01:30→20:00)
[2018-11-16 05:50] LABS: Absolute Lymphocytes (CBC) 0.3 K/uL (0.7-4.9); Absolute Monocytes 0.8 K/uL (0.1-1.3); Absolute Neutrophil 22.6 K/uL (1.8-8.0); Basophils % 0.1 % (0-1.3); Hematocrit 32.8 % (36.0-45.0); Lymphocytes % 1.2 % (15.3-44.8); MPV 7.6 fL (7.6-11.3); Monocytes % 3.3 % (3.3-12.3); RBC Red Blood Cell Count 3.57 M/uL (3.86-4.86)
[2018-11-16] MEDS: METHYLPREDNISOLONE 40 MG INJ IV SCH ×4 (05:50→23:28)
[2018-11-16 05:57] LABS: BUN Blood Urea Nitrogen 35 mg/dL (7-18); Bicarbonate 40 mmol/L (21-32); Glucose Level 121 mg/dL (74-106); Magnesium 2.3 mg/dL (1.8-2.4); Potassium 4.6 mmol/L (3.5-5.1); Sodium Level 139 mmol/L (136-145)
[2018-11-16] MEDS: ALBUTEROL 2.5 MG/3 ML NEB SOL NEB PRN (06:15)
[2018-11-16] MEDS: ARFORMOTEROL TARTRATE 15 MCG/2 ML VIAL.NEB NEB SCH ×2 (07:35→20:00)
[2018-11-16 07:52] LABS: Blood Morphology Comment NOT SEEN (NOT SEEN); Platelet Estimate ADEQ
[2018-11-16] MEDS: Levofloxacin500mg IV 500 MG/100 ML BAG IV SCH (08:35)
[2018-11-16] MEDS: CLOTRIMAZOLE 10 MG TROCHE PO SCH ×4 (08:37→22:13)
[2018-11-16] MEDS: CARVEDILOL 3.125 MG TAB PO SCH ×2 (08:38→22:13)
[2018-11-16] MEDS: CYCLOBENZAPRINE 10 MG TAB PO SCH ×3 (08:38→23:28)
[2018-11-16] MEDS: ASPIRIN EC 81 MG TAB PO SCH (08:38)
[2018-11-16] MEDS: PANTOPRAZOLE 40MG TABLET PO SCH (08:38)
[2018-11-16] MEDS: APIXABAN 5 MG TABLET PO SCH ×2 (08:38→22:14)
[2018-11-16] MEDS: SPIRONOLACTONE 25 MG TABLET PO SCH ×2 (08:42→22:14)
--- NOTE | 2018-11-16 09:57 | RAD REPORT ---
EXAM DESCRIPTION: Jane Single View11/16/2018 7:13 am CLINICAL HISTORY: Chest pain COMPARISON: November 10 FINDINGS: No significant change in the bilateral pleural effusions and bibasilar atelectasis. There probably is mild interstitial pulmonary edema. The heart remains enlarged
[2018-11-16] MEDS ORDERED: Pharmacy Consult 1 EA XX PRN (10:48)
--- NOTE | 2018-11-16 10:49 | P.PN ---
Subjective Date of Service: 11/16/18 Chief Complaint: Respiratory distress Patient is not doing well she has gotten progressively worse very congested this morning in respiratory distress Review of Systems General: Weakness Respiratory: Cough, Shortness of Breath Physical Examination - Vital Signs Temperature: 98.4 F Blood Pressure: 119/69 Pulse: 87 Respirations: 22 Pulse Ox (%): 91 - Physical Exam General: Moderate distress Respiratory: Crackles/rales (Bilateral crackles), Expiratory wheezes Cardiovascular: Normal S1 S2, Edema, Systolic murmur Assessment & Plan - Problems (Diagnosis) (1) Proteus infection Current Visit: Yes Status: Acute Plan: Patient's condition is was change to meropenem Dc levofloxacin also has a history of Pseudomonas infection I have also added vancomycin (2) CHF exacerbation Current Visit: No Status: Acute Plan: Kidney function is stable at IV Lasix with patient on BiPAP white count elevated the seated reducing dose of steroid continuous pulse oximetry of nose is very poor patient is do not resuscitate family members at bedside Qualifiers: Heart failure type: diastolic Qualified Code(s): I50.33 - Acute on chronic diastolic (congestive) heart failure
[2018-11-16] MEDS: FUROSEMIDE 20 MG/ 2ML VIAL IV SCH ×2 (11:53→16:47)
[2018-11-16] MEDS: Meropenem 500 MG in NA CHLORIDE 0.9% 100 ML IV SCH ×2 (11:53→16:49)
[2018-11-16] MEDS ORDERED: VANCOMYCIN 1.25 GM in NA CHLORIDE 0.9% 250 ML IVPB ONE (12:00)
[2018-11-16] MEDS ORDERED: Meropenem 500 MG VIAL IV SCH (17:00)
--- NOTE | 2018-11-16 21:41 | PN ---
Date of Progress Note: 11/16/2018 Subjective: The patient was seen this morning for followup. Her condition has deteriorated in the l ast 24 hours. This morning, she appeared very weak, tired, with very shallow breathing. Family was at bedside that included her son and icclkwbs-ef-zle and tykfpd-qy-plf. Objective: Vital Signs: Reviewed. HEENT: Unremarkable. Lungs: Bilateral shallow entry with some crackles noted, but overall crackles are less than before, but at the same time, she is also not taking deep breath today. Heart: Sounds normal. Abdomen: Soft bowel sounds normal. No guarding, rigidity, tenderness, or distention. Extremities: No leg edema. Laboratory Data: White count 23.7, hemoglobin 10.6, platelets 282. Sodium 139, potassium 4.6, chlor iron 96, bicarb 40, BUN 35, creatinine 0.42, glucose 121. Impression: 1.Acute respiratory failure. 2.Pneumonia. 3.Pleural effusion. 4.Anemia. 5.Paroxysmal atrial fibrillation. Plan: We will go ahead and continue current management. Her chest x-ray from today shows no signifi cant change in the bilateral pleural effusion and bibasilar atelectasis. There is probably mild inte rstitial pulmonary edema noted on the chest x-ray as well. Details were discussed with Dr. Serna. He also saw her. Dr. Serna ordered a BiPAP on her, and I talked to patient's family. The patie nt's condition is rapidly deteriorating, and the patient has advanced directive is do not resuscitate . We talked about using BiPAP versus not using it and continuing current medical management. Using BiPAP would probably not have any meaningful impact on the outcome and after all the discussion, the patient's son informed me that they do want us to keep her comfortable and they do not want us to use any BiPAP therapy at this point. Family was made aware that if her condition continues to deteriora te then her is expected in next 2-3 days. MONIE/MODL Voice ID: [id number] Report ID: [id number]
[2018-11-16] MEDS: MIRTAZAPINE 15 MG TAB PO SCH (22:14)
[2018-11-16] MEDS: VANCOMYCIN 750 MG in NA CHLORIDE 0.9% 150 ML IVPB SCH (23:27)
[2018-11-17] MEDS: LORAZEPAM 0.5 MG TABLET PO PRN (00:06)
[2018-11-17] MEDS: ALBUTEROL 2.5 MG/3 ML NEB SOL NEB PRN ×2 (01:00→06:20)
[2018-11-17] MEDS: IPRATROPIUM BROM 0.5MG/2.5ML NEB SCH ×5 (01:00→19:19)
[2018-11-17] MEDS: Meropenem 500 MG in NA CHLORIDE 0.9% 100 ML IV SCH ×3 (01:08→16:53)
[2018-11-17] MEDS: METHYLPREDNISOLONE 40 MG INJ IV SCH ×3 (05:22→17:06)
[2018-11-17] MEDS ORDERED: LORazepam 2 MG/ML VIAL IV PRN (06:46)
[2018-11-17] MEDS ORDERED: FUROSEMIDE 40 MG/4 ML VIAL IV ONE (06:47)
[2018-11-17] MEDS: FUROSEMIDE 20 MG/ 2ML VIAL IV SCH ×3 (07:25→17:00)
[2018-11-17] MEDS: PANTOPRAZOLE 40MG TABLET PO SCH (07:30)
[2018-11-17] MEDS: CYCLOBENZAPRINE 10 MG TAB PO SCH ×2 (08:00→16:00)
[2018-11-17] MEDS: ARFORMOTEROL TARTRATE 15 MCG/2 ML VIAL.NEB NEB SCH ×2 (08:53→19:19)
[2018-11-17] MEDS: ASPIRIN EC 81 MG TAB PO SCH (09:00)
[2018-11-17] MEDS: CLOTRIMAZOLE 10 MG TROCHE PO SCH ×4 (09:00→21:00)
[2018-11-17] MEDS: APIXABAN 5 MG TABLET PO SCH ×2 (09:00→21:00)
[2018-11-17] MEDS: CARVEDILOL 3.125 MG TAB PO SCH ×2 (09:00→21:00)
[2018-11-17] MEDS: SPIRONOLACTONE 25 MG TABLET PO SCH ×2 (09:00→21:00)
[2018-11-17] MEDS: VANCOMYCIN 750 MG in NA CHLORIDE 0.9% 150 ML IVPB SCH ×2 (09:49→21:41)
--- NOTE | 2018-11-17 15:39 | PN ---
Date of Progress Note: 11/17/2018 Subjective: The patient was seen this morning for followup. She was lying in her bed. Her son was present with her at bedside. She is extremely weak with shallow breathing and using accessory muscle s of respiration today. Overall, her condition is worse today than yesterday. Objective: Vital Signs: Reviewed. HEENT: Unremarkable. Lungs: Bilateral shallow air entry with some scattered rales. Heart: Sounds normal. Abdomen: Soft. Bowel sounds normal. No guarding, rigidity, tenderness, or distention. Extremities: No leg edema. Impression: 1.Acute respiratory failure. 2.Congestive heart failure. 3.Chronic obstructive pulmonary disease. 4.Pneumonia. 5.Pleural effusion. 6.Anemia. Plan: We will go ahead and continue current medical management. Overall, prognosis is poor. The geraldo worrell's condition is deteriorating in last 48 hours or so, and rapid deterioration is to be expected. I did talk to the patient and her son today about hospice care and options of staying in the hospit al for 5 days with inpatient hospice and then go home versus going home directly with hospice. Both options discussed and son will discuss with rest of the family member, but she tells me that very lik [place] family will decide to go home with the hospice care and I have requested Social Service to assist the patient and family with hospice care arrangements. Hospice diagnosis is congestive heart failure, [place] PD, acute respiratory failure. MONIE/MODL Voice ID: [id number] Report ID: [id number]
[2018-11-17] MEDS: MIRTAZAPINE 15 MG TAB PO SCH (21:00)
[2018-11-18] MEDS: Meropenem 500 MG in NA CHLORIDE 0.9% 100 ML IV SCH ×4 (00:16→23:28)
[2018-11-18] MEDS: SCOPOLAMINE HYDROBROMIDE PATCH TD SCH ×2 (00:16→00:17)
[2018-11-18] MEDS: METHYLPREDNISOLONE 40 MG INJ IV SCH ×5 (00:16→23:28)
[2018-11-18] MEDS ORDERED: LORazepam 2 MG/ML VIAL IV PRN (02:04)
[2018-11-18] MEDS: IPRATROPIUM BROM 0.5MG/2.5ML NEB SCH ×4 (02:05→20:00)
[2018-11-18] MEDS: MORPHINE 2 MG/ML SYR IV PRN ×3 (02:18→15:32)
[2018-11-18] MEDS: PANTOPRAZOLE 40MG TABLET PO SCH (07:30)
[2018-11-18] MEDS: ARFORMOTEROL TARTRATE 15 MCG/2 ML VIAL.NEB NEB SCH ×2 (08:00→20:00)
[2018-11-18] MEDS: CYCLOBENZAPRINE 10 MG TAB PO SCH ×4 (08:00→23:27)
--- NOTE | 2018-11-18 08:37 | PN ---
Date of Progress Note: 11/15/2018 Subjective: The patient was seen this morning for followup. Her friend and family member were prese nt with her, which is her tzhlkv-tn-xia at bedside. The patient reported that she is not feeling goo d and she told me that she does not feel like she is going to get better. Continues to have signific ant weakness, shortness of breath, has trouble ambulating beyond a few steps. Her urine continues to be dark brown in color. Appetite is very poor. Objective: Vital Signs: Reviewed. HEENT: Examination unremarkable. Lungs: Bilateral scattered rhonchi and rales, but significantly better over the last 48 hours compar ed to before. Heart: Heart sounds normal. Abdomen: Soft. Bowel sounds normal. No guarding, rigidity, tenderness, or distention. Extremities: No leg edema. Impression: 1.Pneumonia. 2.Pleural effusion. 3.Paroxysmal atrial fibrillation. 4.Urinary tract infection. Plan: We will continue current anticoagulation medication which is Eliquis. The patient had noseble ed day before yesterday, but no more problem with nosebleed after that. She continues to remain on o xygen. Continue to remain on antibiotics. We will continue steroids per order. Physical therapy to continue to help with the patient and the patient was encouraged to eat her meals. We have long dis cussion with her today. The patient has started to realize that she will not get better, but she also at the same time agrees to keep trying to see if with ongoing medical therapy that we are providing her and physical therapy , if her condition can improve to back to her prior level of functioning or not. If we see deteriora tion, then obviously we will approach her with hospice care at appropriate time. We will follow up o n urine culture and then make decision about any change in antibiotics. I did discuss with her li ambrocio advance directive in presence of her friend and family member and she does not want the CPR, def ibrillation, ventilator support, and DNR order was written in the chart. MONIE/MODL Voice ID: [id number] Report ID: [id number]
[2018-11-18] MEDS: ASPIRIN EC 81 MG TAB PO SCH (08:51)
[2018-11-18] MEDS: SPIRONOLACTONE 25 MG TABLET PO SCH ×2 (08:51→21:00)
[2018-11-18] MEDS: FUROSEMIDE 20 MG/ 2ML VIAL IV SCH ×2 (08:51→15:51)
[2018-11-18] MEDS: CARVEDILOL 3.125 MG TAB PO SCH ×2 (08:51→21:00)
[2018-11-18] MEDS: APIXABAN 5 MG TABLET PO SCH ×2 (08:51→21:00)
[2018-11-18] MEDS: CLOTRIMAZOLE 10 MG TROCHE PO SCH ×4 (08:52→21:00)
[2018-11-18] MEDS: VANCOMYCIN 750 MG in NA CHLORIDE 0.9% 150 ML IVPB SCH ×2 (08:52→21:00)
[2018-11-18 12:41] VITALS: TEMP 99.9
[2018-11-18 16:56] VITALS: BP 163/75
[2018-11-18] MEDS: MIRTAZAPINE 15 MG TAB PO SCH (21:00)
[2018-11-18 21:06] VITALS: O2SAT 89
--- NOTE | 2018-11-19 01:31 | PN ---
Date of Progress Note: 11/18/2018 Subjective: The patient was seen this morning for followup. No new complaints or problems reported by nursing staff. Family was at bedside. The patient is unresponsive with labored breathing, very s hallow breathing, using accessory muscles of respiration, and does not communicate. Her condition garcia s deteriorated compared to yesterday and in last 48 hours, her condition has significantly deteriorat ed, especially today compared to last 48 hours. Objective: Vital Signs: Reviewed. HEENT: Examination unremarkable. Lungs: Shallow air entry. Some crackles noted. Heart: Sounds normal. Abdomen: Soft. Bowel sounds normal. No guarding, rigidity, tenderness, or distention. Extremities: No leg edema. Impression: 1.Acute respiratory failure. 2.Pneumonia. 3.Chronic obstructive pulmonary disease. 4.Chronic diastolic congestive heart failure. Plan: The patient's condition is rapidly deteriorating and ongoing deterioration is to be expected. The way her condition deteriorates and will continue to deteriorate as is expected in next 24 to 48 hours. Over the weekend when I was communicating with family, they had expressed desire to take her home with hospice care, but considering this rapid decline, I personally do not believe that the irma ent will survive ambulance transportation from hospital to home and family has the same thought, so holly gray started talking about hospice care while in the hospital. She is very comfortable at this point. She did use one dose of morphine sometime last night and that actually helped her. At this point, he r comfort care is what we can provide to her and family understands and agrees and we will discontinu e all other nonessential medication and treatment at this point. I asked family to start communicati ng with Social Service, so we can start planning in-hospital hospice care, but that may not be even n ecessary considering her declining health, and I will see her tomorrow for followup. MONIE/MODL Voice ID: [id number] Report ID: [id number]
--- NOTE | 2018-12-01 15:56 | DS ---
Date of Discharge: 11/18/2018 Disposition: The patient . Physical Examination: See copy of today's progress note for details. Laboratory Data: Her initial white count 12.6, hemoglobin 11.4, platelets 577. Last CBC on 11/17/19 19, 23.7, hemoglobin 10.6, platelets 282. Last chemistry on 11/16/2018, sodium 139, potassium was 4. 6, chloride 96, bicarb 40, BUN 35, creatinine 0.42, glucose 121. Initial sodium 136, potassium 3.9, chloride 93, bicarb 39, BUN 17, creatinine 0.62, glucose 85. Blood gas on 11/12/2018, pH 7.45, pCO2 of 53.9, pO2 82.3. Sputum culture grew pseudomonas. Blood culture remained negative. Initial sputu m culture from 11/06/2018 grew proteus and then on 11/16/2018 grew Pseudomonas. Hospital Course: This is a 72-year-old female patient in frail condition, came into emergency room w ith complaints of shortness of breath. The patient was evaluated in the ER, admitted to the hospital with concerns about pneumonia and pleural effusion. Her pleural effusion is chronic problem. She a lso had some pleurisy. She was admitted to the hospital. Empiric antibiotics were started. Dr. Jesus Manuel rockwell was consulted from Pulmonary. Oxygen, nebulizer treatment, IV antibiotics were given. The pat flex's condition throughout this hospitalization did not improve satisfactorily. Dr. Serna was th inking about sending her home with nebulized antibiotic depending on the sputum culture, but initial sputum culture grew proteus, which was sensitive to Levaquin and appropriate antibiotics were given t o her. Physical therapy was consulted to help ambulate the patient. She had significant generalized weakness with reduced appetite. We did give her IV steroid during this hospitalization as well. Jeniffer gray developed some metabolic alkalosis. At that time, we discontinued her furosemide that she was gett ing. On 11/13/2018, the patient went into atrial fibrillation with rapid ventricular rate. Cardiolo gy consultation was requested and Eliquis was given for atrial fibrillation as anticoagulant medicati on. Prior to that, she was getting Lovenox. The patient continued to have vague complaints of gener alized weakness and not feeling good, shortness of breath. She continued to have trouble ambulating more than few steps. At some point, her urine was dark in color. On 11/15/2018, she started to real ize that she may not get better and she started informing her family member that she may not improve and we talked about her advance directive and DNR order was written in the chart per patient's decisi on. Details were discussed with family members as well. Eventually, her condition continued to dete riorate with respiratory failure and I did talk to the patient's family members and they decided not to use any BiPAP support, and they requested comfort care measures, which we were able to provide and on 11/18/2018, the patient in the hospital and this was expected . Final Diagnoses: 1.Acute respiratory failure with CO2 retention. 2.Pneumonia. 3.Pleural effusion. 4.Chronic obstructive pulmonary disease. 5.Chronic diastolic congestive heart failure. 6.Paroxysmal atrial fibrillation. 7.Hypertension. 8.Hyperlipidemia. 9.Adrenal insufficiency. 10.Anemia. 11.Diverticulosis. 12.Osteoporosis. 13.Chronic steroid therapy. MONIE/MODL Voice ID: [id number] Report ID: [id number]
== END 2018-11-18 23:57 | disposition expired | DRG 177 ==
LOC: ER 07:27 → 4TH 09:16
PROVIDERS: ADMIT Internal Medicine; ATTEND Internal Medicine
DX: J15.6 Pneumonia due to other Gram-negative bacteria (principal); I50.33 Acute on chronic diastolic (congestive) heart failure; J96.00 Acute respiratory failure, unspecified whether with hypoxia or hypercapnia; J91.8 Pleural effusion in other conditions classified elsewhere; E27.40 Unspecified adrenocortical insufficiency; B37.0 Candidal stomatitis; E87.3 Alkalosis; N39.0 Urinary tract infection, site not specified; D68.32 Hemorrhagic disorder due to extrinsic circulating anticoagulants; R09.1 Pleurisy; E78.5 Hyperlipidemia, unspecified; M81.0 Age-related osteoporosis without current pathological fracture; K57.90 Diverticulosis of intestine, part unspecified, without perforation or abscess without bleeding; D64.9 Anemia, unspecified; Z79.52 Long term (current) use of systemic steroids; K21.9 Gastro-esophageal reflux disease without esophagitis; Z95.2 Presence of prosthetic heart valve; R74.8 Abnormal levels of other serum enzymes; F41.9 Anxiety disorder, unspecified; J44.9 Chronic obstructive pulmonary disease, unspecified; K59.00 Constipation, unspecified; I11.0 Hypertensive heart disease with heart failure; I48.0 Paroxysmal atrial fibrillation; Z66 Do not resuscitate; Z51.5 Encounter for palliative care; R04.0 Epistaxis; T45.525A Adverse effect of antithrombotic drugs, initial encounter; Y92.230 Patient room in hospital as the place of occurrence of the external cause
CPT/HCPCS: 36415; 71045; 80048; 80076; 80202; 81001; 81003; 81015; 82805; 83605; 83735; 83880; 84484; 85025; 85610; 87040; 87070; 87077; 87086; 87088; 87186; 87205; 87804; 93005; 93306; 94640; 94760; 96374; 96375; 97161; 99285; J1160; J1650; J1940; J2270; J2405; J2920; J2930; J7512; J7605